=== PATIENT | female | born 1960 | race Two or more races ===

== ENCOUNTER 2020-05-29 19:14 | Inpatient (IN) | payer OTHER ==
[~2020-05-29] VITALS: Ht 167.6 cm; Wt 156.0 kg
[2020-05-29 19:20] VITALS: BP 164/78
--- NOTE | 2020-05-29 19:20 | NUR ---
ED Nurse Note: Pt VIRGEN from nursing facility, pt c/o 101/10 abdominal pain for 6 weeks, now with diarrhea and nausea. Pt is A&Ox4, VSS on room air. Pt's abdomen is distended, obese and redened. Pt can ambulate with assistance, pt is continent although wearing diapers due to diarrhea. Pt placed on telemetry monitor
[2020-05-29] MEDS ORDERED: Piperacillin/Tazobactam 3.375 GM in NS 110 ML IVPB ONE (19:45)
[2020-05-29 20:06] LABS: CALCIUM 7.5 MG/DL (8.5-10.1); CREATININE 3.6 MG/DL (0.55-1.30); POTASSIUM 5.4 MMOL/L (3.5-5.1)
[2020-05-29 20:11] LABS: ALBUMIN 2.4 G/DL (3.4-5.0); ALBUMIN/GLOBULIN RATIO 0.7 (1.0-2.7); BASOPHILS % (AUTO) 0.9 % (0.0-2.0); BILIRUBIN,TOTAL 0.3 MG/DL (0.2-1.0); EOSINOPHILS % (AUTO) 2.2 % (0.0-3.0); HEMATOCRIT 31.6 % (37.0-47.0); HEMOGLOBIN 9.4 G/DL (12.0-16.0); LYMPHOCYTES % (AUTO) 11.4 % (20.0-45.0); MEAN CORPUSCULAR VOLUME 87 FL (80-99); MONOCYTES % (AUTO) 6.5 % (1.0-10.0); NEUTROPHILS % (AUTO) 79.1 % (45.0-75.0); PLATELET COUNT 262 K/UL (150-450); RED BLOOD COUNT 3.62 M/UL (4.20-5.40); RED CELL DISTRIBUTION WIDTH 17.9 % (11.6-14.8); WHITE BLOOD COUNT 9.4 K/UL (4.8-10.8)
[2020-05-29 20:28] LABS: APPEARANCE,URINE CLEAR; BILIRUBIN, URINE NEGATIVE (NEGATIVE); COLOR,URINE PALE YELLOW; GLUCOSE, URINE (UA) 1+ (NEGATIVE); KETONES,URINE NEGATIVE (NEGATIVE); LEUKOCYTE ESTERASE ,URINE NEGATIVE (NEGATIVE); NITRITE,URINE NEGATIVE (NEGATIVE); PH,URINE 6.5 (4.5-8.0); PROTEIN,URINE 4+ (NEGATIVE); UROBILINOGEN,URINE NORMAL MG/DL (0.0-1.0)
--- NOTE | 2020-05-29 20:35 | NUR ---
ED Nurse Note: Pt to CT
--- NOTE | 2020-05-29 20:56 | NUR ---
ED Nurse Note: Pt back from CT
[2020-05-29] MEDS ORDERED: Morphine Sulfate 4mg/ml Inj (IV USE ONLY) IVP ONE ×2 (21:00→22:15)
--- NOTE | 2020-05-29 21:16 | NUR ---
ED Nurse Note: Pt Spo2 88% currently on room air, explained to Pt the importance of o2 therapy, pt refused at this time, states she "creates mucus and the o2 will freeze it" she reports she will call if she feels the need. ERMD aware
[2020-05-29 21:30] VITALS: BP 154/70
--- NOTE | 2020-05-29 21:30 | Diagnostic Imaging Report ---
EXAM: CT Abdomen and Pelvis Without Intravenous Contrast CLINICAL HISTORY: PAIN TECHNIQUE: Axial computed tomography images of the abdomen and pelvis without intravenous contrast. CTDI is 27.4 mGy and DLP is 1559.2 mGy-cm. One or more of the following dose reduction techniques were used: automated exposure control, adjustment of the mA and/or kV according to patient size, use of iterative reconstruction technique. COMPARISON: None. FINDINGS: Limitations: Exam is limited due to decreased resolution related to beam hardening artifact from large body habitus. Lung bases: Fullness of the central markings which may indicate vascular congestion. Bilateral lower lobe atelectasis. Right lower lobe nodules largest measuring 8.7 mm. Pleural space: Mild to moderate right-sided pleural effusion. Minimal left-sided effusion. Heart: Mild cardiomegaly. ABDOMEN: Liver: Unremarkable. Gallbladder and bile ducts: Unremarkable. No calcified stones. No ductal dilation. Pancreas: Unremarkable. No ductal dilation. Spleen: Unremarkable. No splenomegaly. Adrenals: Unremarkable. No mass. Kidneys and ureters: Mild nonspecific perinephric stranding. No obstructing stones. Stomach and bowel: Diverticulosis of the colon with no signs of diverticulitis. No obstruction. PELVIS: Appendix: No findings to suggest acute appendicitis. Bladder: Unremarkable. No stones. Reproductive: Unremarkable as visualized. ABDOMEN and PELVIS: Intraperitoneal space: Mild ascites predominantly seen along the anterior liver margin. No free air. Bones/joints: Advanced multilevel disc degenerative disease. No acute fracture. No dislocation. Soft tissues: Stranding/fluid infiltration of the subcutaneous fat suggestive of anasarca. Vasculature: Unremarkable. No abdominal aortic aneurysm. Lymph nodes: Unremarkable. No enlarged lymph nodes. IMPRESSION: 1. Right sided lung nodules, differential diagnosis including metastatic disease/neoplasm versus inflammatory process. Follow-up recommended with CT chest for further characterization. 2. Bilateral pleural effusions, more significant on the right. 3. Diffuse anasarca. Mild ascites. 4. Diverticulosis with no signs of diverticulitis. No bowel obstruction.
[2020-05-29] MEDS ORDERED: METOPROLOL TART25 MG ORAL (23:19)
[2020-05-29] MEDS ORDERED: CATAPRES0.1 MG ORAL (23:19)
[2020-05-29] MEDS ORDERED: FAMOTIDINE20 MG ORAL (23:19)
[2020-05-29] MEDS ORDERED: HYDRALAZINE HCL25 M1 ORAL (23:19)
[2020-05-29] MEDS ORDERED: FERROUS SULFAT325 M2 ORAL (23:19)
[2020-05-29] MEDS ORDERED: HYDROCHLOROTHIA50 MG ORAL (23:19)
[2020-05-29] MEDS ORDERED: SIMETHICONE80 MG ORAL (23:19)
[2020-05-29] MEDS ORDERED: ZOFRAN4 M3 ORAL (23:19)
[2020-05-29] MEDS ORDERED: LEXAPRO10 MG ORAL (23:19)
[2020-05-29] MEDS ORDERED: DOCUSATE SODIU100 MG ORAL (23:19)
[2020-05-29] MEDS ORDERED: IBUPROFEN600 M1 ORAL (23:19)
--- NOTE | 2020-05-29 23:45 | NUR ---
TRANSFER TO FLOOR: Patient transferred to as ordered, per DR Braga. Report given to RN. Belongings and medications given to . Family and or S/O informed of transfer.
--- NOTE | 2020-05-29 23:50 | NUR ---
CHARGE NURSE NOTE: Pt admitted from ER in stable condition. No acute distress noted. Vitals stable, Room air, Pt is awake, and alert. Pt admitted for abdominal pain. Pt has lower extremity weakness.Fall precaution initiated. Report received from ER Nurse GORDON Huynh. Report give to Primary nurse ALL Varma to continue care of the patient.
[2020-05-30] VITALS (7 sets, daily range): BP systolic 112–159; BP diastolic 46–85
[2020-05-30] MEDS ORDERED: ACETAMINOPHEN325 M1 ORAL (01:30)
[2020-05-30] MEDS ORDERED: INSU (01:30)
[2020-05-30] MEDS ORDERED: INSULIN LI100 UNIT/2 SQ (02:07)
[2020-05-30] MEDS ORDERED: METOPROLOL TART25 MG ORAL (02:20)
[2020-05-30] MEDS ORDERED: ZOFRAN4 M3 ORAL (02:27)
[2020-05-30] MEDS ORDERED: Simethicone 80mg tab ORAL PRN (04:00)
[2020-05-30] MEDS ORDERED: Morphine Sulfate 2mg/ml Inj(IV/IM USE ONLY) IVP PRN (04:15)
[2020-05-30] MEDS ORDERED: D5 1/2NS 1,000 ML IV SCH (04:15)
--- NOTE | 2020-05-30 05:44 | NUR ---
NURSE NOTES: ADMITTED 59 YEAR OLD FEMALE TO ROOM 407 BED 2 VIA GURNEY FROM EMERGENCY DEPARTMENT WITH DIAGNOSIS ABDOMINAL PAIN, UNDER THE CARE OF DR. Melvin BAER. PATIENT ALERT/ORIENTED X4, VERBALLY RESPONSIVE, IV INTACT TO LEFT AC/GAUGE 20, NO REDNESS/SWELLING NOTED TO SITE. NO SIGNS AND SYMPTOMS OF ACUTE CARDIO RESPIRATORY DISTRESS/SHORTNESS OF BREATH, DENIES CHEST PAIN, TRACE EDEMA NOTED TO BILATERAL LOWER EXTREMITIES/NON PITTED, ENCOURAGED ELEVATION, PATIENT STATED "I'M NOT ABLE TO ELEVATE MY LEGS BECAUSE OF MY STOMACH". ABDOMEN OBESE/FIRM, NOTED WITH HYPOACTIVE BOWEL SOUNDS, DENIES ABDOMINAL PAIN. ORIENTATED PATIENT TO ROOM/ENVIRONMENT. SIDE RAILS UP X3/BED IN LOWEST POSITIONED FOR SAFETY, ENCOURAGED PATIENT TO UTILIZE CALL LIGHT FOR ASSISTANCE, VERBALIZED UNDERSTANDING, NAD.
[2020-05-30] MEDS: NovoLOG Insulin Flexpen SUBQ SCH ×4 (06:06→21:00)
--- NOTE | 2020-05-30 07:30 | NUR ---
nurse notes Received patient resting comfortably in bed, patient awake, alert, oriented x4, no sign of distress, Denies chest pain bur complaining of abdominal pain, IVF on going left AC,patent and infusing well,NPO status, purewick on, voiding well, on fall precaution observed and maintained, kept clean dry and comfortable in bed , needs met and anticipated, will continue to monitor patient condition desire garcia
--- NOTE | 2020-05-30 07:30 | NUR ---
NURSE HAND-OFF: Important Events on Shift:[ADMISSION-LEFT MESSAGE FOR DR. BAER, NEED ORDER TO CHANGE ADMITTING DIAGNOSIS FROM CP/ACS TO ABDOMINAL PAIN, PLEASE FOLLOW UP] Patient Status: [STABLE] Diet: [NPO EXCEPT ICE CHIPS/MEDS] Pending Orders: [N/A] Pending Results/Labs:[] Pending MD notification:[] Latest Vital Signs: Temperature 98.7 , Pulse 62 , B/P 159 /61 , Respiratory Rate 20 , O2 SAT 93 , Room Air, O2 Flow Rate . Vital Sign Comment: [STABLE, AFEBRILE] Latest Bhagat Fall Score: 45 Fall Risk: High Risk Safety Measures: Call light Within Reach, Bed Alarm Zone 1, Side Rails Side Rails x3, Bed position . Fall Precautions: Yellow Socks Door Sign Patient Fall Education Report given to [TEORN].
--- NOTE | 2020-05-30 07:46 | NUR ---
NURSE NOTES: MRSA NARES/VRE RECTUM SCREENS SENT TO LAB-
--- NOTE | 2020-05-30 07:47 | NUR ---
NURSE HAND-OFF: Important Events on Shift:[ADMISSION, ALERT/ORIENTED X3] Patient Status: [STABLE] Diet: [NPO EXCEPT ICE CHIPS/MEDS] Pending Orders: AM LABS Pending Results/Labs:[] Pending MD notification:[] Latest Vital Signs: Temperature 98.7 , Pulse 62 , B/P 159 /61 , Respiratory Rate 20 , O2 SAT 93 , Room Air, O2 Flow Rate . Vital Sign Comment: [] Latest Bhagat Fall Score: 45 Fall Risk: High Risk Safety Measures: Call light Within Reach, Bed Alarm Zone 1, Side Rails Side Rails x3, Bed position . Fall Precautions: Yellow Socks Door Sign Patient Fall Education Report given to [].
[2020-05-30 08:14] LABS: BASOPHILS % (AUTO) 1.4 % (0.0-2.0); EOSINOPHILS % (AUTO) 1.2 % (0.0-3.0); HEMATOCRIT 32.5 % (37.0-47.0); HEMOGLOBIN 9.3 G/DL (12.0-16.0); LYMPHOCYTES % (AUTO) 11.8 % (20.0-45.0); MEAN CORPUSCULAR VOLUME 93 FL (80-99); MONOCYTES % (AUTO) 7.1 % (1.0-10.0); NEUTROPHILS % (AUTO) 78.5 % (45.0-75.0); PLATELET COUNT 253 K/UL (150-450); RED BLOOD COUNT 3.49 M/UL (4.20-5.40); RED CELL DISTRIBUTION WIDTH 17.2 % (11.6-14.8); WHITE BLOOD COUNT 6.8 K/UL (4.8-10.8)
[2020-05-30 08:30] LABS: CALCIUM 7.5 MG/DL (8.5-10.1); CREATININE 3.7 MG/DL (0.55-1.30); POTASSIUM 5.6 MMOL/L (3.5-5.1)
--- NOTE | 2020-05-30 08:48 | Consultation ---
History of Present Illness General Date patient seen: May 30, 2020 Chief Complaint: Abdominal Pain Present Illness Allergies: Coded Allergies: ACETAMINOPHEN (Verified Allergy, Unknown, 05/29/20) HYDROCODONE (Verified Allergy, Unknown, 05/29/20) Medication History Scheduled Clonidine Hcl* (Catapres*), 0.1 MG ORAL EVERY 6 HOURS, (Reported) Docusate Sodium* (Docusate Sodium*), 100 MG ORAL THREE TIMES A DAY, (Reported) Escitalopram Oxalate* (Lexapro*), 10 MG ORAL DAILY, (Reported) Famotidine* (Pepcid 20mg tablet*), 40 MG ORAL DAILY, (Reported) Hydralazine Hcl* (Hydralazine Hcl*), 25 MG ORAL TID, (Reported) Hydrochlorothiazide* (Hydrochlorothiazide*), 50 MG ORAL BID, (Reported) Insulin Lispro (Insulin Lispro Kwikpen U-100), 100 UNIT SQ BEFORE MEALS AND HS, (Reported) Ondansetron* (Zofran*), 4 MG ORAL Q4HR, (Reported) Scheduled PRN Acetaminophen* (Acetaminophen 325MG Tablet*), 325 MG ORAL Q6H PRN for Temp >100.5, (Reported) Ferrous Sulfate (Ferrous Sulfate), 325 MG ORAL BEFORE BREAKFAST PRN for , (Reported) Ibuprofen* (Motrin*), 600 MG ORAL Q8H PRN for FOR PAIN, (Reported) Metoprolol Tartrate* (Metoprolol Tartrate*), 25 MG ORAL BID PRN for , (Reported) Ondansetron* (Zofran*), 4 MG ORAL Q4H PRN for Nausea & Vomiting, (Reported) Simethicone* (Simethicone*), 80 MG ORAL Q8H PRN for GAS PAIN, (Reported) Miscellaneous Medications [Insu], (Reported) Patient History Healthcare decision maker Resuscitation status Advanced Directive on File Physical Exam Last 24 Hour Vital Signs Date Time Temp Pulse Resp B/P (MAP) Pulse Ox O2 Delivery O2 Flow Rate FiO2 05/30/20 04:00 98.7 62 20 159/61 (93) 93 05/30/20 00:30 98.1 63 20 154/63 (93) 93 05/30/20 00:15 Room Air 05/29/20 23:45 98.0 70 18 148/68 90 Room Air 05/29/20 21:32 98.8 05/29/20 21:30 98.0 72 18 154/70 88 Room Air 05/29/20 19:20 98.8 75 20 164/78 85 Room Air 05/29/20 19:20 62 20 Room Air 05/29/20 19:17 98.8 62 20 164/78 (106) 85 Room Air Intake and Output 05/29/20 05/30/20 19:00 07:00 Intake Total 120 ml Balance 120 ml Intake IV Total 120 ml # Voids 2 Laboratory Tests Test 05/29/20 19:35 05/29/20 20:00 05/30/20 05:30 05/30/20 07:50 White Blood Count 9.4 K/UL (4.8-10.8) 6.8 K/UL (4.8-10.8) Red Blood Count 3.62 M/UL (4.20-5.40) L 3.49 M/UL (4.20-5.40) L Hemoglobin 9.4 G/DL (12.0-16.0) L 9.3 G/DL (12.0-16.0) L Hematocrit 31.6 % (37.0-47.0) L 32.5 % (37.0-47.0) L Mean Corpuscular Volume 87 FL (80-99) 93 FL (80-99) Mean Corpuscular Hemoglobin 26.0 PG (27.0-31.0) L 26.6 PG (27.0-31.0) L Mean Corpuscular Hemoglobin Concent 29.8 G/DL (32.0-36.0) L 28.6 G/DL (32.0-36.0) L Red Cell Distribution Width 17.9 % (11.6-14.8) H 17.2 % (11.6-14.8) H Platelet Count 262 K/UL (150-450) 253 K/UL (150-450) Mean Platelet Volume 6.9 FL (6.5-10.1) 6.7 FL (6.5-10.1) Neutrophils (%) (Auto) 79.1 % (45.0-75.0) H 78.5 % (45.0-75.0) H Lymphocytes (%) (Auto) 11.4 % (20.0-45.0) L 11.8 % (20.0-45.0) L Monocytes (%) (Auto) 6.5 % (1.0-10.0) 7.1 % (1.0-10.0) Eosinophils (%) (Auto) 2.2 % (0.0-3.0) 1.2 % (0.0-3.0) Basophils (%) (Auto) 0.9 % (0.0-2.0) 1.4 % (0.0-2.0) Prothrombin Time 10.6 SEC (9.30-11.50) Prothromb Time International Ratio 1.0 (0.9-1.1) Activated Partial Thromboplast Time 24 SEC (23-33) Sodium Level 140 MMOL/L (136-145) 143 MMOL/L (136-145) Potassium Level 5.4 MMOL/L (3.5-5.1) H 5.6 MMOL/L (3.5-5.1) H Chloride Level 110 MMOL/L (98-107) H 113 MMOL/L (98-107) H Carbon Dioxide Level 23 MMOL/L (21-32) 24 MMOL/L (21-32) Anion Gap 7 mmol/L (5-15) 6 mmol/L (5-15) Blood Urea Nitrogen 41 mg/dL (7-18) H 42 mg/dL (7-18) H Creatinine 3.6 MG/DL (0.55-1.30) H 3.7 MG/DL (0.55-1.30) H Estimat Glomerular Filtration Rate 13.0 mL/min (>60) 12.6 mL/min (>60) Glucose Level 121 MG/DL (74-106) H 88 MG/DL (74-106) Calcium Level 7.5 MG/DL (8.5-10.1) L 7.5 MG/DL (8.5-10.1) L Total Bilirubin 0.3 MG/DL (0.2-1.0) Aspartate Amino Transf (AST/SGOT) 15 U/L (15-37) Alanine Aminotransferase (ALT/SGPT) 16 U/L (12-78) Alkaline Phosphatase 91 U/L (46-116) Total Protein 6.0 G/DL (6.4-8.2) L Albumin 2.4 G/DL (3.4-5.0) L Globulin 3.6 g/dL Albumin/Globulin Ratio 0.7 (1.0-2.7) L Lipase 107 U/L (73-393) Urine Color Pale yellow Urine Appearance Clear Urine pH 6.5 (4.5-8.0) Urine Specific [place] 1.010 (1.005-1.035) Urine Protein 4+ (NEGATIVE) H Urine Glucose (UA) 1+ (NEGATIVE) H Urine Ketones Negative (NEGATIVE) Urine Blood Negative (NEGATIVE) Urine Nitrite Negative (NEGATIVE) Urine Bilirubin Negative (NEGATIVE) Urine Urobilinogen Normal MG/DL (0.0-1.0) Urine Leukocyte Esterase Negative (NEGATIVE) Urine RBC 0-2 /HPF (0 - 2) Urine WBC 0-2 /HPF (0 - 2) Urine Squamous Epithelial Cells Few /LPF (NONE/OCC) Urine Bacteria Few /HPF (NONE) POC Whole Blood Glucose Pending Hemoglobin A1c Pending HIV (1&2) Antibody Rapid Pending Microbiology Date/Time Source Procedure Growth Status 05/30/20 07:00 Rectum Received Height (Feet): 5 Height (Inches): 6.00 Weight (Pounds): 338 Medications Current Medications Medications (Trade) Dose Ordered Sig/Alissa Route PRN Reason Start Time Stop Time Status Last Admin Dose Admin Clonidine HCl (Catapres Tab) 0.1 mg Q6H PRN ORAL For High Blood Pressure 05/30/20 04:30 08/28/20 04:29 Dextrose (Dextrose 50%) 25 ml Q30M PRN IV Hypoglycemia 05/30/20 04:30 08/28/20 04:29 Dextrose (Dextrose 50%) 50 ml Q30M PRN IV Hypoglycemia 05/30/20 04:30 08/28/20 04:29 Dextrose/Sodium Chloride 1,000 ml @ 60 mls/hr [id number] IV 05/30/20 04:15 06/29/20 04:14 05/30/20 05:00 Docusate Sodium (Colace) 100 mg THREE TIMES A DAY ORAL 05/30/20 09:00 06/29/20 08:59 Escitalopram Oxalate (Lexapro) 10 mg DAILY ORAL 05/30/20 09:00 06/29/20 08:59 Famotidine (Pepcid) 40 mg DAILY ORAL 05/30/20 09:00 08/28/20 08:59 Ferrous Sulfate (Feosol) 325 mg ACBREAKFAST ORAL 05/30/20 06:30 08/28/20 06:29 Heparin Sodium (Porcine) (Heparin 5000 units/ml) 5,000 units EVERY 12 HOURS SUBQ 05/30/20 09:00 07/14/20 08:59 Hydralazine HCl (Apresoline) 25 mg TID ORAL 05/30/20 09:00 08/28/20 08:59 Hydrochlorothiazide (Hydrodiuril) 50 mg BID ORAL 05/30/20 09:00 06/29/20 08:59 Ibuprofen (Motrin) 600 mg Q8H PRN ORAL FOR PAIN 05/30/20 04:00 06/29/20 03:59 Insulin Aspart (NovoLOG) BEFORE MEALS AND HS SUBQ 05/30/20 06:30 08/28/20 06:29 Metoprolol Tartrate (Lopressor) 25 mg BID ORAL 05/30/20 09:00 08/28/20 08:59 Morphine Sulfate (Morphine Sulfate) 2 mg Q4H PRN IVP Moderate Pain (Pain Scale 4-6) 05/30/20 04:15 06/06/20 04:14 Ondansetron HCl (Zofran) 4 mg Q6H PRN IVP Nausea & Vomiting 05/30/20 04:15 06/29/20 04:14 Simethicone (Mylicon) 80 mg Q8H PRN ORAL GAS PAIN 05/30/20 04:00 08/28/20 03:59 Assessment/Plan Assessment/Plan: (1) Abdominal pain (2) Morbid obesity (3) Multiple joint pain and OA seen dictated Elio Colon May 30, 2020 08:47
[2020-05-30] MEDS ORDERED: Morphine Sulfate 4mg/ml Inj (IV USE ONLY) IVP PRN (09:00)
[2020-05-30] MEDS ORDERED: hydroCHLOROthiazide 25mg cap ORAL SCH (09:00)
[2020-05-30] MEDS ORDERED: Naloxone 0.4mg/ml Inj IVP PRN (09:00)
[2020-05-30] MEDS: HydrALAZINE 25mg tab ORAL SCH ×3 (09:09→18:30)
[2020-05-30] MEDS: Docusate 100mg cap ORAL SCH ×3 (09:09→18:28)
[2020-05-30] MEDS: Heparin 5000 units/ml inj SUBQ SCH ×2 (09:22→21:00)
--- NOTE | 2020-05-30 10:00 | History and Physical Report ---
DATE OF ADMISSION: 05/29/2020 DATE AND TIME SEEN: 05/30/2020, approximate time is 8 a.m. CONSULTANTS: 1. Paul Díaz MD. 2. Juanito Kovacs MD. 3. Mohit Agudelo MD. CHIEF COMPLAINT: Abdominal pain, abdominal cellulitis, shortness of breath, edema. BRIEF HISTORY: This is a 59-year-old female from [place] [facility], presented with above-mentioned diagnoses. Currently slightly agitated, complained of general pain. No complaint otherwise. REVIEW OF SYSTEMS: No chest pain. Slight short of breath. No nausea, vomiting, or diarrhea. PAST MEDICAL HISTORY: Includes hypertension, edema, obesity. PAST SURGICAL HISTORY: Left ankle. ALLERGIES: Tylenol, hydrocodone. MEDICATIONS: Include metoprolol, heparin, hydrochlorothiazide, hydralazine, famotidine, insulin, clonidine, Zofran, morphine. SOCIAL HISTORY: No smoking. No alcohol. No intravenous drug abuse. FAMILY HISTORY: Noncontributory. OBJECTIVE: GENERAL: Agitated in bed, oriented x2, in slight distress and general pain. VITAL SIGNS: Temperature is 98 degrees, pulse 62, respirations 20, blood pressure 159/61. CARDIOVASCULAR: No murmur. LUNGS: Poor air exchange. ABDOMEN: Bowel sounds distant. EXTREMITIES: No cyanosis or clubbing. 2+ edema throughout. NEUROLOGIC: The patient moves all extremities, slightly weak. LABORATORY AND DIAGNOSTIC DATA: Laboratory at this time shows H and H of 9.3/32, otherwise CBC is normal. BMP show potassium 5.6, chloride 113, BUN and creatinine is 42/3.7. INR is 1.0. Urinalysis show 1+ glucose, 4+ protein. ASSESSMENT: 1. Abdominal pain. 2. Abdominal wall cellulitis. 3. Shortness of breath. 4. Edema. 5. Anemia. 6. Hypertension. 7. Obesity. 8. Renal failure. PLAN: 1. Pain control. 2. Blood pressure control. 3. Resume home medications. 4. We will add Pulmonary, Nephrology, and Cardiology evaluation. 5. We will continue to follow this patient. 6. PT and dietary evaluation. 7. CBC and BMP in the morning. Hernan Braga D.O. DR: ANURADHA JOB#: [id number] CC:
[2020-05-30 10:18] LABS: CHOLESTEROL 143 MG/DL (< 200); CREATINE KINASE 145 U/L (26-308); FERRITIN 91 NG/ML (8-388); GAMMA GLUTAMYL TRANSPEPTIDASE 11 U/L (5-85); HDL CHOLESTEROL 33 MG/DL (40-60); TRIGLYCERIDES 89 MG/DL (30-150)
--- NOTE | 2020-05-30 10:32 | Diagnostic Imaging Report ---
EXAM: US Retroperitoneal Limited, Renal CLINICAL HISTORY: RENAL-A TECHNIQUE: Real-time limited ultrasound of the retroperitoneum with image documentation. COMPARISON: No relevant prior studies available. FINDINGS: Inferior vena cava: Nonvisualized inferior vena cava. Right kidney: The right kidney measures 12.8 cm. No stones. No hydronephrosis. Left kidney: The left kidney measures 11.4 cm. No stones. No hydronephrosis. Bladder: The prevoid bladder volume is 101 mL. Postvoid residual was not assessed. IMPRESSION: No hydronephrosis or nephrolithiasis.
[2020-05-30 10:37] LABS: % IRON SATURATION 11 % (15-50); IRON 27 ug/dL (50-175); TOTAL IRON BINDING CAPACITY 244 ug/dL (250-450)
--- NOTE | 2020-05-30 10:50 | NUR ---
nurse notes seen by Dr Colon with order transfer to tele for further observatio desire garcia
--- NOTE | 2020-05-30 11:00 | NUR ---
PT EVALUATION NOTE Patient seen for initial evaluation and treatment initiated. Patient presents with generalized weakness and abdominal pain which impairs patient's ability to perform mobility skills safely. Patient requires min/mod assist for bed mobility. Patient declined transfers due to c/o dizziness. Patient states that she has been non-ambulatory x 6 weeks and transfers to wheelchair with assistance. Patient will benefit from skilled inpatient PT intervention to increase strength and postural stability for improved level of functional mobility. Recommend discharge to SNF. Addendum: 05/30/20 at 1212 by LINDSEY HENRY PT Amended: Links added.
--- NOTE | 2020-05-30 12:00 | NUR ---
nurse notes Transferred to telemetry via bed, with all belongings accounted for endorsed to Shaunna becker RN accordingly, desire garcia
--- NOTE | 2020-05-30 12:36 | Consultation ---
History of Present Illness General Date patient seen: May 30, 2020 Time patient seen: 12:28 Chief Complaint: Abdominal Pain Referring physician: Dr. Braga Reason for Consultation: R/o infection Present Illness HPI 59yo F w/ morbid obesity who presents from [facility] with abd pain and N/V, as well as cough for >1 mo. Pt denies any fevers/chills, but reports ongoing cough, SOB, abd pain, and intermittent N/V. Also with more swelling in abdomen and BLE, with leg pain. Reports overall feeling of heaviness. No CP. Pt born in [facility], lived in [facility] >[facility]years Resides at [facility], says 2-3 persons were taken away from the [facility] a few days ago for COVID No allergies to abx Allergies: Coded Allergies: ACETAMINOPHEN (Verified Allergy, Unknown, 05/29/20) HYDROCODONE (Verified Allergy, Unknown, 05/29/20) Medication History Scheduled Clonidine Hcl* (Catapres*), 0.1 MG ORAL EVERY 6 HOURS, (Reported) Docusate Sodium* (Docusate Sodium*), 100 MG ORAL THREE TIMES A DAY, (Reported) Escitalopram Oxalate* (Lexapro*), 10 MG ORAL DAILY, (Reported) Famotidine* (Pepcid 20mg tablet*), 40 MG ORAL DAILY, (Reported) Hydralazine Hcl* (Hydralazine Hcl*), 25 MG ORAL TID, (Reported) Hydrochlorothiazide* (Hydrochlorothiazide*), 50 MG ORAL BID, (Reported) Insulin Lispro (Insulin Lispro Kwikpen U-100), 100 UNIT SQ BEFORE MEALS AND HS, (Reported) Ondansetron* (Zofran*), 4 MG ORAL Q4HR, (Reported) Scheduled PRN Acetaminophen* (Acetaminophen 325MG Tablet*), 325 MG ORAL Q6H PRN for Temp >100.5, (Reported) Ferrous Sulfate (Ferrous Sulfate), 325 MG ORAL BEFORE BREAKFAST PRN for , (Reported) Ibuprofen* (Motrin*), 600 MG ORAL Q8H PRN for FOR PAIN, (Reported) Metoprolol Tartrate* (Metoprolol Tartrate*), 25 MG ORAL BID PRN for , (Reported) Ondansetron* (Zofran*), 4 MG ORAL Q4H PRN for Nausea & Vomiting, (Reported) Simethicone* (Simethicone*), 80 MG ORAL Q8H PRN for GAS PAIN, (Reported) Miscellaneous Medications [Insu], (Reported) Patient History Healthcare decision maker Resuscitation status Advanced Directive on File Review of Systems ROS Narrative 10-point ROS neg except as noted in HPI Physical Exam Physical Exam Narrative Gen: NAD in bed HEENT: NCAT, EOMI CV: RRR Pulm: CTAB Abd: Morbidly obese, NTND Ext: 2+ pitting edema, TTP Neuro: Easily falls asleep, otherwise interactive, moving all extremities Last 24 Hour Vital Signs Date Time Temp Pulse Resp B/P (MAP) Pulse Ox O2 Delivery O2 Flow Rate FiO2 05/30/20 12:17 97.5 55 16 132/55 (80) 93 05/30/20 09:25 Room Air 05/30/20 09:09 57 115/52 05/30/20 09:09 115/52 05/30/20 08:00 97.4 57 16 115/52 (73) 93 05/30/20 04:00 98.7 62 20 159/61 (93) 93 05/30/20 00:30 98.1 63 20 154/63 (93) 93 05/30/20 00:15 Room Air 05/29/20 23:45 98.0 70 18 148/68 90 Room Air 05/29/20 21:32 98.8 05/29/20 21:30 98.0 72 18 154/70 88 Room Air 05/29/20 19:20 98.8 75 20 164/78 85 Room Air 05/29/20 19:20 62 20 Room Air 05/29/20 19:17 98.8 62 20 164/78 (106) 85 Room Air Intake and Output 05/29/20 05/30/20 19:00 07:00 Intake Total 120 ml Balance 120 ml Intake IV Total 120 ml # Voids 2 Laboratory Tests Test 05/29/20 19:35 05/29/20 20:00 05/30/20 05:30 05/30/20 07:50 White Blood Count 9.4 K/UL (4.8-10.8) 6.8 K/UL (4.8-10.8) Red Blood Count 3.62 M/UL (4.20-5.40) L 3.49 M/UL (4.20-5.40) L Hemoglobin 9.4 G/DL (12.0-16.0) L 9.3 G/DL (12.0-16.0) L Hematocrit 31.6 % (37.0-47.0) L 32.5 % (37.0-47.0) L Mean Corpuscular Volume 87 FL (80-99) 93 FL (80-99) Mean Corpuscular Hemoglobin 26.0 PG (27.0-31.0) L 26.6 PG (27.0-31.0) L Mean Corpuscular Hemoglobin Concent 29.8 G/DL (32.0-36.0) L 28.6 G/DL (32.0-36.0) L Red Cell Distribution Width 17.9 % (11.6-14.8) H 17.2 % (11.6-14.8) H Platelet Count 262 K/UL (150-450) 253 K/UL (150-450) Mean Platelet Volume 6.9 FL (6.5-10.1) 6.7 FL (6.5-10.1) Neutrophils (%) (Auto) 79.1 % (45.0-75.0) H 78.5 % (45.0-75.0) H Lymphocytes (%) (Auto) 11.4 % (20.0-45.0) L 11.8 % (20.0-45.0) L Monocytes (%) (Auto) 6.5 % (1.0-10.0) 7.1 % (1.0-10.0) Eosinophils (%) (Auto) 2.2 % (0.0-3.0) 1.2 % (0.0-3.0) Basophils (%) (Auto) 0.9 % (0.0-2.0) 1.4 % (0.0-2.0) Prothrombin Time 10.6 SEC (9.30-11.50) Prothromb Time International Ratio 1.0 (0.9-1.1) Activated Partial Thromboplast Time 24 SEC (23-33) Sodium Level 140 MMOL/L (136-145) 143 MMOL/L (136-145) Potassium Level 5.4 MMOL/L (3.5-5.1) H 5.6 MMOL/L (3.5-5.1) H Chloride Level 110 MMOL/L (98-107) H 113 MMOL/L (98-107) H Carbon Dioxide Level 23 MMOL/L (21-32) 24 MMOL/L (21-32) Anion Gap 7 mmol/L (5-15) 6 mmol/L (5-15) Blood Urea Nitrogen 41 mg/dL (7-18) H 42 mg/dL (7-18) H Creatinine 3.6 MG/DL (0.55-1.30) H 3.7 MG/DL (0.55-1.30) H Estimat Glomerular Filtration Rate 13.0 mL/min (>60) 12.6 mL/min (>60) Glucose Level 121 MG/DL (74-106) H 88 MG/DL (74-106) Calcium Level 7.5 MG/DL (8.5-10.1) L 7.5 MG/DL (8.5-10.1) L Total Bilirubin 0.3 MG/DL (0.2-1.0) Aspartate Amino Transf (AST/SGOT) 15 U/L (15-37) Alanine Aminotransferase (ALT/SGPT) 16 U/L (12-78) Alkaline Phosphatase 91 U/L (46-116) Total Protein 6.0 G/DL (6.4-8.2) L Albumin 2.4 G/DL (3.4-5.0) L Globulin 3.6 g/dL Albumin/Globulin Ratio 0.7 (1.0-2.7) L Lipase 107 U/L (73-393) 118 U/L (73-393) Urine Color Pale yellow Urine Appearance Clear Urine pH 6.5 (4.5-8.0) Urine Specific [place] 1.010 (1.005-1.035) Urine Protein 4+ (NEGATIVE) H Urine Glucose (UA) 1+ (NEGATIVE) H Urine Ketones Negative (NEGATIVE) Urine Blood Negative (NEGATIVE) Urine Nitrite Negative (NEGATIVE) Urine Bilirubin Negative (NEGATIVE) Urine Urobilinogen Normal MG/DL (0.0-1.0) Urine Leukocyte Esterase Negative (NEGATIVE) Urine RBC 0-2 /HPF (0 - 2) Urine WBC 0-2 /HPF (0 - 2) Urine Squamous Epithelial Cells Few /LPF (NONE/OCC) Urine Bacteria Few /HPF (NONE) POC Whole Blood Glucose Pending Hemoglobin A1c 5.9 % (4.3-6.0) Uric Acid 8.2 MG/DL (2.6-7.2) H Phosphorus Level 6.0 MG/DL (2.5-4.9) H Magnesium Level 2.7 MG/DL (1.8-2.4) H Iron Level 27 ug/dL (50-175) L Total Iron Binding Capacity 244 ug/dL (250-450) L Percent Iron Saturation 11 % (15-50) L Unsaturated Iron Binding 217 ug/dL (112-346) Ferritin 91 NG/ML (8-388) Gamma Glutamyl Transpeptidase 11 U/L (5-85) Total Creatine Kinase 145 U/L (26-308) Troponin I 0.012 ng/mL (0.000-0.056) C-Reactive Protein, Quantitative 0.6 mg/dL (0.00-0.90) Triglycerides Level 89 MG/DL (30-150) Cholesterol Level 143 MG/DL (< 200) LDL Cholesterol 96 mg/dL (<100) HDL Cholesterol 33 MG/DL (40-60) L Cholesterol/HDL Ratio 4.3 (3.3-4.4) Vitamin B12 Level 302 PG/ML (193-986) Folate 16.3 NG/ML (8.6-58.9) Thyroid Stimulating Hormone (TSH) 2.579 uiU/mL (0.358-3.740) HIV (1&2) Antibody Rapid Negative (NEGATIVE) Test 05/30/20 10:15 05/30/20 12:10 Coccidioides Antibody (Comp Fix) Pending Histoplasma Mycelial Antibody Pending Histoplasma Antibody w Mycelial Ag Pending Histoplasma Antibody with Yeast Ag Pending TB Test (T-Spot) Pending TB Test Nil Control (T-Spot) Pending TB Test Panel A (T-Spot) Pending TB Test Panel B (T-Spot) Pending TB Test Positive Control (T-Spot) Pending Beta-(1,3)-D-Glucan Pending POC Whole Blood Glucose 92 MG/DL (74-106) Microbiology Date/Time Source Procedure Growth Status 05/30/20 07:00 Rectum Received Height (Feet): 5 Height (Inches): 6.00 Weight (Pounds): 338 Medications Current Medications Medications (Trade) Dose Ordered Sig/Alissa Route PRN Reason Start Time Stop Time Status Last Admin Dose Admin Clonidine HCl (Catapres Tab) 0.1 mg Q6H PRN ORAL For High Blood Pressure 05/30/20 04:30 08/28/20 04:29 Dextrose (Dextrose 50%) 25 ml Q30M PRN IV Hypoglycemia 05/30/20 04:30 08/28/20 04:29 Dextrose (Dextrose 50%) 50 ml Q30M PRN IV Hypoglycemia 05/30/20 04:30 08/28/20 04:29 Dextrose/Sodium Chloride 1,000 ml @ 60 mls/hr [id number] IV 05/30/20 04:15 06/29/20 04:14 05/30/20 05:00 Docusate Sodium (Colace) 100 mg THREE TIMES A DAY ORAL 05/30/20 09:00 06/29/20 08:59 05/30/20 09:09 Escitalopram Oxalate (Lexapro) 10 mg DAILY ORAL 05/30/20 09:00 06/29/20 08:59 05/30/20 09:08 Famotidine (Pepcid) 40 mg DAILY ORAL 05/30/20 09:00 08/28/20 08:59 05/30/20 09:09 Heparin Sodium (Porcine) (Heparin 5000 units/ml) 5,000 units EVERY 12 HOURS SUBQ 05/30/20 09:00 07/14/20 08:59 05/30/20 09:22 Hydralazine HCl (Apresoline) 25 mg TID ORAL 05/30/20 09:00 08/28/20 08:59 05/30/20 09:09 Hydrochlorothiazide (Hydrodiuril) 50 mg BID ORAL 05/30/20 09:00 06/29/20 08:59 05/30/20 09:07 Insulin Aspart (NovoLOG) BEFORE MEALS AND HS SUBQ 05/30/20 06:30 08/28/20 06:29 Metoprolol Tartrate (Lopressor) 25 mg BID ORAL 05/30/20 09:00 08/28/20 08:59 05/30/20 09:09 Morphine Sulfate (Morphine Sulfate) 2 mg Q4H PRN IVP Moderate Pain (Pain Scale 4-6) 05/30/20 04:15 06/06/20 04:14 05/30/20 09:07 Morphine Sulfate (Morphine Sulfate) 4 mg Q6H PRN IVP Severe Pain (Pain Scale 7-10) 05/30/20 09:00 06/06/20 08:59 Naloxone HCl (Narcan) 0.2 mg Q2M PRN IVP RR<8 05/30/20 09:00 08/28/20 08:59 Ondansetron HCl (Zofran) 4 mg Q6H PRN IVP Nausea & Vomiting 05/30/20 04:15 06/29/20 04:14 Simethicone (Mylicon) 80 mg Q8H PRN ORAL GAS PAIN 05/30/20 04:00 08/28/20 03:59 Assessment/Plan Assessment/Plan: 59yo F with: Afebrile Normal WBC Pulmonary nodules BL pleural effusions, R>L Cough, SOB Likely CHF, volume OL 05/29 CT A/P: 1. Right sided lung nodules, differential diagnosis including metastatic disease/neoplasm versus inflammatory process. Follow-up recommended with CT chest for further characterization. 2. Bilateral pleural effusions, more significant on the right. 3. Diffuse anasarca. Mild ascites. 4. Diverticulosis with no signs of diverticulitis. No bowel obstruction. Morbid obesity Plan: Cont to monitor off abx, no clear infectious process ID w/u for pulm nodules with: CT chest Resp cx Cocci Histo Ab Ab and Ag Crypto Ag Fungitell QuantGold HIV 05/29 SP Zosyn x1 in ED Monitor CBC/CMP Monitor resp status Monitor temp curve and hemodynamics D/w RN Thank you for this consult. [facility] will continue to follow. Leola Boyer M.D. May 30, 2020 12:36
--- NOTE | 2020-05-30 13:46 | Consultation ---
Consult Note Consult Note I am asked to evaluate the patient at the request of Dr. Braga for renal failure Data reviewed Labs ordered Patient is a 59-year-old female brought in by basic ambulance from facility for increased abdominal pain. Patient had gradually progressive pain over a long period time. She had been noted to have increased swelling and discomfort to the anterior abdomen. Had been increased swelling to her legs as well. 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 White count is 6.8, hemoglobin 9.3, hematocrit 32.5, platelet count 253,000. Her INR is 1. . . Assessment/Plan Renal failure most likely acute on chronic Presents with hyperkalemia Anemia Hypertension Pleural effusion Ejection fraction 55% No hydronephrosis and kidney ultrasound 4+ proteinuria, likely due to diabetic nephropathy Morbid obesity DC IV fluid and diuretics Keep the blood pressure in check Monitor renal parameters Monitor electrolytes Avoid nephrotoxic's 1 dose of Kayexalate Intravenous Venofer for low iron Per orders Darrian Stewart MD May 30, 2020 13:46
--- NOTE | 2020-05-30 13:46 | General Progress Note ---
Subjective ROS Limited/Unobtainable: No Allergies: Coded Allergies: ACETAMINOPHEN (Verified Allergy, Unknown, 05/29/20) HYDROCODONE (Verified Allergy, Unknown, 05/29/20) Objective Last 24 Hour Vital Signs Date Time Temp Pulse Resp B/P (MAP) Pulse Ox O2 Delivery O2 Flow Rate FiO2 05/30/20 13:40 157/85 05/30/20 13:00 97.7 53 16 157/85 (109) 93 05/30/20 12:17 97.5 55 16 132/55 (80) 05/30/20 09:25 Room Air 05/30/20 09:09 57 115/52 05/30/20 09:09 115/52 05/30/20 08:00 97.4 57 16 115/52 (73) 05/30/20 04:00 98.7 62 20 159/61 (93) 05/30/20 00:30 98.1 63 20 154/63 (93) 93 05/30/20 00:15 Room Air 05/29/20 23:45 98.0 70 18 148/68 90 Room Air 05/29/20 21:32 98.8 05/29/20 21:30 98.0 72 18 154/70 88 Room Air 05/29/20 19:20 98.8 75 20 164/78 85 Room Air 05/29/20 19:20 62 20 Room Air 05/29/20 19:17 98.8 62 20 164/78 (106) 85 Room Air Intake and Output 05/29/20 05/30/20 19:00 07:00 Intake Total 120 ml Balance 120 ml Intake IV Total 120 ml # Voids 2 Laboratory Tests 05/29/20 19:35: White Blood Count 9.4, Red Blood Count 3.62L, Hemoglobin 9.4L, Hematocrit 31.6L, Mean Corpuscular Volume 87, Mean Corpuscular Hemoglobin 26.0L, Mean Corpuscular Hemoglobin Concent 29.8L, Red Cell Distribution Width 17.9H, Platelet Count 262, Mean Platelet Volume 6.9, Neutrophils (%) (Auto) 79.1H, Lymphocytes (%) (Auto) 11.4L, Monocytes (%) (Auto) 6.5, Eosinophils (%) (Auto) 2.2, Basophils (%) (Auto) 0.9, Prothrombin Time 10.6, Prothromb Time International Ratio 1.0, Activated Partial Thromboplast Time 24, Sodium Level 140, Potassium Level 5.4H, Chloride Level 110H, Carbon Dioxide Level 23, Anion Gap 7, Blood Urea Nitrogen 41H, Creatinine 3.6H, Estimat Glomerular Filtration Rate 13.0, Glucose Level 121H, Calcium Level 7.5L, Total Bilirubin 0.3, Aspartate Amino Transf (AST/SGOT) 15, Alanine Aminotransferase (ALT/SGPT) 16, Alkaline Phosphatase 91, Total Protein 6.0L, Albumin 2.4L, Globulin 3.6, Albumin/Globulin Ratio 0.7L, Lipase 107 05/29/20 20:00: Urine Color Pale yellow, Urine Appearance Clear, Urine pH 6.5, Urine Specific [place] 1.010, Urine Protein 4+H, Urine Glucose (UA) 1+H, Urine Ketones Negative, Urine Blood Negative, Urine Nitrite Negative, Urine Bilirubin Negative, Urine Urobilinogen Normal, Urine Leukocyte Esterase Negative, Urine RBC 0-2, Urine WBC 0-2, Urine Squamous Epithelial Cells Few, Urine Bacteria Few 05/30/20 05:30: POC Whole Blood Glucose [Pending] 05/30/20 07:50: White Blood Count 6.8, Red Blood Count 3.49L, Hemoglobin 9.3L, Hematocrit 32.5L, Mean Corpuscular Volume 93, Mean Corpuscular Hemoglobin 26.6L, Mean Corpuscular Hemoglobin Concent 28.6L, Red Cell Distribution Width 17.2H, Platelet Count 253, Mean Platelet Volume 6.7, Neutrophils (%) (Auto) 78.5H, Lymphocytes (%) (Auto) 11.8L, Monocytes (%) (Auto) 7.1, Eosinophils (%) (Auto) 1.2, Basophils (%) (Auto) 1.4, Sodium Level 143, Potassium Level 5.6H, Chloride Level 113H, Carbon Dioxide Level 24, Anion Gap 6, Blood Urea Nitrogen 42H, Creatinine 3.7H, Estimat Glomerular Filtration Rate 12.6, Glucose Level 88, Calcium Level 7.5L, Lipase 118, Hemoglobin A1c 5.9, Uric Acid 8.2H, Phosphorus Level 6.0H, Magnesium Level 2.7H, Iron Level 27L, Total Iron Binding Capacity 244L, Percent Iron Saturation 11L, Unsaturated Iron Binding 217, Ferritin 91, Gamma Glutamyl Transpeptidase 11, Total Creatine Kinase 145, Troponin I 0.012, C-Reactive Protein, Quantitative 0.6, Triglycerides Level 89, Cholesterol Level 143, LDL Cholesterol 96, HDL Cholesterol 33L, Cholesterol/HDL Ratio 4.3, Vitamin B12 Level 302, Folate 16.3, Thyroid Stimulating Hormone (TSH) 2.579, HIV (1&2) Antibody Rapid Negative 05/30/20 10:15: Coccidioides Antibody (Comp Fix) [Pending], Histoplasma Mycelial Antibody [Pending], Histoplasma Antibody w Mycelial Ag [Pending], Histoplasma Antibody with Yeast Ag [Pending], TB Test (T-Spot) [Pending], TB Test Nil Control (T- Spot) [Pending], TB Test Panel A (T-Spot) [Pending], TB Test Panel B (T-Spot) [Pending], TB Test Positive Control (T-Spot) [Pending], Beta-(1,3)-D-Glucan [Pending] 05/30/20 12:10: POC Whole Blood Glucose 92 Height (Feet): 5 Height (Inches): 6.00 Weight (Pounds): 338 General Appearance: no apparent distress EENT: normal ENT inspection Neck: supple Cardiovascular: normal rate Respiratory/Chest: decreased breath sounds Abdomen: normal bowel sounds, non tender, soft Extremities: non-tender Assessment/Plan Assessment/Plan: iron def anemia abd pain RI morbid obesity anasarca/ascites diverticulosis CT reviewed IV iron stool ob repeat labs start clears and advance as tolerated abd us to eval for cirrhosis Paul Díaz MD May 30, 2020 13:46
--- NOTE | 2020-05-30 13:57 | Emergency Room Report ---
History of Present Illness General Chief Complaint: Abdominal Pain Source: Patient, Medical Record Present Illness HPI Patient is a 59-year-old female brought in by basic ambulance from facility for increased abdominal pain. Patient had gradually progressive pain over a long period time. She had been noted to have increased swelling and discomfort to the anterior abdomen. Had been increased swelling to her legs as well. Allergies: Coded Allergies: ACETAMINOPHEN (Verified Allergy, Unknown, 05/29/20) HYDROCODONE (Verified Allergy, Unknown, 05/29/20) COVID-19 Screening Contact w/high risk pt: No Experienced COVID-19 symptoms?: No COVID-19 Testing performed RECOVERY AUDITOR: No COVID-19 Screening: Negative COVID-19 Patient History Past Medical History: see triage record Now: No Reviewed Nursing Documentation: PMH: Agreed; PSxH: Agreed Nursing Documentation-PMH Past Medical History: No History, Except For Hx Cardiac Problems: Yes Hx Hypertension: Yes Hx Diabetes: Yes - TYPE 2 DIABETES MELLITUS Hx Gastrointestinal Problems: Yes Hx Neurological Problems: No Review of Systems All Other Systems: negative except mentioned in HPI Physical Exam Vital Signs Date Time Temp Pulse Resp B/P (MAP) Pulse Ox O2 Delivery O2 Flow Rate FiO2 05/29/20 19:17 98.8 62 20 164/78 (106) 85 Room Air General Appearance: GCS 15, obese, Chronically Ill Head: normocephalic ENT: normal ENT inspection Neck: full range of motion Respiratory: lungs clear Cardiovascular #1: edema - 4+ edema Gastrointestinal: other - Diffuse abdominal tenderness without guarding, overweight Musculoskeletal: back normal, swelling Neurologic: alert, oriented x3 Psychiatric: normal inspection Skin: other - Diffuse erythema to the pannus of the abdominal wall no discrete lesions Medical Decision Making Diagnostic Impression: Primary Impression: Abdominal wall cellulitis Additional Impression: Pleural effusion ER Course Patient presented for abdominal pain. Differential diagnosis include was not limited to cellulitis, allergic reaction, fecal impaction, appendicitis among others. Because of complexity of patient's case laboratory tests and imaging studies were ordered. Patient noted to have marked abdominal and lower extremity edema. Abdominal wall appears to be somewhat infected and patient was given IV antibiotics and pain medications. Patient's laboratory testing showed No leukocytosis with elevated BUN/creatinine consistent with renal disease. Dr. Hernan Braga was contacted for inpatient management. Last Vital Signs Date Time Temp Pulse Resp B/P (MAP) Pulse Ox O2 Delivery O2 Flow Rate FiO2 05/30/20 13:40 157/85 05/30/20 13:00 97.7 53 16 93 05/30/20 09:25 Room Air Status: unchanged Disposition: ADMITTED INPATIENT Condition: Stable Referrals: NOT CHOSEN IPA/,REFERRING (PCP) Prabhakar Arreola MD May 30, 2020 13:57
--- NOTE | 2020-05-30 14:36 | Consultation ---
History of Present Illness General Chief Complaint: Abdominal Pain Referring physician: Dr. Braga Reason for Consultation: R/o infection Present Illness Allergies: Coded Allergies: ACETAMINOPHEN (Verified Allergy, Unknown, 05/29/20) HYDROCODONE (Verified Allergy, Unknown, 05/29/20) Medication History Scheduled Clonidine Hcl* (Catapres*), 0.1 MG ORAL EVERY 6 HOURS, (Reported) Docusate Sodium* (Docusate Sodium*), 100 MG ORAL THREE TIMES A DAY, (Reported) Escitalopram Oxalate* (Lexapro*), 10 MG ORAL DAILY, (Reported) Famotidine* (Pepcid 20mg tablet*), 40 MG ORAL DAILY, (Reported) Hydralazine Hcl* (Hydralazine Hcl*), 25 MG ORAL TID, (Reported) Hydrochlorothiazide* (Hydrochlorothiazide*), 50 MG ORAL BID, (Reported) Insulin Lispro (Insulin Lispro Kwikpen U-100), 100 UNIT SQ BEFORE MEALS AND HS, (Reported) Ondansetron* (Zofran*), 4 MG ORAL Q4HR, (Reported) Scheduled PRN Acetaminophen* (Acetaminophen 325MG Tablet*), 325 MG ORAL Q6H PRN for Temp >100.5, (Reported) Ferrous Sulfate (Ferrous Sulfate), 325 MG ORAL BEFORE BREAKFAST PRN for , (Reported) Ibuprofen* (Motrin*), 600 MG ORAL Q8H PRN for FOR PAIN, (Reported) Metoprolol Tartrate* (Metoprolol Tartrate*), 25 MG ORAL BID PRN for , (Reported) Ondansetron* (Zofran*), 4 MG ORAL Q4H PRN for Nausea & Vomiting, (Reported) Simethicone* (Simethicone*), 80 MG ORAL Q8H PRN for GAS PAIN, (Reported) Miscellaneous Medications [Insu], (Reported) Patient History Healthcare decision maker Resuscitation status Advanced Directive on File Physical Exam Last 24 Hour Vital Signs Date Time Temp Pulse Resp B/P (MAP) Pulse Ox O2 Delivery O2 Flow Rate FiO2 05/30/20 13:40 157/85 05/30/20 13:00 97.7 53 16 157/85 (109) 93 05/30/20 12:17 97.5 55 16 132/55 (80) 93 11/20/20 09:25 Room Air 05/30/20 09:09 57 115/52 05/30/20 09:09 115/52 05/30/20 08:00 97.4 57 16 115/52 (73) 93 05/30/20 04:00 98.7 62 20 159/61 (93) 93 05/30/20 00:30 98.1 63 20 154/63 (93) 93 05/30/20 00:15 Room Air 05/29/20 23:45 98.0 70 18 148/68 90 Room Air 05/29/20 21:32 98.8 05/29/20 21:30 98.0 72 18 154/70 88 Room Air 05/29/20 19:20 98.8 75 20 164/78 85 Room Air 05/29/20 19:20 62 20 Room Air 05/29/20 19:17 98.8 62 20 164/78 (106) 85 Room Air Intake and Output 05/29/20 05/30/20 19:00 07:00 Intake Total 120 ml Balance 120 ml Intake IV Total 120 ml # Voids 2 Laboratory Tests Test 05/29/20 19:35 05/29/20 20:00 05/30/20 05:30 05/30/20 07:50 White Blood Count 9.4 K/UL (4.8-10.8) 6.8 K/UL (4.8-10.8) Red Blood Count 3.62 M/UL (4.20-5.40) L 3.49 M/UL (4.20-5.40) L Hemoglobin 9.4 G/DL (12.0-16.0) L 9.3 G/DL (12.0-16.0) L Hematocrit 31.6 % (37.0-47.0) L 32.5 % (37.0-47.0) L Mean Corpuscular Volume 87 FL (80-99) 93 FL (80-99) Mean Corpuscular Hemoglobin 26.0 PG (27.0-31.0) L 26.6 PG (27.0-31.0) L Mean Corpuscular Hemoglobin Concent 29.8 G/DL (32.0-36.0) L 28.6 G/DL (32.0-36.0) L Red Cell Distribution Width 17.9 % (11.6-14.8) H 17.2 % (11.6-14.8) H Platelet Count 262 K/UL (150-450) 253 K/UL (150-450) Mean Platelet Volume 6.9 FL (6.5-10.1) 6.7 FL (6.5-10.1) Neutrophils (%) (Auto) 79.1 % (45.0-75.0) H 78.5 % (45.0-75.0) H Lymphocytes (%) (Auto) 11.4 % (20.0-45.0) L 11.8 % (20.0-45.0) L Monocytes (%) (Auto) 6.5 % (1.0-10.0) 7.1 % (1.0-10.0) Eosinophils (%) (Auto) 2.2 % (0.0-3.0) 1.2 % (0.0-3.0) Basophils (%) (Auto) 0.9 % (0.0-2.0) 1.4 % (0.0-2.0) Prothrombin Time 10.6 SEC (9.30-11.50) Prothromb Time International Ratio 1.0 (0.9-1.1) Activated Partial Thromboplast Time 24 SEC (23-33) Sodium Level 140 MMOL/L (136-145) 143 MMOL/L (136-145) Potassium Level 5.4 MMOL/L (3.5-5.1) H 5.6 MMOL/L (3.5-5.1) H Chloride Level 110 MMOL/L (98-107) H 113 MMOL/L (98-107) H Carbon Dioxide Level 23 MMOL/L (21-32) 24 MMOL/L (21-32) Anion Gap 7 mmol/L (5-15) 6 mmol/L (5-15) Blood Urea Nitrogen 41 mg/dL (7-18) H 42 mg/dL (7-18) H Creatinine 3.6 MG/DL (0.55-1.30) H 3.7 MG/DL (0.55-1.30) H Estimat Glomerular Filtration Rate 13.0 mL/min (>60) 12.6 mL/min (>60) Glucose Level 121 MG/DL (74-106) H 88 MG/DL (74-106) Calcium Level 7.5 MG/DL (8.5-10.1) L 7.5 MG/DL (8.5-10.1) L Total Bilirubin 0.3 MG/DL (0.2-1.0) Aspartate Amino Transf (AST/SGOT) 15 U/L (15-37) Alanine Aminotransferase (ALT/SGPT) 16 U/L (12-78) Alkaline Phosphatase 91 U/L (46-116) Total Protein 6.0 G/DL (6.4-8.2) L Albumin 2.4 G/DL (3.4-5.0) L Globulin 3.6 g/dL Albumin/Globulin Ratio 0.7 (1.0-2.7) L Lipase 107 U/L (73-393) 118 U/L (73-393) Urine Color Pale yellow Urine Appearance Clear Urine pH 6.5 (4.5-8.0) Urine Specific [place] 1.010 (1.005-1.035) Urine Protein 4+ (NEGATIVE) H Urine Glucose (UA) 1+ (NEGATIVE) H Urine Ketones Negative (NEGATIVE) Urine Blood Negative (NEGATIVE) Urine Nitrite Negative (NEGATIVE) Urine Bilirubin Negative (NEGATIVE) Urine Urobilinogen Normal MG/DL (0.0-1.0) Urine Leukocyte Esterase Negative (NEGATIVE) Urine RBC 0-2 /HPF (0 - 2) Urine WBC 0-2 /HPF (0 - 2) Urine Squamous Epithelial Cells Few /LPF (NONE/OCC) Urine Bacteria Few /HPF (NONE) POC Whole Blood Glucose Pending Hemoglobin A1c 5.9 % (4.3-6.0) Uric Acid 8.2 MG/DL (2.6-7.2) H Phosphorus Level 6.0 MG/DL (2.5-4.9) H Magnesium Level 2.7 MG/DL (1.8-2.4) H Iron Level 27 ug/dL (50-175) L Total Iron Binding Capacity 244 ug/dL (250-450) L Percent Iron Saturation 11 % (15-50) L Unsaturated Iron Binding 217 ug/dL (112-346) Ferritin 91 NG/ML (8-388) Gamma Glutamyl Transpeptidase 11 U/L (5-85) Total Creatine Kinase 145 U/L (26-308) Troponin I 0.012 ng/mL (0.000-0.056) C-Reactive Protein, Quantitative 0.6 mg/dL (0.00-0.90) Triglycerides Level 89 MG/DL (30-150) Cholesterol Level 143 MG/DL (< 200) LDL Cholesterol 96 mg/dL (<100) HDL Cholesterol 33 MG/DL (40-60) L Cholesterol/HDL Ratio 4.3 (3.3-4.4) Vitamin B12 Level 302 PG/ML (193-986) Folate 16.3 NG/ML (8.6-58.9) Thyroid Stimulating Hormone (TSH) 2.579 uiU/mL (0.358-3.740) HIV (1&2) Antibody Rapid Negative (NEGATIVE) Test 05/30/20 10:15 05/30/20 12:10 Coccidioides Antibody (Comp Fix) Pending Histoplasma Mycelial Antibody Pending Histoplasma Antibody w Mycelial Ag Pending Histoplasma Antibody with Yeast Ag Pending TB Test (T-Spot) Pending TB Test Nil Control (T-Spot) Pending TB Test Panel A (T-Spot) Pending TB Test Panel B (T-Spot) Pending TB Test Positive Control (T-Spot) Pending Beta-(1,3)-D-Glucan Pending POC Whole Blood Glucose 92 MG/DL (74-106) Microbiology Date/Time Source Procedure Growth Status 05/30/20 12:15 Nasopharynx SARS-CoV-2 RdRp Gene Assay - Final Complete 05/30/20 07:00 Rectum Received Height (Feet): 5 Height (Inches): 6.00 Weight (Pounds): 338 Medications Current Medications Medications (Trade) Dose Ordered Sig/Alissa Route PRN Reason Start Time Stop Time Status Last Admin Dose Admin Clonidine HCl (Catapres Tab) 0.1 mg Q6H PRN ORAL For High Blood Pressure 05/30/20 04:30 08/28/20 04:29 Dextrose (Dextrose 50%) 25 ml Q30M PRN IV Hypoglycemia 05/30/20 04:30 08/28/20 04:29 Dextrose (Dextrose 50%) 50 ml Q30M PRN IV Hypoglycemia 05/30/20 04:30 08/28/20 04:29 Dextrose/Sodium Chloride 1,000 ml @ 60 mls/hr [id number] IV 05/30/20 04:15 06/29/20 04:14 05/30/20 05:00 Docusate Sodium (Colace) 100 mg THREE TIMES A DAY ORAL 05/30/20 09:00 06/29/20 08:59 05/30/20 13:40 Escitalopram Oxalate (Lexapro) 10 mg DAILY ORAL 05/30/20 09:00 06/29/20 08:59 05/30/20 09:08 Famotidine (Pepcid) 40 mg DAILY ORAL 05/30/20 09:00 08/28/20 08:59 05/30/20 09:09 Heparin Sodium (Porcine) (Heparin 5000 units/ml) 5,000 units EVERY 12 HOURS SUBQ 05/30/20 09:00 07/14/20 08:59 05/30/20 09:22 Hydralazine HCl (Apresoline) 25 mg TID ORAL 05/30/20 09:00 08/28/20 08:59 05/30/20 13:40 Hydrochlorothiazide (Hydrodiuril) 50 mg BID ORAL 05/30/20 09:00 06/29/20 08:59 05/30/20 09:07 Insulin Aspart (NovoLOG) BEFORE MEALS AND HS SUBQ 05/30/20 06:30 08/28/20 06:29 Iron Sucrose 100 mg/Sodium Chloride 60 ml @ 240 mls/hr BEDTIME IVPB 05/30/20 21:00 06/03/20 21:14 Metoprolol Tartrate (Lopressor) 25 mg BID ORAL 05/30/20 09:00 08/28/20 08:59 05/30/20 09:09 Morphine Sulfate (Morphine Sulfate) 2 mg Q4H PRN IVP Moderate Pain (Pain Scale 4-6) 05/30/20 04:15 06/06/20 04:14 05/30/20 09:07 Morphine Sulfate (Morphine Sulfate) 4 mg Q6H PRN IVP Severe Pain (Pain Scale 7-10) 05/30/20 09:00 06/06/20 08:59 05/30/20 13:41 Naloxone HCl (Narcan) 0.2 mg Q2M PRN IVP RR<8 05/30/20 09:00 08/28/20 08:59 Ondansetron HCl (Zofran) 4 mg Q6H PRN IVP Nausea & Vomiting 05/30/20 04:15 06/29/20 04:14 Simethicone (Mylicon) 80 mg Q8H PRN ORAL GAS PAIN 05/30/20 04:00 08/28/20 03:59 Eder Corral MD May 30, 2020 14:36
--- NOTE | 2020-05-30 14:58 | NUR ---
CASE MANAGEMENT:REVIEW 59 YR OLD FEMALE BIBA FROM [facility] CC: ABDOMINAL/CHEST PAIN SI: ABDOMINAL WALL CELLULITIS. PLEURAL EFFUSION 98.7 62 20 164/78 85% ON RA K+5.4 BUN+41 CR+3.6 IS: IV LASIX IV ZOSYN IV MORPHINE IV ZOFRAN CT ABD/PELVIS : TO MED/SURG 4EAST
--- NOTE | 2020-05-30 15:36 | NUR ---
[employer] MACHINE NOTE SW met w/ pt to discuss manager social responsibility concern/needs/screen suicide/abuse. PT presents as A &O4x and week. PT reports having hx of mental illness and that she takes medication. Pt declined to discuss further. Pt reports hx of suicidal thought. Pt denies having current SI at this time. SW encouraged pt to verbalize her needs/concerns and express her feelings as needed. Pt denies having any manager social responsibility concern/needs at this time. SW provided brief support. SW to F/U as needed. Addendum: 06/06/20 at 1219 by MELITA BRANCH Weak*
--- NOTE | 2020-05-30 16:23 | Cardiology Report ---
APPROVED REPORT EKG Measurement Heart [id number] <Conclusion> Normal sinus rhythm Low voltage QRS Borderline ECG
--- NOTE | 2020-05-30 16:30 | Consultation ---
DATE OF CONSULTATION: 05/30/2020 PAIN MANAGEMENT CONSULTATION CONSULTING PHYSICIAN: Mohit Agudelo MD. REFERRING PHYSICIAN: Hernan Braga DO. PHYSICIAN LEAVE COORDINATOR: WILIAM Villatoro. CHIEF COMPLAINT: Abdominal pain. HISTORY OF PRESENT ILLNESS: The patient is a 59-year-old female, who is being seen on the Med/Surg floor of [facility] for initial pain management consultation. The patient was admitted under the care of Dr. Braga due to abdominal pain waiting to be seen by skein straightener, which she reports has been for the past six weeks. It is a constant acute pain, rating at 10/10, describes the pain as stabbing pain, increasing with position and movement and is reduced with medication. She was given morphine 4 mg IV, two doses which had relieved her pain. She has a history of COVID-19 positive. Abdomen and pelvis CT was performed showing right-sided lung nodules, which is definitive diagnosis of metastatic disease versus neoplasm versus inflammatory process, bilateral pleural effusions ascites, diverticulosis. PAST MEDICAL HISTORY: Hypertension, asthma, GERD, morbid obesity, diabetes, depression, and anemia. PAST SURGICAL HISTORY: Left ankle surgery. SOCIAL HISTORY: She has a history of smoking tobacco. Denies alcohol and IV drug abuse. ALLERGIES: The patient claims [employer]. MEDICATIONS: Catapres, docusate, Lexapro, Pepcid, hydralazine, hydrochlorothiazide, insulin, Tylenol, ferrous sulfate, Motrin, metoprolol, Zofran, and simethicone. REVIEW OF SYSTEMS: Denies rash, fever, chills, sweating, dizziness, drowsiness, blurred vision, sore throat, or change in weight. No shortness of breath, chest pain, palpitations, or cough. No nausea, vomiting, diarrhea, or blood in stool or urine. No dysuria. PHYSICAL EXAMINATION: GENERAL: Alert, awake, and oriented. VITAL SIGNS: Blood pressure 159/61, heart rate 89, oxygen saturation is 98%, respiratory rate 20, temperature 98.2 degrees Fahrenheit. HEENT: PERRLA. NECK: Range of motion is decreased due to the patient's condition. LUNGS: Decreased breath sounds bilaterally. HEART: Regular. ABDOMEN: Obese. BACK: Range of motion is decreased in flexion and extension. EXTREMITIES: Upper and lower extremity range of motion is decreased due to the patient's condition No clubbing. Sensory is intact. Reflexes are not obtainable. No adenopathy. ASSESSMENT AND PLAN: This is a 59-year-old female with morbid obesity, abdominal pain, multiple joint osteoarthritis, and multiple joint pain. The patient will be continued on morphine 2 mg IV every four hours as needed for moderate pain and will be started on morphine 4 mg IV every six hours as needed for severe pain. We will add parameters to hold opioid for oversedation or lethargy or systolic blood pressure below 90 or diastolic blood pressure below 60, respiratory rate below 12, oxygen saturation below 92%, or heart rate below 69. The patient was discussed with Dr. Agudelo and he concurred. We will follow the patient. Thank you very much for the courtesy of this consultation. Mohit Agudelo M.D. WILIAM Villatoro DR: DRAKE JOB#: [id number] CC: BASHIR
--- NOTE | 2020-05-30 17:00 | NUR ---
NURSE NOTES: Called Dr. Bean regarding potassium 5.6.
--- NOTE | 2020-05-30 17:00 | Consultation ---
DATE OF CONSULTATION: 05/30/2020 CARDIOLOGY CONSULTATION CONSULTING PHYSICIAN: Shad Colon MD. REFERRING PHYSICIAN: Hernan Braga DO. REASON FOR CONSULTATION: Chest pain. HISTORY OF PRESENT ILLNESS: The patient is a 59-year-old lady with history of morbid obesity and abdominal cellulitis, [facility] in [facility] for generalized pain, especially chest pain and abdominal pain. The patient also has history of hypertension, edema, and history of surgery on the left ankle. The patient was admitted and Cardiology consultation was obtained for further evaluation. REVIEW OF SYSTEMS: Negative other than what was mentioned in history of present illness. PAST MEDICAL HISTORY: As mentioned above. FAMILY HISTORY: Noncontributory. SOCIAL HISTORY: She is a prison resident. Does not smoke or drink alcohol. PHYSICAL EXAMINATION: VITAL SIGNS: Blood pressure is 132/55, pulse 55, respirations 18, temperature 97.5. NECK: Shows no JVD. LUNGS: Clear. CARDIOVASCULAR: Shows regular S1 and S2 with no gallop. ABDOMEN: Morbidly obese. EXTREMITIES: 1+ pitting edema. LABORATORY DATA: Her labs show sodium 142, potassium 5.6, BUN of 42, creatinine 3.7, and glucose of 88. White count is 6.8, hemoglobin 9.3, hematocrit 32.5, platelet count 253,000. Her INR is 1. ASSESSMENT AND PLAN: 1. Bradycardia with heart rate in the 50s. Transfer the patient on telemetry. Maybe secondary to metoprolol that she is taking 25 mg twice a day. We will watch the patient closely. 2. Hypertension, on metoprolol 25 mg twice a day and hydralazine 25 mg three times a day as well as hydrochlorothiazide 50 mg twice a day. The patient is also on p.r.n. clonidine. 3. Chest pain. The pain is atypical. We will completely rule out ID protocol. We will get an echocardiogram for further evaluation. 4. Renal failure with creatinine of 3.7. Further evaluation by Nephrology. 5. Generalized pain. Follow up pain management. It is of note the patient's echocardiogram showed ejection fraction of 55%. Again, the patient will be transferred to telemetry for close monitoring. 6. Morbid obesity. Thank you very much for allowing me to participate in the care of this patient. Please do not hesitate to contact me for any questions regarding my evaluation. Shad Colon M.D. DR: PETE JOB#: [id number] CC:
--- NOTE | 2020-05-30 18:01 | Diagnostic Imaging Report ---
EXAM: US Abdomen Complete CLINICAL HISTORY: ABD PAIN TECHNIQUE: Real-time ultrasound of the abdomen with image documentation. COMPARISON: No relevant prior studies available. FINDINGS: Liver: Unremarkable. Gallbladder: Cholelithiasis. No evidence of acute cholecystitis. Common bile duct: CBD 3 mm. Pancreas: Pancreas obscured. Kidneys: Normal right kidney. Left kidney not imaged. Spleen: Spleen not imaged. Aorta: Unremarkable as visualized. Inferior vena cava: Unremarkable as visualized. Pleural space: Small right pleural effusion. IMPRESSION: Cholelithiasis. No evidence of acute cholecystitis.
--- NOTE | 2020-05-30 18:19 | Diagnostic Imaging Report ---
EXAM: CT Chest Without Intravenous Contrast CLINICAL HISTORY: COUGH TECHNIQUE: Axial computed tomography images of the chest without intravenous contrast. CTDI is 42.70 mGy and DLP is 1652.90 mGy-cm. One or more of the following dose reduction techniques were used: automated exposure control, adjustment of the mA and/or kV according to patient size, use of iterative reconstruction technique. COMPARISON: No relevant prior studies available. FINDINGS: Limitations: Limited due to motion. Lungs: Bilateral mild pulmonary edema/infiltrates. Bilateral scattered small nodular lung densities which may be neoplasm/metastasis, chronic, infection/inflammation, or other etiology. Followup as clinically indicated. Pleural space: Moderate right and small left pleural effusions. No pneumothorax. Heart: Cardiomegaly. Small pericardial effusion. Bones/joints: Unremarkable. No acute fracture. Soft tissues: Anasarca. Vasculature: Unremarkable. Lymph nodes: Unremarkable. Gallbladder and bile ducts: Cholelithiasis. IMPRESSION: 1. Moderate right and small left pleural effusions. 2. Bilateral mild pulmonary edema/infiltrates. 3. Bilateral scattered small nodular lung densities which may be neoplasm/metastasis, chronic, infection/inflammation, or other etiology. Followup as clinically indicated.
[2020-05-30] MEDS ORDERED: Metoclopramide 10mg/2ml Inj IVP PRN (18:30)
[2020-05-30] MEDS ORDERED: Sodium Polystyrene Sulfonate 15gm Powder ORAL SCH (18:30)
--- NOTE | 2020-05-30 18:40 | NUR ---
NURSE NOTES: Left a message for Dr. Colon regarding ventricular fibrillation. Awaiting response.
--- NOTE | 2020-05-30 19:05 | NUR ---
NURSE HAND-OFF REPORT: Important Events on Shift: NPO except meds Patient Status: stable condition, alert and oriented x3, responsive to verbal and tactile stimuli Diet: clear liquid diet Pending Orders: [] Pending Results/Labs:[] Pending MD notification:[] Latest Vital Signs: Temperature 98.1 , Pulse 58 , B/P 126 /62 , Respiratory Rate 18 , O2 SAT 95 , Room Air, O2 Flow Rate . Vital Sign Comment: [] EKG Rhythm: Sinus Bradycardia Rhythm change?: N MD Notified?: - MD Response: Latest Bhagat Fall Score: 45 Fall Risk: High Risk Safety Measures: Call light Within Reach, Bed Alarm Zone 2, Side Rails Side Rails x2, Bed position Low and Locked. Fall Precautions: Patient Fall Education Report given to Belen Simmons RN.
--- NOTE | 2020-05-30 19:30 | NUR ---
NURSE NOTES: Report received from Carlo LYEVA. Patient awake alert and oriented x3. No SOB. Patient appears drowsy and sleepy. Call light and bedside table within reach. Bed at lowest position locked with side rails up. school lunch monitor intact. Will continue with plan of care.
[2020-05-30] MEDS ORDERED: Iron Sucrose 200 MG in NS 110 ML IVPB SCH (21:00)
[2020-05-30] MEDS ORDERED: Iron Sucrose 100 MG in NS 55 ML IVPB SCH (21:00)
[2020-05-31] VITALS (11 sets, daily range): BP systolic 93–141; BP diastolic 30–66
[2020-05-31] MEDS: HydrALAZINE 25mg tab ORAL SCH ×2 (06:26)
[2020-05-31] MEDS: NovoLOG Insulin Flexpen SUBQ SCH ×4 (06:28→20:15)
--- NOTE | 2020-05-31 07:15 | NUR ---
NURSE NOTES: Received report from GORDON Glover. Patient in bed, asleep. Pt is alert and oriented x3. Breathing is even and unlabored with no signs of respiratory distress. Pt with L AC 20G patent and intact with no signs of infection or infiltration. Bed in lowest position, locked with side rails x2 up. Call light within reach.
[2020-05-31 08:01] LABS: HEMATOCRIT 37.1 % (37.0-47.0); HEMOGLOBIN 10.1 G/DL (12.0-16.0); MEAN CORPUSCULAR VOLUME 96 FL (80-99); PLATELET COUNT 293 K/UL (150-450); RED BLOOD COUNT 3.88 M/UL (4.20-5.40); RED CELL DISTRIBUTION WIDTH 17.8 % (11.6-14.8); WHITE BLOOD COUNT 8.2 K/UL (4.8-10.8)
--- NOTE | 2020-05-31 08:02 | NUR ---
HAND-OFF: Report given to Gloria, Endorsed plan of care. .
--- NOTE | 2020-05-31 08:04 | Infectious Diseases Prog Note ---
Assessment/Plan 59yo F with: Afebrile Normal WBC Pulmonary nodules BL pleural effusions, R>L Cough, SOB Likely CHF, volume OL 05/29 CT A/P: 1. Right sided lung nodules, differential diagnosis including metastatic disease/neoplasm versus inflammatory process. Follow-up recommended with CT chest for further characterization. 2. Bilateral pleural effusions, more significant on the right. 3. Diffuse anasarca. Mild ascites. 4. Diverticulosis with no signs of diverticulitis. No bowel obstruction. 05/30 CT chest: 1. Moderate right and small left pleural effusions. 2. Bilateral mild pulmonary edema/infiltrates. 3. Bilateral scattered small nodular lung densities which may be neoplasm/metastasis, chronic, infection/inflammation, or other etiology. Followup as clinically indicated. 05/30 COVID rapid neg Morbid obesity Plan: Cont to monitor off abx, no clear infectious process F/u ID w/u for pulm nodules with: Resp cx Cocci Histo Ab Ab and Ag Crypto Ag Fungitell QuantGold HIV 05/29 SP Zosyn x1 in ED Monitor CBC/CMP Monitor resp status Monitor temp curve and hemodynamics D/w RN Thank you for this consult. [facility] will continue to follow. Subjective Allergies: Coded Allergies: ACETAMINOPHEN (Verified Allergy, Unknown, 05/29/20) HYDROCODONE (Verified Allergy, Unknown, 05/29/20) AF Obtunded, snoring on NC ABG w/ severe hypercapnia WBC wnl at 8.2 Going to ICU Objective Last 24 Hour Vital Signs Date Time Temp Pulse Resp B/P (MAP) Pulse Ox O2 Delivery O2 Flow Rate FiO2 05/31/20 06:26 116/47 05/31/20 04:00 50 05/31/20 04:00 97.8 50 20 116/47 (70) 93 05/31/20 00:00 97.6 90 23 111/49 (69) 92 05/31/20 00:00 112/60 05/31/20 00:00 50 05/30/20 21:00 Room Air 05/30/20 20:00 61 05/30/20 20:00 97.6 61 22 112/55 (74) 91 05/30/20 18:30 126/62 05/30/20 18:00 58 118/46 05/30/20 16:00 58 05/30/20 16:00 98.1 62 18 118/46 (70) 95 05/30/20 14:11 97.7 05/30/20 13:40 157/85 05/30/20 13:00 97.7 53 16 157/85 (109) 93 05/30/20 13:00 54 05/30/20 12:17 97.5 55 16 132/55 (80) 93 05/30/20 09:25 Room Air 05/30/20 09:09 57 115/52 05/30/20 09:09 115/52 Height (Feet): 5 Height (Inches): 6.00 Weight (Pounds): 338 Gen: NAD in bed HEENT: NCAT, EOMI, PERRL CV: RRR Pulm: CTAB Abd: Soft, NTND, obese Ext: 2+ pitting edema of BLE Neuro: Obtunded Microbiology Date/Time Source Procedure Growth Status 05/30/20 12:15 Nasopharynx SARS-CoV-2 RdRp Gene Assay - Final Complete 05/30/20 07:00 Rectum Received Laboratory Tests Test 05/30/20 10:15 05/30/20 12:10 05/30/20 17:57 05/30/20 22:51 Coccidioides Antibody (Comp Fix) Pending Histoplasma Mycelial Antibody Pending Histoplasma Antibody w Mycelial Ag Pending Histoplasma Antibody with Yeast Ag Pending TB Test (T-Spot) Pending TB Test Nil Control (T-Spot) Pending TB Test Panel A (T-Spot) Pending TB Test Panel B (T-Spot) Pending TB Test Positive Control (T-Spot) Pending Beta-(1,3)-D-Glucan Pending POC Whole Blood Glucose 92 MG/DL (74-106) 123 MG/DL (74-106) H 147 MG/DL (74-106) H Test 05/31/20 06:28 05/31/20 07:45 POC Whole Blood Glucose 134 MG/DL (74-106) H White Blood Count Pending Red Blood Count Pending Hemoglobin Pending Hematocrit Pending Mean Corpuscular Volume Pending Mean Corpuscular Hemoglobin Pending Mean Corpuscular Hemoglobin Concent Pending Red Cell Distribution Width Pending Platelet Count Pending Mean Platelet Volume Pending Neutrophils (%) (Auto) Pending Lymphocytes (%) (Auto) Pending Monocytes (%) (Auto) Pending Eosinophils (%) (Auto) Pending Basophils (%) (Auto) Pending Sodium Level Pending Potassium Level Pending Chloride Level Pending Carbon Dioxide Level Pending Blood Urea Nitrogen Pending Creatinine Pending Estimat Glomerular Filtration Rate Pending Glucose Level Pending Uric Acid Pending Calcium Level Pending Phosphorus Level Pending Total Bilirubin Pending Gamma Glutamyl Transpeptidase Pending Aspartate Amino Transf (AST/SGOT) Pending Alanine Aminotransferase (ALT/SGPT) Pending Alkaline Phosphatase Pending Troponin I Pending Pro-B-Type Natriuretic Peptide Pending Total Protein Pending Albumin Pending Globulin Pending Amylase Level Pending Carcinoembryonic Antigen Pending Thyroid Stimulating Hormone (TSH) Pending Free Thyroxine Pending Current Medications Medications (Trade) Dose Ordered Sig/Alissa Route PRN Reason Start Time Stop Time Status Last Admin Dose Admin Clonidine HCl (Catapres Tab) 0.1 mg Q6H PRN ORAL For High Blood Pressure 05/30/20 04:30 08/28/20 04:29 Dextrose (Dextrose 50%) 25 ml Q30M PRN IV Hypoglycemia 05/30/20 04:30 08/28/20 04:29 Dextrose (Dextrose 50%) 50 ml Q30M PRN IV Hypoglycemia 05/30/20 04:30 08/28/20 04:29 Docusate Sodium (Colace) 100 mg THREE TIMES A DAY ORAL 05/30/20 09:00 06/29/20 08:59 05/30/20 18:28 Escitalopram Oxalate (Lexapro) 10 mg DAILY ORAL 05/30/20 09:00 06/29/20 08:59 05/30/20 09:08 Heparin Sodium (Porcine) (Heparin 5000 units/ml) 5,000 units EVERY 12 HOURS SUBQ 05/30/20 09:00 07/14/20 08:59 05/30/20 21:00 Hydralazine HCl (Apresoline) 25 mg Q6HR ORAL 05/30/20 18:30 08/28/20 18:29 05/31/20 06:26 Insulin Aspart (NovoLOG) BEFORE MEALS AND HS SUBQ 05/30/20 06:30 08/28/20 06:29 05/30/20 21:00 Iron Sucrose 100 mg/Sodium Chloride 60 ml @ 240 mls/hr BEDTIME IVPB 05/31/20 21:00 06/03/20 21:14 Metoclopramide HCl (Reglan) 5 mg Q6H PRN IVP Nausea & Vomiting 05/30/20 18:30 06/29/20 18:29 Metoprolol Tartrate (Lopressor) 25 mg BID ORAL 05/30/20 09:00 08/28/20 08:59 05/30/20 09:09 Morphine Sulfate (Morphine Sulfate) 2 mg Q4H PRN IVP Moderate Pain (Pain Scale 4-6) 05/30/20 04:15 06/06/20 04:14 05/30/20 09:07 Morphine Sulfate (Morphine Sulfate) 4 mg Q6H PRN IVP Severe Pain (Pain Scale 7-10) 05/30/20 09:00 06/06/20 08:59 05/30/20 13:41 Pantoprazole (Protonix) 40 mg BIAC ORAL 05/30/20 18:30 06/29/20 18:29 05/31/20 06:26 Simethicone (Mylicon) 80 mg Q8H PRN ORAL GAS PAIN 05/30/20 04:00 08/28/20 03:59 Leola Boyer M.D. May 31, 2020 08:04
[2020-05-31 08:19] LABS: PHOSPHORUS 8.5 MG/DL (2.5-4.9)
--- NOTE | 2020-05-31 08:19 | Diagnostic Imaging Report ---
EXAM: XR Chest, 1 View CLINICAL HISTORY: DYSPNEA TECHNIQUE: Frontal view of the chest. COMPARISON: Chest CT May 30, 2020 FINDINGS/IMPRESSION: Small bilateral pleural effusions with vascular congestion. Findings are consistent with fluid overload. See chest CT from yesterday. No pneumothorax. Cardiomegaly. Calcified aorta. Degenerative changes of the spine.
--- NOTE | 2020-05-31 08:28 | NUR ---
CASE MANAGEMENT:REVIEW 05/31/20 SI: BILATERAL PLEURAL EFFUSIONS PULMONARY NODULES. ASCITES 97.8 50 20 116/47 93% ON RA LABS CURRENTLY PENDING IS: IV VENOFER QHS PROTONIX PO BID LOPRESSOR PO BID HEPARIN SQ Q12 LEXAPRO PO QD : TELEMETRY STATUS DCP: FROM MARYNick MCKOY
[2020-05-31 08:42] LABS: ALBUMIN 2.6 G/DL (3.4-5.0); ALBUMIN/GLOBULIN RATIO 0.7 (1.0-2.7); BILIRUBIN,TOTAL 0.3 MG/DL (0.2-1.0); CALCIUM 7.6 MG/DL (8.5-10.1); CREATININE 4.2 MG/DL (0.55-1.30)
[2020-05-31 08:44] LABS: POTASSIUM 6.5 MMOL/L (3.5-5.1)
[2020-05-31] MEDS ORDERED: Sodium Polystyrene Sulfonate 15gm Powder ORAL SCH (09:00)
[2020-05-31] MEDS: Docusate 100mg cap ORAL SCH (09:13)
[2020-05-31] MEDS: Heparin 5000 units/ml inj SUBQ SCH ×2 (09:17→20:19)
--- NOTE | 2020-05-31 09:26 | NUR ---
NURSE NOTES: Dior inserted per Dr. Stewart order. Patient tolerated well.
--- NOTE | 2020-05-31 09:28 | Nephrology Progress Note ---
Assessment/Plan Problem List: (1) INGRIS (acute kidney injury) (2) Hyperkalemia (3) Morbid obesity with BMI of 50.0-59.9, adult (4) Anemia Assessment Renal failure most likely acute on chronic Presents with hyperkalemia Anemia Hypertension Pleural effusion Ejection fraction 55% No hydronephrosis and kidney ultrasound 4+ proteinuria, likely due to diabetic nephropathy Morbid obesity Plan May 31: Patient morbidly obese. Labs reviewed. Worsening renal parameters and hyperkalemia. Dior ordered. Kayexalate ordered. Stat ABG ordered. Patient n.p.o. Insertion of dialysis catheter and consent ordered. Patient may need to be transferred to ICU. Discussed with RN and nurse in charge of the floor. May 30: DC IV fluid and diuretics Keep the blood pressure in check Monitor renal parameters Monitor electrolytes Avoid nephrotoxic's 1 dose of Kayexalate Intravenous Venofer for low iron Per orders Subjective ROS Limited/Unobtainable: Yes Objective Objective Last 24 Hour Vital Signs Date Time Temp Pulse Resp B/P (MAP) Pulse Ox O2 Delivery O2 Flow Rate FiO2 05/31/20 08:00 96.3 56 18 139/66 (90) 97 05/31/20 06:26 116/47 05/31/20 04:00 50 05/31/20 04:00 97.8 50 20 116/47 (70) 93 05/31/20 00:00 97.6 90 23 111/49 (69) 92 05/31/20 00:00 112/60 05/31/20 00:00 50 05/30/20 21:00 Room Air 05/30/20 20:00 61 05/30/20 20:00 97.6 61 22 112/55 (74) 91 05/30/20 18:30 126/62 05/30/20 18:00 58 118/46 05/30/20 16:00 58 05/30/20 16:00 98.1 62 18 118/46 (70) 95 05/30/20 14:11 97.7 05/30/20 13:40 157/85 05/30/20 13:00 97.7 53 16 157/85 (109) 93 05/30/20 13:00 54 05/30/20 12:17 97.5 55 16 132/55 (80) 93 05/30/20 09:25 Room Air Intake and Output 05/30/20 05/31/20 19:00 07:00 Intake Total 360 ml Balance 360 ml Intake IV Total 360 ml # Voids 2 Current Medications Medications (Trade) Dose Ordered Sig/Alissa Route PRN Reason Start Time Stop Time Status Last Admin Dose Admin Albumin Human 100 ml @ 100 mls/hr ONCE ONCE IV 05/31/20 09:30 05/31/20 10:29 Clonidine HCl (Catapres Tab) 0.1 mg Q6H PRN ORAL For High Blood Pressure 05/30/20 04:30 08/28/20 04:29 Dextrose (Dextrose 50%) 25 ml Q30M PRN IV Hypoglycemia 05/30/20 04:30 08/28/20 04:29 Dextrose (Dextrose 50%) 50 ml Q30M PRN IV Hypoglycemia 05/30/20 04:30 08/28/20 04:29 Dextrose/Sodium Chloride 1,000 ml @ 50 mls/hr Q20H IV 05/31/20 09:30 06/30/20 09:29 Docusate Sodium (Colace) 100 mg THREE TIMES A DAY ORAL 05/30/20 09:00 06/29/20 08:59 05/30/20 18:28 Escitalopram Oxalate (Lexapro) 10 mg DAILY ORAL 05/30/20 09:00 06/29/20 08:59 05/30/20 09:08 Heparin Sodium (Porcine) (Heparin 5000 units/ml) 5,000 units EVERY 12 HOURS SUBQ 05/30/20 09:00 07/14/20 08:59 05/30/20 21:00 Hydralazine HCl (Apresoline) 10 mg Q6HR ORAL 05/31/20 12:00 08/28/20 18:29 UNV Insulin Aspart (NovoLOG) BEFORE MEALS AND HS SUBQ 05/30/20 06:30 08/28/20 06:29 05/30/20 21:00 Iron Sucrose 100 mg/Sodium Chloride 60 ml @ 240 mls/hr BEDTIME IVPB 05/31/20 21:00 06/03/20 21:14 Metoclopramide HCl (Reglan) 5 mg Q6H PRN IVP Nausea & Vomiting 05/30/20 18:30 06/29/20 18:29 Metoprolol Tartrate (Lopressor) 12.5 mg BID ORAL 06/01/20 09:00 08/28/20 08:59 UNV Morphine Sulfate (Morphine Sulfate) 2 mg Q4H PRN IVP Moderate Pain (Pain Scale 4-6) 05/30/20 04:15 06/06/20 04:14 05/30/20 09:07 Morphine Sulfate (Morphine Sulfate) 4 mg Q6H PRN IVP Severe Pain (Pain Scale 7-10) 05/30/20 09:00 06/06/20 08:59 05/30/20 13:41 Pantoprazole (Protonix) 40 mg BIAC ORAL 05/30/20 18:30 06/29/20 18:29 05/31/20 06:26 Sodium Polystyrene Sulfonate (Kayexalate) 45 gm ONCE ORAL 05/31/20 09:00 05/31/20 11:00 Laboratory Tests 05/30/20 10:15: Coccidioides Antibody (Comp Fix) [Pending], Histoplasma Mycelial Antibody [Pending], Histoplasma Antibody w Mycelial Ag [Pending], Histoplasma Antibody with Yeast Ag [Pending], TB Test (T-Spot) [Pending], TB Test Nil Control (T- Spot) [Pending], TB Test Panel A (T-Spot) [Pending], TB Test Panel B (T-Spot) [Pending], TB Test Positive Control (T-Spot) [Pending], Beta-(1,3)-D-Glucan [Pending] 05/30/20 12:10: POC Whole Blood Glucose 92 05/30/20 17:57: POC Whole Blood Glucose 123H 05/30/20 22:51: POC Whole Blood Glucose 147H 05/31/20 06:28: POC Whole Blood Glucose 134H 05/31/20 07:45: White Blood Count 8.2, Red Blood Count 3.88L, Hemoglobin 10.1L, Hematocrit 37.1, Mean Corpuscular Volume 96, Mean Corpuscular Hemoglobin 26.0L, Mean Corpuscular Hemoglobin Concent 27.2L, Red Cell Distribution Width 17.8H, Platelet Count 293, Mean Platelet Volume 6.9, Neutrophils (%) (Auto) , Lymphocytes (%) (Auto) , Monocytes (%) (Auto) , Eosinophils (%) (Auto) , Basophils (%) (Auto) , Neutrop hils % (Manual) [Pending], Lymphocytes % (Manual) [Pending], Platelet Estimate [Pending], Platelet Morphology [Pending], Sodium Level 140, Potassium Level 6.5*H, Chloride Level 109H, Carbon Dioxide Level 24, Anion Gap 7, Blood Urea Nitrogen 46H, Creatinine 4.2H, Estimat Glomerular Filtration Rate 10.8, Glucose Level 128H, Uric Acid 9.1H, Calcium Level 7.6L, Phosphorus Level 8.5H, Total Bilirubin 0.3, Gamma Glutamyl Transpeptidase 18, Aspartate Amino Transf (AST/SGOT) 14L, Alanine Aminotransferase (ALT/SGPT) 16, Alkaline Phosphatase 90, Troponin I 0.011, Pro-B-Type Natriuretic Peptide 51278Y, Total Protein 6.5, Albumin 2.6L, Globulin 3.9, Albumin/Globulin Ratio 0.7L, Amylase Level 62, Carcinoembryonic Antigen [Pending], Thyroid Stimulating Hormone (TSH) 1.108, Fr ee Thyroxine 0.95 Height (Feet): 5 Height (Inches): 6.00 Weight (Pounds): 338 General Appearance: lethargic, confused Cardiovascular: bradycardia Respiratory/Chest: decreased breath sounds Abdomen: distended Darrian Stewart MD May 31, 2020 09:28
[2020-05-31] MEDS: D5 1/2NS 1,000 ML IV SCH (09:36)
--- NOTE | 2020-05-31 10:01 | General Progress Note ---
Subjective Constitutional: Reports: weakness Respiratory: Reports: shortness of breath Allergies: Coded Allergies: ACETAMINOPHEN (Verified Allergy, Unknown, 05/29/20) HYDROCODONE (Verified Allergy, Unknown, 05/29/20) All Systems: reviewed and negative except above Subjective o2nc sleepy Objective Last 24 Hour Vital Signs Date Time Temp Pulse Resp B/P (MAP) Pulse Ox O2 Delivery O2 Flow Rate FiO2 05/31/20 08:00 96.3 56 18 139/66 (90) 97 05/31/20 06:26 116/47 05/31/20 04:00 50 05/31/20 04:00 97.8 50 20 116/47 (70) 93 05/31/20 00:00 97.6 90 23 111/49 (69) 92 05/31/20 00:00 112/60 05/31/20 00:00 50 05/30/20 21:00 Room Air 05/30/20 20:00 61 05/30/20 20:00 97.6 61 22 112/55 (74) 91 05/30/20 18:30 126/62 05/30/20 18:00 58 118/46 05/30/20 16:00 58 05/30/20 16:00 98.1 62 18 118/46 (70) 95 05/30/20 14:11 97.7 05/30/20 13:40 157/85 05/30/20 13:00 97.7 53 16 157/85 (109) 93 05/30/20 13:00 54 05/30/20 12:17 97.5 55 16 132/55 (80) 93 Intake and Output 05/30/20 05/31/20 19:00 07:00 Intake Total 360 ml Balance 360 ml Intake IV Total 360 ml # Voids 2 Laboratory Tests 05/30/20 10:15: Coccidioides Antibody (Comp Fix) [Pending], Histoplasma Mycelial Antibody [Pending], Histoplasma Antibody w Mycelial Ag [Pending], Histoplasma Antibody with Yeast Ag [Pending], TB Test (T-Spot) [Pending], TB Test Nil Control (T- Spot) [Pending], TB Test Panel A (T-Spot) [Pending], TB Test Panel B (T-Spot) [Pending], TB Test Positive Control (T-Spot) [Pending], Beta-(1,3)-D-Glucan [Pending] 05/30/20 12:10: POC Whole Blood Glucose 92 05/30/20 17:57: POC Whole Blood Glucose 123H 05/30/20 22:51: POC Whole Blood Glucose 147H 05/31/20 06:28: POC Whole Blood Glucose 134H 05/31/20 07:45: White Blood Count 8.2, Red Blood Count 3.88L, Hemoglobin 10.1L, Hematocrit 37.1, Mean Corpuscular Volume 96, Mean Corpuscular Hemoglobin 26.0L, Mean Corpuscular Hemoglobin Concent 27.2L, Red Cell Distribution Width 17.8H, Platelet Count 293, Mean Platelet Volume 6.9, Neutrophils (%) (Auto) , Lymphocytes (%) (Auto) , Monocytes (%) (Auto) , Eosinophils (%) (Auto) , Basophils (%) (Auto) , Neutrophils % (Manual) [Pending], Lymphocytes % (Manual) [Pending], Platelet Estimate [Pending], Platelet Morphology [Pending], Sodium Level 140, Potassium Level 6.5*H, Chloride Level 109H, Carbon Dioxide Level 24, Anion Gap 7, Blood Urea Nitrogen 46H, Creatinine 4.2H, Estimat Glomerular Filtration Rate 10.8, Glucose Level 128H, Uric Acid 9.1H, Calcium Level 7.6L, Phosphorus Level 8.5H, Total Bilirubin 0.3, Gamma Glutamyl Transpeptidase 18, Aspartate Amino Transf (AST/SGOT) 14L, Alanine Aminotransferase (ALT/SGPT) 16, Alkaline Phosphatase 90, Troponin I 0.011, Pro-B-Type Natriuretic Peptide 62683M, Total Protein 6.5, Albumin 2.6L, Globulin 3.9, Albumin/Globulin Ratio 0.7L, Amylase Level 62, Carcinoembryonic Antigen [Pending], Thyroid Stimulating Hormone (TSH) 1.108, Free Thyroxine 0.95 05/31/20 09:30: Histoplasma Antigen [Pending] Height (Feet): 5 Height (Inches): 6.00 Weight (Pounds): 338 General Appearance: lethargic EENT: normal ENT inspection Neck: normal alignment Cardiovascular: normal peripheral pulses, normal rate, regular rhythm Respiratory/Chest: chest wall non-tender, lungs clear, normal breath sounds Abdomen: normal bowel sounds Extremities: normal inspection Edema: 2+ Arm (L), 2+ Arm (R), 2+ Leg (L), 2+ Leg (R), 2+ Pedal (L), 2+ Pedal (R), 2+ Generalized Edema: mild edema Neurologic: motor weakness Skin: normal pigmentation, warm/dry Assessment/Plan Problem List: (1) SOB (shortness of breath) ICD Codes: R06.02 - Shortness of breath SNOMED: 276487133 (2) Abdominal pain ICD Codes: R10.9 - Unspecified abdominal pain SNOMED: 70968492 (3) Pleural effusion ICD Codes: J90 - Pleural effusion, not elsewhere classified SNOMED: 58615078 (4) Morbid obesity with BMI of 50.0-59.9, adult ICD Codes: E66.01 - Morbid (severe) obesity due to excess calories; Z68.43 - Body mass index [BMI] 50.0-59.9, adult SNOMED: 015719692, 396707749, [id number] (5) INGRIS (acute kidney injury) ICD Codes: N17.9 - Acute kidney failure, unspecified SNOMED: 5811072, 80132108 (6) Anemia ICD Codes: D64.9 - Anemia, unspecified SNOMED: 050215251 Status: unchanged Assessment/Plan: o2 pulm tx pain control gi f/u cbc bmp Hernan Cheng DO May 31, 2020 10:01
--- NOTE | 2020-05-31 11:15 | NUR ---
NURSE NOTES: Called Dr. Stewart to confirm if patient needed HD/cath to get orders for cath for Dr. Anderson to place. LM
--- NOTE | 2020-05-31 11:20 | NUR ---
NURSE NOTES: Spoke with sister of patient. Patient is confirmed to be a DNR/DNI with comfort measures only. Patient signed order herself. Per sister will honor DNI/DNR.
--- NOTE | 2020-05-31 11:30 | NUR ---
NURSE NOTES: Patient arrived in the unit via hospital bed. Report received from GORDON Castro. Belonging list checked. Patient is awake, alert, oriented x2-3. SB-SR on front desk monitor. Patient is on N/C 3L. O2 sat 97-98% Kept NPO as ordered. Abdomen large, distended. Dior in place draining to gravity. IV to left FA G20 patent and asymptomatic. D51/2NS is running at 50cc/hr. Bed in lowest position. Side rails up x3. Call light within reach. Will resume plan of care.
--- NOTE | 2020-05-31 11:30 | NUR ---
NURSE NOTES: Spoke to Dr. Barkley who arrived to intubate patient. Per DNR/DNI, will not proceed with intubation. Confirmed with family members will follow up
--- NOTE | 2020-05-31 11:30 | NUR ---
TRANSFER TO FLOOR: Patient transferred to ICU, per Dr. Stewart's order. Report given to Delphine Sanders/GORDON. Belongings and medications given to Receiving nurse. Family informed of transfer.
[2020-05-31] MEDS ORDERED: HydrALAZINE 10mg Tab ORAL SCH (12:00)
--- NOTE | 2020-05-31 12:18 | Consultation ---
History of Present Illness General Date patient seen: May 31, 2020 Reason for Hospitalization: Abdominal Pain Present Illness HPI 59 year old female with multiple medical comorbidities who is a care facility patient morbidly obese presented to [facility] with abd pain, abd pannus cellulitis, recently declining respiratory, acidosis, worsening renal function. surgery called to evaluate and assist with care. discussed care with nephrology who would require HD cath given her condition and worsening renal function. patient seen in ICU, chart reviewed, patient examined. she is awake and responsive but aaox1 Allergies: Coded Allergies: ACETAMINOPHEN (Verified Allergy, Unknown, 05/29/20) HYDROCODONE (Verified Allergy, Unknown, 05/29/20) COVID-19 Screening Contact w/high risk pt: No Experienced COVID-19 symptoms?: No Medication History Scheduled Clonidine Hcl* (Catapres*), 0.1 MG ORAL EVERY 6 HOURS, (Reported) Docusate Sodium* (Docusate Sodium*), 100 MG ORAL THREE TIMES A DAY, (Reported) Escitalopram Oxalate* (Lexapro*), 10 MG ORAL DAILY, (Reported) Famotidine* (Pepcid 20mg tablet*), 40 MG ORAL DAILY, (Reported) Hydralazine Hcl* (Hydralazine Hcl*), 25 MG ORAL TID, (Reported) Hydrochlorothiazide* (Hydrochlorothiazide*), 50 MG ORAL BID, (Reported) Insulin Lispro (Insulin Lispro Kwikpen U-100), 100 UNIT SQ BEFORE MEALS AND HS, (Reported) Ondansetron* (Zofran*), 4 MG ORAL Q4HR, (Reported) Scheduled PRN Acetaminophen* (Acetaminophen 325MG Tablet*), 325 MG ORAL Q6H PRN for Temp >100.5, (Reported) Ferrous Sulfate (Ferrous Sulfate), 325 MG ORAL BEFORE BREAKFAST PRN for , (Reported) Ibuprofen* (Motrin*), 600 MG ORAL Q8H PRN for FOR PAIN, (Reported) Metoprolol Tartrate* (Metoprolol Tartrate*), 25 MG ORAL BID PRN for , (Reported) Ondansetron* (Zofran*), 4 MG ORAL Q4H PRN for Nausea & Vomiting, (Reported) Simethicone* (Simethicone*), 80 MG ORAL Q8H PRN for GAS PAIN, (Reported) Miscellaneous Medications [Insu], (Reported) Patient History Limited by: medical condition History Provided By: Medical Record, PMD Healthcare decision maker Resuscitation status Advanced Directive on File Past Medical/Surgical History Past Medical/Surgical History: (1) Pleural effusion (2) Abdominal wall cellulitis (3) Hyperkalemia (4) INGRIS (acute kidney injury) (5) Morbid obesity with BMI of 50.0-59.9, adult (6) Anemia (7) SOB (shortness of breath) (8) Abdominal pain Review of Systems Review of Symptoms General ROS: no weight loss or fever Psychological ROS: no depression or mood changes, no memory loss Ophthalmic ROS: no visual changes or eye irritation ENT ROS: no nasal congestion, hearing loss, dizziness Allergy and Immunology ROS: no allergic symptoms or urticaria Hematological and Lymphatic ROS: no swollen glands, unusual bleeding or bruising Endocrine ROS: no polyuria, polydipsia, weight changes, temperature intolerance Respiratory ROS: no cough, shortness of breath, or wheezing Cardiovascular ROS: no chest pain or dyspnea on exertion Gastrointestinal ROS: denies abdominal pain, bright red blood in stool. Musculoskeletal ROS: no myalgias or arthralgias Neurological ROS: no TIA or stroke symptoms Dermatological ROS: no new or changing skin lesions, rashes or pruritis limited given medical condition mental status Physical Exam Physical Exam General appearance: alert, aaox1 no distress, appears stated age Head: Normocephalic, without obvious abnormality, atraumatic Eyes: conjunctivae/corneas clear. PERRL, EOM's intact. Fundi benign Throat: Lips, mucosa, and tongue normal. Teeth and gums normal Neck: supple, symmetrical, trachea midline, no adenopathy, thyroid: not enlarged, symmetric, no tenderness/mass/nodules, no carotid bruit and no JVD Lungs: dec to auscultation bilaterally Heart: regular rate and rhythm, S1, S2 normal, no murmur, click, rub or gallop Abdomen: soft, non-tender. edema anasarca, panniculitis Bowel sounds dec No masses, no organomegaly Extremities: extremities normal, atraumatic, no cyanosis or edema Pulses: 2+ and symmetric Skin: Skin color, texture, turgor normal. No rashes or lesions Neurologic: Grossly normal Last 24 Hour Vital Signs Date Time Temp Pulse Resp B/P (MAP) Pulse Ox O2 Delivery O2 Flow Rate FiO2 11/21/20 09:00 Room Air 05/31/20 08:00 96.3 56 18 139/66 (90) 97 05/31/20 08:00 58 05/31/20 06:26 116/47 05/31/20 04:00 50 05/31/20 04:00 97.8 50 20 116/47 (70) 93 05/31/20 00:00 97.6 90 23 111/49 (69) 92 05/31/20 00:00 112/60 05/31/20 00:00 50 05/30/20 21:00 Room Air 05/30/20 20:00 61 05/30/20 20:00 97.6 61 22 112/55 (74) 91 05/30/20 18:30 126/62 05/30/20 18:00 58 118/46 05/30/20 16:00 58 05/30/20 16:00 98.1 62 18 118/46 (70) 95 05/30/20 14:11 97.7 05/30/20 13:40 157/85 05/30/20 13:00 97.7 53 16 157/85 (109) 93 05/30/20 13:00 54 05/30/20 12:17 97.5 55 16 132/55 (80) 93 Intake and Output 05/30/20 05/31/20 19:00 07:00 Intake Total 360 ml Balance 360 ml Intake IV Total 360 ml # Voids 2 Laboratory Tests Test 05/30/20 12:10 05/30/20 17:57 05/30/20 22:51 05/31/20 06:28 POC Whole Blood Glucose 92 MG/DL (74-106) 123 MG/DL (74-106) H 147 MG/DL (74-106) H 134 MG/DL (74-106) H Test 05/31/20 07:45 05/31/20 09:30 05/31/20 10:42 White Blood Count 8.2 K/UL (4.8-10.8) Red Blood Count 3.88 M/UL (4.20-5.40) L Hemoglobin 10.1 G/DL (12.0-16.0) L Hematocrit 37.1 % (37.0-47.0) Mean Corpuscular Volume 96 FL (80-99) Mean Corpuscular Hemoglobin 26.0 PG (27.0-31.0) L Mean Corpuscular Hemoglobin Concent 27.2 G/DL (32.0-36.0) L Red Cell Distribution Width 17.8 % (11.6-14.8) H Platelet Count 293 K/UL (150-450) Mean Platelet Volume 6.9 FL (6.5-10.1) Neutrophils (%) (Auto) % (45.0-75.0) Lymphocytes (%) (Auto) % (20.0-45.0) Monocytes (%) (Auto) % (1.0-10.0) Eosinophils (%) (Auto) % (0.0-3.0) Basophils (%) (Auto) % (0.0-2.0) Differential Total Cells Counted 100 Neutrophils % (Manual) 85 % (45-75) H Lymphocytes % (Manual) 10 % (20-45) L Monocytes % (Manual) 5 % (1-10) Eosinophils % (Manual) 0 % (0-3) Basophils % (Manual) 0 % (0-2) Band Neutrophils 0 % (0-8) Platelet Estimate Adequate Platelet Morphology Normal Hypochromasia 1+ Anisocytosis 1+ Sodium Level 140 MMOL/L (136-145) Potassium Level 6.5 MMOL/L (3.5-5.1) *H Chloride Level 109 MMOL/L (98-107) H Carbon Dioxide Level 24 MMOL/L (21-32) Anion Gap 7 mmol/L (5-15) Blood Urea Nitrogen 46 mg/dL (7-18) H Creatinine 4.2 MG/DL (0.55-1.30) H Estimat Glomerular Filtration Rate 10.8 mL/min (>60) Glucose Level 128 MG/DL (74-106) H Uric Acid 9.1 MG/DL (2.6-7.2) H Calcium Level 7.6 MG/DL (8.5-10.1) L Phosphorus Level 8.5 MG/DL (2.5-4.9) H Total Bilirubin 0.3 MG/DL (0.2-1.0) Gamma Glutamyl Transpeptidase 18 U/L (5-85) Aspartate Amino Transf (AST/SGOT) 14 U/L (15-37) L Alanine Aminotransferase (ALT/SGPT) 16 U/L (12-78) Alkaline Phosphatase 90 U/L (46-116) Troponin I 0.011 ng/mL (0.000-0.056) Pro-B-Type Natriuretic Peptide 62772 pg/mL (0-125) H Total Protein 6.5 G/DL (6.4-8.2) Albumin 2.6 G/DL (3.4-5.0) L Globulin 3.9 g/dL Albumin/Globulin Ratio 0.7 (1.0-2.7) L Amylase Level 62 U/L (25-115) Carcinoembryonic Antigen Pending Thyroid Stimulating Hormone (TSH) 1.108 uiU/mL (0.358-3.740) Free Thyroxine 0.95 NG/DL (0.76-1.46) Histoplasma Antigen Pending Arterial Blood pH 7.080 (7.350-7.450) Arterial Blood Partial Pressure CO2 75.7 mmHg (35.0-45.0) *H Arterial Blood Partial Pressure O2 111.2 mmHg (75.0-100.0) H Arterial Blood HCO3 21.9 mmol/L (22.0-26.0) L Arterial Blood Oxygen Saturation 97.6 % (95-100) Arterial Blood Base Excess -8.5 (-2-2) L Doug Test Positive Microbiology Date/Time Source Procedure Growth Status 05/30/20 12:15 Nasopharynx SARS-CoV-2 RdRp Gene Assay - Final Complete Height (Feet): 5 Height (Inches): 6.00 Weight (Pounds): 338 Medications Current Medications Medications (Trade) Dose Ordered Sig/Alissa Route PRN Reason Start Time Stop Time Status Last Admin Dose Admin Clonidine HCl (Catapres Tab) 0.1 mg Q6H PRN ORAL For High Blood Pressure 05/30/20 04:30 08/28/20 04:29 Dextrose (Dextrose 50%) 25 ml Q30M PRN IV Hypoglycemia 05/30/20 04:30 08/28/20 04:29 Dextrose (Dextrose 50%) 50 ml Q30M PRN IV Hypoglycemia 05/30/20 04:30 08/28/20 04:29 Dextrose/Sodium Chloride 1,000 ml @ 50 mls/hr Q20H IV 05/31/20 09:30 06/30/20 09:29 05/31/20 09:36 Docusate Sodium (Colace) 100 mg THREE TIMES A DAY ORAL 05/30/20 09:00 06/29/20 08:59 05/31/20 09:13 Escitalopram Oxalate (Lexapro) 10 mg DAILY ORAL 05/30/20 09:00 06/29/20 08:59 05/31/20 09:13 Heparin Sodium (Porcine) (Heparin 5000 units/ml) 5,000 units EVERY 12 HOURS SUBQ 05/30/20 09:00 07/14/20 08:59 05/31/20 09:17 Hydralazine HCl (Apresoline) 10 mg Q6HR ORAL 05/31/20 12:00 08/28/20 18:29 Insulin Aspart (NovoLOG) BEFORE MEALS AND HS SUBQ 05/30/20 06:30 08/28/20 06:29 05/30/20 21:00 Iron Sucrose 100 mg/Sodium Chloride 60 ml @ 240 mls/hr BEDTIME IVPB 05/31/20 21:00 06/03/20 21:14 Metoclopramide HCl (Reglan) 5 mg Q6H PRN IVP Nausea & Vomiting 05/30/20 18:30 06/29/20 18:29 Metoprolol Tartrate (Lopressor) 12.5 mg Q12HR ORAL 06/01/20 09:00 08/30/20 08:59 Morphine Sulfate (Morphine Sulfate) 2 mg Q4H PRN IVP Moderate Pain (Pain Scale 4-6) 05/30/20 04:15 06/06/20 04:14 05/30/20 09:07 Morphine Sulfate (Morphine Sulfate) 4 mg Q6H PRN IVP Severe Pain (Pain Scale 7-10) 05/30/20 09:00 06/06/20 08:59 05/30/20 13:41 Pantoprazole (Protonix) 40 mg BIAC ORAL 05/30/20 18:30 06/29/20 18:29 05/31/20 06:26 Assessment/Plan Problem List: (1) Pleural effusion ICD Codes: J90 - Pleural effusion, not elsewhere classified SNOMED: 96495542 (2) Hyperkalemia ICD Codes: E87.5 - Hyperkalemia SNOMED: 02383570 (3) INGRIS (acute kidney injury) ICD Codes: N17.9 - Acute kidney failure, unspecified SNOMED: 2819808, 57740528 (4) Morbid obesity with BMI of 50.0-59.9, adult ICD Codes: E66.01 - Morbid (severe) obesity due to excess calories; Z68.43 - Body mass index [BMI] 50.0-59.9, adult SNOMED: 860424503, 930664906, 23948487026834 (5) Anemia ICD Codes: D64.9 - Anemia, unspecified SNOMED: 536305276 (6) SOB (shortness of breath) ICD Codes: R06.02 - Shortness of breath SNOMED: 383696684 (7) Abdominal pain ICD Codes: R10.9 - Unspecified abdominal pain SNOMED: 19043498 (8) Abdominal wall cellulitis Assessment & Plan: panniculitis anasarca cont abx dnr/dni comfort care confirmed care plan with patients daughter polst noted no acute surgical intervention acute renal insufficiency no HD, no cath insertion given patients and family wishes respiratory insufficiency acidosis no intubation given care plan thank you ABDOMEN: Liver: Unremarkable. Gallbladder and bile ducts: Unremarkable. No calcified stones. No ductal dilation. Pancreas: Unremarkable. No ductal dilation. Spleen: Unremarkable. No splenomegaly. Adrenals: Unremarkable. No mass. Kidneys and ureters: Mild nonspecific perinephric stranding. No obstructing stones. Stomach and bowel: Diverticulosis of the colon with no signs of diverticulitis. No obstruction. PELVIS: Appendix: No findings to suggest acute appendicitis. Bladder: Unremarkable. No stones. Reproductive: Unremarkable as visualized. ABDOMEN and PELVIS: Intraperitoneal space: Mild ascites predominantly seen along the anterior liver margin. No free air. Bones/joints: Advanced multilevel disc degenerative disease. No acute fracture. No dislocation. Soft tissues: Stranding/fluid infiltration of the subcutaneous fat suggestive of anasarca. Vasculature: Unremarkable. No abdominal aortic aneurysm. Lymph nodes: Unremarkable. No enlarged lymph nodes. IMPRESSION: 1. Right sided lung nodules, differential diagnosis including metastatic disease/neoplasm versus inflammatory process. Follow-up recommended with CT chest for further characterization. 2. Bilateral pleural effusions, more significant on the right. 3. Diffuse anasarca. Mild ascites. 4. Diverticulosis with no signs of diverticulitis. No bowel obstruction. ICD Codes: L03.311 - Cellulitis of abdominal wall SNOMED: 91588129 Sean Anderson May 31, 2020 12:18
--- NOTE | 2020-05-31 12:27 | General Progress Note ---
Progress Note Progress Note Pt was transferred to ICU b/o ALOC and poor ABG with respiratory acidosis. Pt has a POLST signed by herself requesting DNR and comfort care. Pt will be transferred out of ICU since there is an urgent need for ICU bed. I start her on BIPAP for now, and stop po meds or switch them to IV form. Eder Corral MD May 31, 2020 12:27
--- NOTE | 2020-05-31 12:30 | NUR ---
NURSE NOTES: Patient arrived in the unit via hospital bed. Report received from GORDON Castro. Belonging list checked. Patient is awake, alert, oriented x2-3. SB-SR on panel monitor. Patient is on N/C 3L. O2 sat 97-98% Kept NPO as ordered. Abdomen large, distended. Dior in place draining to gravity. IV to left FA G20 patent and asymptomatic. D51/2NS is running at 50cc/hr. Bed in lowest position. Side rails up x3. Call light within reach. Will resume plan of care. Addendum: 05/31/20 at 1348 by NATALIA OSBORN RN RN Wrong time
--- NOTE | 2020-05-31 12:45 | NUR ---
NURSE NOTES: Called Dr. Corral for MD orders for patient. BIPAP orders were given as well as pain meds for comfort care. Patient will be transferring to SDU per MD order. Will continue to monitor and carry out MD orders.
--- NOTE | 2020-05-31 13:10 | NUR ---
NURSE NOTES: RT applied Bi-pap 20, 30% on the patient. Patient removed B-pap and strongly refused Bi-pap. Risks explained to the patient. Patient stated that "I cannot breathe like this. I am so sorry". Placed N/C 3L back to patient. Notified RT.
--- NOTE | 2020-05-31 13:33 | NUR ---
INSURANCE CLINICALS/REVIEW FAXED TO [facility] Tele [phone] MANDI Ballard
--- NOTE | 2020-05-31 13:48 | NUR ---
NURSE NOTES: Patient is on N/C 3L. O2 sat 95-100%. Patient is sleeping, snoring in bed. SB 55-59 on playground monitor. Will continue to monitor.
--- NOTE | 2020-05-31 16:15 | NUR ---
TRANSFER TO FLOOR: Patient transferred to [facility]. Report given to GORDON Lee. Belongings and medications given to GORDON Lee. Informed family of transfer.
--- NOTE | 2020-05-31 16:26 | NUR ---
NURSE NOTES: Patient transferred from ICU 246-G; I received report from Delphine Sanders RN; Patient alert x3; on Nasal Cannula 3 liter; IV LAC D51/2NS 50cc running; patient refused BIPAP at ICU and canaled by MD Corral now; Dior in place; side rails up x2, breaks engaged, bed at lowest position, bed alarm on; call light within reach; patient is DNI, DNR; will keep monitoring.
--- NOTE | 2020-05-31 16:28 | General Progress Note ---
Subjective Allergies: Coded Allergies: ACETAMINOPHEN (Verified Allergy, Unknown, 05/29/20) HYDROCODONE (Verified Allergy, Unknown, 05/29/20) Subjective above noted patient just transferred to ICU d/w RN and surgery Objective Last 24 Hour Vital Signs Date Time Temp Pulse Resp B/P (MAP) Pulse Ox O2 Delivery O2 Flow Rate FiO2 05/31/20 15:00 62 15 93/30 (51) 97 05/31/20 14:00 66 15 93/30 (51) 95 05/31/20 13:00 58 14 113/46 (68) 99 05/31/20 12:21 59 05/31/20 12:00 56 16 141/64 (89) 99 05/31/20 12:00 Nasal Cannula 3.0 05/31/20 11:40 55 12 128/50 (76) 100 05/31/20 11:33 54 05/31/20 09:00 Room Air 05/31/20 08:00 96.3 56 18 139/66 (90) 97 05/31/20 08:00 58 05/31/20 06:26 116/47 05/31/20 04:00 50 05/31/20 04:00 97.8 50 20 116/47 (70) 93 05/31/20 00:00 97.6 90 23 111/49 (69) 92 05/31/20 00:00 112/60 05/31/20 00:00 50 05/30/20 21:00 Room Air 05/30/20 20:00 61 05/30/20 20:00 97.6 61 22 112/55 (74) 91 05/30/20 18:30 126/62 05/30/20 18:00 58 118/46 Intake and Output 05/30/20 05/31/20 19:00 07:00 Intake Total 360 ml Balance 360 ml Intake IV Total 360 ml # Voids 2 Laboratory Tests 05/30/20 17:57: POC Whole Blood Glucose 123H 05/30/20 22:51: POC Whole Blood Glucose 147H 05/31/20 06:28: POC Whole Blood Glucose 134H 05/31/20 07:45: White Blood Count 8.2, Red Blood Count 3.88L, Hemoglobin 10.1L, Hematocrit 37.1, Mean Corpuscular Volume 96, Mean Corpuscular Hemoglobin 26.0L, Mean Corpuscular Hemoglobin Concent 27.2L, Red Cell Distribution Width 17.8H, Platelet Count 293, Mean Platelet Volume 6.9, Neutrophils (%) (Auto) , Lymphocytes (%) (Auto) , Monocytes (%) (Auto) , Eosinophils (%) (Auto) , Basophils (%) (Auto) , Differential Total Cells Counted 100, Neutrophils % (Manual) 85H, Lymphocytes % (Manual) 10L, Monocytes % (Manual) 5, Eosinophils % (Manual) 0, Basophils % (Manual) 0, Band Neutrophils 0, Platelet Estimate Adequate, Platelet Morphology Normal, Hypochromasia 1+, Anisocytosis 1+, Sodium Level 140, Potassium Level 6.5*H, Chloride Level 109H, Carbon Dioxide Level 24, Anion Gap 7, Blood Urea Nitrogen 46H, Creatinine 4.2H, Estimat Glomerular Filtration Rate 10.8, Glucose Level 128H, Uric Acid 9.1H, Calcium Level 7.6L, Phosphorus Level 8.5H, Total Bilirubin 0.3, Gamma Glutamyl Transpeptidase 18, Aspartate Amino Transf (AST/SGOT) 14L, Alanine Aminotransferase (ALT/SGPT) 16, Alkaline Phosphatase 90, Troponin I 0.011, Pro-B-Type Natriuretic Peptide 67021E, Total Protein 6.5, Albumin 2.6L, Globulin 3.9, Albumin/Globulin Ratio 0.7L, Amylase Level 62, Carcinoembryonic Antigen [Pending], Thyroid Stimulating Hormone (TSH) 1.108, Free Thyroxine 0.95 05/31/20 09:30: Histoplasma Antigen [Pending] 05/31/20 10:42: Arterial Blood pH 7.080*L, Arterial Blood Partial Pressure CO2 75.7*H, Arterial Blood Partial Pressure O2 111.2H, Arterial Blood HCO3 21.9L, Arterial Blood Oxygen Saturation 97.6, Arterial Blood Base Excess -8.5L, Doug Test Positive Height (Feet): 5 Height (Inches): 6.00 Weight (Pounds): 338 Objective Obese woman in ICU NCAT supple coarse BS RR abd obese, TTP, erythematous with a large TTP indurated pannus (+) trace edema neuro nonfocal Assessment/Plan Status: unchanged Assessment/Plan: Assessment - Abdominal panniculitis - respiratory failure - Renal failure - central obesity - Diverticulosis - poor prognosis Recommendations - supportive care - abx per ID - follow abd exam - cautious po diet - renal f/u Shaheed Germain MD May 31, 2020 16:28
[2020-05-31] MEDS: ceFAZolin sod 1 GM in D5W 55 ML IVPB SCH (17:35)
--- NOTE | 2020-05-31 19:25 | NUR ---
NURSE NOTES: patient in bed, awake, alert x4 . No complaint of pain or discomfort noted. skin is warm and dry to touch. On nasal cannula 3 L, respiration is even. Iv site noted, iv fluid is infusing as ordered. Dior catheter noted, draining. bed in low and locked position. Provided safe environment. call light is at bedside. abdomen is soft and round. Will continue plan of care.
--- NOTE | 2020-05-31 19:26 | NUR ---
HAND-OFF: Report given to GORDON Arzola.
[2020-05-31] MEDS: Morphine Sulfate 4mg/ml Inj (IV USE ONLY) IVP PRN (20:17)
[2020-05-31] MEDS: Iron Sucrose 100 MG in NS 55 ML IVPB SCH (20:17)
--- NOTE | 2020-05-31 20:24 | NUR ---
NURSE NOTES: Given PRn pain medication for abdominal pain, will reassess. Call light is at bedside.
--- NOTE | 2020-05-31 21:38 | Cardiac Electrophysiology PN ---
Assessment/Plan Assessment/Plan 1. Bradycardia with heart rate in the 50s. Better with decreasing metoprolol to 12.5 bid 2. Hypertension, on metoprolol 12.5 mg twice a day and hydralazine 25 mg three times a day as well as hydrochlorothiazide 50 mg twice a day. The patient is also on p.r.n. clonidine. 3. Chest pain. The pain is atypical. Ruled out OH EF 55% on echocardiogram 4. Renal failure with creatinine of 4.2. Further evaluation by Nephrology. 5. Generalized pain. Follow up pain management. 6. Morbid obesity. Subjective Subjective complains of pain everywhere. Objective Last 24 Hour Vital Signs Date Time Temp Pulse Resp B/P (MAP) Pulse Ox O2 Delivery O2 Flow Rate FiO2 05/31/20 20:41 Room Air 05/31/20 20:00 97.1 61 20 115/55 (75) 92 05/31/20 16:34 97.2 60 18 140/51 (80) 99 05/31/20 16:00 64 15 93/30 (51) 98 05/31/20 16:00 Nasal Cannula 3.0 05/31/20 15:00 62 15 93/30 (51) 97 05/31/20 14:00 66 15 93/30 (51) 95 05/31/20 13:06 56 26 98 30 05/31/20 13:00 58 14 113/46 (68) 99 05/31/20 12:50 56 26 98 Bi-Pap 30 05/31/20 12:21 59 05/31/20 12:00 97.0 56 16 141/64 (89) 99 05/31/20 12:00 Nasal Cannula 3.0 05/31/20 11:40 55 12 128/50 (76) 100 05/31/20 11:33 54 05/31/20 09:00 Room Air 05/31/20 08:00 96.3 56 18 139/66 (90) 97 05/31/20 08:00 58 05/31/20 06:26 116/47 05/31/20 04:00 50 05/31/20 04:00 97.8 50 20 116/47 (70) 93 05/31/20 00:00 97.6 90 23 111/49 (69) 92 05/31/20 00:00 112/60 05/31/20 00:00 50 Intake and Output 05/30/20 05/31/20 19:00 07:00 Intake Total 360 ml Balance 360 ml Intake IV Total 360 ml # Voids 2 Laboratory Tests Test 05/30/20 22:51 05/31/20 06:28 05/31/20 07:45 05/31/20 09:30 POC Whole Blood Glucose 147 MG/DL (74-106) H 134 MG/DL (74-106) H White Blood Count 8.2 K/UL (4.8-10.8) Red Blood Count 3.88 M/UL (4.20-5.40) L Hemoglobin 10.1 G/DL (12.0-16.0) L Hematocrit 37.1 % (37.0-47.0) Mean Corpuscular Volume 96 FL (80-99) Mean Corpuscular Hemoglobin 26.0 PG (27.0-31.0) L Mean Corpuscular Hemoglobin Concent 27.2 G/DL (32.0-36.0) L Red Cell Distribution Width 17.8 % (11.6-14.8) H Platelet Count 293 K/UL (150-450) Mean Platelet Volume 6.9 FL (6.5-10.1) Neutrophils (%) (Auto) % (45.0-75.0) Lymphocytes (%) (Auto) % (20.0-45.0) Monocytes (%) (Auto) % (1.0-10.0) Eosinophils (%) (Auto) % (0.0-3.0) Basophils (%) (Auto) % (0.0-2.0) Differential Total Cells Counted 100 Neutrophils % (Manual) 85 % (45-75) H Lymphocytes % (Manual) 10 % (20-45) L Monocytes % (Manual) 5 % (1-10) Eosinophils % (Manual) 0 % (0-3) Basophils % (Manual) 0 % (0-2) Band Neutrophils 0 % (0-8) Platelet Estimate Adequate Platelet Morphology Normal Hypochromasia 1+ Anisocytosis 1+ Sodium Level 140 MMOL/L (136-145) Potassium Level 6.5 MMOL/L (3.5-5.1) *H Chloride Level 109 MMOL/L (98-107) H Carbon Dioxide Level 24 MMOL/L (21-32) Anion Gap 7 mmol/L (5-15) Blood Urea Nitrogen 46 mg/dL (7-18) H Creatinine 4.2 MG/DL (0.55-1.30) H Estimat Glomerular Filtration Rate 10.8 mL/min (>60) Glucose Level 128 MG/DL (74-106) H Uric Acid 9.1 MG/DL (2.6-7.2) H Calcium Level 7.6 MG/DL (8.5-10.1) L Phosphorus Level 8.5 MG/DL (2.5-4.9) H Total Bilirubin 0.3 MG/DL (0.2-1.0) Gamma Glutamyl Transpeptidase 18 U/L (5-85) Aspartate Amino Transf (AST/SGOT) 14 U/L (15-37) L Alanine Aminotransferase (ALT/SGPT) 16 U/L (12-78) Alkaline Phosphatase 90 U/L (46-116) Troponin I 0.011 ng/mL (0.000-0.056) Pro-B-Type Natriuretic Peptide 48210 pg/mL (0-125) H Total Protein 6.5 G/DL (6.4-8.2) Albumin 2.6 G/DL (3.4-5.0) L Globulin 3.9 g/dL Albumin/Globulin Ratio 0.7 (1.0-2.7) L Amylase Level 62 U/L (25-115) Carcinoembryonic Antigen Pending Thyroid Stimulating Hormone (TSH) 1.108 uiU/mL (0.358-3.740) Free Thyroxine 0.95 NG/DL (0.76-1.46) Histoplasma Antigen Pending Test 05/31/20 10:42 05/31/20 20:15 Arterial Blood pH 7.080 (7.350-7.450) Arterial Blood Partial Pressure CO2 75.7 mmHg (35.0-45.0) *H Arterial Blood Partial Pressure O2 111.2 mmHg (75.0-100.0) H Arterial Blood HCO3 21.9 mmol/L (22.0-26.0) L Arterial Blood Oxygen Saturation 97.6 % (95-100) Arterial Blood Base Excess -8.5 (-2-2) L Doug Test Positive POC Whole Blood Glucose Pending Microbiology Date/Time Source Procedure Growth Status 05/30/20 12:15 Nasopharynx SARS-CoV-2 RdRp Gene Assay - Final Complete 05/30/20 07:00 Rectum Received Objective NECK: Shows no JVD. LUNGS: Clear. CARDIOVASCULAR: Shows regular S1 and S2 with no gallop. ABDOMEN: Morbidly obese. EXTREMITIES: 1+ pitting edema. Shad Colon MD May 31, 2020 21:38
[2020-06-01] VITALS: BP 123/56
[2020-06-01 04:00] VITALS: BP 120/59
[2020-06-01] MEDS: NovoLOG Insulin Flexpen SUBQ SCH ×4 (05:57→20:32)
[2020-06-01] MEDS: D5 1/2NS 1,000 ML IV SCH (05:57)
[2020-06-01 06:57] LABS: HEMATOCRIT 34.7 % (37.0-47.0); HEMOGLOBIN 9.7 G/DL (12.0-16.0); MEAN CORPUSCULAR VOLUME 93 FL (80-99); PLATELET COUNT 224 K/UL (150-450); RED BLOOD COUNT 3.73 M/UL (4.20-5.40); RED CELL DISTRIBUTION WIDTH 17.6 % (11.6-14.8); WHITE BLOOD COUNT 12.5 K/UL (4.8-10.8)
[2020-06-01 07:00] LABS: CALCIUM 7.7 MG/DL (8.5-10.1); CREATININE 4.6 MG/DL (0.55-1.30); POTASSIUM 5.5 MMOL/L (3.5-5.1)
--- NOTE | 2020-06-01 07:00 | NUR ---
NURSE HAND-OFF: Important Events on Shift:WNL Patient Status: Diet: Pending Orders: Pending Results/Labs: Pending MD notification: Latest Vital Signs: Temperature 97.4 , Pulse 65 , B/P 120 /59 , Respiratory Rate 20 , O2 SAT 93 , Room Air, O2 Flow Rate 3.0 . Vital Sign Comment: Latest Bhagat Fall Score: 45 Fall Risk: High Risk Safety Measures: Call light Within Reach, Bed Alarm Zone 2, Side Rails Side Rails x2, Bed position Low and Locked. Fall Precautions: Patient Fall Education Report given to .
--- NOTE | 2020-06-01 07:05 | NUR ---
NURSE NOTES: Patient awake, alert x3; on Nasal Cannula 3 Liters; patient keeps taking the nasal cannula out, instructed not to take it out and patient teaching provided; no sing of chest pain; IV LFA fluid running; side rails up x2, breaks engaged, bed at lowest position; call light within reach; will keep monitoring.
[2020-06-01 08:00] VITALS: BP 165/85
[2020-06-01] MEDS: Metoprolol Tartrate 12.5mg TAB ORAL SCH ×2 (08:40→20:30)
[2020-06-01] MEDS: ceFAZolin sod 1 GM in D5W 55 ML IVPB SCH (08:40)
[2020-06-01] MEDS: Heparin 5000 units/ml inj SUBQ SCH ×2 (08:41→20:31)
--- NOTE | 2020-06-01 09:10 | NUR ---
NURSE NOTES: Oral suction provided, patient tolerated well;
--- NOTE | 2020-06-01 09:23 | NUR ---
CASE MANAGEMENT:REVIEW 06/01/20 SI: BILATERAL PLEURAL EFFUSIONS PULMONARY NODULES. ASCITES. INGRIS 97.5 73 19 165/85 97% ON RA WBC+12.5 K+5.5 BUN+50 CR+4.6 IS: IV ANCEF QD IV VENOFER QHS IVF@50/HR PROTONIX PO BID LOPRESSOR PO BID HEPARIN SQ Q12 : TELEMETRY STATUS DCP: FROM [facility]ARY [facility]CKOY PLAN: INSERTION OF DIALYSIS CATHETER ORDERED YET ~ NEED TO OBTAIN CONSENT Addendum: 06/01/20 at 0932 by PRANAV PAREKH LVN LVN 8CORRECTION PATIENT IS CURRENTLY ON 3L/NC
--- NOTE | 2020-06-01 10:36 | General Progress Note ---
Subjective Date patient seen: Jun 01, 2020 Time patient seen: 09:30 - am Allergies: Coded Allergies: ACETAMINOPHEN (Verified Allergy, Unknown, 05/29/20) HYDROCODONE (Verified Allergy, Unknown, 05/29/20) Subjective HISTORY OF PRESENT ILLNESS: The patient is a 59-year-old female, who is being seen on the Med/Surg floor of [facility]. Patient is in bed and showing no signs of pain or distress. Pain has been tolerated on the Morphine. No new complaints at this time. REVIEW OF SYSTEMS: Denies rash, fever, chills, sweating, dizziness, drowsiness, blurred vision, sore throat, or change in weight. No shortness of breath, chest pain, palpitations, or cough. No nausea, vomiting, diarrhea, or blood in stool or urine. No dysuria. Objective Last 24 Hour Vital Signs Date Time Temp Pulse Resp B/P (MAP) Pulse Ox O2 Delivery O2 Flow Rate FiO2 06/01/20 09:00 Room Air 06/01/20 08:40 73 165/85 06/01/20 08:00 97.5 73 19 165/85 (111) 97 06/01/20 04:00 97.4 65 20 120/59 (79) 93 06/01/20 00:00 97.4 68 22 123/56 (78) 91 05/31/20 20:41 Room Air 05/31/20 20:00 97.1 61 20 115/55 (75) 92 05/31/20 16:34 97.2 60 18 140/51 (80) 99 05/31/20 16:00 64 15 93/30 (51) 98 05/31/20 16:00 Nasal Cannula 3.0 05/31/20 15:00 62 15 93/30 (51) 97 05/31/20 14:00 66 15 93/30 (51) 95 05/31/20 13:06 56 26 98 30 05/31/20 13:00 58 14 113/46 (68) 99 05/31/20 12:50 56 26 98 Bi-Pap 30 05/31/20 12:21 59 05/31/20 12:00 97.0 56 16 141/64 (89) 99 05/31/20 12:00 Nasal Cannula 3.0 05/31/20 11:40 55 12 128/50 (76) 100 05/31/20 11:33 54 Intake and Output 05/31/20 06/01/20 19:00 07:00 Intake Total 435 ml 660 ml Output Total 20 ml Balance 415 ml 660 ml Intake IV Total 435 ml 660 ml Output Urine Total 20 ml Laboratory Tests 05/31/20 10:42: Arterial Blood pH 7.080*L, Arterial Blood Partial Pressure CO2 75.7*H, Arterial Blood Partial Pressure O2 111.2H, Arterial Blood HCO3 21.9L, Arterial Blood Oxygen Saturation 97.6, Arterial Blood Base Excess -8.5L, Doug Test Positive 05/31/20 13:38: POC Whole Blood Glucose 100 05/31/20 20:15: POC Whole Blood Glucose [Pending] 06/01/20 05:17: POC Whole Blood Glucose 106 06/01/20 05:45: White Blood Count 12.5#H, Red Blood Count 3.73L, Hemoglobin 9.7L, Hematocrit 34.7L, Mean Corpuscular Volume 93, Mean Corpuscular Hemoglobin 26.0L, Mean Corpuscular Hemoglobin Concent 28.0L, Red Cell Distribution Width 17.6H, Platelet Count 224, Mean Platelet Volume 7.0, Neutrophils (%) (Auto) , Lymphocytes (%) (Auto) , Monocytes (%) (Auto) , Eosinophils (%) (Auto) , Basophils (%) (Auto) , Differential Total Cells Counted 100, Neutrophils % (Manual) 90H, Lymphocytes % (Manual) 2L, Monocytes % (Manual) 8, Eosinophils % (Manual) 0, Basophils % (Manual) 0, Band Neutrophils 0, Platelet Estimate Adequate, Platelet Morphology Normal, Hypochromasia 1+, Anisocytosis 2+, Sodium Level 142, Potassium Level 5.5H, Chloride Level 110H, Carbon Dioxide Level 23, Anion Gap 9, Blood Urea Nitrogen 50H, Creatinine 4.6H, Estimat Glomerular Filtration Rate 9.8, Glucose Level 110H, Calcium Level 7.7L Height (Feet): 5 Height (Inches): 6.00 Weight (Pounds): 338 Objective PHYSICAL EXAMINATION: NECK: Range of motion is decreased due to the patient's condition. LUNGS: Decreased breath sounds bilaterally. HEART: Regular. ABDOMEN: Obese. EXTREMITIES: No clubbing. NEURO: No changes. Assessment/Plan Assessment/Plan: (1) Abdominal pain (2) Morbid obesity (3) Multiple joint pain and OA Patient to be continued on Morphine as needed. D/w Dr. Agudelo and he concurred. Elio Colon Jun 01, 2020 10:36
--- NOTE | 2020-06-01 11:22 | NUR ---
NURSE NOTES: Oral suction provided; patient tolerated well;
--- NOTE | 2020-06-01 11:40 | General Progress Note ---
Subjective ROS Limited/Unobtainable: Yes Allergies: Coded Allergies: ACETAMINOPHEN (Verified Allergy, Unknown, 05/29/20) HYDROCODONE (Verified Allergy, Unknown, 05/29/20) Objective Last 24 Hour Vital Signs Date Time Temp Pulse Resp B/P (MAP) Pulse Ox O2 Delivery O2 Flow Rate FiO2 06/01/20 09:00 Room Air 06/01/20 08:40 73 165/85 06/01/20 08:00 97.5 73 19 165/85 (111) 97 06/01/20 04:00 97.4 65 20 120/59 (79) 93 06/01/20 00:00 97.4 68 22 123/56 (78) 91 05/31/20 20:41 Room Air 05/31/20 20:00 97.1 61 20 115/55 (75) 92 05/31/20 16:34 97.2 60 18 140/51 (80) 99 05/31/20 16:00 64 15 93/30 (51) 98 05/31/20 16:00 Nasal Cannula 3.0 05/31/20 15:00 62 15 93/30 (51) 97 05/31/20 14:00 66 15 93/30 (51) 95 05/31/20 13:06 56 26 98 30 05/31/20 13:00 58 14 113/46 (68) 99 05/31/20 12:50 56 26 98 Bi-Pap 30 05/31/20 12:21 59 05/31/20 12:00 97.0 56 16 141/64 (89) 99 05/31/20 12:00 Nasal Cannula 3.0 05/31/20 11:40 55 12 128/50 (76) 100 Intake and Output 05/31/20 06/01/20 19:00 07:00 Intake Total 435 ml 660 ml Output Total 20 ml Balance 415 ml 660 ml Intake IV Total 435 ml 660 ml Output Urine Total 20 ml Laboratory Tests 05/31/20 13:38: POC Whole Blood Glucose 100 05/31/20 20:15: POC Whole Blood Glucose [Pending] 06/01/20 05:17: POC Whole Blood Glucose 106 06/01/20 05:45: White Blood Count 12.5#H, Red Blood Count 3.73L, Hemoglobin 9.7L, Hematocrit 34.7L, Mean Corpuscular Volume 93, Mean Corpuscular Hemoglobin 26.0L, Mean Corpuscular Hemoglobin Concent 28.0L, Red Cell Distribution Width 17.6H, Platelet Count 224, Mean Platelet Volume 7.0, Neutrophils (%) (Auto) , Lymphocytes (%) (Auto) , Monocytes (%) (Auto) , Eosinophils (%) (Auto) , Basophils (%) (Auto) , Differential Total Cells Counted 100, Neutrophils % (Manual) 90H, Lymphocytes % (Manual) 2L, Monocytes % (Manual) 8, Eosinophils % (Manual) 0, Basophils % (Manual) 0, Band Neutrophils 0, Platelet Estimate Adequ ate, Platelet Morphology Normal, Hypochromasia 1+, Anisocytosis 2+, Sodium Level 142, Potassium Level 5.5H, Chloride Level 110H, Carbon Dioxide Level 23, Anion Gap 9, Blood Urea Nitrogen 50H, Creatinine 4.6H, Estimat Glomerular Filtration Rate 9.8, Glucose Level 110H, Calcium Level 7.7L 06/01/20 11:34: POC Whole Blood Glucose 126H Height (Feet): 5 Height (Inches): 6.00 Weight (Pounds): 338 Assessment/Plan Problem List: (1) Pleural effusion ICD Codes: J90 - Pleural effusion, not elsewhere classified SNOMED: 74027489 (2) Hyperkalemia ICD Codes: E87.5 - Hyperkalemia SNOMED: 33628115 (3) INGRIS (acute kidney injury) ICD Codes: N17.9 - Acute kidney failure, unspecified SNOMED: 6785598, 29334249 (4) Morbid obesity with BMI of 50.0-59.9, adult ICD Codes: E66.01 - Morbid (severe) obesity due to excess calories; Z68.43 - Body mass index [BMI] 50.0-59.9, adult SNOMED: 720110423, 191402932, 83912266929204 (5) Anemia ICD Codes: D64.9 - Anemia, unspecified SNOMED: 970395668 (6) SOB (shortness of breath) ICD Codes: R06.02 - Shortness of breath SNOMED: 759991643 (7) Abdominal pain ICD Codes: R10.9 - Unspecified abdominal pain SNOMED: 41911546 (8) Abdominal wall cellulitis ICD Codes: L03.311 - Cellulitis of abdominal wall SNOMED: 07711367 Status: progressing Assessment/Plan: afebrile resp insuff sob pelural effusion check and reviewed labs pron oxygen support Darlene Hu MD Jun 01, 2020 11:40
[2020-06-01 12:00] VITALS: BP 179/84
--- NOTE | 2020-06-01 12:32 | Nephrology Progress Note ---
Assessment/Plan Problem List: (1) INGRIS (acute kidney injury) (2) Hyperkalemia (3) Morbid obesity with BMI of 50.0-59.9, adult (4) Anemia Assessment Renal failure most likely acute on chronic Presents with hyperkalemia Anemia Hypertension Pleural effusion Ejection fraction 55% No hydronephrosis and kidney ultrasound 4+ proteinuria, likely due to diabetic nephropathy Morbid obesity Plan June 01: Events of last 24 hours noted and is as follow: Patient found to be acidotic with acute renal failure. Was transferred to ICU. Planned to dialyze and protect the airways. Apparently family changed the status to DNR/DNI. Patient was then transferred to medical floor. Currently status unchanged. Not much more to be added from renal standpoint of view. Suggest comfort care. Since we are not going to do any dialysis treatment, monitoring blood chemistries and renal parameters are not needed. May 31: Patient morbidly obese. Labs reviewed. Worsening renal parameters and hyperkalemia. Dior ordered. Kayexalate ordered. Stat ABG ordered. Patient n.p.o. Insertion of dialysis catheter and consent ordered. Patient may need to be transferred to ICU. Discussed with RN and nurse in charge of the floor. May 30: DC IV fluid and diuretics Keep the blood pressure in check Monitor renal parameters Monitor electrolytes Avoid nephrotoxic's 1 dose of Kayexalate Intravenous Venofer for low iron Per orders Subjective ROS Limited/Unobtainable: Yes Objective Objective Last 24 Hour Vital Signs Date Time Temp Pulse Resp B/P (MAP) Pulse Ox O2 Delivery O2 Flow Rate FiO2 06/01/20 12:00 97.5 69 20 179/84 (115) 96 06/01/20 09:00 Room Air 06/01/20 08:40 73 165/85 06/01/20 08:00 97.5 73 19 165/85 (111) 97 06/01/20 04:00 97.4 65 20 120/59 (79) 93 06/01/20 00:00 97.4 68 22 123/56 (78) 91 05/31/20 20:41 Room Air 05/31/20 20:00 97.1 61 20 115/55 (75) 92 05/31/20 16:34 97.2 60 18 140/51 (80) 99 05/31/20 16:00 64 15 93/30 (51) 98 05/31/20 16:00 Nasal Cannula 3.0 05/31/20 15:00 62 15 93/30 (51) 97 05/31/20 14:00 66 15 93/30 (51) 95 05/31/20 13:06 56 26 98 30 05/31/20 13:00 58 14 113/46 (68) 99 05/31/20 12:50 56 26 98 Bi-Pap 30 Intake and Output 05/31/20 06/01/20 19:00 07:00 Intake Total 435 ml 660 ml Output Total 20 ml Balance 415 ml 660 ml Intake IV Total 435 ml 660 ml Output Urine Total 20 ml Current Medications Medications (Trade) Dose Ordered Sig/Alissa Route PRN Reason Start Time Stop Time Status Last Admin Dose Admin Cefazolin Sodium 1 gm/Dextrose 55 ml @ 110 mls/hr DAILY IVPB 05/31/20 18:00 06/07/20 17:59 06/01/20 08:40 Clonidine HCl (Catapres Tab) 0.1 mg Q6H PRN ORAL For High Blood Pressure 05/30/20 04:30 08/28/20 04:29 Dextrose (Dextrose 50%) 25 ml Q30M PRN IV Hypoglycemia 05/30/20 04:30 08/28/20 04:29 Dextrose (Dextrose 50%) 50 ml Q30M PRN IV Hypoglycemia 05/30/20 04:30 08/28/20 04:29 Dextrose/Sodium Chloride 1,000 ml @ 50 mls/hr Q20H IV 05/31/20 09:30 06/30/20 09:29 06/01/20 05:57 Heparin Sodium (Porcine) (Heparin 5000 units/ml) 5,000 units EVERY 12 HOURS SUBQ 05/30/20 09:00 07/14/20 08:59 06/01/20 08:41 Insulin Aspart (NovoLOG) BEFORE MEALS AND HS SUBQ 05/30/20 06:30 08/28/20 06:29 05/30/20 21:00 Iron Sucrose 100 mg/Sodium Chloride 60 ml @ 240 mls/hr BEDTIME IVPB 05/31/20 21:00 06/03/20 21:14 05/31/20 20:17 Metoclopramide HCl (Reglan) 5 mg Q6H PRN IVP Nausea & Vomiting 05/30/20 18:30 06/29/20 18:29 06/01/20 01:09 Metoprolol Tartrate (Lopressor) 12.5 mg Q12HR ORAL 06/01/20 09:00 08/30/20 08:59 06/01/20 08:40 Morphine Sulfate (Morphine Sulfate) 4 mg Q4H PRN IVP Moderate Pain (Pain Scale 4-6) 05/31/20 13:00 06/06/20 04:14 05/31/20 20:17 Laboratory Tests 05/31/20 13:38: POC Whole Blood Glucose 100 05/31/20 20:15: POC Whole Blood Glucose [Pending] 06/01/20 05:17: POC Whole Blood Glucose 106 06/01/20 05:45: White Blood Count 12.5#H, Red Blood Count 3.73L, Hemoglobin 9.7L, Hematocrit 34.7L, Mean Corpuscular Volume 93, Mean Corpuscular Hemoglobin 26.0L, Mean Corpuscular Hemoglobin Concent 28.0L, Red Cell Distribution Width 17.6H, Platelet Count 224, Mean Platelet Volume 7.0, Neutrophils (%) (Auto) , Lymphocytes (%) (Auto) , Monocytes (%) (Auto) , Eosinophils (%) (Auto) , Basophils (%) (Auto) , Differential Total Cells Counted 100, Neutrophils % (Manual) 90H, Lymphocytes % (Manual) 2L, Monocytes % (Manual) 8, Eosinophils % (Manual) 0, Basophils % (Manual) 0, Band Neutrophils 0, Platelet Estimate Adequate, Platelet Morphology Normal, Hypochromasia 1+, Anisocytosis 2+, Sodium Level 142, Potassium Level 5.5H, Chloride Level 110H, Carbon Dioxide Level 23, Anion Gap 9, Blood Urea Nitrogen 50H, Creatinine 4.6H, Estimat Glomerular Filtration Rate 9.8, Glucose Level 110H, Calcium Level 7.7L 06/01/20 11:34: POC Whole Blood Glucose 126H Height (Feet): 5 Height (Inches): 6.00 Weight (Pounds): 338 General Appearance: lethargic Cardiovascular: normal rate Respiratory/Chest: decreased breath sounds Abdomen: distended, other - Obese Darrian Stewart MD Jun 01, 2020 12:32
--- NOTE | 2020-06-01 14:15 | NUR ---
INSURANCE CLINICALS/REVIEW FAXED TO [facility] Tele [phone] MANDI Ballard
[2020-06-01 16:00] VITALS: BP 155/76
--- NOTE | 2020-06-01 16:54 | General Progress Note ---
Subjective Allergies: Coded Allergies: ACETAMINOPHEN (Verified Allergy, Unknown, 05/29/20) HYDROCODONE (Verified Allergy, Unknown, 05/29/20) Subjective above noted out of ICU Objective Last 24 Hour Vital Signs Date Time Temp Pulse Resp B/P (MAP) Pulse Ox O2 Delivery O2 Flow Rate FiO2 06/01/20 16:00 97.7 75 19 155/76 (102) 96 06/01/20 13:11 179/84 06/01/20 12:00 97.5 69 20 179/84 (115) 96 06/01/20 09:00 Room Air 06/01/20 08:40 73 165/85 06/01/20 08:00 97.5 73 19 165/85 (111) 97 06/01/20 04:00 97.4 65 20 120/59 (79) 93 06/01/20 00:00 97.4 68 22 123/56 (78) 91 05/31/20 20:41 Room Air 05/31/20 20:00 97.1 61 20 115/55 (75) 92 Intake and Output 05/31/20 06/01/20 19:00 07:00 Intake Total 435 ml 660 ml Output Total 20 ml Balance 415 ml 660 ml Intake IV Total 435 ml 660 ml Output Urine Total 20 ml Laboratory Tests 05/31/20 20:15: POC Whole Blood Glucose [Pending] 06/01/20 05:17: POC Whole Blood Glucose 106 06/01/20 05:45: White Blood Count 12.5#H, Red Blood Count 3.73L, Hemoglobin 9.7L, Hematocrit 34.7L, Mean Corpuscular Volume 93, Mean Corpuscular Hemoglobin 26.0L, Mean Corpuscular Hemoglobin Concent 28.0L, Red Cell Distribution Width 17.6H, Platelet Count 224, Mean Platelet Volume 7.0, Neutrophils (%) (Auto) , Lymphocytes (%) (Auto) , Monocytes (%) (Auto) , Eosinophils (%) (Auto) , Basophils (%) (Auto) , Differential Total Cells Counted 100, Neutrophils % (Manual) 90H, Lymphocytes % (Manual) 2L, Monocytes % (Manual) 8, Eosinophils % (Manual) 0, Basophils % (Manual) 0, Band Neutrophils 0, Platelet Estimate Adequate, Platelet Morphology Normal, Hypochromasia 1+, Anisocytosis 2+, Sodium Level 142, Potassium Level 5.5H, Chloride Level 110H, Carbon Dioxide Level 23, Anion Gap 9, Blood Urea Nitrogen 50H, Creatinine 4.6H, Estimat Glomerular Filtration Rate 9.8, Glucose Level 110H, Calcium Level 7.7L 06/01/20 11:34: POC Whole Blood Glucose 126H Height (Feet): 5 Height (Inches): 6.00 Weight (Pounds): 338 Objective Obese woman NCAT supple coarse BS RR abd obese, TTP, erythematous with a large TTP indurated pannus (+) trace edema neuro nonfocal Assessment/Plan Status: progressing Assessment/Plan: Assessment - Abdominal panniculitis - respiratory failure - Renal failure - central obesity - Diverticulosis - poor prognosis Recommendations - supportive care - abx per ID - follow abd exam - cautious po diet - renal f/u Shaheed Stuart MD Jun 01, 2020 16:54
[2020-06-01] MEDS: Morphine Sulfate 4mg/ml Inj (IV USE ONLY) IVP PRN (16:59)
[2020-06-01] MEDS: ceFAZolin 500mg in D5W 55ml IV SCH (17:00)
--- NOTE | 2020-06-01 17:43 | Surgery Progress Note ---
Surgery Progress Note Subjective Additional Comments out of icu comfort care no n/v Objective Last 24 Hour Vital Signs Date Time Temp Pulse Resp B/P (MAP) Pulse Ox O2 Delivery O2 Flow Rate FiO2 06/01/20 16:00 97.7 75 19 155/76 (102) 96 06/01/20 13:11 179/84 06/01/20 12:00 97.5 69 20 179/84 (115) 96 06/01/20 09:00 Room Air 06/01/20 08:40 73 165/85 06/01/20 08:00 97.5 73 19 165/85 (111) 97 06/01/20 04:00 97.4 65 20 120/59 (79) 93 06/01/20 00:00 97.4 68 22 123/56 (78) 91 05/31/20 20:41 Room Air 05/31/20 20:00 97.1 61 20 115/55 (75) 92 I&O Intake and Output 05/31/20 06/01/20 19:00 07:00 Intake Total 435 ml 660 ml Output Total 20 ml Balance 415 ml 660 ml Intake IV Total 435 ml 660 ml Output Urine Total 20 ml Cardiovascular: RSR Respiratory: decreased breath sounds Abdomen: non-tender, present bowel sounds Extremities: no edema, no tenderness, no cyanosis Laboratory Tests Test 05/31/20 20:15 06/01/20 05:17 06/01/20 05:45 06/01/20 11:34 POC Whole Blood Glucose Pending 106 MG/DL (74-106) 126 MG/DL (74-106) H White Blood Count 12.5 K/UL (4.8-10.8) #H Red Blood Count 3.73 M/UL (4.20-5.40) L Hemoglobin 9.7 G/DL (12.0-16.0) L Hematocrit 34.7 % (37.0-47.0) L Mean Corpuscular Volume 93 FL (80-99) Mean Corpuscular Hemoglobin 26.0 PG (27.0-31.0) L Mean Corpuscular Hemoglobin Concent 28.0 G/DL (32.0-36.0) L Red Cell Distribution Width 17.6 % (11.6-14.8) H Platelet Count 224 K/UL (150-450) Mean Platelet Volume 7.0 FL (6.5-10.1) Neutrophils (%) (Auto) % (45.0-75.0) Lymphocytes (%) (Auto) % (20.0-45.0) Monocytes (%) (Auto) % (1.0-10.0) Eosinophils (%) (Auto) % (0.0-3.0) Basophils (%) (Auto) % (0.0-2.0) Differential Total Cells Counted 100 Neutrophils % (Manual) 90 % (45-75) H Lymphocytes % (Manual) 2 % (20-45) L Monocytes % (Manual) 8 % (1-10) Eosinophils % (Manual) 0 % (0-3) Basophils % (Manual) 0 % (0-2) Band Neutrophils 0 % (0-8) Platelet Estimate Adequate Platelet Morphology Normal Hypochromasia 1+ Anisocytosis 2+ Sodium Level 142 MMOL/L (136-145) Potassium Level 5.5 MMOL/L (3.5-5.1) H Chloride Level 110 MMOL/L (98-107) H Carbon Dioxide Level 23 MMOL/L (21-32) Anion Gap 9 mmol/L (5-15) Blood Urea Nitrogen 50 mg/dL (7-18) H Creatinine 4.6 MG/DL (0.55-1.30) H Estimat Glomerular Filtration Rate 9.8 mL/min (>60) Glucose Level 110 MG/DL (74-106) H Calcium Level 7.7 MG/DL (8.5-10.1) L Plan Problems: (1) Pleural effusion (2) Hyperkalemia (3) INGRIS (acute kidney injury) (4) Morbid obesity with BMI of 50.0-59.9, adult (5) Anemia (6) SOB (shortness of breath) (7) Abdominal pain (8) Abdominal wall cellulitis Assessment & Plan: panniculitis anasarca cont abx dnr/dni comfort care confirmed care plan with patients daughter polst noted no acute surgical intervention acute renal insufficiency no HD, no cath insertion given patients and family wishes respiratory insufficiency acidosis no intubation given care plan thank you ABDOMEN: Liver: Unremarkable. Gallbladder and bile ducts: Unremarkable. No calcified stones. No ductal dilation. Pancreas: Unremarkable. No ductal dilation. Spleen: Unremarkable. No splenomegaly. Adrenals: Unremarkable. No mass. Kidneys and ureters: Mild nonspecific perinephric stranding. No obstructing stones. Stomach and bowel: Diverticulosis of the colon with no signs of diverticulitis. No obstruction. PELVIS: Appendix: No findings to suggest acute appendicitis. Bladder: Unremarkable. No stones. Reproductive: Unremarkable as visualized. ABDOMEN and PELVIS: Intraperitoneal space: Mild ascites predominantly seen along the anterior liver margin. No free air. Bones/joints: Advanced multilevel disc degenerative disease. No acute fracture. No dislocation. Soft tissues: Stranding/fluid infiltration of the subcutaneous fat suggestive of anasarca. Vasculature: Unremarkable. No abdominal aortic aneurysm. Lymph nodes: Unremarkable. No enlarged lymph nodes. IMPRESSION: 1. Right sided lung nodules, differential diagnosis including metastatic disease/neoplasm versus inflammatory process. Follow-up recommended with CT chest for further characterization. 2. Bilateral pleural effusions, more significant on the right. 3. Diffuse anasarca. Mild ascites. 4. Diverticulosis with no signs of diverticulitis. No bowel obstruction. Sean Anderson Jun 01, 2020 17:43
--- NOTE | 2020-06-01 19:30 | NUR ---
NURSE NOTES: received report from desire wei. patient on bed asleep. on room air. no moaning or facial grimacing noted. with iv line access on the left forearm running d5 1/2 @ 50 ml/hr. per eriberto" k level of 5.5 kayexalate was given". DNR/DNI.noted with bedolla catheter 16F, draining well. bed locked and in lowest position. call light and light button within easy reach. bed alarm on. will continue plan of care
--- NOTE | 2020-06-01 19:31 | NUR ---
HAND-OFF: Report given to GORDON Richardson. Pateint resting; Dior in place; endorsed plan of care;
[2020-06-01 20:00] VITALS: BP 176/76
[2020-06-01] MEDS: Iron Sucrose 100 MG in NS 55 ML IVPB SCH (20:31)
--- NOTE | 2020-06-01 21:00 | NUR ---
NURSE NOTES: patient states " i can't breathe". o2 of 87% on room air. connected to nasal cannula at 2lpm. noted with congestions on the nose. patient able to blow to clear her nose. kept head of bed elevated. re-checked of 99%. patient fall asleep. Addendum: 06/02/20 at 0323 by Aleida Richardson RN NURSE NOTES: patient states " i can't breathe". o2 of 87% on room air. connected to nasal cannula at 2lpm. noted with congestions on the nose. patient able to clear her nose. kept head of bed elevated. re-checked of 99%. patient fall asleep.
--- NOTE | 2020-06-01 21:04 | NUR ---
NURSE NOTES: PAGED Fredy BAER FOR POTASSIUM OF 5.5.CHARGE NURSE MADE AWARE. AWTING FOR CALL BACK
[2020-06-02] VITALS (8 sets, daily range): BP systolic 127–198; BP diastolic 69–99
[2020-06-02] MEDS: D5 1/2NS 1,000 ML IV SCH ×2 (00:36→22:51)
--- NOTE | 2020-06-02 05:00 | NUR ---
NURSE NOTES: PAGED DR. BAER AGAIN, FOR POTASSIUM LEVEL. ENDORSED TO JEMMA
[2020-06-02] MEDS: ceFAZolin 500mg in D5W 55ml IV SCH ×2 (05:30→18:15)
[2020-06-02] MEDS: NovoLOG Insulin Flexpen SUBQ SCH ×5 (05:30→20:49)
--- NOTE | 2020-06-02 07:46 | General Progress Note ---
Subjective ROS Limited/Unobtainable: No Allergies: Coded Allergies: ACETAMINOPHEN (Verified Allergy, Unknown, 05/29/20) HYDROCODONE (Verified Allergy, Unknown, 05/29/20) Objective Last 24 Hour Vital Signs Date Time Temp Pulse Resp B/P (MAP) Pulse Ox O2 Delivery O2 Flow Rate FiO2 06/02/20 04:00 98.1 63 20 127/69 (88) 98 06/02/20 00:00 97.9 70 19 147/99 (115) 98 06/01/20 21:00 Nasal Cannula 2.0 06/01/20 20:30 75 208/90 06/01/20 20:00 97.1 75 19 176/76 (109) 95 06/01/20 17:29 97.7 06/01/20 16:00 97.7 75 19 155/76 (102) 96 06/01/20 13:11 179/84 06/01/20 12:00 97.5 69 20 179/84 (115) 96 06/01/20 09:00 Room Air 06/01/20 08:40 73 165/85 06/01/20 08:00 97.5 73 19 165/85 (111) 97 Intake and Output 06/01/20 06/02/20 19:00 07:00 Intake Total 670 ml 50 ml Balance 670 ml 50 ml Intake IV Total 670 ml 50 ml Laboratory Tests 06/01/20 11:34: POC Whole Blood Glucose 126H 06/02/20 05:09: POC Whole Blood Glucose 134H Height (Feet): 5 Height (Inches): 6.00 Weight (Pounds): 338 General Appearance: alert EENT: normal ENT inspection Neck: supple Cardiovascular: normal rate Respiratory/Chest: decreased breath sounds Abdomen: normal bowel sounds, non tender, soft Extremities: non-tender Assessment/Plan Status: progressing Assessment/Plan: iron def anemia abd pain RI morbid obesity anasarca/ascites diverticulosis cholelithiasis DNR CT and US reviewed IV iron stool ob repeat labs respiratory care poor prognosis Paul Díaz MD Jun 02, 2020 07:46
--- NOTE | 2020-06-02 07:57 | Infectious Diseases Prog Note ---
Assessment/Plan 59yo F with: Afebrile Normal WBC Pulmonary nodules BL pleural effusions, R>L Cough, SOB Likely CHF, volume OL 05/29 CT A/P: 1. Right sided lung nodules, differential diagnosis including metastatic disease/neoplasm versus inflammatory process. Follow-up recommended with CT chest for further characterization. 2. Bilateral pleural effusions, more significant on the right. 3. Diffuse anasarca. Mild ascites. 4. Diverticulosis with no signs of diverticulitis. No bowel obstruction. 05/30 CT chest: 1. Moderate right and small left pleural effusions. 2. Bilateral mild pulmonary edema/infiltrates. 3. Bilateral scattered small nodular lung densities which may be neoplasm/metastasis, chronic, infection/inflammation, or other etiology. Followup as clinically indicated. 05/30 COVID rapid neg Possible paniculitis Morbid obesity Plan: Cont cefazolin #3/5-7 for possible paniculitis, trend exam F/u ID w/u for pulm nodules with: Cocci Histo Ab Ab and Ag Crypto Ag - still needs collected Fungitell QuantGold HIV = neg 05/29 SP Zosyn x1 in ED Monitor CBC/CMP Monitor resp status Monitor temp curve and hemodynamics D/w RN Thank you for this consult. [facility] will continue to follow. Subjective Allergies: Coded Allergies: ACETAMINOPHEN (Verified Allergy, Unknown, 05/29/20) HYDROCODONE (Verified Allergy, Unknown, 05/29/20) AF WBC up to 12 yesterday, today's labs p NAD On venti mask Minimally interactive, barely awakes on exam Objective Last 24 Hour Vital Signs Date Time Temp Pulse Resp B/P (MAP) Pulse Ox O2 Delivery O2 Flow Rate FiO2 06/02/20 04:00 98.1 63 20 127/69 (88) 98 06/02/20 00:00 97.9 70 19 147/99 (115) 98 06/01/20 21:00 Nasal Cannula 2.0 06/01/20 20:30 75 208/90 06/01/20 20:00 97.1 75 19 176/76 (109) 95 06/01/20 17:29 97.7 06/01/20 16:00 97.7 75 19 155/76 (102) 96 06/01/20 13:11 179/84 06/01/20 12:00 97.5 69 20 179/84 (115) 96 06/01/20 09:00 Room Air 06/01/20 08:40 73 165/85 06/01/20 08:00 97.5 73 19 165/85 (111) 97 Height (Feet): 5 Height (Inches): 6.00 Weight (Pounds): 338 Gen: NAD in bed HEENT: NCAT CV: RRR Pulm: CTAB Abd: Soft, NTND, obese, no significant noted erythema of the pannus, very edematous Ext: 2+ pitting edema of BLE Neuro: Minimally interactive Microbiology Date/Time Source Procedure Growth Status 05/30/20 12:15 Nasopharynx SARS-CoV-2 RdRp Gene Assay - Final Complete Laboratory Tests Test 06/01/20 11:34 06/02/20 05:09 POC Whole Blood Glucose 126 MG/DL (74-106) H 134 MG/DL (74-106) H Current Medications Medications (Trade) Dose Ordered Sig/Alissa Route PRN Reason Start Time Stop Time Status Last Admin Dose Admin Cefazolin Sodium 500 mg/Dextrose 55 ml @ 110 mls/hr Q12H IV 06/01/20 18:00 06/08/20 17:59 06/02/20 05:30 Clonidine HCl (Catapres Tab) 0.1 mg Q4H PRN ORAL For High Blood Pressure 06/01/20 12:45 08/28/20 04:29 06/01/20 13:11 Dextrose (Dextrose 50%) 25 ml Q30M PRN IV Hypoglycemia 05/30/20 04:30 08/28/20 04:29 Dextrose (Dextrose 50%) 50 ml Q30M PRN IV Hypoglycemia 05/30/20 04:30 08/28/20 04:29 Dextrose/Sodium Chloride 1,000 ml @ 50 mls/hr Q20H IV 05/31/20 09:30 06/30/20 09:29 06/02/20 00:36 Heparin Sodium (Porcine) (Heparin 5000 units/ml) 5,000 units EVERY 12 HOURS SUBQ 05/30/20 09:00 07/14/20 08:59 06/01/20 20:31 Insulin Aspart (NovoLOG) BEFORE MEALS AND HS SUBQ 05/30/20 06:30 08/28/20 06:29 05/30/20 21:00 Iron Sucrose 100 mg/Sodium Chloride 60 ml @ 240 mls/hr BEDTIME IVPB 05/31/20 21:00 06/03/20 21:14 06/01/20 20:31 Metoclopramide HCl (Reglan) 5 mg Q6H PRN IVP Nausea & Vomiting 05/30/20 18:30 06/29/20 18:29 06/01/20 01:09 Metoprolol Tartrate (Lopressor) 12.5 mg Q12HR ORAL 06/01/20 09:00 08/30/20 08:59 06/01/20 20:30 Morphine Sulfate (Morphine Sulfate) 4 mg Q4H PRN IVP Moderate Pain (Pain Scale 4-6) 05/31/20 13:00 06/06/20 04:14 06/01/20 16:59 Leola Boyer M.D. Jun 02, 2020 07:57
--- NOTE | 2020-06-02 07:57 | NUR ---
NURSE HAND-OFF: Important Events on Shift: SOB; ON NASAL CANNULA Patient Status: STABLE Diet: NPO Pending Orders: Pending Results/Labs: Pending MD notification: Latest Vital Signs: Temperature 98.1 , Pulse 63 , B/P 127 /69 , Respiratory Rate 20 , O2 SAT 98 , Nasal Cannula, O2 Flow Rate 2.0 . Vital Sign Comment: Latest Bhagat Fall Score: 45 Fall Risk: High Risk Safety Measures: Call light Within Reach, Bed Alarm Zone 2, Side Rails Side Rails x2, Bed position Low and Locked. Fall Precautions: Patient Fall Education Addendum: 06/02/20 at 0802 by Aleida Richardson RN REPORT GIVEN TO JEMMA
--- NOTE | 2020-06-02 08:37 | General Progress Note ---
Subjective Date patient seen: Jun 02, 2020 Time patient seen: 07:45 - am Allergies: Coded Allergies: ACETAMINOPHEN (Verified Allergy, Unknown, 05/29/20) HYDROCODONE (Verified Allergy, Unknown, 05/29/20) Subjective HISTORY OF PRESENT ILLNESS: The patient is a 59-year-old female, who is being seen on the Med/Surg floor of [facility]. Patient resting in bed no signs of pain or distress. No new complaints at this time. Using the Morphine as needed. REVIEW OF SYSTEMS: Denies rash, fever, chills, sweating, dizziness, drowsiness, blurred vision, sore throat, or change in weight. No shortness of breath, chest pain, palpitations, or cough. No nausea, vomiting, diarrhea, or blood in stool or urine. No dysuria. Objective Last 24 Hour Vital Signs Date Time Temp Pulse Resp B/P (MAP) Pulse Ox O2 Delivery O2 Flow Rate FiO2 06/02/20 04:00 98.1 63 20 127/69 (88) 98 06/02/20 00:00 97.9 70 19 147/99 (115) 98 06/01/20 21:00 Nasal Cannula 2.0 06/01/20 20:30 75 208/90 06/01/20 20:00 97.1 75 19 176/76 (109) 95 06/01/20 17:29 97.7 06/01/20 16:00 97.7 75 19 155/76 (102) 96 06/01/20 13:11 179/84 06/01/20 12:00 97.5 69 20 179/84 (115) 96 06/01/20 09:00 Room Air 06/01/20 08:40 73 165/85 Intake and Output 06/01/20 06/02/20 18:59 06:59 Intake Total 720 ml 50 ml Balance 720 ml 50 ml Intake IV Total 720 ml 50 ml Laboratory Tests 06/01/20 11:34: POC Whole Blood Glucose 126H 06/02/20 05:09: POC Whole Blood Glucose 134H Height (Feet): 5 Height (Inches): 6.00 Weight (Pounds): 338 Objective PHYSICAL EXAMINATION: NECK: Range of motion is decreased due to the patient's condition. LUNGS: Decreased breath sounds bilaterally. HEART: Regular. ABDOMEN: Obese. EXTREMITIES: No clubbing. NEURO: No changes. Assessment/Plan Assessment/Plan: (1) Abdominal pain (2) Morbid obesity (3) Multiple joint pain and OA Patient to be continued on Morphine as needed. D/w Dr. Agudelo and he concurred. Elio Colon Jun 02, 2020 08:37
--- NOTE | 2020-06-02 09:19 | NUR ---
PT NOTE Attempted to see patient for PT treatment. Patient c/o not feeling well, BP 191/79. PT treatment deferred at this time due to elevated BP, will re-attempt later as schedule permits. Amparo LEYVA is aware.
[2020-06-02] MEDS: Metoprolol Tartrate 12.5mg TAB ORAL SCH (09:40)
[2020-06-02] MEDS: Heparin 5000 units/ml inj SUBQ SCH ×2 (09:40→20:50)
[2020-06-02 09:54] LABS: CREATININE 4.5 MG/DL (0.55-1.30); POTASSIUM 4.7 MMOL/L (3.5-5.1)
[2020-06-02 09:58] LABS: ALBUMIN 2.8 G/DL (3.4-5.0); ALBUMIN/GLOBULIN RATIO 0.9 (1.0-2.7); BILIRUBIN,TOTAL 0.3 MG/DL (0.2-1.0)
--- NOTE | 2020-06-02 10:31 | Cardiology Report ---
APPROVED REPORT EXAM: Two-dimensional and M-mode echocardiogram with Doppler and color Doppler. INDICATION Congestive Heart Failure M-Mode DIMENSIONS IVSd1.3 (0.7-1.1cm)Left Atrium (MM)4.7 (1.6-4.0cm) LVDd5.1 (3.5-5.6cm)Aortic Root2.6 (2.0-3.7cm) PWd1.1 (0.7-1.1cm)Aortic Cusp Exc.1.6 (1.5-2.0cm) IVSs1.6 cm LVDs3.3 (2.5-4.0cm) PWs1.5 cm Other Information Quality : PoorLimited Technically limited study due to body habitus. <Conclusion> Normal left ventricular chamber size, systolic function and wall motion to extent visualized. Left ventricular ejection fraction estimated to be grossly 55 %. Study quality precludes accurate assessment of regional wall motion. No evidence of left ventricular hypertrophy . Small posteriro pericardial effusion. Mitral valve leaflets calcification with normal excursion. Mitral annulus and aortic root calcification. Pulmonic valve not well visualized. Normal tricuspid valve structure. Trace mitral regurgitation. Trace tricuspid regurgitation. Tricuspid systolic velocities suggests peak right ventricular systolic pressure of 14mmHg.
--- NOTE | 2020-06-02 10:31 | Cardiac Electrophysiology PN ---
Assessment/Plan Assessment/Plan 1. Bradycardia with heart rate in the 50s. Stable on metoprolol 12.5 bid 2. Hypertension, on metoprolol 12.5 mg twice a day 3. Chest pain. The pain is atypical. Ruled out NC EF 55% on echocardiogram 4. Renal failure with creatinine of 4.2. Further evaluation by Nephrology. Refusing HD( Family refused even placing Vladislav) 5. Generalized pain. Follow up pain management. 6. Morbid obesity. 7. Hyperkalemia. K normal today after Kayexalate DW Dr. Stewart Subjective Subjective No CP or SOB. Got Kayexalate for hyperkalemia yesterday Objective Last 24 Hour Vital Signs Date Time Temp Pulse Resp B/P (MAP) Pulse Ox O2 Delivery O2 Flow Rate FiO2 06/02/20 10:13 97.8 72 18 194/88 (123) 96 06/02/20 10:07 191/79 06/02/20 09:40 63 191/79 06/02/20 08:00 98.4 63 18 191/79 (116) 93 06/02/20 04:00 98.1 63 20 127/69 (88) 98 06/02/20 00:00 97.9 70 19 147/99 (115) 98 06/01/20 21:00 Nasal Cannula 2.0 06/01/20 20:30 75 208/90 06/01/20 20:00 97.1 75 19 176/76 (109) 95 06/01/20 17:29 97.7 06/01/20 16:00 97.7 75 19 155/76 (102) 96 06/01/20 13:11 179/84 06/01/20 12:00 97.5 69 20 179/84 (115) 96 Intake and Output 06/01/20 06/02/20 19:00 07:00 Intake Total 670 ml 50 ml Balance 670 ml 50 ml Intake IV Total 670 ml 50 ml Laboratory Tests Test 06/01/20 11:34 06/02/20 05:09 06/02/20 09:00 POC Whole Blood Glucose 126 MG/DL (74-106) H 134 MG/DL (74-106) H Sodium Level 143 MMOL/L (136-145) Potassium Level 4.7 MMOL/L (3.5-5.1) Chloride Level 111 MMOL/L (98-107) H Carbon Dioxide Level 24 MMOL/L (21-32) Anion Gap 8 mmol/L (5-15) Blood Urea Nitrogen 53 mg/dL (7-18) H Creatinine 4.5 MG/DL (0.55-1.30) H Estimat Glomerular Filtration Rate 10.0 mL/min (>60) Glucose Level 134 MG/DL (74-106) H Calcium Level 7.0 MG/DL (8.5-10.1) L Total Bilirubin 0.3 MG/DL (0.2-1.0) Aspartate Amino Transf (AST/SGOT) 18 U/L (15-37) Alanine Aminotransferase (ALT/SGPT) 12 U/L (12-78) Alkaline Phosphatase 78 U/L (46-116) Total Protein 5.9 G/DL (6.4-8.2) L Albumin 2.8 G/DL (3.4-5.0) L Globulin 3.1 g/dL Albumin/Globulin Ratio 0.9 (1.0-2.7) L Microbiology Date/Time Source Procedure Growth Status 05/30/20 12:15 Nasopharynx SARS-CoV-2 RdRp Gene Assay - Final Complete Objective NECK: no JVD. LUNGS: Clear. CARDIOVASCULAR: Shows regular S1 and S2 with no gallop. ABDOMEN: Morbidly obese. EXTREMITIES: 1+ pitting edema. Shad Colon MD Jun 02, 2020 10:31
--- NOTE | 2020-06-02 10:50 | NUR ---
RN rechecked vitals. HTN of 194/88 with O2 of 88%. Preceptor and MD notified. RT placed Ventri mask 8L, 45 %. O2 is elevated to 96%. After Metoprolol and Clonidine given, BP came slightly down to 177/79. Will continue to monitor.
--- NOTE | 2020-06-02 11:16 | Pulmonology Progress Note ---
Subjective ROS Limited/Unobtainable: No Constitutional: Reports: no symptoms HEENT: Repors: no symptoms Respiratory: Reports: no symptoms Allergies: Coded Allergies: ACETAMINOPHEN (Verified Allergy, Unknown, 05/29/20) HYDROCODONE (Verified Allergy, Unknown, 05/29/20) All Systems: reviewed and negative except above Objective Last 24 Hour Vital Signs Date Time Temp Pulse Resp B/P (MAP) Pulse Ox O2 Delivery O2 Flow Rate FiO2 06/02/20 10:13 97.8 72 18 194/88 (123) 96 06/02/20 10:07 191/79 06/02/20 09:40 63 191/79 06/02/20 08:00 98.4 63 18 191/79 (116) 93 06/02/20 04:00 98.1 63 20 127/69 (88) 98 06/02/20 00:00 97.9 70 19 147/99 (115) 98 06/01/20 21:00 Nasal Cannula 2.0 06/01/20 20:30 75 208/90 06/01/20 20:00 97.1 75 19 176/76 (109) 95 06/01/20 17:29 97.7 06/01/20 16:00 97.7 75 19 155/76 (102) 96 06/01/20 13:11 179/84 06/01/20 12:00 97.5 69 20 179/84 (115) 96 Intake and Output 06/01/20 06/02/20 19:00 07:00 Intake Total 670 ml 50 ml Balance 670 ml 50 ml Intake IV Total 670 ml 50 ml General Appearance: WD/WN HEENT: normocephalic, atraumatic Respiratory: chest wall non-tender, rhonchi - left, rhonchi - right Breasts: no masses Cardiovascular: normal peripheral pulses, normal rate Abdomen: normal bowel sounds, soft, non tender Genitourinary: normal external genitalia Extremities: no cyanosis Skin: no rash Microbiology Date/Time Source Procedure Growth Status 05/30/20 12:15 Nasopharynx SARS-CoV-2 RdRp Gene Assay - Final Complete Laboratory Tests 06/01/20 11:34: POC Whole Blood Glucose 126H 06/02/20 05:09: POC Whole Blood Glucose 134H 06/02/20 09:00: Sodium Level 143, Potassium Level 4.7, Chloride Level 111H, Carbon Dioxide Level 24, Anion Gap 8, Blood Urea Nitrogen 53H, Creatinine 4.5H, Estimat Glomerular Filtration Rate 10.0, Glucose Level 134H, Calcium Level 7.0L, Total Bilirubin 0.3, Aspartate Amino Transf (AST/SGOT) 18, Alanine Aminotransferase (ALT/SGPT) 12, Alkaline Phosphatase 78, Total Protein 5.9L, Albumin 2.8L, Globulin 3.1, Albumin/Globulin Ratio 0.9L Current Medications Medications (Trade) Dose Ordered Sig/Alissa Route PRN Reason Start Time Stop Time Status Last Admin Dose Admin Cefazolin Sodium 500 mg/Dextrose 55 ml @ 110 mls/hr Q12H IV 06/01/20 18:00 06/08/20 17:59 06/02/20 05:30 Clonidine HCl (Catapres Tab) 0.1 mg Q4H PRN ORAL For High Blood Pressure 06/01/20 12:45 08/28/20 04:29 06/02/20 10:07 Dextrose (Dextrose 50%) 25 ml Q30M PRN IV Hypoglycemia 05/30/20 04:30 08/28/20 04:29 Dextrose (Dextrose 50%) 50 ml Q30M PRN IV Hypoglycemia 05/30/20 04:30 08/28/20 04:29 Dextrose/Sodium Chloride 1,000 ml @ 50 mls/hr Q20H IV 05/31/20 09:30 06/30/20 09:29 06/02/20 00:36 Heparin Sodium (Porcine) (Heparin 5000 units/ml) 5,000 units EVERY 12 HOURS SUBQ 05/30/20 09:00 07/14/20 08:59 06/02/20 09:40 Insulin Aspart (NovoLOG) BEFORE MEALS AND HS SUBQ 05/30/20 06:30 08/28/20 06:29 05/30/20 21:00 Iron Sucrose 100 mg/Sodium Chloride 60 ml @ 240 mls/hr BEDTIME IVPB 05/31/20 21:00 06/03/20 21:14 06/01/20 20:31 Metoclopramide HCl (Reglan) 5 mg Q6H PRN IVP Nausea & Vomiting 05/30/20 18:30 06/29/20 18:29 06/01/20 01:09 Metoprolol Tartrate (Lopressor) 12.5 mg Q12HR ORAL 06/01/20 09:00 08/30/20 08:59 06/02/20 09:40 Morphine Sulfate (Morphine Sulfate) 4 mg Q4H PRN IVP Moderate Pain (Pain Scale 4-6) 05/31/20 13:00 06/06/20 04:14 06/01/20 16:59 Assessment/Plan Problems: (1) Acute respiratory failure (2) Pleural effusion (3) INGRIS (acute kidney injury) (4) Morbid obesity with BMI of 50.0-59.9, adult (5) Abdominal wall cellulitis Assessment/Plan pt doesn't want any BIPAP or intubation or HD comfort measures titrate fio2 to sat of 92% abx for abdominal wall cellulitis symptomatic treatment Eder Corral MD Jun 02, 2020 11:16
--- NOTE | 2020-06-02 12:17 | Nephrology Progress Note ---
Assessment/Plan Problem List: (1) INGRIS (acute kidney injury) (2) Hyperkalemia (3) Morbid obesity with BMI of 50.0-59.9, adult (4) Anemia Assessment Renal failure most likely acute on chronic Presents with hyperkalemia Anemia Hypertension Pleural effusion Ejection fraction 55% No hydronephrosis and kidney ultrasound 4+ proteinuria, likely due to diabetic nephropathy Morbid obesity Plan June 02: Labs reviewed. Status quo. Patient DNR/DNI and do not dialysis per family request. Not much to add from renal standpoint of view. Suggest no lab draw since not much can be done about it from renal standpoint of view. June 01: Events of last 24 hours noted and is as follow: Patient found to be acidotic with acute renal failure. Was transferred to ICU. Planned to dialyze and protect the airways. Apparently family changed the status to DNR/DNI. Patient was then transferred to medical floor. Currently status unchanged. Not much more to be added from renal standpoint of view. Suggest comfort care. Since we are not going to do any dialysis treatment, monitoring blood chemistries and renal parameters are not needed. May 31: Patient morbidly obese. Labs reviewed. Worsening renal parameters and hyperkalemia. Dior ordered. Kayexalate ordered. Stat ABG ordered. Patient n.p.o. Insertion of dialysis catheter and consent ordered. Patient may need to be transferred to ICU. Discussed with RN and nurse in charge of the floor. May 30: DC IV fluid and diuretics Keep the blood pressure in check Monitor renal parameters Monitor electrolytes Avoid nephrotoxic's 1 dose of Kayexalate Intravenous Venofer for low iron Per orders Subjective ROS Limited/Unobtainable: Yes Objective Objective Last 24 Hour Vital Signs Date Time Temp Pulse Resp B/P (MAP) Pulse Ox O2 Delivery O2 Flow Rate FiO2 06/02/20 10:13 97.8 72 18 194/88 (123) 96 06/02/20 10:07 06/02/20 09:40 63 06/02/20 08:00 98.4 63 18 191/ (116) 93 06/02/20 04:00 98.1 63 20 127/69 (88) 98 06/02/20 00:00 97.9 70 19 147/99 (115) 98 06/01/20 21:00 Nasal Cannula 2.0 06/01/20 20:30 75 208/90 06/01/20 20:00 97.1 75 19 176/76 (109) 95 06/01/20 17:29 97.7 06/01/20 16:00 97.7 75 19 155/76 (102) 96 06/01/20 13:11 179/84 Intake and Output 06/01/20 06/02/20 19:00 07:00 Intake Total 670 ml 50 ml Balance 670 ml 50 ml Intake IV Total 670 ml 50 ml Current Medications Medications (Trade) Dose Ordered Sig/Alissa Route PRN Reason Start Time Stop Time Status Last Admin Dose Admin Cefazolin Sodium 500 mg/Dextrose 55 ml @ 110 mls/hr Q12H IV 06/01/20 18:00 06/08/20 17:59 06/02/20 05:30 Clonidine HCl (Catapres Tab) 0.1 mg Q4H PRN ORAL For High Blood Pressure 06/01/20 12:45 08/28/20 04:29 06/02/20 10:07 Dextrose (Dextrose 50%) 25 ml Q30M PRN IV Hypoglycemia 05/30/20 04:30 08/28/20 04:29 Dextrose (Dextrose 50%) 50 ml Q30M PRN IV Hypoglycemia 05/30/20 04:30 08/28/20 04:29 Dextrose/Sodium Chloride 1,000 ml @ 50 mls/hr Q20H IV 05/31/20 09:30 06/30/20 09:29 06/02/20 00:36 Heparin Sodium (Porcine) (Heparin 5000 units/ml) 5,000 units EVERY 12 HOURS SUBQ 05/30/20 09:00 07/14/20 08:59 06/02/20 09:40 Insulin Aspart (NovoLOG) BEFORE MEALS AND HS SUBQ 05/30/20 06:30 08/28/20 06:29 05/30/20 21:00 Iron Sucrose 100 mg/Sodium Chloride 60 ml @ 240 mls/hr BEDTIME IVPB 05/31/20 21:00 06/03/20 21:14 06/01/20 20:31 Metoclopramide HCl (Reglan) 5 mg Q6H PRN IVP Nausea & Vomiting 05/30/20 18:30 06/29/20 18:29 06/01/20 01:09 Metoprolol Tartrate (Lopressor) 12.5 mg Q12HR ORAL 06/01/20 09:00 08/30/20 08:59 06/02/20 09:40 Morphine Sulfate (Morphine Sulfate) 4 mg Q4H PRN IVP Moderate Pain (Pain Scale 4-6) 05/31/20 13:00 06/06/20 04:14 06/01/20 16:59 Laboratory Tests 06/02/20 05:09: POC Whole Blood Glucose 134H 06/02/20 09:00: Sodium Level 143, Potassium Level 4.7, Chloride Level 111H, Carbon Dioxide Level 24, Anion Gap 8, Blood Urea Nitrogen 53H, Creatinine 4.5H, Estimat Glomerular Filtration Rate 10.0, Glucose Level 134H, Calcium Level 7.0L, Total Bilirubin 0.3, Aspartate Amino Transf (AST/SGOT) 18, Alanine Aminotransferase (ALT/SGPT) 12, Alkaline Phosphatase 78, Total Protein 5.9L, Albumin 2.8L, Globulin 3.1, Albumin/Globulin Ratio 0.9L, Cryptococcus Antigen [Pending] Height (Feet): 5 Height (Inches): 6.00 Weight (Pounds): 338 General Appearance: no apparent distress, alert EENT: other - On nasal cannula Cardiovascular: normal rate Respiratory/Chest: decreased breath sounds Abdomen: distended Darrian Stewart MD Jun 02, 2020 12:17
[2020-06-02] MEDS: HydrALAZINE 25mg tab ORAL SCH ×2 (13:35→18:14)
--- NOTE | 2020-06-02 14:01 | Surgery Progress Note ---
Surgery Progress Note Subjective Symptoms: other Objective Last 24 Hour Vital Signs Date Time Temp Pulse Resp B/P (MAP) Pulse Ox O2 Delivery O2 Flow Rate FiO2 06/02/20 13:53 97 Venturi Mask 10.0 45 06/02/20 13:35 198/91 06/02/20 12:57 97.8 69 18 198/91 (126) 96 06/02/20 10:13 97.8 72 18 194/88 (123) 96 06/02/20 10:07 191/79 06/02/20 09:40 63 191/79 06/02/20 08:00 98.4 63 18 191/79 (116) 93 06/02/20 04:00 98.1 63 20 127/69 (88) 98 06/02/20 00:00 97.9 70 19 147/99 (115) 98 06/01/20 21:00 Nasal Cannula 2.0 06/01/20 20:30 75 208/90 06/01/20 20:00 97.1 75 19 176/76 (109) 95 06/01/20 17:29 97.7 06/01/20 16:00 97.7 75 19 155/76 (102) 96 I&O Intake and Output 06/01/20 06/02/20 19:00 07:00 Intake Total 670 ml 50 ml Balance 670 ml 50 ml Intake IV Total 670 ml 50 ml Dressing: saturated Cardiovascular: RSR Respiratory: decreased breath sounds Abdomen: non-tender, other, decreased bowel sounds Extremities: edema, no cyanosis, other Laboratory Tests Test 06/02/20 05:09 06/02/20 09:00 06/02/20 12:16 POC Whole Blood Glucose 134 MG/DL (74-106) H 134 MG/DL (74-106) H Sodium Level 143 MMOL/L (136-145) Potassium Level 4.7 MMOL/L (3.5-5.1) Chloride Level 111 MMOL/L (98-107) H Carbon Dioxide Level 24 MMOL/L (21-32) Anion Gap 8 mmol/L (5-15) Blood Urea Nitrogen 53 mg/dL (7-18) H Creatinine 4.5 MG/DL (0.55-1.30) H Estimat Glomerular Filtration Rate 10.0 mL/min (>60) Glucose Level 134 MG/DL (74-106) H Calcium Level 7.0 MG/DL (8.5-10.1) L Total Bilirubin 0.3 MG/DL (0.2-1.0) Aspartate Amino Transf (AST/SGOT) 18 U/L (15-37) Alanine Aminotransferase (ALT/SGPT) 12 U/L (12-78) Alkaline Phosphatase 78 U/L (46-116) Total Protein 5.9 G/DL (6.4-8.2) L Albumin 2.8 G/DL (3.4-5.0) L Globulin 3.1 g/dL Albumin/Globulin Ratio 0.9 (1.0-2.7) L Cryptococcus Antigen Pending Plan Problems: (1) Pleural effusion (2) Hyperkalemia (3) INGRIS (acute kidney injury) (4) Morbid obesity with BMI of 50.0-59.9, adult (5) Anemia (6) SOB (shortness of breath) (7) Abdominal pain (8) Abdominal wall cellulitis Assessment & Plan: panniculitis anasarca cont abx dnr/dni comfort care confirmed care plan with patients daughter polst noted no acute surgical intervention acute renal insufficiency no HD, no cath insertion given patients and family wishes respiratory insufficiency acidosis no intubation given care plan thank you ABDOMEN: Liver: Unremarkable. Gallbladder and bile ducts: Unremarkable. No calcified stones. No ductal dilation. Pancreas: Unremarkable. No ductal dilation. Spleen: Unremarkable. No splenomegaly. Adrenals: Unremarkable. No mass. Kidneys and ureters: Mild nonspecific perinephric stranding. No obstructing stones. Stomach and bowel: Diverticulosis of the colon with no signs of diverticulitis. No obstruction. PELVIS: Appendix: No findings to suggest acute appendicitis. Bladder: Unremarkable. No stones. Reproductive: Unremarkable as visualized. ABDOMEN and PELVIS: Intraperitoneal space: Mild ascites predominantly seen along the anterior liver margin. No free air. Bones/joints: Advanced multilevel disc degenerative disease. No acute fracture. No dislocation. Soft tissues: Stranding/fluid infiltration of the subcutaneous fat suggestive of anasarca. Vasculature: Unremarkable. No abdominal aortic aneurysm. Lymph nodes: Unremarkable. No enlarged lymph nodes. IMPRESSION: 1. Right sided lung nodules, differential diagnosis including metastatic disease/neoplasm versus inflammatory process. Follow-up recommended with CT chest for further characterization. 2. Bilateral pleural effusions, more significant on the right. 3. Diffuse anasarca. Mild ascites. 4. Diverticulosis with no signs of diverticulitis. No bowel obstruction. Sean Anderson Jun 02, 2020 14:01
--- NOTE | 2020-06-02 15:32 | NUR ---
CASE MANAGEMENT:REVIEW SI;BILATERAL PLEURAL EFFUSIONS. INGRIS. ABD WALL CELLULITIS. ASCITES. PULMONARY NODULES. 98.4 72 19 194/88 93% 2L NC CL 111 BUN 53 CR 4.5 BG 134 CA 7.0 ALB 2.8 IS;CLONIDINE PATCH QWEEK HYDRALAZINE PO TID CEFAZOLIN IV Q12 LOPRESSOR PO Q12 IVF D5/NS @ 50 ML/HR HEPARIN SQ Q12 MED SURG STATUS DCP;FROM [facility] PLAN; COMFORT MEASURES ABX FOR CELLULITIS
--- NOTE | 2020-06-02 16:41 | NUR ---
BP for pt has been running high despite BP meds Clonidine tabs, Clonidine patch, Metoprolol, and Hydralazine as ordered. BP at 4 pm is 187/90. Dr. Colon gave the order to transfer to telemetry. Order reviewed and carried out.
--- NOTE | 2020-06-02 16:46 | General Progress Note ---
Subjective ROS Limited/Unobtainable: Yes Allergies: Coded Allergies: ACETAMINOPHEN (Verified Allergy, Unknown, 05/29/20) HYDROCODONE (Verified Allergy, Unknown, 05/29/20) Objective Last 24 Hour Vital Signs Date Time Temp Pulse Resp B/P (MAP) Pulse Ox O2 Delivery O2 Flow Rate FiO2 06/02/20 16:00 98.0 71 20 187/90 (122) 96 06/02/20 14:59 190/86 06/02/20 14:54 97.8 71 20 190/86 (120) 96 06/02/20 14:00 190/86 06/02/20 13:53 97 Venturi Mask 10.0 45 06/02/20 13:35 198/91 06/02/20 12:57 97.8 69 18 198/91 (126) 96 06/02/20 10:13 97.8 72 18 194/88 (123) 96 06/02/20 10:07 191/79 06/02/20 09:40 63 191/79 06/02/20 08:00 98.4 63 18 191/79 (116) 93 06/02/20 04:00 98.1 63 20 127/69 (88) 98 06/02/20 00:00 97.9 70 19 147/99 (115) 98 06/01/20 21:00 Nasal Cannula 2.0 06/01/20 20:30 75 208/90 06/01/20 20:00 97.1 75 19 176/76 (109) 95 06/01/20 17:29 97.7 Intake and Output 06/01/20 06/02/20 19:00 07:00 Intake Total 670 ml 50 ml Balance 670 ml 50 ml Intake IV Total 670 ml 50 ml Laboratory Tests 06/02/20 05:09: POC Whole Blood Glucose 134H 06/02/20 09:00: Sodium Level 143, Potassium Level 4.7, Chloride Level 111H, Carbon Dioxide Level 24, Anion Gap 8, Blood Urea Nitrogen 53H, Creatinine 4.5H, Estimat Glomerular Filtration Rate 10.0, Glucose Level 134H, Calcium Level 7.0L, Total Bilirubin 0.3, Aspartate Amino Transf (AST/SGOT) 18, Alanine Aminotransferase (ALT/SGPT) 12, Alkaline Phosphatase 78, Total Protein 5.9L, Albumin 2.8L, Globulin 3.1, Albumin/Globulin Ratio 0.9L, Cryptococcus Antigen [Pending] 06/02/20 12:16: POC Whole Blood Glucose 134H Height (Feet): 5 Height (Inches): 6.00 Weight (Pounds): 338 Assessment/Plan Problem List: (1) Pleural effusion ICD Codes: J90 - Pleural effusion, not elsewhere classified SNOMED: 86367179 (2) Hyperkalemia ICD Codes: E87.5 - Hyperkalemia SNOMED: 26204687 (3) INGRIS (acute kidney injury) ICD Codes: N17.9 - Acute kidney failure, unspecified SNOMED: 6324197, 43737338 (4) Morbid obesity with BMI of 50.0-59.9, adult ICD Codes: E66.01 - Morbid (severe) obesity due to excess calories; Z68.43 - Body mass index [BMI] 50.0-59.9, adult SNOMED: 459814186, 517753049, 71225813929917 (5) Anemia ICD Codes: D64.9 - Anemia, unspecified SNOMED: 908518720 (6) SOB (shortness of breath) ICD Codes: R06.02 - Shortness of breath SNOMED: 194078427 (7) Abdominal pain ICD Codes: R10.9 - Unspecified abdominal pain SNOMED: 08511053 (8) Abdominal wall cellulitis ICD Codes: L03.311 - Cellulitis of abdominal wall SNOMED: 87521091 Status: progressing Assessment/Plan: pleural effusion no sob prn oxygen afebrile reviewed chart and labs Darlene Hu MD Jun 02, 2020 16:46
--- NOTE | 2020-06-02 18:04 | NUR ---
NURSE NOTES: Given report to Carley LEYVA, pt in stable condition. per /Steve transferred to Tele for elevated BP.
--- NOTE | 2020-06-02 18:05 | NUR ---
NURSE NOTES: Pt received from Amparo DO, Pt in bed stable askin Addendum: 06/02/20 at 1806 by Wen Gaviria RN NURSE NOTES: Pt received from Amparo DO, Pt in bed stable asking for water however pt is NPO besides ice chips and meds. vitals as follws 180/81, 65 HR, 20resp, 96 on 10 liters simple mast 45 % Fio2, temp 98.1. Tele box placed.
--- NOTE | 2020-06-02 18:24 | NUR ---
NURSE HAND-OFF REPORT: Important Events on Shift:[Pt arrived from for uncontrolled BP. pt bp in 180's, hydralazine given. Pt only complains of thirst however she is NPO.] Patient Status: [In bed resting stable] Diet: [NPO] Pending Orders: [] Pending Results/Labs:[] Pending MD notification:[] Latest Vital Signs: Temperature 98.0 , Pulse 71 , B/P 180 /81 , Respiratory Rate 20 , O2 SAT 96 , Nasal Cannula, O2 Flow Rate 10.0 . Vital Sign Comment: [] EKG Rhythm: Sinus Bradycardia Rhythm change?: N MD Notified?: - MD Response: Latest Bhagat Fall Score: 45 Fall Risk: High Risk Safety Measures: Call light Within Reach, Bed Alarm Zone 2, Side Rails Side Rails x2, Bed position Low and Locked. Fall Precautions: Patient Fall Education Report given to [Pending Rn assignment ]. Addendum: 06/02/20 at 1926 by Wen Gaviria RN Report given to Jeremy Tena rn
--- NOTE | 2020-06-02 19:10 | NUR ---
NURSE NOTES: Pt received from GORDON Carver. Pt is sleeping comfortably in bed and denies any pain. Pt is A/Ox2 and bedbound; pt does not try to get up. Pt is on cardiac monitoring SR and asymptomatic. Pt is breathing unlabored on 10LPM Simple Face Mask 45% FiO2 and asymptomatic. Pt has FC 16fr for retention patent and draining well to gravity. Pt has LAC 20G running D51/2NS 50ml/hr patent with skin dry and intact. Bed is locked in lowest position with call light within reach. Will continue to monitor.
[2020-06-02] MEDS: Iron Sucrose 100 MG in NS 55 ML IVPB SCH (20:45)
[2020-06-03] VITALS: BP 163/66
[2020-06-03 04:00] VITALS: BP 171/76
[2020-06-03] MEDS: ceFAZolin 500mg in D5W 55ml IV SCH ×2 (05:31→16:47)
--- NOTE | 2020-06-03 06:05 | General Progress Note ---
Subjective ROS Limited/Unobtainable: No Allergies: Coded Allergies: ACETAMINOPHEN (Verified Allergy, Unknown, 05/29/20) HYDROCODONE (Verified Allergy, Unknown, 05/29/20) Objective Last 24 Hour Vital Signs Date Time Temp Pulse Resp B/P (MAP) Pulse Ox O2 Delivery O2 Flow Rate FiO2 06/03/20 04:00 98.7 68 18 171/76 (107) 96 06/03/20 04:00 63 06/03/20 00:00 98.4 66 18 163/66 (98) 96 06/03/20 00:00 63 06/02/20 21:00 Nasal Cannula 2.0 06/02/20 20:16 97 Nasal Cannula 2.0 28 06/02/20 20:00 68 06/02/20 20:00 99.0 66 20 174/72 (106) 97 06/02/20 18:14 180/81 06/02/20 16:00 98.0 71 20 187/90 (122) 96 06/02/20 14:59 190/86 06/02/20 14:54 97.8 71 20 190/86 (120) 96 06/02/20 14:00 190/86 06/02/20 13:53 97 Venturi Mask 10.0 45 06/02/20 13:35 198/91 06/02/20 12:57 97.8 69 18 198/91 (126) 96 06/02/20 10:13 97.8 72 18 194/88 (123) 96 06/02/20 10:07 191/79 06/02/20 09:40 63 191/79 06/02/20 09:00 Nasal Cannula 2.0 06/02/20 08:00 98.4 63 18 191/79 (116) 93 Laboratory Tests 06/02/20 09:00: Sodium Level 143, Potassium Level 4.7, Chloride Level 111H, Carbon Dioxide Level 24, Anion Gap 8, Blood Urea Nitrogen 53H, Creatinine 4.5H, Estimat Glomerular Filtration Rate 10.0, Glucose Level 134H, Calcium Level 7.0L, Total Bilirubin 0.3, Aspartate Amino Transf (AST/SGOT) 18, Alanine Aminotransferase (ALT/SGPT) 12, Alkaline Phosphatase 78, Total Protein 5.9L, Albumin 2.8L, Globulin 3.1, Albumin/Globulin Ratio 0.9L, Cryptococcus Antigen [Pending] 06/02/20 12:16: POC Whole Blood Glucose 134H 06/02/20 20:48: POC Whole Blood Glucose [Pending] Height (Feet): 5 Height (Inches): 6.00 Weight (Pounds): 338 General Appearance: alert EENT: normal ENT inspection Neck: supple Cardiovascular: normal rate Respiratory/Chest: decreased breath sounds Abdomen: normal bowel sounds, non tender, soft Extremities: non-tender Assessment/Plan Status: progressing Assessment/Plan: iron def anemia abd pain RI morbid obesity anasarca/ascites diverticulosis cholelithiasis DNR CT and US reviewed IV iron stool ob repeat labs respiratory care poor prognosis comfort care Paul Díaz MD Jun 03, 2020 06:05
[2020-06-03] MEDS: Morphine Sulfate 4mg/ml Inj (IV USE ONLY) IVP PRN ×2 (06:38→11:56)
--- NOTE | 2020-06-03 07:05 | NUR ---
NURSE HAND-OFF REPORT: Important Events on Shift:Pt received prn morphine. Patient Status: Stable Diet: Regular No caffeine and chocolate Pending Orders: Pending Results/Labs: Pending MD notification: Latest Vital Signs: Temperature 98.7 , Pulse 68 , B/P 171 /76 , Respiratory Rate 18 , O2 SAT 96 , Nasal Cannula, O2 Flow Rate 2.0 . Vital Sign Comment: VSS EKG Rhythm: Sinus Rhythm Rhythm change?: N MD Notified?: - MD Response: Latest Bhagat Fall Score: 45 Fall Risk: High Risk Safety Measures: Call light Within Reach, Bed Alarm Zone 2, Side Rails Side Rails x2, Bed position Low and Locked. Fall Precautions: Patient Fall Education Report given to GORDON Felipe.
--- NOTE | 2020-06-03 07:12 | NUR ---
NURSE NOTES: received report from GORDON aguilar. Pt is resting in bed, stable on 10 LPM 40 FiO2 facemask. no s/s or complaints of distress at this time. Pt is complaining of headache 04/19, morphine just given by Abdulaziz LEYVA. pt IV on LAC 20g running fluids at 50cc, asymptomatic and intact. Pt bed low and locked, call light in reach and bed alarm on. Pt verbalized understanding to call for help.
--- NOTE | 2020-06-03 07:19 | Infectious Diseases Prog Note ---
Assessment/Plan 59yo F with: Afebrile Normal WBC Pulmonary nodules BL pleural effusions, R>L Cough, SOB Likely CHF, volume OL 05/29 CT A/P: 1. Right sided lung nodules, differential diagnosis including metastatic disease/neoplasm versus inflammatory process. Follow-up recommended with CT chest for further characterization. 2. Bilateral pleural effusions, more significant on the right. 3. Diffuse anasarca. Mild ascites. 4. Diverticulosis with no signs of diverticulitis. No bowel obstruction. 05/30 CT chest: 1. Moderate right and small left pleural effusions. 2. Bilateral mild pulmonary edema/infiltrates. 3. Bilateral scattered small nodular lung densities which may be neoplasm/metastasis, chronic, infection/inflammation, or other etiology. Followup as clinically indicated. 05/30 COVID rapid neg Possible panniculitis Morbid obesity Plan: Cont cefazolin #4/5 for possible panniculitis, trend exam F/u ID w/u for pulm nodules with: Cocci Histo Ab Ab and Ag Crypto Ag Fungitell QuantGold HIV = neg 05/29 SP Zosyn x1 in ED Monitor CBC/CMP Monitor resp status Monitor temp curve and hemodynamics D/w RN Thank you for this consult. [facility] will continue to follow. Subjective Allergies: Coded Allergies: ACETAMINOPHEN (Verified Allergy, Unknown, 05/29/20) HYDROCODONE (Verified Allergy, Unknown, 05/29/20) AF NAD on 2L NC No new labs today More interactive today, reports ongoing BOONE despite pain meds and nausea Objective Last 24 Hour Vital Signs Date Time Temp Pulse Resp B/P (MAP) Pulse Ox O2 Delivery O2 Flow Rate FiO2 06/03/20 04:00 98.7 68 18 171/76 (107) 96 06/03/20 04:00 63 06/03/20 00:00 98.4 66 18 163/66 (98) 96 06/03/20 00:00 63 06/02/20 21:00 Nasal Cannula 2.0 06/02/20 20:16 97 Nasal Cannula 2.0 28 06/02/20 20:00 68 06/02/20 20:00 99.0 66 20 174/72 (106) 97 06/02/20 18:14 180/81 06/02/20 16:00 98.0 71 20 187/90 (122) 96 06/02/20 14:59 190/86 11/23/20 14:54 97.8 71 20 190 (120) 96 06/02/20 14:00 19006/02/20 13:53 97 Venturi Mask 10.0 45 06/02/20 13:35 198/91 06/02/20 12:57 97.8 69 18 (126) 96 06/02/20 10:13 97.8 72 18 194/ (123) 96 06/02/20 10:07 06/02/20 09:40 63 06/02/20 09:00 Nasal Cannula 2.0 06/02/20 08:00 98.4 63 18 (116) 93 Height (Feet): 5 Height (Inches): 6.00 Weight (Pounds): 338 Gen: NAD in bed HEENT: NCAT CV: RRR Pulm: CTAB Abd: Soft, NTND, obese, no significant noted erythema of the pannus, very edematous Ext: 2+ pitting edema of BLE Neuro: Minimally interactive Laboratory Tests Test 06/02/20 09:00 06/02/20 12:16 06/02/20 20:48 Sodium Level 143 MMOL/L (136-145) Potassium Level 4.7 MMOL/L (3.5-5.1) Chloride Level 111 MMOL/L (98-107) H Carbon Dioxide Level 24 MMOL/L (21-32) Anion Gap 8 mmol/L (5-15) Blood Urea Nitrogen 53 mg/dL (7-18) H Creatinine 4.5 MG/DL (0.55-1.30) H Estimat Glomerular Filtration Rate 10.0 mL/min (>60) Glucose Level 134 MG/DL (74-106) H Calcium Level 7.0 MG/DL (8.5-10.1) L Total Bilirubin 0.3 MG/DL (0.2-1.0) Aspartate Amino Transf (AST/SGOT) 18 U/L (15-37) Alanine Aminotransferase (ALT/SGPT) 12 U/L (12-78) Alkaline Phosphatase 78 U/L (46-116) Total Protein 5.9 G/DL (6.4-8.2) L Albumin 2.8 G/DL (3.4-5.0) L Globulin 3.1 g/dL Albumin/Globulin Ratio 0.9 (1.0-2.7) L Cryptococcus Antigen Pending POC Whole Blood Glucose 134 MG/DL (74-106) H Pending Current Medications Medications (Trade) Dose Ordered Sig/Alissa Route PRN Reason Start Time Stop Time Status Last Admin Dose Admin Cefazolin Sodium 500 mg/Dextrose 55 ml @ 110 mls/hr Q12H IV 06/01/20 18:00 06/08/20 17:59 06/03/20 05:31 Clonidine HCl (Catapres TTS-3) 1 patch QWEEK TDERMAL 06/02/20 14:00 08/31/20 13:59 06/02/20 14:00 Clonidine HCl (Catapres Tab) 0.1 mg Q4H PRN ORAL For High Blood Pressure 06/01/20 12:45 08/28/20 04:29 06/02/20 14:59 Dextrose (Dextrose 50%) 25 ml Q30M PRN IV Hypoglycemia 05/30/20 04:30 08/28/20 04:29 Dextrose (Dextrose 50%) 50 ml Q30M PRN IV Hypoglycemia 05/30/20 04:30 08/28/20 04:29 Dextrose/Sodium Chloride 1,000 ml @ 50 mls/hr Q20H IV 05/31/20 09:30 06/30/20 09:29 06/02/20 22:51 Heparin Sodium (Porcine) (Heparin 5000 units/ml) 5,000 units EVERY 12 HOURS SUBQ 05/30/20 09:00 07/14/20 08:59 06/02/20 20:50 Hydralazine HCl (Apresoline) 25 mg TID ORAL 06/02/20 13:15 08/31/20 13:14 06/02/20 18:14 Insulin Aspart (NovoLOG) BEFORE MEALS AND HS SUBQ 05/30/20 06:30 08/28/20 06:29 06/02/20 20:49 Iron Sucrose 100 mg/Sodium Chloride 60 ml @ 240 mls/hr BEDTIME IVPB 05/31/20 21:00 06/03/20 21:14 06/02/20 20:45 Morphine Sulfate (Morphine Sulfate) 4 mg Q4H PRN IVP Moderate Pain (Pain Scale 4-6) 05/31/20 13:00 06/06/20 04:14 06/03/20 06:38 Leola Boyer M.D. Jun 03, 2020 07:19
--- NOTE | 2020-06-03 07:56 | NUR ---
NURSE NOTES: Pt had no BM sinc 05/29. contacted MD for PRN stool softener. order acknowledged and carried out.
[2020-06-03 08:00] VITALS: BP 134/56
[2020-06-03] MEDS: Heparin 5000 units/ml inj SUBQ SCH ×2 (08:04→20:38)
[2020-06-03] MEDS: HydrALAZINE 25mg tab ORAL SCH ×3 (08:04→17:25)
[2020-06-03] MEDS: Docusate 100mg cap ORAL SCH ×2 (08:37→16:47)
--- NOTE | 2020-06-03 08:47 | General Progress Note ---
Subjective Date patient seen: Jun 03, 2020 Time patient seen: 07:30 - am Allergies: Coded Allergies: ACETAMINOPHEN (Verified Allergy, Unknown, 05/29/20) HYDROCODONE (Verified Allergy, Unknown, 05/29/20) Subjective HISTORY OF PRESENT ILLNESS: The patient is a 59-year-old female, who is being seen on the Tele floor of [facility]. Patient was transferred due to uncontrolled hypertension. Continues to c/o pain, not getting out of bed was advised to get out of bed and ambulate. D/w nurse. REVIEW OF SYSTEMS: Denies rash, fever, chills, sweating, dizziness, drowsiness, blurred vision, sore throat, or change in weight. No shortness of breath, chest pain, palpitations, or cough. No nausea, vomiting, diarrhea, or blood in stool or urine. No dysuria. Objective Last 24 Hour Vital Signs Date Time Temp Pulse Resp B/P (MAP) Pulse Ox O2 Delivery O2 Flow Rate FiO2 06/03/20 08:04 144/66 06/03/20 04:00 98.7 68 18 171/76 (107) 96 06/03/20 04:00 63 06/03/20 00:00 98.4 66 18 163/66 (98) 96 06/03/20 00:00 63 06/02/20 21:00 Nasal Cannula 2.0 06/02/20 20:16 97 Nasal Cannula 2.0 28 06/02/20 20:00 68 06/02/20 20:00 99.0 66 20 174/72 (106) 97 06/02/20 18:14 180/81 06/02/20 16:00 98.0 71 20 187/90 (122) 96 06/02/20 14:59 190/86 06/02/20 14:54 97.8 71 20 190/86 (120) 96 06/02/20 14:00 190/86 06/02/20 13:53 97 Venturi Mask 10.0 45 06/02/20 13:35 198/91 06/02/20 12:57 97.8 69 18 198/91 (126) 96 06/02/20 10:13 97.8 72 18 194/88 (123) 96 06/02/20 10:07 191/79 06/02/20 09:40 63 191/06/02/20 09:00 Nasal Cannula 2.0 Laboratory Tests 06/02/20 09:00: Sodium Level 143, Potassium Level 4.7, Chloride Level 111H, Carbon Dioxide Level 24, Anion Gap 8, Blood Urea Nitrogen 53H, Creatinine 4.5H, Estimat Glomerular Filtration Rate 10.0, Glucose Level 134H, Calcium Level 7.0L, Total Bilirubin 0.3, Aspartate Amino Transf (AST/SGOT) 18, Alanine Aminotransferase (ALT/SGPT) 12, Alkaline Phosphatase 78, Total Protein 5.9L, Albumin 2.8L, Globulin 3.1, Albumin/Globulin Ratio 0.9L, Cryptococcus Antigen [Pending] 06/02/20 12:16: POC Whole Blood Glucose 134H 06/02/20 20:48: POC Whole Blood Glucose [Pending] Height (Feet): 5 Height (Inches): 6.00 Weight (Pounds): 338 Objective PHYSICAL EXAMINATION: NECK: Range of motion is decreased due to the patient's condition. LUNGS: Decreased breath sounds bilaterally. HEART: Regular. ABDOMEN: Obese. EXTREMITIES: No clubbing. NEURO: No changes. Assessment/Plan Assessment/Plan: (1) Abdominal pain (2) Morbid obesity (3) Multiple joint pain and OA Patient to be continued on Morphine as needed. D/w Dr. Agudelo and he concurred. Elio Colon Jun 03, 2020 08:47
--- NOTE | 2020-06-03 09:00 | NUR ---
PT NOTE Patient transferred to tele due to uncontrolled BP. Physical therapy placed on hold, will need MD order to resume PT. Destinee LEYVA notified, will follow.
--- NOTE | 2020-06-03 09:43 | NUR ---
PT NOTE Per Destinee LEYVA, patient cleared for PT per Dr. Hu. Attempted to see patient for PT treatment however patient declining to participate due to not feeling well. Destinee LEYVA notified, will follow.
--- NOTE | 2020-06-03 10:49 | Surgery Progress Note ---
Surgery Progress Note Subjective Additional Comments worse in tele prognosis guarded alert but not responsive on face mask Objective Last 24 Hour Vital Signs Date Time Temp Pulse Resp B/P (MAP) Pulse Ox O2 Delivery O2 Flow Rate FiO2 06/03/20 09:00 Nasal Cannula 2.0 06/03/20 08:04 144/66 06/03/20 08:00 97.7 68 17 134/56 (82) 94 06/03/20 08:00 63 06/03/20 04:00 98.7 68 18 171/76 (107) 96 06/03/20 04:00 63 06/03/20 00:00 98.4 66 18 163/66 (98) 96 06/03/20 00:00 63 06/02/20 21:00 Nasal Cannula 2.0 06/02/20 20:16 97 Nasal Cannula 2.0 28 06/02/20 20:00 68 06/02/20 20:00 99.0 66 20 174/72 (106) 97 06/02/20 18:14 180/81 06/02/20 16:00 98.0 71 20 187/90 (122) 96 06/02/20 14:59 190/86 06/02/20 14:54 97.8 71 20 190/86 (120) 96 06/02/20 14:00 190/86 06/02/20 13:53 97 Venturi Mask 10.0 45 06/02/20 13:35 198/91 06/02/20 12:57 97.8 69 18 198/91 (126) 96 Cardiovascular: RSR Respiratory: decreased breath sounds Abdomen: soft, non-tender, present bowel sounds, other Extremities: edema, no tenderness, no cyanosis Laboratory Tests Test 06/02/20 12:16 06/02/20 20:48 06/03/20 08:33 POC Whole Blood Glucose 134 MG/DL (74-106) H Pending TB Test (T-Spot) Pending TB Test Nil Control (T-Spot) Pending TB Test Panel A (T-Spot) Pending TB Test Panel B (T-Spot) Pending TB Test Positive Control (T-Spot) Pending Plan Problems: (1) Pleural effusion (2) Hyperkalemia (3) INGRIS (acute kidney injury) (4) Morbid obesity with BMI of 50.0-59.9, adult (5) Anemia (6) SOB (shortness of breath) (7) Abdominal pain (8) Abdominal wall cellulitis Assessment & Plan: panniculitis anasarca cont abx dnr/dni comfort care confirmed care plan with patients daughter yvan noted no acute surgical intervention acute renal insufficiency no HD, no cath insertion given patients and family wishes respiratory insufficiency acidosis no intubation given care plan thank you ABDOMEN: Liver: Unremarkable. Gallbladder and bile ducts: Unremarkable. No calcified stones. No ductal dilation. Pancreas: Unremarkable. No ductal dilation. Spleen: Unremarkable. No splenomegaly. Adrenals: Unremarkable. No mass. Kidneys and ureters: Mild nonspecific perinephric stranding. No obstructing stones. Stomach and bowel: Diverticulosis of the colon with no signs of diverticulitis. No obstruction. PELVIS: Appendix: No findings to suggest acute appendicitis. Bladder: Unremarkable. No stones. Reproductive: Unremarkable as visualized. ABDOMEN and PELVIS: Intraperitoneal space: Mild ascites predominantly seen along the anterior liver margin. No free air. Bones/joints: Advanced multilevel disc degenerative disease. No acute fracture. No dislocation. Soft tissues: Stranding/fluid infiltration of the subcutaneous fat suggestive of anasarca. Vasculature: Unremarkable. No abdominal aortic aneurysm. Lymph nodes: Unremarkable. No enlarged lymph nodes. IMPRESSION: 1. Right sided lung nodules, differential diagnosis including metastatic disease/neoplasm versus inflammatory process. Follow-up recommended with CT chest for further characterization. 2. Bilateral pleural effusions, more significant on the right. 3. Diffuse anasarca. Mild ascites. 4. Diverticulosis with no signs of diverticulitis. No bowel obstruction. Sean Anderson Jun 03, 2020 10:49
--- NOTE | 2020-06-03 11:12 | Nephrology Progress Note ---
Assessment/Plan Problem List: (1) INGRIS (acute kidney injury) (2) Hyperkalemia (3) Morbid obesity with BMI of 50.0-59.9, adult (4) Anemia Assessment Renal failure most likely acute on chronic Presents with hyperkalemia Anemia Hypertension Pleural effusion Ejection fraction 55% No hydronephrosis and kidney ultrasound 4+ proteinuria, likely due to diabetic nephropathy Morbid obesity Plan June 03: Patient was transferred to telemetry for high blood pressure. Remains DNR/DNI. Blood pressure now within normal limit. Patient clonidine patch. Since appearing clinically more responsive will check labs tomorrow. June 02: Labs reviewed. Status quo. Patient DNR/DNI and do not dialysis per family request. Not much to add from renal standpoint of view. Suggest no lab draw since not much can be done about it from renal standpoint of view. June 01: Events of last 24 hours noted and is as follow: Patient found to be acidotic with acute renal failure. Was transferred to ICU. Planned to dialyze and protect the airways. Apparently family changed the status to DNR/DNI. Patient was then transferred to medical floor. Currently status unchanged. Not much more to be added from renal standpoint of view. Suggest comfort care. Since we are not going to do any dialysis treatment, monitoring blood chemistries and renal parameters are not needed. May 31: Patient morbidly obese. Labs reviewed. Worsening renal parameters and hyperkalemia. Dior ordered. Kayexalate ordered. Stat ABG ordered. Patient n.p.o. Insertion of dialysis catheter and consent ordered. Patient may need to be transferred to ICU. Discussed with RN and nurse in charge of the floor. May 30: DC IV fluid and diuretics Keep the blood pressure in check Monitor renal parameters Monitor electrolytes Avoid nephrotoxic's 1 dose of Kayexalate Intravenous Venofer for low iron Per orders Subjective ROS Limited/Unobtainable: No Constitutional: Reports: malaise, weakness Objective Objective Last 24 Hour Vital Signs Date Time Temp Pulse Resp B/P (MAP) Pulse Ox O2 Delivery O2 Flow Rate FiO2 06/03/20 09:00 Nasal Cannula 2.0 06/03/20 08:04 144/66 06/03/20 08:00 97.7 68 17 134/56 (82) 94 06/03/20 08:00 63 06/03/20 07:28 94 Nasal Cannula 2.0 28 06/03/20 04:00 98.7 68 18 171/76 (107) 96 06/03/20 04:00 63 06/03/20 00:00 98.4 66 18 163/66 (98) 96 06/03/20 00:00 63 06/02/20 21:00 Nasal Cannula 2.0 06/02/20 20:16 97 Nasal Cannula 2.0 28 06/02/20 20:00 68 06/02/20 20:00 99.0 66 20 174/72 (106) 97 06/02/20 18:14 180/81 06/02/20 16:00 98.0 71 20 187/90 (122) 96 06/02/20 14:59 190/86 06/02/20 14:54 97.8 71 20 190/86 (120) 96 06/02/20 14:00 190/86 06/02/20 13:53 97 Venturi Mask 10.0 45 06/02/20 13:35 198/91 06/02/20 12:57 97.8 69 18 198/91 (126) 96 Current Medications Medications (Trade) Dose Ordered Sig/Alissa Route PRN Reason Start Time Stop Time Status Last Admin Dose Admin Cefazolin Sodium 500 mg/Dextrose 55 ml @ 110 mls/hr Q12H IV 06/01/20 18:00 06/08/20 17:59 06/03/20 05:31 Clonidine HCl (Catapres TTS-3) 1 patch QWEEK TDERMAL 06/02/20 14:00 08/31/20 13:59 06/02/20 14:00 Clonidine HCl (Catapres Tab) 0.1 mg Q4H PRN ORAL For High Blood Pressure 06/01/20 12:45 08/28/20 04:29 06/02/20 14:59 Dextrose (Dextrose 50%) 25 ml Q30M PRN IV Hypoglycemia 05/30/20 04:30 08/28/20 04:29 Dextrose (Dextrose 50%) 50 ml Q30M PRN IV Hypoglycemia 05/30/20 04:30 08/28/20 04:29 Dextrose/Sodium Chloride 1,000 ml @ 50 mls/hr Q20H IV 05/31/20 09:30 06/30/20 09:29 06/02/20 22:51 Docusate Sodium (Colace) 100 mg TWICE A DAY ORAL 06/03/20 09:00 07/03/20 08:59 06/03/20 08:37 Heparin Sodium (Porcine) (Heparin 5000 units/ml) 5,000 units EVERY 12 HOURS SUBQ 05/30/20 09:00 07/14/20 08:59 06/03/20 08:04 Hydralazine HCl (Apresoline) 25 mg TID ORAL 06/02/20 13:15 08/31/20 13:14 06/03/20 08:04 Insulin Aspart (NovoLOG) BEFORE MEALS AND HS SUBQ 05/30/20 06:30 08/28/20 06:29 06/02/20 20:49 Iron Sucrose 100 mg/Sodium Chloride 60 ml @ 240 mls/hr BEDTIME IVPB 05/31/20 21:00 06/03/20 21:14 06/02/20 20:45 Morphine Sulfate (Morphine Sulfate) 4 mg Q4H PRN IVP Moderate Pain (Pain Scale 4-6) 05/31/20 13:00 06/06/20 04:14 06/03/20 06:38 Laboratory Tests 06/02/20 12:16: POC Whole Blood Glucose 134H 06/02/20 20:48: POC Whole Blood Glucose [Pending] 06/03/20 08:33: TB Test (T-Spot) [Pending], TB Test Nil Control (T-Spot) [Pending], TB Test Panel A (T-Spot) [Pending], TB Test Panel B (T-Spot) [Pending], TB Test Positive Control (T-Spot) [Pending] Height (Feet): 5 Height (Inches): 6.00 Weight (Pounds): 338 General Appearance: no apparent distress, lethargic Cardiovascular: normal rate Respiratory/Chest: decreased breath sounds Abdomen: distended, other - Obese Darrian Stewart MD Jun 03, 2020 11:12
[2020-06-03] MEDS: NovoLOG Insulin Flexpen SUBQ SCH ×3 (11:30→20:38)
[2020-06-03] MEDS ORDERED: ASCORBIC ACID500 MG ORAL (11:38)
[2020-06-03] MEDS ORDERED: ACETAMINOPHEN325 M1 ORAL (11:38)
[2020-06-03] MEDS ORDERED: LEXAPRO10 MG ORAL (11:38)
[2020-06-03] MEDS ORDERED: LANTUS SOL100 UNIT/1 SUBQ (11:38)
[2020-06-03] MEDS ORDERED: MULTIVITAMINS1 EAC2 ORAL (11:38)
[2020-06-03 11:55] VITALS: BP 145/63
--- NOTE | 2020-06-03 12:09 | Pulmonology Progress Note ---
Subjective ROS Limited/Unobtainable: No Constitutional: Reports: no symptoms HEENT: Repors: no symptoms Respiratory: Reports: no symptoms Allergies: Coded Allergies: ACETAMINOPHEN (Verified Allergy, Unknown, 05/29/20) HYDROCODONE (Verified Allergy, Unknown, 05/29/20) All Systems: reviewed and negative except above Objective Last 24 Hour Vital Signs Date Time Temp Pulse Resp B/P (MAP) Pulse Ox O2 Delivery O2 Flow Rate FiO2 06/03/20 11:56 145/63 06/03/20 11:55 97.1 61 18 145/63 (90) 94 06/03/20 11:31 98 Venturi Mask 10.0 45 06/03/20 09:00 Nasal Cannula 2.0 06/03/20 08:04 144/66 06/03/20 08:00 97.7 68 17 134/56 (82) 94 06/03/20 08:00 63 06/03/20 04:00 98.7 68 18 171/76 (107) 96 06/03/20 04:00 63 06/03/20 00:00 98.4 66 18 163/66 (98) 96 06/03/20 00:00 63 06/02/20 21:00 Nasal Cannula 2.0 06/02/20 20:16 97 Nasal Cannula 2.0 28 06/02/20 20:00 68 06/02/20 20:00 99.0 66 20 174/72 (106) 97 06/02/20 18:14 180/81 06/02/20 16:00 98.0 71 20 187/90 (122) 96 06/02/20 14:59 190/86 06/02/20 14:54 97.8 71 20 190/86 (120) 96 06/02/20 14:00 190/86 06/02/20 13:53 97 Venturi Mask 10.0 45 06/02/20 13:35 198/91 06/02/20 12:57 97.8 69 18 198/91 (126) 96 General Appearance: WD/WN HEENT: normocephalic, atraumatic Respiratory: chest wall non-tender, rhonchi - left, rhonchi - right Breasts: no masses Cardiovascular: normal peripheral pulses, normal rate Abdomen: normal bowel sounds, soft, non tender Genitourinary: normal external genitalia Extremities: no cyanosis Skin: no rash Laboratory Tests 06/02/20 12:16: POC Whole Blood Glucose 134H 06/02/20 20:48: POC Whole Blood Glucose [Pending] 06/03/20 08:33: TB Test (T-Spot) [Pending], TB Test Nil Control (T-Spot) [Pending], TB Test Panel A (T-Spot) [Pending], TB Test Panel B (T-Spot) [Pending], TB Test Positive Control (T-Spot) [Pending] 06/03/20 11:48: POC Whole Blood Glucose [Pending] Current Medications Medications (Trade) Dose Ordered Sig/Alissa Route PRN Reason Start Time Stop Time Status Last Admin Dose Admin Cefazolin Sodium 500 mg/Dextrose 55 ml @ 110 mls/hr Q12H IV 06/01/20 18:00 06/08/20 17:59 06/03/20 05:31 Clonidine HCl (Catapres TTS-3) 1 patch QWEEK TDERMAL 06/02/20 14:00 08/31/20 13:59 06/02/20 14:00 Clonidine HCl (Catapres Tab) 0.1 mg Q4H PRN ORAL For High Blood Pressure 06/01/20 12:45 08/28/20 04:29 06/02/20 14:59 Dextrose (Dextrose 50%) 25 ml Q30M PRN IV Hypoglycemia 05/30/20 04:30 08/28/20 04:29 Dextrose (Dextrose 50%) 50 ml Q30M PRN IV Hypoglycemia 05/30/20 04:30 08/28/20 04:29 Dextrose/Sodium Chloride 1,000 ml @ 50 mls/hr Q20H IV 05/31/20 09:30 06/30/20 09:29 06/02/20 22:51 Docusate Sodium (Colace) 100 mg TWICE A DAY ORAL 06/03/20 09:00 07/03/20 08:59 06/03/20 08:37 Heparin Sodium (Porcine) (Heparin 5000 units/ml) 5,000 units EVERY 12 HOURS SUBQ 05/30/20 09:00 07/14/20 08:59 06/03/20 08:04 Hydralazine HCl (Apresoline) 25 mg TID ORAL 06/02/20 13:15 08/31/20 13:14 06/03/20 11:56 Insulin Aspart (NovoLOG) BEFORE MEALS AND HS SUBQ 05/30/20 06:30 08/28/20 06:29 06/02/20 20:49 Iron Sucrose 100 mg/Sodium Chloride 60 ml @ 240 mls/hr BEDTIME IVPB 05/31/20 21:00 06/03/20 21:14 06/02/20 20:45 Morphine Sulfate (Morphine Sulfate) 4 mg Q4H PRN IVP Moderate Pain (Pain Scale 4-6) 05/31/20 13:00 06/06/20 04:14 06/03/20 11:56 Assessment/Plan Problems: (1) Acute respiratory failure (2) Pleural effusion (3) INGRIS (acute kidney injury) (4) Morbid obesity with BMI of 50.0-59.9, adult (5) Abdominal wall cellulitis Assessment/Plan pt transferred to [facility] because of high blood pressure, pt doesn't want any BIPAP or intubation or HD comfort measures titrate fio2 to sat of 92% abx for abdominal wall cellulitis symptomatic treatment pt doesn't want any aggressive treatment. She agreed with Hospice. Case management informed. Eder Corral MD Jun 03, 2020 12:09
--- NOTE | 2020-06-03 12:10 | Cardiac Electrophysiology PN ---
Assessment/Plan Assessment/Plan 1. Bradycardia with heart rate in the 50s. Stable on metoprolol 12.5 bid 2. Hypertension, on metoprolol 12.5 mg twice a day 3. Chest pain. The pain is atypical. Ruled out UT EF 55% on echocardiogram 4. Renal failure with creatinine of 4.2. Refusing HD( Family refused even placing Vladislav) 5. Generalized pain. Follow up pain management. 6. Morbid obesity. 7. Hyperkalemia. K normal after Kayexalate DW Dr. Stewart Subjective Subjective No CP or SOB.Has headache. Got Kayexalate for hyperkalemia Objective Last 24 Hour Vital Signs Date Time Temp Pulse Resp B/P (MAP) Pulse Ox O2 Delivery O2 Flow Rate FiO2 06/03/20 11:56 145/63 06/03/20 11:55 97.1 61 18 145/63 (90) 94 06/03/20 11:31 98 Venturi Mask 10.0 45 06/03/20 09:00 Nasal Cannula 2.0 06/03/20 08:04 144/66 06/03/20 08:00 97.7 68 17 134/56 (82) 94 06/03/20 08:00 63 06/03/20 04:00 98.7 68 18 171/76 (107) 96 06/03/20 04:00 63 06/03/20 00:00 98.4 66 18 163/66 (98) 96 06/03/20 00:00 63 06/02/20 21:00 Nasal Cannula 2.0 06/02/20 20:16 97 Nasal Cannula 2.0 28 06/02/20 20:00 68 06/02/20 20:00 99.0 66 20 174/72 (106) 97 06/02/20 18:14 180/81 06/02/20 16:00 98.0 71 20 187/90 (122) 96 06/02/20 14:59 190/86 06/02/20 14:54 97.8 71 20 190/86 (120) 96 06/02/20 14:00 190/86 06/02/20 13:53 97 Venturi Mask 10.0 45 06/02/20 13:35 198/91 06/02/20 12:57 97.8 69 18 198/91 (126) 96 Laboratory Tests Test 06/02/20 12:16 06/02/20 20:48 06/03/20 08:33 06/03/20 11:48 POC Whole Blood Glucose 134 MG/DL (74-106) H Pending Pending TB Test (T-Spot) Pending TB Test Nil Control (T-Spot) Pending TB Test Panel A (T-Spot) Pending TB Test Panel B (T-Spot) Pending TB Test Positive Control (T-Spot) Pending Objective NECK: no JVD. LUNGS: Clear. CARDIOVASCULAR: Shows regular S1 and S2 with no gallop. ABDOMEN: Morbidly obese. EXTREMITIES: 1+ pitting edema. Shad Colon MD Jun 03, 2020 12:09
[2020-06-03 16:00] VITALS: BP 113/63
[2020-06-03] MEDS: D5 1/2NS 1,000 ML IV SCH (16:55)
--- NOTE | 2020-06-03 17:25 | NUR ---
NURSE NOTES: Pt BP 119/65, holding hydralazine.
--- NOTE | 2020-06-03 19:30 | NUR ---
NURSE NOTES: Pt received from Destinee LEYVA. Pt is sleeping in bed Semi-fowlers. Patient is omn 10L Venturi mask at 45 fio2. No acute distress noted. No pain reported noted at this time. Pt is A/Ox3. Pt has left AC 20G patent flushed patent and locked. No bleeding or erythema noted. Bed is locked in lowest position. Bed alarm on and call light is within reach. Will continue to monitor.
--- NOTE | 2020-06-03 19:54 | General Progress Note ---
Subjective ROS Limited/Unobtainable: Yes Allergies: Coded Allergies: ACETAMINOPHEN (Verified Allergy, Unknown, 05/29/20) HYDROCODONE (Verified Allergy, Unknown, 05/29/20) Objective Last 24 Hour Vital Signs Date Time Temp Pulse Resp B/P (MAP) Pulse Ox O2 Delivery O2 Flow Rate FiO2 06/03/20 18:57 97 Venturi Mask 10.0 45 06/03/20 17:25 119/65 06/03/20 16:00 63 06/03/20 16:00 97.1 61 20 113/63 (80) 94 06/03/20 12:25 97.1 06/03/20 12:00 61 06/03/20 11:56 145/63 06/03/20 11:55 97.1 61 18 145/63 (90) 94 06/03/20 11:31 98 Venturi Mask 10.0 45 06/03/20 09:00 Nasal Cannula 2.0 06/03/20 08:04 144/66 06/03/20 08:00 97.7 68 17 134/56 (82) 94 06/03/20 08:00 63 06/03/20 04:00 98.7 68 18 171/76 (107) 96 06/03/20 04:00 63 06/03/20 00:00 98.4 66 18 163/66 (98) 96 06/03/20 00:00 63 06/02/20 21:00 Nasal Cannula 2.0 06/02/20 20:16 97 Nasal Cannula 2.0 28 06/02/20 20:00 68 06/02/20 20:00 99.0 66 20 174/72 (106) 97 Laboratory Tests 06/02/20 20:48: POC Whole Blood Glucose [Pending] 06/03/20 08:33: TB Test (T-Spot) [Pending], TB Test Nil Control (T-Spot) [Pending], TB Test Panel A (T-Spot) [Pending], TB Test Panel B (T-Spot) [Pending], TB Test Positive Control (T-Spot) [Pending] 06/03/20 11:48: POC Whole Blood Glucose [Pending] 06/03/20 15:56: POC Whole Blood Glucose 122H Height (Feet): 5 Height (Inches): 6.00 Weight (Pounds): 338 Assessment/Plan Problem List: (1) Pleural effusion ICD Codes: J90 - Pleural effusion, not elsewhere classified SNOMED: 94736042 (2) Hyperkalemia ICD Codes: E87.5 - Hyperkalemia SNOMED: 88204091 (3) INGRIS (acute kidney injury) ICD Codes: N17.9 - Acute kidney failure, unspecified SNOMED: 7747879, 54128332 (4) Morbid obesity with BMI of 50.0-59.9, adult ICD Codes: E66.01 - Morbid (severe) obesity due to excess calories; Z68.43 - Body mass index [BMI] 50.0-59.9, adult SNOMED: 184238766, 153004519, 33271949134518 (5) Anemia ICD Codes: D64.9 - Anemia, unspecified SNOMED: 487460206 (6) SOB (shortness of breath) ICD Codes: R06.02 - Shortness of breath SNOMED: 778906251 (7) Abdominal pain ICD Codes: R10.9 - Unspecified abdominal pain SNOMED: 72769307 (8) Abdominal wall cellulitis ICD Codes: L03.311 - Cellulitis of abdominal wall SNOMED: 94405852 Status: progressing Assessment/Plan: pleural effusion anemia no sob lyte abnormality ingris continue support w oxygen Darlene Hu MD Jun 03, 2020 19:54
--- NOTE | 2020-06-03 19:54 | NUR ---
NURSE HAND-OFF REPORT: Important Events on Shift: fluids d/c, DID NOT EAT Patient Status: DNR DNI Diet: NO CAFFEINE/NO CHOCOLATE Pending Orders: Pending Results/Labs: Pending MD notification: Latest Vital Signs: Temperature 97.1 , Pulse 63 , B/P 119 /65 , Respiratory Rate 20 , O2 SAT 97 , Nasal Cannula, O2 Flow Rate 10.0 . Vital Sign Comment: EKG Rhythm: Sinus Rhythm Rhythm change?: N MD Notified?: - MD Response: Latest Bhagat Fall Score: 45 Fall Risk: High Risk Safety Measures: Call light Within Reach, Bed Alarm Zone 2, Side Rails Side Rails x2, Bed position Low and Locked. Fall Precautions: Patient Fall Education Report given to GORDON CHOWDARY.
[2020-06-03 20:00] VITALS: BP 133/52
[2020-06-03] MEDS: Iron Sucrose 100 MG in NS 55 ML IVPB SCH (20:38)
[2020-06-04] VITALS: BP 129/59
[2020-06-04 04:00] VITALS: BP 146/63
[2020-06-04] MEDS: NovoLOG Insulin Flexpen SUBQ SCH ×4 (06:30→21:00)
[2020-06-04] MEDS: ceFAZolin 500mg in D5W 55ml IV SCH ×2 (06:54→17:13)
--- NOTE | 2020-06-04 07:24 | Infectious Diseases Prog Note ---
Assessment/Plan 59yo F with: Afebrile Normal WBC Pulmonary nodules BL pleural effusions, R>L Cough, SOB Likely CHF, volume OL 05/29 CT A/P: 1. Right sided lung nodules, differential diagnosis including metastatic disease/neoplasm versus inflammatory process. Follow-up recommended with CT chest for further characterization. 2. Bilateral pleural effusions, more significant on the right. 3. Diffuse anasarca. Mild ascites. 4. Diverticulosis with no signs of diverticulitis. No bowel obstruction. 05/30 CT chest: 1. Moderate right and small left pleural effusions. 2. Bilateral mild pulmonary edema/infiltrates. 3. Bilateral scattered small nodular lung densities which may be neoplasm/metastasis, chronic, infection/inflammation, or other etiology. Followup as clinically indicated. 05/30 COVID rapid neg Possible panniculitis Morbid obesity Plan: Cont cefazolin #5/5 for possible panniculitis - stop after dose today F/u ID w/u for pulm nodules with: Cocci Histo Ab Ab and Ag Crypto Ag Fungitell Tspot HIV = neg 05/29 SP Zosyn x1 in ED Monitor CBC/CMP Monitor resp status Monitor temp curve and hemodynamics D/w RN Thank you for this consult. [facility] will continue to follow. Subjective Allergies: Coded Allergies: ACETAMINOPHEN (Verified Allergy, Unknown, 05/29/20) HYDROCODONE (Verified Allergy, Unknown, 05/29/20) AF NAD on 10L Venturi mask but obtunded Per notes pt agrees w/ Hospice, is under eval for this per RN WBC 11 from 12 Objective Last 24 Hour Vital Signs Date Time Temp Pulse Resp B/P (MAP) Pulse Ox O2 Delivery O2 Flow Rate FiO2 06/04/20 04:00 60 06/04/20 00:00 97.4 60 21 129/59 (82) 97 06/04/20 00:00 60 06/03/20 21:00 Venturi Mask 10.0 06/03/20 20:00 97.5 60 20 133/52 (79) 98 06/03/20 20:00 63 06/03/20 18:57 97 Venturi Mask 10.0 45 06/03/20 17:25 119/65 06/03/20 16:00 63 06/03/20 16:00 97.1 61 20 113/63 (80) 94 06/03/20 12:25 97.1 06/03/20 12:00 61 06/03/20 11:56 145/63 06/03/20 11:55 97.1 61 18 145/63 (90) 94 06/03/20 11:31 98 Venturi Mask 10.0 45 06/03/20 09:00 Nasal Cannula 2.0 06/03/20 08:04 144/66 06/03/20 08:00 97.7 68 17 134/56 (82) 94 06/03/20 08:00 63 Height (Feet): 5 Height (Inches): 6.00 Weight (Pounds): 338 Gen: NAD in bed HEENT: NCAT CV: RRR Pulm: CTAB Abd: Soft, NTND, obese, no significant noted erythema of the pannus, very edematous Ext: 2+ pitting edema of BLE Neuro: Minimally interactive, obtunded Laboratory Tests Test 06/03/20 08:33 06/03/20 11:48 06/03/20 15:56 06/03/20 20:34 TB Test (T-Spot) Pending TB Test Nil Control (T-Spot) Pending TB Test Panel A (T-Spot) Pending TB Test Panel B (T-Spot) Pending TB Test Positive Control (T-Spot) Pending POC Whole Blood Glucose Pending 122 MG/DL (74-106) H 123 MG/DL (74-106) H Test 06/04/20 05:43 06/04/20 06:35 White Blood Count Pending Red Blood Count Pending Hemoglobin Pending Hematocrit Pending Mean Corpuscular Volume Pending Mean Corpuscular Hemoglobin Pending Mean Corpuscular Hemoglobin Concent Pending Red Cell Distribution Width Pending Platelet Count Pending Mean Platelet Volume Pending Neutrophils (%) (Auto) Pending Lymphocytes (%) (Auto) Pending Monocytes (%) (Auto) Pending Eosinophils (%) (Auto) Pending Basophils (%) (Auto) Pending Sodium Level Pending Potassium Level Pending Chloride Level Pending Carbon Dioxide Level Pending Blood Urea Nitrogen Pending Creatinine Pending Estimat Glomerular Filtration Rate Pending Glucose Level Pending Uric Acid Pending Calcium Level Pending Phosphorus Level Pending Magnesium Level Pending Total Bilirubin Pending Aspartate Amino Transf (AST/SGOT) Pending Alanine Aminotransferase (ALT/SGPT) Pending Alkaline Phosphatase Pending C-Reactive Protein, Quantitative Pending Pro-B-Type Natriuretic Peptide Pending Total Protein Pending Albumin Pending Globulin Pending POC Whole Blood Glucose 98 MG/DL (74-106) Current Medications Medications (Trade) Dose Ordered Sig/Alissa Route PRN Reason Start Time Stop Time Status Last Admin Dose Admin Cefazolin Sodium 500 mg/Dextrose 55 ml @ 110 mls/hr Q12H IV 06/01/20 18:00 06/08/20 17:59 06/04/20 06:54 Clonidine HCl (Catapres TTS-3) 1 patch QWEEK TDERMAL 06/02/20 14:00 08/31/20 13:59 06/02/20 14:00 Clonidine HCl (Catapres Tab) 0.1 mg Q4H PRN ORAL For High Blood Pressure 06/01/20 12:45 08/28/20 04:29 06/02/20 14:59 Dextrose (Dextrose 50%) 25 ml Q30M PRN IV Hypoglycemia 05/30/20 04:30 08/28/20 04:29 Dextrose (Dextrose 50%) 50 ml Q30M PRN IV Hypoglycemia 05/30/20 04:30 08/28/20 04:29 Docusate Sodium (Colace) 100 mg TWICE A DAY ORAL 06/03/20 09:00 07/03/20 08:59 06/03/20 16:47 Furosemide (Lasix) 40 mg EVERY 12 HOURS IV 06/03/20 21:00 07/03/20 20:59 06/03/20 21:42 Heparin Sodium (Porcine) (Heparin 5000 units/ml) 5,000 units EVERY 12 HOURS SUBQ 05/30/20 09:00 07/14/20 08:59 06/03/20 20:38 Hydralazine HCl (Apresoline) 25 mg TID ORAL 06/02/20 13:15 08/31/20 13:14 06/03/20 11:56 Insulin Aspart (NovoLOG) BEFORE MEALS AND HS SUBQ 05/30/20 06:30 08/28/20 06:29 06/02/20 20:49 Metolazone (Zaroxolyn) 5 mg DAILY ORAL 06/03/20 19:00 07/03/20 18:59 06/03/20 20:37 Morphine Sulfate (Morphine Sulfate) 4 mg Q4H PRN IVP Moderate Pain (Pain Scale 4-6) 05/31/20 13:00 06/06/20 04:14 06/03/20 11:56 Leola Boyer M.D. Jun 04, 2020 07:24
[2020-06-04 07:28] LABS: BASOPHILS % (AUTO) 1.4 % (0.0-2.0); EOSINOPHILS % (AUTO) 1.3 % (0.0-3.0); HEMATOCRIT 29.5 % (37.0-47.0); HEMOGLOBIN 8.9 G/DL (12.0-16.0); LYMPHOCYTES % (AUTO) 6.5 % (20.0-45.0); MEAN CORPUSCULAR VOLUME 88 FL (80-99); MONOCYTES % (AUTO) 6.5 % (1.0-10.0); NEUTROPHILS % (AUTO) 84.3 % (45.0-75.0); PLATELET COUNT 193 K/UL (150-450); RED BLOOD COUNT 3.37 M/UL (4.20-5.40); RED CELL DISTRIBUTION WIDTH 18.8 % (11.6-14.8); WHITE BLOOD COUNT 11.8 K/UL (4.8-10.8)
--- NOTE | 2020-06-04 07:30 | NUR ---
NURSE HAND-OFF REPORT: Important Events on Shift: Patient still has not had BM. Dior is drainging well to gravity. Patient Status: No acute distress Diet: Regular No caffeine no Chocolate Pending Orders: Pending Results/Labs: Pending MD notification: Latest Vital Signs: Temperature 97.2 , Pulse 62 , B/P 146 /63 , Respiratory Rate 21 , O2 SAT 93 , Venturi Mask, O2 Flow Rate 10.0 . Vital Sign Comment: EKG Rhythm: Sinus Rhythm Rhythm change?: N MD Notified?: - MD Response: Latest Bhagat Fall Score: 45 Fall Risk: High Risk Safety Measures: Call light Within Reach, Bed Alarm Zone 2, Side Rails Side Rails x2, Bed position Low and Locked. Fall Precautions: Patient Fall Education Report given to Gloria LEYVA.
--- NOTE | 2020-06-04 07:45 | NUR ---
NURSE NOTES: Received patient report from GORDON Love. Pt. is in bed, asleep. Pt on Venturi mask @ 10L with FiO2 45%. No pain or discomfort noted at this time. Pt. has L 20G AC patent and intact, with no signs of infection or infiltration. Bed is in lowest position, locked with side rails x2 up. Call light within reach.
[2020-06-04 07:46] LABS: ALANINE AMINOTRANSFERASE 9 U/L (12-78); ALBUMIN 2.7 G/DL (3.4-5.0); ALBUMIN/GLOBULIN RATIO 0.8 (1.0-2.7); ALKALINE PHOSPHATASE 70 U/L (46-116); ANION GAP 6 mmol/L (5-15); ASPARTATE AMINO TRANSFERASE 14 U/L (15-37); BILIRUBIN,TOTAL 0.2 MG/DL (0.2-1.0); BLOOD UREA NITROGEN 62 mg/dL (7-18); CALCIUM 6.8 MG/DL (8.5-10.1); CARBON DIOXIDE 26 MMOL/L (21-32); CHLORIDE 108 MMOL/L (98-107); CREATININE 5.1 MG/DL (0.55-1.30); POTASSIUM 4.3 MMOL/L (3.5-5.1); SODIUM 140 MMOL/L (136-145)
[2020-06-04 08:00] VITALS: BP 131/62
--- NOTE | 2020-06-04 08:30 | General Progress Note ---
Subjective ROS Limited/Unobtainable: No Allergies: Coded Allergies: ACETAMINOPHEN (Verified Allergy, Unknown, 05/29/20) HYDROCODONE (Verified Allergy, Unknown, 05/29/20) Objective Last 24 Hour Vital Signs Date Time Temp Pulse Resp B/P (MAP) Pulse Ox O2 Delivery O2 Flow Rate FiO2 06/04/20 08:00 98.1 62 19 131/62 (85) 96 06/04/20 04:00 97.2 62 21 146/63 (90) 93 06/04/20 04:00 60 06/04/20 00:00 97.4 60 21 129/59 (82) 97 06/04/20 00:00 60 06/03/20 21:00 Venturi Mask 10.0 06/03/20 20:00 97.5 60 20 133/52 (79) 98 06/03/20 20:00 63 06/03/20 18:57 97 Venturi Mask 10.0 45 06/03/20 17:25 119/65 06/03/20 16:00 63 06/03/20 16:00 97.1 61 20 113/63 (80) 94 06/03/20 12:25 97.1 06/03/20 12:00 61 06/03/20 11:56 145/63 06/03/20 11:55 97.1 61 18 145/63 (90) 94 06/03/20 11:31 98 Venturi Mask 10.0 45 06/03/20 09:00 Nasal Cannula 2.0 Laboratory Tests 06/03/20 08:33: TB Test (T-Spot) [Pending], TB Test Nil Control (T-Spot) [Pending], TB Test Panel A (T-Spot) [Pending], TB Test Panel B (T-Spot) [Pending], TB Test Positive Control (T-Spot) [Pending] 06/03/20 11:48: POC Whole Blood Glucose [Pending] 06/03/20 15:56: POC Whole Blood Glucose 122H 06/03/20 20:34: POC Whole Blood Glucose 123H 06/04/20 05:43: White Blood Count 11.8H, Red Blood Count 3.37L, Hemoglobin 8.9L, Hematocrit 29.5L, Mean Corpuscular Volume 88, Mean Corpuscular Hemoglobin 26.4L, Mean Corpuscular Hemoglobin Concent 30.1L, Red Cell Distribution Width 18.8H, Platelet Count 193, Mean Platelet Volume 7.4, Neutrophils (%) (Auto) 84.3H, Lymphocytes (%) (Auto) 6.5L, Monocytes (%) (Auto) 6.5, Eosinophils (%) (Auto) 1.3, Basophils (%) (Auto) 1.4, Sodium Level 140, Potassium Level 4.3, Chloride Level 108H, Carbon Dioxide Level 26, Anion Gap 6, Blood Urea Nitrogen 62H, Creatinine 5.1H, Estimat Glomerular Filtration Rate 8.7, Glucose Level 94, Uric Acid 10.8H, Calcium Level 6.8L, Phosphorus Level 8.0H, Magnesium Level 3.0H, Total Bilirubin 0.2, Aspartate Amino Transf (AST/SGOT) 14L, Alanine Aminotransferase (ALT/SGPT) 9L, Alkaline Phosphatase 70, C-Reactive Protein, Quantitative 0.7, Pro-B-Type Natriuretic Peptide > 07160Q, Total Protein 6.0L, Albumin 2.7L, Globulin 3.3, Albumin/Globulin Ratio 0.8L 06/04/20 06:35: POC Whole Blood Glucose 98 Height (Feet): 5 Height (Inches): 6.00 Weight (Pounds): 338 General Appearance: no apparent distress EENT: normal ENT inspection Neck: supple Cardiovascular: normal rate Respiratory/Chest: decreased breath sounds Abdomen: normal bowel sounds, non tender, soft Extremities: non-tender Assessment/Plan Status: progressing Assessment/Plan: iron def anemia abd pain RI morbid obesity anasarca/ascites diverticulosis cholelithiasis DNR CT and US reviewed IV iron stool ob repeat labs respiratory care poor prognosis comfort care Paul Díaz MD Jun 04, 2020 08:30
--- NOTE | 2020-06-04 08:39 | General Progress Note ---
Subjective Date patient seen: Jun 04, 2020 Time patient seen: 07:45 - am Allergies: Coded Allergies: ACETAMINOPHEN (Verified Allergy, Unknown, 05/29/20) HYDROCODONE (Verified Allergy, Unknown, 05/29/20) Subjective HISTORY OF PRESENT ILLNESS: The patient is a 59-year-old female, who is being seen on the Tele floor of [facility]. Patient in bed continues to c/o pain which has been severe however tolerated on the Morphine as needed to a moderate level. No new complaints at this time. REVIEW OF SYSTEMS: Denies rash, fever, chills, sweating, dizziness, drowsiness, blurred vision, sore throat, or change in weight. No shortness of breath, chest pain, palpitations, or cough. No nausea, vomiting, diarrhea, or blood in stool or urine. No dysuria. Objective Last 24 Hour Vital Signs Date Time Temp Pulse Resp B/P (MAP) Pulse Ox O2 Delivery O2 Flow Rate FiO2 06/04/20 08:00 98.1 62 19 131/62 (85) 96 06/04/20 04:00 97.2 62 21 146/63 (90) 93 06/04/20 04:00 60 06/04/20 00:00 97.4 60 21 129/59 (82) 97 06/04/20 00:00 60 06/03/20 21:00 Venturi Mask 10.0 06/03/20 20:00 97.5 60 20 133/52 (79) 98 06/03/20 20:00 63 06/03/20 18:57 97 Venturi Mask 10.0 45 06/03/20 17:25 119/65 06/03/20 16:00 63 06/03/20 16:00 97.1 61 20 113/63 (80) 94 06/03/20 12:25 97.1 06/03/20 12:00 61 06/03/20 11:56 145/63 06/03/20 11:55 97.1 61 18 145/63 (90) 94 06/03/20 11:31 98 Venturi Mask 10.0 45 06/03/20 09:00 Nasal Cannula 2.0 Laboratory Tests 06/03/20 11:48: POC Whole Blood Glucose [Pending] 06/03/20 15:56: POC Whole Blood Glucose 122H 06/03/20 20:34: POC Whole Blood Glucose 123H 06/04/20 05:43: White Blood Count 11.8H, Red Blood Count 3.37L, Hemoglobin 8.9L, Hematocrit 29.5L, Mean Corpuscular Volume 88, Mean Corpuscular Hemoglobin 26.4L, Mean Corpuscular Hemoglobin Concent 30.1L, Red Cell Distribution Width 18.8H, Platelet Count 193, Mean Platelet Volume 7.4, Neutrophils (%) (Auto) 84.3H, Lymphocytes (%) (Auto) 6.5L, Monocytes (%) (Auto) 6.5, Eosinophils (%) (Auto) 1.3, Basophils (%) (Auto) 1.4, Sodium Level 140, Potassium Level 4.3, Chloride Level 108H, Carbon Dioxide Level 26, Anion Gap 6, Blood Urea Nitrogen 62H, Creatinine 5.1H, Estimat Glomerular Filtration Rate 8.7, Glucose Level 94, Uric Acid 10.8H, Calcium Level 6.8L, Phosphorus Level 8.0H, Magnesium Level 3.0H, Total Bilirubin 0.2, Aspartate Amino Transf (AST/SGOT) 14L, Alanine Aminotransferase (ALT/SGPT) 9L, Alkaline Phosphatase 70, C-Reactive Protein, Quantitative 0.7, Pro-B-Type Natriuretic Peptide > 22601X, Total Protein 6.0L, Albumin 2.7L, Globulin 3.3, Albumin/Globulin Ratio 0.8L 06/04/20 06:35: POC Whole Blood Glucose 98 Height (Feet): 5 Height (Inches): 6.00 Weight (Pounds): 338 Objective PHYSICAL EXAMINATION: NECK: Range of motion is decreased due to the patient's condition. LUNGS: Decreased breath sounds bilaterally. HEART: Regular. ABDOMEN: Obese. EXTREMITIES: No clubbing. NEURO: No changes. Assessment/Plan Status: progressing Assessment/Plan: (1) Abdominal pain (2) Morbid obesity (3) Multiple joint pain and OA Patient to be continued on Morphine as needed. D/w Dr. Agudelo and he concurred. Elio Colon Jun 04, 2020 08:39
[2020-06-04] MEDS: HydrALAZINE 25mg tab ORAL SCH (10:13)
[2020-06-04] MEDS: Heparin 5000 units/ml inj SUBQ SCH ×2 (10:15→21:57)
[2020-06-04] MEDS: Docusate 100mg cap ORAL SCH ×2 (10:16→17:13)
--- NOTE | 2020-06-04 10:38 | NUR ---
CASE MANAGEMENT:REVIEW 06/04/20 SI: BILATERAL PLEURAL EFFUSIONS INGRIS. ASCITES. ABDOMINAL WALL CELLULITIS 98.1 62 19 131/62 96% ON VENTURI MASK 10L/45% FIO2 WBC=11.8 H/H-8.9/29.5 BUN+62 CR+5.1 IS: IV ANCEF Q12 IV LASIX Q12 ZAROXOLYN PO QD CLONIDINE PATCH QWEEK HYDRALAZINE PO TID HEPARIN SQ Q12HRS : TELEMETRY STATUS DCP: MARY MCKOY
--- NOTE | 2020-06-04 11:31 | Pulmonology Progress Note ---
Subjective ROS Limited/Unobtainable: No Constitutional: Reports: no symptoms HEENT: Repors: no symptoms Respiratory: Reports: no symptoms Allergies: Coded Allergies: ACETAMINOPHEN (Verified Allergy, Unknown, 05/29/20) HYDROCODONE (Verified Allergy, Unknown, 05/29/20) All Systems: reviewed and negative except above Objective Last 24 Hour Vital Signs Date Time Temp Pulse Resp B/P (MAP) Pulse Ox O2 Delivery O2 Flow Rate FiO2 06/04/20 10:13 131/62 06/04/20 08:00 98.1 62 19 131/62 (85) 96 06/04/20 04:00 97.2 62 21 146/63 (90) 93 06/04/20 04:00 60 06/04/20 00:00 97.4 60 21 129/59 (82) 97 06/04/20 00:00 60 06/03/20 21:00 Venturi Mask 10.0 06/03/20 20:00 97.5 60 20 133/52 (79) 98 06/03/20 20:00 63 06/03/20 18:57 97 Venturi Mask 10.0 45 06/03/20 17:25 119/65 06/03/20 16:00 63 06/03/20 16:00 97.1 61 20 113/63 (80) 94 06/03/20 12:25 97.1 06/03/20 12:00 61 06/03/20 11:56 145/63 06/03/20 11:55 97.1 61 18 145/63 (90) 94 06/03/20 11:31 98 Venturi Mask 10.0 45 General Appearance: WD/WN HEENT: normocephalic, atraumatic Respiratory: chest wall non-tender, rhonchi - left, rhonchi - right Breasts: no masses Cardiovascular: normal peripheral pulses, normal rate Abdomen: normal bowel sounds, soft, non tender Genitourinary: normal external genitalia Extremities: no cyanosis Skin: no rash Laboratory Tests 06/03/20 11:48: POC Whole Blood Glucose [Pending] 06/03/20 15:56: POC Whole Blood Glucose 122H 06/03/20 20:34: POC Whole Blood Glucose 123H 06/04/20 05:43: White Blood Count 11.8H, Red Blood Count 3.37L, Hemoglobin 8.9L, Hematocrit 29.5L, Mean Corpuscular Volume 88, Mean Corpuscular Hemoglobin 26.4L, Mean Corpuscular Hemoglobin Concent 30.1L, Red Cell Distribution Width 18.8H, Platelet Count 193, Mean Platelet Volume 7.4, Neutrophils (%) (Auto) 84.3H, Lymphocytes (%) (Auto) 6.5L, Monocytes (%) (Auto) 6.5, Eosinophils (%) (Auto) 1.3, Basophils (%) (Auto) 1.4, Sodium Level 140, Potassium Level 4.3, Chloride Level 108H, Carbon Dioxide Level 26, Anion Gap 6, Blood Urea Nitrogen 62H, Creatinine 5.1H, Estimat Glomerular Filtration Rate 8.7, Glucose Level 94, Uric Acid 10.8H, Calcium Level 6.8L, Phosphorus Level 8.0H, Magnesium Level 3.0H, Total Bilirubin 0.2, Aspartate Amino Transf (AST/SGOT) 14L, Alanine Aminotransferase (ALT/SGPT) 9L, Alkaline Phosphatase 70, C-Reactive Protein, Quantitative 0.7, Pro-B-Type Natriuretic Peptide > 47712U, Total Protein 6.0L, Albumin 2.7L, Globulin 3.3, Albumin/Globulin Ratio 0.8L 06/04/20 06:35: POC Whole Blood Glucose 98 06/04/20 11:18: POC Whole Blood Glucose 113H Current Medications Medications (Trade) Dose Ordered Sig/Alissa Route PRN Reason Start Time Stop Time Status Last Admin Dose Admin Cefazolin Sodium 500 mg/Dextrose 55 ml @ 110 mls/hr Q12H IV 06/01/20 18:00 06/08/20 17:59 06/04/20 06:54 Clonidine HCl (Catapres TTS-3) 1 patch QWEEK TDERMAL 06/02/20 14:00 08/31/20 13:59 06/02/20 14:00 Clonidine HCl (Catapres Tab) 0.1 mg Q4H PRN ORAL For High Blood Pressure 06/01/20 12:45 08/28/20 04:29 06/02/20 14:59 Dextrose (Dextrose 50%) 25 ml Q30M PRN IV Hypoglycemia 05/30/20 04:30 08/28/20 04:29 Dextrose (Dextrose 50%) 50 ml Q30M PRN IV Hypoglycemia 05/30/20 04:30 08/28/20 04:29 Docusate Sodium (Colace) 100 mg TWICE A DAY ORAL 06/03/20 09:00 07/03/20 08:59 06/04/20 10:16 Furosemide (Lasix) 40 mg EVERY 12 HOURS IV 06/03/20 21:00 07/03/20 20:59 06/04/20 10:13 Heparin Sodium (Porcine) (Heparin 5000 units/ml) 5,000 units EVERY 12 HOURS SUBQ 05/30/20 09:00 07/14/20 08:59 06/04/20 10:15 Hydralazine HCl (Apresoline) 25 mg TID ORAL 06/02/20 13:15 08/31/20 13:14 06/04/20 10:13 Insulin Aspart (NovoLOG) BEFORE MEALS AND HS SUBQ 05/30/20 06:30 08/28/20 06:29 06/02/20 20:49 Metolazone (Zaroxolyn) 5 mg DAILY ORAL 06/03/20 19:00 07/03/20 18:59 06/04/20 10:13 Morphine Sulfate (Morphine Sulfate) 4 mg Q4H PRN IVP Moderate Pain (Pain Scale 4-6) 05/31/20 13:00 06/06/20 04:14 06/03/20 11:56 Assessment/Plan Problems: (1) Acute respiratory failure (2) Pleural effusion (3) INGRIS (acute kidney injury) (4) Morbid obesity with BMI of 50.0-59.9, adult (5) Abdominal wall cellulitis Assessment/Plan on face mask looks comfortable pt doesn't want any BIPAP or intubation or HD comfort measures titrate fio2 to sat of 92% abx for abdominal wall cellulitis symptomatic treatment pt doesn't want any aggressive treatment. She agreed with Hospice. Case management informed. Eder Corral MD Jun 04, 2020 11:31
--- NOTE | 2020-06-04 11:51 | Cardiac Electrophysiology PN ---
Assessment/Plan Assessment/Plan 1. Bradycardia with heart rate in the 40s-50s. DC metoprolol and Clonidine patch 2. Hypertension, DC metoprolol and Clonidine On Lasix 40 iv bid,Metolazone and increase Hydralazine to 50 tid 3. Chest pain. The pain is atypical. Ruled out OK EF 55% on echocardiogram 4. Volume overload. Renal failure with creatinine of 5.2. Refusing HD (Family refused even placing Vladislav) 5. Generalized pain. Follow up pain management. 6. Morbid obesity. 7. Hyperkalemia. K normal after Kayexalate DW Dr. Stewart Subjective Subjective No CP or SOB. Confused with Face Mask on Objective Last 24 Hour Vital Signs Date Time Temp Pulse Resp B/P (MAP) Pulse Ox O2 Delivery O2 Flow Rate FiO2 06/04/20 10:13 131/62 06/04/20 08:00 98.1 62 19 131/62 (85) 96 06/04/20 04:00 97.2 62 21 146/63 (90) 93 06/04/20 04:00 60 06/04/20 00:00 97.4 60 21 129/59 (82) 97 06/04/20 00:00 60 06/03/20 21:00 Venturi Mask 10.0 06/03/20 20:00 97.5 60 20 133/52 (79) 98 06/03/20 20:00 63 06/03/20 18:57 97 Venturi Mask 10.0 45 06/03/20 17:25 119/65 06/03/20 16:00 63 06/03/20 16:00 97.1 61 20 113/63 (80) 94 06/03/20 12:25 97.1 06/03/20 12:00 61 06/03/20 11:56 145/63 06/03/20 11:55 97.1 61 18 145/63 (90) 94 Laboratory Tests Test 06/03/20 11:48 06/03/20 15:56 06/03/20 20:34 06/04/20 05:43 POC Whole Blood Glucose Pending 122 MG/DL (74-106) H 123 MG/DL (74-106) H White Blood Count 11.8 K/UL (4.8-10.8) H Red Blood Count 3.37 M/UL (4.20-5.40) L Hemoglobin 8.9 G/DL (12.0-16.0) L Hematocrit 29.5 % (37.0-47.0) L Mean Corpuscular Volume 88 FL (80-99) Mean Corpuscular Hemoglobin 26.4 PG (27.0-31.0) L Mean Corpuscular Hemoglobin Concent 30.1 G/DL (32.0-36.0) L Red Cell Distribution Width 18.8 % (11.6-14.8) H Platelet Count 193 K/UL (150-450) Mean Platelet Volume 7.4 FL (6.5-10.1) Neutrophils (%) (Auto) 84.3 % (45.0-75.0) H Lymphocytes (%) (Auto) 6.5 % (20.0-45.0) L Monocytes (%) (Auto) 6.5 % (1.0-10.0) Eosinophils (%) (Auto) 1.3 % (0.0-3.0) Basophils (%) (Auto) 1.4 % (0.0-2.0) Sodium Level 140 MMOL/L (136-145) Potassium Level 4.3 MMOL/L (3.5-5.1) Chloride Level 108 MMOL/L (98-107) H Carbon Dioxide Level 26 MMOL/L (21-32) Anion Gap 6 mmol/L (5-15) Blood Urea Nitrogen 62 mg/dL (7-18) H Creatinine 5.1 MG/DL (0.55-1.30) H Estimat Glomerular Filtration Rate 8.7 mL/min (>60) Glucose Level 94 MG/DL (74-106) Uric Acid 10.8 MG/DL (2.6-7.2) H Calcium Level 6.8 MG/DL (8.5-10.1) L Phosphorus Level 8.0 MG/DL (2.5-4.9) H Magnesium Level 3.0 MG/DL (1.8-2.4) H Total Bilirubin 0.2 MG/DL (0.2-1.0) Aspartate Amino Transf (AST/SGOT) 14 U/L (15-37) L Alanine Aminotransferase (ALT/SGPT) 9 U/L (12-78) L Alkaline Phosphatase 70 U/L (46-116) C-Reactive Protein, Quantitative 0.7 mg/dL (0.00-0.90) Pro-B-Type Natriuretic Peptide > 54078 pg/mL (0-125) H Total Protein 6.0 G/DL (6.4-8.2) L Albumin 2.7 G/DL (3.4-5.0) L Globulin 3.3 g/dL Albumin/Globulin Ratio 0.8 (1.0-2.7) L Test 06/04/20 06:35 06/04/20 11:18 POC Whole Blood Glucose 98 MG/DL (74-106) 113 MG/DL (74-106) H Objective NECK: No JVD. LUNGS: Clear. CARDIOVASCULAR: Shows regular S1 and S2 with no gallop. ABDOMEN: Morbidly obese. EXTREMITIES: 1+ pitting edema. Shad Colon MD Jun 04, 2020 11:51
--- NOTE | 2020-06-04 11:54 | Nephrology Progress Note ---
Assessment/Plan Problem List: (1) INGRIS (acute kidney injury) (2) Hyperkalemia (3) Morbid obesity with BMI of 50.0-59.9, adult (4) Anemia Assessment Renal failure most likely acute on chronic Presents with hyperkalemia Anemia Hypertension Pleural effusion Ejection fraction 55% No hydronephrosis and kidney ultrasound 4+ proteinuria, likely due to diabetic nephropathy Morbid obesity Plan June 04: Labs reviewed. Serum creatinine paul. Patient not to be dialyzed per family request. Blood pressure controlled. Bradycardic. Medication adjusted. Poor prognosis. Patient remains DNR/DNI. June 03: Patient was transferred to telemetry for high blood pressure. Remains DNR/DNI. Blood pressure now within normal limit. Patient clonidine patch. Since appearing clinically more responsive will check labs tomorrow. June 02: Labs reviewed. Status quo. Patient DNR/DNI and do not dialysis per family request. Not much to add from renal standpoint of view. Suggest no lab draw since not much can be done about it from renal standpoint of view. June 01: Events of last 24 hours noted and is as follow: Patient found to be acidotic with acute renal failure. Was transferred to ICU. Planned to dialyze and protect the airways. Apparently family changed the status to DNR/DNI. Patient was then transferred to medical floor. Currently status unchanged. Not much more to be added from renal standpoint of view. Suggest comfort care. Sin ce we are not going to do any dialysis treatment, monitoring blood chemistries and renal parameters are not needed. May 31: Patient morbidly obese. Labs reviewed. Worsening renal parameters and hyperkalemia. Dior ordered. Kayexalate ordered. Stat ABG ordered. Patient n.p.o. Insertion of dialysis catheter and consent ordered. Patient may need to be transferred to ICU. Discussed with RN and nurse in charge of the floor. May 30: DC IV fluid and diuretics Keep the blood pressure in check Monitor renal parameters Monitor electrolytes Avoid nephrotoxic's 1 dose of Kayexalate Intravenous Venofer for low iron Per orders Subjective ROS Limited/Unobtainable: Yes Objective Objective Last 24 Hour Vital Signs Date Time Temp Pulse Resp B/P (MAP) Pulse Ox O2 Delivery O2 Flow Rate FiO2 06/04/20 10:13 131/62 06/04/20 08:00 54 06/04/20 08:00 98.1 62 19 131/62 (85) 96 06/04/20 04:00 97.2 62 21 146/63 (90) 93 06/04/20 04:00 60 06/04/20 00:00 97.4 60 21 129/59 (82) 97 06/04/20 00:00 60 06/03/20 21:00 Venturi Mask 10.0 06/03/20 20:00 97.5 60 20 133/52 (79) 98 06/03/20 20:00 63 06/03/20 18:57 97 Venturi Mask 10.0 45 06/03/20 17:25 119/65 06/03/20 16:00 63 06/03/20 16:00 97.1 61 20 113/63 (80) 94 06/03/20 12:25 97.1 06/03/20 12:00 61 06/03/20 11:56 145/63 06/03/20 11:55 97.1 61 18 145/63 (90) 94 Current Medications Medications (Trade) Dose Ordered Sig/Alissa Route PRN Reason Start Time Stop Time Status Last Admin Dose Admin Cefazolin Sodium 500 mg/Dextrose 55 ml @ 110 mls/hr Q12H IV 06/01/20 18:00 06/08/20 17:59 06/04/20 06:54 Clonidine HCl (Catapres TTS-3) 1 patch QWEEK TDERMAL 06/02/20 14:00 08/31/20 13:59 06/02/20 14:00 Clonidine HCl (Catapres Tab) 0.1 mg Q4H PRN ORAL For High Blood Pressure 06/01/20 12:45 08/28/20 04:29 06/02/20 14:59 Dextrose (Dextrose 50%) 25 ml Q30M PRN IV Hypoglycemia 05/30/20 04:30 08/28/20 04:29 Dextrose (Dextrose 50%) 50 ml Q30M PRN IV Hypoglycemia 05/30/20 04:30 08/28/20 04:29 Docusate Sodium (Colace) 100 mg TWICE A DAY ORAL 06/03/20 09:00 07/03/20 08:59 06/04/20 10:16 Furosemide (Lasix) 40 mg EVERY 12 HOURS IV 06/03/20 21:00 07/03/20 20:59 06/04/20 10:13 Heparin Sodium (Porcine) (Heparin 5000 units/ml) 5,000 units EVERY 12 HOURS SUBQ 05/30/20 09:00 07/14/20 08:59 06/04/20 10:15 Hydralazine HCl (Apresoline) 25 mg TID ORAL 06/02/20 13:15 08/31/20 13:14 06/04/20 10:13 Insulin Aspart (NovoLOG) BEFORE MEALS AND HS SUBQ 05/30/20 06:30 08/28/20 06:29 06/02/20 20:49 Metolazone (Zaroxolyn) 5 mg DAILY ORAL 06/03/20 19:00 07/03/20 18:59 06/04/20 10:13 Morphine Sulfate (Morphine Sulfate) 4 mg Q4H PRN IVP Moderate Pain (Pain Scale 4-6) 05/31/20 13:00 06/06/20 04:14 06/03/20 11:56 Laboratory Tests 06/03/20 15:56: POC Whole Blood Glucose 122H 06/03/20 20:34: POC Whole Blood Glucose 123H 06/04/20 05:43: White Blood Count 11.8H, Red Blood Count 3.37L, Hemoglobin 8.9L, Hematocrit 29.5L, Mean Corpuscular Volume 88, Mean Corpuscular Hemoglobin 26.4L, Mean Corpuscular Hemoglobin Concent 30.1L, Red Cell Distribution Width 18.8H, Platelet Count 193, Mean Platelet Volume 7.4, Neutrophils (%) (Auto) 84.3H, Lymphocytes (%) (Auto) 6.5L, Monocytes (%) (Auto) 6.5, Eosinophils (%) (Auto) 1.3, Basophils (%) (Auto) 1.4, Sodium Level 140, Potassium Level 4.3, Chloride Level 108H, Carbon Dioxide Level 26, Anion Gap 6, Blood Urea Nitrogen 62H, Creatinine 5.1H, Estimat Glomerular Filtration Rate 8.7, Glucose Level 94, Uric Acid 10.8H, Calcium Level 6.8L, Phosphorus Level 8.0H, Magnesium Level 3.0H, Total Bilirubin 0.2, Aspartate Amino Transf (AST/SGOT) 14L, Alanine Aminotransferase (ALT/SGPT) 9L, Alkaline Phosphatase 70, C-Reactive Protein, Quantitative 0.7, Pro-B-Type Natriuretic Peptide > 20594U, Total Protein 6.0L, Albumin 2.7L, Globulin 3.3, Albumin/Globulin Ratio 0.8L 06/04/20 06:35: POC Whole Blood Glucose 98 06/04/20 11:18: POC Whole Blood Glucose 113H Height (Feet): 5 Height (Inches): 6.00 Weight (Pounds): 338 General Appearance: no apparent distress, lethargic EENT: other - On Venturi mask Cardiovascular: tachycardia Respiratory/Chest: decreased breath sounds Abdomen: distended Darrian Stewart MD Jun 04, 2020 11:54
--- NOTE | 2020-06-04 11:54 | NUR ---
PT NOTE Attempted multiple times to see patient for PT treatment, patient somnolent, unable to participate with PT at this time. Gloria RN notified, will follow.
[2020-06-04 11:55] VITALS: BP 133/69
[2020-06-04] MEDS: HydrALAZINE 50mg tab ORAL SCH ×2 (12:09→17:13)
--- NOTE | 2020-06-04 14:25 | NUR ---
INSURANCE CLINICALS AND REVIEW FAXED TO [facility] FAX [phone] TELE [phone] DENIZ Ballard
[2020-06-04 16:00] VITALS: BP 133/57
--- NOTE | 2020-06-04 17:41 | Surgery Progress Note ---
Surgery Progress Note Subjective Additional Comments labs noted exam unchanged dnr/dni plan hospice Objective Last 24 Hour Vital Signs Date Time Temp Pulse Resp B/P (MAP) Pulse Ox O2 Delivery O2 Flow Rate FiO2 06/04/20 17:13 133/57 06/04/20 16:00 98.1 63 20 133/57 (82) 98 06/04/20 12:09 133/69 06/04/20 12:00 100 06/04/20 11:55 96.7 62 18 133/69 (90) 99 06/04/20 10:13 131/62 06/04/20 09:00 Venturi Mask 10.0 06/04/20 08:00 54 06/04/20 08:00 98.1 62 19 131/62 (85) 96 06/04/20 04:00 97.2 62 21 146/63 (90) 93 06/04/20 04:00 60 06/04/20 00:00 97.4 60 21 129/59 (82) 97 06/04/20 00:00 60 06/03/20 21:00 Venturi Mask 10.0 06/03/20 20:00 97.5 60 20 133/52 (79) 98 06/03/20 20:00 63 06/03/20 18:57 97 Venturi Mask 10.0 45 Cardiovascular: RSR Respiratory: decreased breath sounds Abdomen: non-tender, present bowel sounds, other Extremities: no tenderness, no cyanosis Laboratory Tests Test 06/03/20 20:34 06/04/20 05:43 06/04/20 06:35 06/04/20 11:18 POC Whole Blood Glucose 123 MG/DL (74-106) H 98 MG/DL (74-106) 113 MG/DL (74-106) H White Blood Count 11.8 K/UL (4.8-10.8) H Red Blood Count 3.37 M/UL (4.20-5.40) L Hemoglobin 8.9 G/DL (12.0-16.0) L Hematocrit 29.5 % (37.0-47.0) L Mean Corpuscular Volume 88 FL (80-99) Mean Corpuscular Hemoglobin 26.4 PG (27.0-31.0) L Mean Corpuscular Hemoglobin Concent 30.1 G/DL (32.0-36.0) L Red Cell Distribution Width 18.8 % (11.6-14.8) H Platelet Count 193 K/UL (150-450) Mean Platelet Volume 7.4 FL (6.5-10.1) Neutrophils (%) (Auto) 84.3 % (45.0-75.0) H Lymphocytes (%) (Auto) 6.5 % (20.0-45.0) L Monocytes (%) (Auto) 6.5 % (1.0-10.0) Eosinophils (%) (Auto) 1.3 % (0.0-3.0) Basophils (%) (Auto) 1.4 % (0.0-2.0) Sodium Level 140 MMOL/L (136-145) Potassium Level 4.3 MMOL/L (3.5-5.1) Chloride Level 108 MMOL/L (98-107) H Carbon Dioxide Level 26 MMOL/L (21-32) Anion Gap 6 mmol/L (5-15) Blood Urea Nitrogen 62 mg/dL (7-18) H Creatinine 5.1 MG/DL (0.55-1.30) H Estimat Glomerular Filtration Rate 8.7 mL/min (>60) Glucose Level 94 MG/DL (74-106) Uric Acid 10.8 MG/DL (2.6-7.2) H Calcium Level 6.8 MG/DL (8.5-10.1) L Phosphorus Level 8.0 MG/DL (2.5-4.9) H Magnesium Level 3.0 MG/DL (1.8-2.4) H Total Bilirubin 0.2 MG/DL (0.2-1.0) Aspartate Amino Transf (AST/SGOT) 14 U/L (15-37) L Alanine Aminotransferase (ALT/SGPT) 9 U/L (12-78) L Alkaline Phosphatase 70 U/L (46-116) C-Reactive Protein, Quantitative 0.7 mg/dL (0.00-0.90) Pro-B-Type Natriuretic Peptide > 56605 pg/mL (0-125) H Total Protein 6.0 G/DL (6.4-8.2) L Albumin 2.7 G/DL (3.4-5.0) L Globulin 3.3 g/dL Albumin/Globulin Ratio 0.8 (1.0-2.7) L Plan Problems: (1) Pleural effusion (2) Hyperkalemia (3) INGRIS (acute kidney injury) (4) Morbid obesity with BMI of 50.0-59.9, adult (5) Anemia (6) SOB (shortness of breath) (7) Abdominal pain (8) Abdominal wall cellulitis Assessment & Plan: panniculitis anasarca cont abx dnr/dni comfort care confirmed care plan with patients daughter yvan noted no acute surgical intervention acute renal insufficiency no HD, no cath insertion given patients and family wishes respiratory insufficiency acidosis no intubation given care plan thank you ABDOMEN: Liver: Unremarkable. Gallbladder and bile ducts: Unremarkable. No calcified stones. No ductal dilation. Pancreas: Unremarkable. No ductal dilation. Spleen: Unremarkable. No splenomegaly. Adrenals: Unremarkable. No mass. Kidneys and ureters: Mild nonspecific perinephric stranding. No obstructing stones. Stomach and bowel: Diverticulosis of the colon with no signs of diverticulitis. No obstruction. PELVIS: Appendix: No findings to suggest acute appendicitis. Bladder: Unremarkable. No stones. Reproductive: Unremarkable as visualized. ABDOMEN and PELVIS: Intraperitoneal space: Mild ascites predominantly seen along the anterior liver margin. No free air. Bones/joints: Advanced multilevel disc degenerative disease. No acute fracture. No dislocation. Soft tissues: Stranding/fluid infiltration of the subcutaneous fat suggestive of anasarca. Vasculature: Unremarkable. No abdominal aortic aneurysm. Lymph nodes: Unremarkable. No enlarged lymph nodes. IMPRESSION: 1. Right sided lung nodules, differential diagnosis including metastatic disease/neoplasm versus inflammatory process. Follow-up recommended with CT chest for further characterization. 2. Bilateral pleural effusions, more significant on the right. 3. Diffuse anasarca. Mild ascites. 4. Diverticulosis with no signs of diverticulitis. No bowel obstruction. Sean Anderson Jun 04, 2020 17:41
--- NOTE | 2020-06-04 19:15 | NUR ---
NURSE NOTES: Report received from Gerardo LEYVA. Patient is awake alert and and oriented x2 to 3. No SOB or acute distress. Patient on Venturi mask 10 LPM. Call light in reach. Bed at lowest position locked and within reach. WIll continue with plan of care.
--- NOTE | 2020-06-04 19:41 | NUR ---
NURSE HAND-OFF REPORT: Important Events on Shift: N/A Patient Status: Lethargic Diet: No caffein, no chocolate Pending Orders: N/A Pending Results/Labs:N/A Pending MD notification:N/A Latest Vital Signs: Temperature 98.1 , Pulse 62 , B/P 133 /57 , Respiratory Rate 20 , O2 SAT 98 , Venturi Mask, O2 Flow Rate 10.0 . Vital Sign Comment: Stable EKG Rhythm: Sinus Rhythm Rhythm change?: N MD Notified?: - MD Response: Latest Bhagat Fall Score: 45 Fall Risk: High Risk Safety Measures: Call light Within Reach, Bed Alarm Zone 2, Side Rails Side Rails x2, Bed position Low and Locked. Fall Precautions: Patient Fall Education Report given to Belen/GORDON.
[2020-06-04 20:00] VITALS: BP 127/52
--- NOTE | 2020-06-04 21:07 | General Progress Note ---
Subjective ROS Limited/Unobtainable: Yes Allergies: Coded Allergies: ACETAMINOPHEN (Verified Allergy, Unknown, 05/29/20) HYDROCODONE (Verified Allergy, Unknown, 05/29/20) Objective Last 24 Hour Vital Signs Date Time Temp Pulse Resp B/P (MAP) Pulse Ox O2 Delivery O2 Flow Rate FiO2 06/04/20 17:13 133/57 06/04/20 16:00 62 06/04/20 16:00 98.1 63 20 133/57 (82) 98 06/04/20 12:09 133/69 06/04/20 12:00 100 06/04/20 11:55 96.7 62 18 133/69 (90) 99 06/04/20 10:13 131/62 06/04/20 09:00 Venturi Mask 10.0 06/04/20 08:00 54 06/04/20 08:00 98.1 62 19 131/62 (85) 96 06/04/20 04:00 97.2 62 21 146/63 (90) 93 06/04/20 04:00 60 06/04/20 00:00 97.4 60 21 129/59 (82) 97 06/04/20 00:00 60 Laboratory Tests 06/04/20 05:43: White Blood Count 11.8H, Red Blood Count 3.37L, Hemoglobin 8.9L, Hematocrit 29.5L, Mean Corpuscular Volume 88, Mean Corpuscular Hemoglobin 26.4L, Mean Corpuscular Hemoglobin Concent 30.1L, Red Cell Distribution Width 18.8H, Platelet Count 193, Mean Platelet Volume 7.4, Neutrophils (%) (Auto) 84.3H, Lymphocytes (%) (Auto) 6.5L, Monocytes (%) (Auto) 6.5, Eosinophils (%) (Auto) 1.3, Basophils (%) (Auto) 1.4, Sodium Level 140, Potassium Level 4.3, Chloride Level 108H, Carbon Dioxide Level 26, Anion Gap 6, Blood Urea Nitrogen 62H, Creatinine 5.1H, Estimat Glomerular Filtration Rate 8.7, Glucose Level 94, Uric Acid 10.8H, Calcium Level 6.8L, Phosphorus Level 8.0H, Magnesium Level 3.0H, Total Bilirubin 0.2, Aspartate Amino Transf (AST/SGOT) 14L, Alanine Aminotransferase (ALT/SGPT) 9L, Alkaline Phosphatase 70, C-Reactive Protein, Quantitative 0.7, Pro-B-Type Natriuretic Peptide > 93493Y, Total Protein 6.0L, Albumin 2.7L, Globulin 3.3, Albumin/Globulin Ratio 0.8L 06/04/20 06:35: POC Whole Blood Glucose 98 06/04/20 11:18: POC Whole Blood Glucose 113H 06/04/20 20:07: POC Whole Blood Glucose 103 Height (Feet): 5 Height (Inches): 6.00 Weight (Pounds): 338 Assessment/Plan Problem List: (1) Pleural effusion ICD Codes: J90 - Pleural effusion, not elsewhere classified SNOMED: 65704311 (2) Hyperkalemia ICD Codes: E87.5 - Hyperkalemia SNOMED: 89771378 (3) INGRIS (acute kidney injury) ICD Codes: N17.9 - Acute kidney failure, unspecified SNOMED: 0334340, 35289971 (4) Morbid obesity with BMI of 50.0-59.9, adult ICD Codes: E66.01 - Morbid (severe) obesity due to excess calories; Z68.43 - Body mass index [BMI] 50.0-59.9, adult SNOMED: 105349659, 710043877, 35841972775240 (5) Anemia ICD Codes: D64.9 - Anemia, unspecified SNOMED: 194347105 (6) SOB (shortness of breath) ICD Codes: R06.02 - Shortness of breath SNOMED: 639947208 (7) Abdominal pain ICD Codes: R10.9 - Unspecified abdominal pain SNOMED: 25000981 (8) Abdominal wall cellulitis ICD Codes: L03.311 - Cellulitis of abdominal wall SNOMED: 46182561 Status: progressing Assessment/Plan: pleural effusion leukocytosis anemia is stable cri check lytes lyte abnormality ingris continue support w oxygen Darlene Hu MD Jun 04, 2020 21:07
[2020-06-05] VITALS: BP 124/60
[2020-06-05 04:00] VITALS: BP 111/54
[2020-06-05] MEDS: ceFAZolin 500mg in D5W 55ml IV SCH ×2 (06:00→17:08)
[2020-06-05] MEDS: NovoLOG Insulin Flexpen SUBQ SCH ×4 (06:30→20:46)
--- NOTE | 2020-06-05 06:38 | General Progress Note ---
Subjective ROS Limited/Unobtainable: No Allergies: Coded Allergies: ACETAMINOPHEN (Verified Allergy, Unknown, 05/29/20) HYDROCODONE (Verified Allergy, Unknown, 05/29/20) Objective Last 24 Hour Vital Signs Date Time Temp Pulse Resp B/P (MAP) Pulse Ox O2 Delivery O2 Flow Rate FiO2 06/05/20 04:00 98.0 65 28 111/54 (73) 100 06/05/20 04:00 65 06/05/20 00:00 97.5 70 21 124/60 (81) 98 06/05/20 00:00 63 06/04/20 21:00 Venturi Mask 10.0 06/04/20 20:02 98 Venturi Mask 10.0 45 06/04/20 20:00 97.7 66 28 127/52 (77) 99 06/04/20 20:00 60 06/04/20 17:13 133/57 06/04/20 16:00 62 06/04/20 16:00 98.1 63 20 133/57 (82) 98 06/04/20 12:09 133/69 06/04/20 12:00 100 06/04/20 11:55 96.7 62 18 133/69 (90) 99 06/04/20 10:13 131/62 06/04/20 09:00 Venturi Mask 10.0 06/04/20 08:00 54 06/04/20 08:00 98.1 62 19 131/62 (85) 96 Laboratory Tests 06/04/20 11:18: POC Whole Blood Glucose 113H 06/04/20 20:07: POC Whole Blood Glucose 103 06/05/20 05:33: POC Whole Blood Glucose 91 Height (Feet): 5 Height (Inches): 6.00 Weight (Pounds): 338 General Appearance: no apparent distress EENT: normal ENT inspection Neck: supple Cardiovascular: normal rate Respiratory/Chest: decreased breath sounds Abdomen: hypoactive bowel sounds Extremities: non-tender Assessment/Plan Status: progressing Assessment/Plan: iron def anemia abd pain RI morbid obesity anasarca/ascites diverticulosis cholelithiasis DNR CT and US reviewed stool ob respiratory care poor prognosis comfort care Paul Díaz MD Jun 05, 2020 06:38
--- NOTE | 2020-06-05 07:52 | NUR ---
NURSE NOTES: Received report from Belen/GORDON. Pt in bed sleeping in semi-fowlers position, sleeping. On venturi mask 10L, 45% Fio2, no distress or SOB noted. IV on left AC 20G, patent and clean. Bed in the lowest position and locked, call light within reach. Side rails up X3. Will continue plan of care.
--- NOTE | 2020-06-05 07:57 | NUR ---
HAND-OFF: Report given to GORDON Sam. Endorsed plan of care.
[2020-06-05 08:00] VITALS: BP 130/58
[2020-06-05] MEDS: HydrALAZINE 50mg tab ORAL SCH ×3 (08:33→17:09)
[2020-06-05] MEDS: Docusate 100mg cap ORAL SCH ×2 (08:33→17:09)
[2020-06-05] MEDS: Heparin 5000 units/ml inj SUBQ SCH ×2 (08:34→20:45)
--- NOTE | 2020-06-05 10:03 | Cardiac Electrophysiology PN ---
Assessment/Plan Assessment/Plan 1. Bradycardia with heart rate in the 40s-50s. Now off metoprolol and Clonidine patch 2. Hypertension, On Lasix 40 iv bid, Metolazone and Hydralazine 50 tid 3. Chest pain. The pain is atypical. Ruled out RI EF 55% on echocardiogram 4. Volume overload. Renal failure with creatinine of 5.2. Refusing HD (Family refused even placing Vladislav) 5. Generalized pain. Follow up pain management. 6. Morbid obesity. 7. Hyperkalemia. Got Kayexalate 8. Hospice care DW Dr. Stewart Subjective Subjective No CP or SOB. Confused with 10 liter Venturi Face Mask on. NPO with iv fluid. Objective Last 24 Hour Vital Signs Date Time Temp Pulse Resp B/P (MAP) Pulse Ox O2 Delivery O2 Flow Rate FiO2 06/05/20 08:33 130/58 06/05/20 08:00 98.1 64 20 130/58 (82) 96 06/05/20 04:00 98.0 65 28 111/54 (73) 100 06/05/20 04:00 65 06/05/20 00:00 97.5 70 21 124/60 (81) 98 06/05/20 00:00 63 06/04/20 21:00 Venturi Mask 10.0 06/04/20 20:02 98 Venturi Mask 10.0 45 06/04/20 20:00 97.7 66 28 127/52 (77) 99 06/04/20 20:00 60 06/04/20 17:13 133/57 06/04/20 16:00 62 06/04/20 16:00 98.1 63 20 133/57 (82) 98 06/04/20 12:09 133/69 06/04/20 12:00 100 06/04/20 11:55 96.7 62 18 133/69 (90) 99 06/04/20 10:13 131/62 Laboratory Tests Test 06/04/20 11:18 06/04/20 20:07 06/05/20 05:33 POC Whole Blood Glucose 113 MG/DL (74-106) H 103 MG/DL (74-106) 91 MG/DL (74-106) Objective NECK: No JVD. LUNGS: Clear. CARDIOVASCULAR: Shows regular S1 and S2 with no gallop. ABDOMEN: Morbidly obese. EXTREMITIES: 1+ pitting edema. Shad Colon MD Jun 05, 2020 10:03
--- NOTE | 2020-06-05 10:57 | Nephrology Progress Note ---
Assessment/Plan Problem List: (1) INGRIS (acute kidney injury) (2) Hyperkalemia (3) Morbid obesity with BMI of 50.0-59.9, adult (4) Anemia Assessment Renal failure most likely acute on chronic Presents with hyperkalemia Anemia Hypertension Pleural effusion Ejection fraction 55% No hydronephrosis and kidney ultrasound 4+ proteinuria, likely due to diabetic nephropathy Morbid obesity Plan June 05: No labs drawn. Gradually deteriorating. Not much to add from renal standpoint of view. June 04: Labs reviewed. Serum creatinine paul. Patient not to be dialyzed per family request. Blood pressure controlled. Bradycardic. Medication adjusted. Poor prognosis. Patient remains DNR/DNI. June 03: Patient was transferred to telemetry for high blood pressure. Remains DNR/DNI. Blood pressure now within normal limit. Patient clonidine patch. Since appearing clinically more responsive will check labs tomorrow. June 02: Labs reviewed. Status quo. Patient DNR/DNI and do not dialysis per family request. Not much to add from renal standpoint of view. Suggest no lab draw since not much can be done about it from renal standpoint of view. June 01: Events of last 24 hours noted and is as follow: Patient found to be acidotic with acute renal failure. Was transferred to ICU. Planned to dialyze and protect the airways. Apparently family changed the status to DNR/DNI. Patient was then transferred to medical floor. Currently status unchanged. Not much more to be added from renal standpoint of view. Suggest comfort care. Since we are not going to do any dialysis treatment, monitoring blood chemistries and renal parameters are not needed. May 31: Patient morbidly obese. Labs reviewed. Worsening renal parameters and hyperkalemia. Dior ordered. Kayexalate ordered. Stat ABG ordered. Patient n.p.o. Insertion of dialysis catheter and consent ordered. Patient may need to be transferred to ICU. Discussed with RN and nurse in charge of the floor. May 30: DC IV fluid and diuretics Keep the blood pressure in check Monitor renal parameters Monitor electrolytes Avoid nephrotoxic's 1 dose of Kayexalate Intravenous Venofer for low iron Per orders Subjective ROS Limited/Unobtainable: Yes Objective Objective Last 24 Hour Vital Signs Date Time Temp Pulse Resp B/P (MAP) Pulse Ox O2 Delivery O2 Flow Rate FiO2 06/05/20 09:00 Venturi Mask 10.0 06/05/20 08:33 130/58 06/05/20 08:00 42 06/05/20 08:00 98.1 64 20 130/58 (82) 96 06/05/20 04:00 98.0 65 28 111/54 (73) 100 06/05/20 04:00 65 06/05/20 00:00 97.5 70 21 124/60 (81) 98 06/05/20 00:00 63 06/04/20 21:00 Venturi Mask 10.0 06/04/20 20:02 98 Venturi Mask 10.0 45 06/04/20 20:00 97.7 66 28 127/52 (77) 99 06/04/20 20:00 60 06/04/20 17:13 133/57 06/04/20 16:00 62 06/04/20 16:00 98.1 63 20 133/57 (82) 98 06/04/20 12:09 133/69 06/04/20 12:00 100 06/04/20 11:55 96.7 62 18 133/69 (90) 99 Laboratory Tests 06/04/20 11:18: POC Whole Blood Glucose 113H 06/04/20 20:07: POC Whole Blood Glucose 103 06/05/20 05:33: POC Whole Blood Glucose 91 Height (Feet): 5 Height (Inches): 6.00 Weight (Pounds): 338 General Appearance: no apparent distress, lethargic EENT: other - On Venturi mask Cardiovascular: normal rate Respiratory/Chest: decreased breath sounds Darrian Stewart MD Jun 05, 2020 10:57
--- NOTE | 2020-06-05 11:23 | Surgery Progress Note ---
Surgery Progress Note Subjective Additional Comments no acute events labs noted wbc ill appearing but comfortable Objective Last 24 Hour Vital Signs Date Time Temp Pulse Resp B/P (MAP) Pulse Ox O2 Delivery O2 Flow Rate FiO2 06/05/20 09:00 Venturi Mask 10.0 06/05/20 08:33 130/58 06/05/20 08:00 42 06/05/20 08:00 98.1 64 20 130/58 (82) 96 06/05/20 04:00 98.0 65 28 111/54 (73) 100 06/05/20 04:00 65 06/05/20 00:00 97.5 70 21 124/60 (81) 98 06/05/20 00:00 63 06/04/20 21:00 Venturi Mask 10.0 06/04/20 20:02 98 Venturi Mask 10.0 45 06/04/20 20:00 97.7 66 28 127/52 (77) 99 06/04/20 20:00 60 06/04/20 17:13 133/57 06/04/20 16:00 62 06/04/20 16:00 98.1 63 20 133/57 (82) 98 06/04/20 12:09 133/69 06/04/20 12:00 100 06/04/20 11:55 96.7 62 18 133/69 (90) 99 Cardiovascular: RSR Respiratory: decreased breath sounds Abdomen: distended, non-tender, present bowel sounds Extremities: edema, no cyanosis Laboratory Tests Test 06/04/20 20:07 06/05/20 05:33 POC Whole Blood Glucose 103 MG/DL (74-106) 91 MG/DL (74-106) Plan Problems: (1) Pleural effusion (2) Hyperkalemia (3) INGRIS (acute kidney injury) (4) Morbid obesity with BMI of 50.0-59.9, adult (5) Anemia (6) SOB (shortness of breath) (7) Abdominal pain (8) Abdominal wall cellulitis Assessment & Plan: panniculitis anasarca cont abx dnr/dni comfort care confirmed care plan with patients daughter polst noted no acute surgical intervention acute renal insufficiency no HD, no cath insertion given patients and family wishes respiratory insufficiency acidosis no intubation given care plan thank you ABDOMEN: Liver: Unremarkable. Gallbladder and bile ducts: Unremarkable. No calcified stones. No ductal dilation. Pancreas: Unremarkable. No ductal dilation. Spleen: Unremarkable. No splenomegaly. Adrenals: Unremarkable. No mass. Kidneys and ureters: Mild nonspecific perinephric stranding. No obstructing stones. Stomach and bowel: Diverticulosis of the colon with no signs of diverticulitis. No obstruction. PELVIS: Appendix: No findings to suggest acute appendicitis. Bladder: Unremarkable. No stones. Reproductive: Unremarkable as visualized. ABDOMEN and PELVIS: Intraperitoneal space: Mild ascites predominantly seen along the anterior liver margin. No free air. Bones/joints: Advanced multilevel disc degenerative disease. No acute fracture. No dislocation. Soft tissues: Stranding/fluid infiltration of the subcutaneous fat suggestive of anasarca. Vasculature: Unremarkable. No abdominal aortic aneurysm. Lymph nodes: Unremarkable. No enlarged lymph nodes. IMPRESSION: 1. Right sided lung nodules, differential diagnosis including metastatic disease/neoplasm versus inflammatory process. Follow-up recommended with CT chest for further characterization. 2. Bilateral pleural effusions, more significant on the right. 3. Diffuse anasarca. Mild ascites. 4. Diverticulosis with no signs of diverticulitis. No bowel obstruction. Sean Anderson Jun 05, 2020 11:23
--- NOTE | 2020-06-05 11:41 | Pulmonology Progress Note ---
Subjective ROS Limited/Unobtainable: No Constitutional: Reports: no symptoms HEENT: Repors: no symptoms Respiratory: Reports: no symptoms Allergies: Coded Allergies: ACETAMINOPHEN (Verified Allergy, Unknown, 05/29/20) HYDROCODONE (Verified Allergy, Unknown, 05/29/20) All Systems: reviewed and negative except above Objective Last 24 Hour Vital Signs Date Time Temp Pulse Resp B/P (MAP) Pulse Ox O2 Delivery O2 Flow Rate FiO2 06/05/20 09:00 Venturi Mask 10.0 06/05/20 08:33 130/58 06/05/20 08:00 42 06/05/20 08:00 98.1 64 20 130/58 (82) 96 06/05/20 04:00 98.0 65 28 111/54 (73) 100 06/05/20 04:00 65 06/05/20 00:00 97.5 70 21 124/60 (81) 98 06/05/20 00:00 63 06/04/20 21:00 Venturi Mask 10.0 06/04/20 20:02 98 Venturi Mask 10.0 45 06/04/20 20:00 97.7 66 28 127/52 (77) 99 06/04/20 20:00 60 06/04/20 17:13 133/57 06/04/20 16:00 62 06/04/20 16:00 98.1 63 20 133/57 (82) 98 06/04/20 12:09 133/69 06/04/20 12:00 100 06/04/20 11:55 96.7 62 18 133/69 (90) 99 General Appearance: WD/WN HEENT: normocephalic, atraumatic Respiratory: chest wall non-tender, rhonchi - left, rhonchi - right Breasts: no masses Cardiovascular: normal peripheral pulses, normal rate Abdomen: normal bowel sounds, soft, non tender Genitourinary: normal external genitalia Extremities: no cyanosis Skin: no rash Laboratory Tests 06/04/20 20:07: POC Whole Blood Glucose 103 06/05/20 05:33: POC Whole Blood Glucose 91 Current Medications Medications (Trade) Dose Ordered Sig/Alissa Route PRN Reason Start Time Stop Time Status Last Admin Dose Admin Cefazolin Sodium 500 mg/Dextrose 55 ml @ 110 mls/hr Q12H IV 06/01/20 18:00 06/08/20 17:59 06/05/20 06:00 Dextrose (Dextrose 50%) 25 ml Q30M PRN IV Hypoglycemia 05/30/20 04:30 08/28/20 04:29 Dextrose (Dextrose 50%) 50 ml Q30M PRN IV Hypoglycemia 05/30/20 04:30 08/28/20 04:29 Docusate Sodium (Colace) 100 mg TWICE A DAY ORAL 06/03/20 09:00 07/03/20 08:59 06/05/20 08:33 Furosemide (Lasix) 40 mg EVERY 12 HOURS IV 06/03/20 21:00 07/03/20 20:59 06/05/20 08:33 Heparin Sodium (Porcine) (Heparin 5000 units/ml) 5,000 units EVERY 12 HOURS SUBQ 05/30/20 09:00 07/14/20 08:59 06/05/20 08:34 Hydralazine HCl (Apresoline) 50 mg TID ORAL 06/04/20 11:53 09/02/20 11:52 06/05/20 08:33 Insulin Aspart (NovoLOG) BEFORE MEALS AND HS SUBQ 05/30/20 06:30 08/28/20 06:29 06/02/20 20:49 Metolazone (Zaroxolyn) 5 mg DAILY ORAL 06/03/20 19:00 07/03/20 18:59 06/05/20 08:33 Morphine Sulfate (Morphine Sulfate) 4 mg Q4H PRN IVP Moderate Pain (Pain Scale 4-6) 05/31/20 13:00 06/06/20 04:14 06/03/20 11:56 Assessment/Plan Problems: (1) Acute respiratory failure (2) Pleural effusion (3) INGRIS (acute kidney injury) (4) Morbid obesity with BMI of 50.0-59.9, adult (5) Abdominal wall cellulitis Assessment/Plan all reviewed on face mask looks comfortable pt doesn't want any BIPAP or intubation or HD comfort measures titrate fio2 to sat of 92% abx for abdominal wall cellulitis symptomatic treatment Eder Corral MD Jun 05, 2020 11:41
[2020-06-05 12:00] VITALS: BP 129/81
[2020-06-05] MEDS: Morphine Sulfate 4mg/ml Inj (IV USE ONLY) IVP PRN (12:45)
--- NOTE | 2020-06-05 14:50 | General Progress Note ---
Subjective Date patient seen: Jun 05, 2020 Time patient seen: 01:45 - pm Allergies: Coded Allergies: ACETAMINOPHEN (Verified Allergy, Unknown, 05/29/20) HYDROCODONE (Verified Allergy, Unknown, 05/29/20) Subjective HISTORY OF PRESENT ILLNESS: The patient is a 59-year-old female, who is being seen on the Tele floor of [facility] [place]. Patient showing no signs of pain or distress. Using the Morphine as needed. No new complaints at this time REVIEW OF SYSTEMS: Denies rash, fever, chills, sweating, dizziness, drowsiness, blurred vision, sore throat, or change in weight. No shortness of breath, chest pain, palpitations, or cough. No nausea, vomiting, diarrhea, or blood in stool or urine. No dysuria. Objective Last 24 Hour Vital Signs Date Time Temp Pulse Resp B/P (MAP) Pulse Ox O2 Delivery O2 Flow Rate FiO2 06/05/20 12:45 129/81 06/05/20 12:00 65 06/05/20 12:00 96.8 68 19 129/81 (97) 98 06/05/20 09:00 Venturi Mask 10.0 06/05/20 08:33 130/58 06/05/20 08:00 42 06/05/20 08:00 98.1 64 20 130/58 (82) 96 06/05/20 04:00 98.0 65 28 111/54 (73) 100 06/05/20 04:00 65 06/05/20 00:00 97.5 70 21 124/60 (81) 98 06/05/20 00:00 63 06/04/20 21:00 Venturi Mask 10.0 06/04/20 20:02 98 Venturi Mask 10.0 45 06/04/20 20:00 97.7 66 28 127/52 (77) 99 06/04/20 20:00 60 06/04/20 17:13 133/57 06/04/20 16:00 62 06/04/20 16:00 98.1 63 20 133/57 (82) 98 Laboratory Tests 06/04/20 20:07: POC Whole Blood Glucose 103 06/05/20 05:33: POC Whole Blood Glucose 91 06/05/20 11:55: POC Whole Blood Glucose 92 Height (Feet): 5 Height (Inches): 6.00 Weight (Pounds): 338 Objective PHYSICAL EXAMINATION: NECK: Range of motion is decreased due to the patient's condition. LUNGS: Decreased breath sounds bilaterally. HEART: Regular. ABDOMEN: Obese. EXTREMITIES: No clubbing. NEURO: No changes. Assessment/Plan Status: progressing Assessment/Plan: (1) Abdominal pain (2) Morbid obesity (3) Multiple joint pain and OA Patient to be continued on Morphine as needed. D/w Dr. Agudelo and he concurred. Elio Colon Jun 05, 2020 14:50
[2020-06-05 16:00] VITALS: BP 135/62
--- NOTE | 2020-06-05 19:15 | NUR ---
NURSE NOTES: RECEIVED REPORT FROM GORDON TRINH. PATIENT ASLEEP, AROUSABLE TO VOICE AND TACTILE STIMULI ONLY. NO S/SX OF PAIN OR DISCOMFORT NOTED AT THIS TIME. BREATHING EVEN AND UNLABORED ON 10LPM/FIO2 45% ON VENTURI MASK, NO S/SX OF DISTRESS. IV SITE LAC PATENT, INTACT, ASYMPTOMATIC, AND SALINE-LOCKED. FALL AND ASPIRATION PRECAUTIONS IN PLACE. BED LOCKED AND IN LOWEST POSITION, SIDERAILS UP X 3. CALL LIGHT WITHIN REACH, WILL CONTINUE TO MONITOR PER POC.
--- NOTE | 2020-06-05 19:22 | NUR ---
NURSE HAND-OFF REPORT: Important Events on Shift: Patient Status: Stable Diet: NPO Pending Orders: Pending Results/Labs: Pending MD notification: Latest Vital Signs: Temperature 98.1 , Pulse 66 , B/P 135 /62 , Respiratory Rate 19 , O2 SAT 100 , Venturi Mask, O2 Flow Rate 10.0 . Vital Sign Comment: Stable EKG Rhythm: Sinus Rhythm Rhythm change?: N MD Notified?: - MD Response: Latest Bhagat Fall Score: 45 Fall Risk: High Risk Safety Measures: Call light Within Reach, Bed Alarm Zone 2, Side Rails Side Rails x2, Bed position Low and Locked. Fall Precautions: Patient Fall Education Report given to Juanita/RN.
[2020-06-05 20:00] VITALS: BP 139/57
--- NOTE | 2020-06-05 21:38 | General Progress Note ---
Subjective ROS Limited/Unobtainable: Yes Allergies: Coded Allergies: ACETAMINOPHEN (Verified Allergy, Unknown, 05/29/20) HYDROCODONE (Verified Allergy, Unknown, 05/29/20) Objective Last 24 Hour Vital Signs Date Time Temp Pulse Resp B/P (MAP) Pulse Ox O2 Delivery O2 Flow Rate FiO2 06/05/20 17:09 135/62 06/05/20 16:00 98.1 65 19 135/62 (86) 100 06/05/20 16:00 66 06/05/20 12:45 129/81 06/05/20 12:00 65 06/05/20 12:00 96.8 68 19 129/81 (97) 98 06/05/20 09:00 Venturi Mask 10.0 06/05/20 08:33 130/58 06/05/20 08:00 42 06/05/20 08:00 98.1 64 20 130/58 (82) 96 06/05/20 04:00 98.0 65 28 111/54 (73) 100 06/05/20 04:00 65 06/05/20 00:00 97.5 70 21 124/60 (81) 98 06/05/20 00:00 63 Laboratory Tests 06/05/20 05:33: POC Whole Blood Glucose 91 06/05/20 11:55: POC Whole Blood Glucose 92 06/05/20 15:57: POC Whole Blood Glucose 98 06/05/20 20:20: POC Whole Blood Glucose 93 Height (Feet): 5 Height (Inches): 6.00 Weight (Pounds): 338 Assessment/Plan Problem List: (1) Pleural effusion ICD Codes: J90 - Pleural effusion, not elsewhere classified SNOMED: 18936961 (2) Hyperkalemia ICD Codes: E87.5 - Hyperkalemia SNOMED: 03439627 (3) INGRIS (acute kidney injury) ICD Codes: N17.9 - Acute kidney failure, unspecified SNOMED: 7624298, 17033649 (4) Morbid obesity with BMI of 50.0-59.9, adult ICD Codes: E66.01 - Morbid (severe) obesity due to excess calories; Z68.43 - Body mass index [BMI] 50.0-59.9, adult SNOMED: 890017066, 465752027, 93715560831894 (5) Anemia ICD Codes: D64.9 - Anemia, unspecified SNOMED: 094957352 (6) SOB (shortness of breath) ICD Codes: R06.02 - Shortness of breath SNOMED: 302074411 (7) Abdominal pain ICD Codes: R10.9 - Unspecified abdominal pain SNOMED: 50185193 (8) Abdominal wall cellulitis ICD Codes: L03.311 - Cellulitis of abdominal wall SNOMED: 10893366 Status: progressing Assessment/Plan: pleural effusion no wheezing check lytes no change supportive rx Darlene Hu MD Jun 05, 2020 21:38
[2020-06-06] VITALS: BP 128/51
[2020-06-06 04:00] VITALS: BP 148/60
[2020-06-06] MEDS: ceFAZolin 500mg in D5W 55ml IV SCH ×2 (05:55→18:10)
[2020-06-06] MEDS: NovoLOG Insulin Flexpen SUBQ SCH ×4 (05:55→20:21)
--- NOTE | 2020-06-06 07:35 | NUR ---
NURSE HAND-OFF REPORT: Important Events on Shift: N/A Patient Status: STABLE Diet: NO CAFFEINE, NO CHOCOLATE Pending Orders: N/A Pending Results/Labs: AM LABS Pending MD notification: N/A Latest Vital Signs: Temperature 97.4 , Pulse 68 , B/P 148 /60 , Respiratory Rate 20 , O2 SAT 99 , Venturi Mask, O2 Flow Rate 10.0 . Vital Sign Comment: STABLE EKG Rhythm: Sinus Rhythm Rhythm change?: N MD Notified?: - MD Response: Latest Bhagat Fall Score: 45 Fall Risk: High Risk Safety Measures: Call light Within Reach, Bed Alarm Zone 1, Side Rails Side Rails x3, Bed position Low and Locked. Fall Precautions: Yellow Socks Yellow Gown Patient Fall Education Report given to GORDON ROGERS.
[2020-06-06 08:00] VITALS: BP 139/57
--- NOTE | 2020-06-06 08:01 | NUR ---
NURSE NOTES: pt is in the bed asleep. respiration is even and unlabored with O2 @ 10l/min via venturi mask. HOB elevated. no acute distress noted at this time. call light within reach.
--- NOTE | 2020-06-06 08:58 | General Progress Note ---
Subjective ROS Limited/Unobtainable: No Allergies: Coded Allergies: ACETAMINOPHEN (Verified Allergy, Unknown, 05/29/20) HYDROCODONE (Verified Allergy, Unknown, 05/29/20) Objective Last 24 Hour Vital Signs Date Time Temp Pulse Resp B/P (MAP) Pulse Ox O2 Delivery O2 Flow Rate FiO2 06/06/20 08:00 97.6 66 21 139/57 (84) 98 06/06/20 04:00 68 06/06/20 04:00 97.4 69 20 148/60 (89) 99 06/06/20 00:00 97.3 69 20 128/51 (76) 97 06/06/20 00:00 68 06/05/20 21:00 Venturi Mask 10.0 06/05/20 20:00 68 06/05/20 20:00 97.2 66 22 139/57 (84) 96 06/05/20 17:09 135/62 06/05/20 16:00 98.1 65 19 135/62 (86) 100 06/05/20 16:00 66 06/05/20 12:45 129/81 06/05/20 12:00 65 06/05/20 12:00 96.8 68 19 129/81 (97) 98 06/05/20 09:00 Venturi Mask 10.0 Laboratory Tests 06/05/20 11:55: POC Whole Blood Glucose 92 06/05/20 15:57: POC Whole Blood Glucose 98 06/05/20 20:20: POC Whole Blood Glucose 93 06/06/20 05:48: POC Whole Blood Glucose 79 Height (Feet): 5 Height (Inches): 6.00 Weight (Pounds): 338 General Appearance: no apparent distress EENT: normal ENT inspection Neck: supple Cardiovascular: normal rate Respiratory/Chest: decreased breath sounds Abdomen: normal bowel sounds, non tender, soft Extremities: non-tender Assessment/Plan Status: progressing Assessment/Plan: iron def anemia abd pain RI morbid obesity anasarca/ascites diverticulosis cholelithiasis DNR CT and US reviewed stool ob respiratory care poor prognosis comfort care Paul Díaz MD Jun 06, 2020 08:58
--- NOTE | 2020-06-06 09:11 | NUR ---
CASE MANAGEMENT:REVIEW 06/06/20 SI: BILATERAL PLEURAL EFFUSIONS INGRIS. ASCITES. ABDOMINAL WALL CELLULITIS 97.6 66 21 139/57 98% ON VENTURI MASK 10L/45% FIO2 IS: IV ANCEF Q12 IV LASIX Q12 ZAROXOLYN PO QD CLONIDINE PATCH QWEEK HYDRALAZINE PO TID HEPARIN SQ Q12HRS : TELEMETRY STATUS DCP: MARY MCKOY PLAN: HOSPICE CONSULT?
[2020-06-06] MEDS: Heparin 5000 units/ml inj SUBQ SCH ×2 (09:55→20:43)
--- NOTE | 2020-06-06 09:59 | Nephrology Progress Note ---
Assessment/Plan Problem List: (1) INGRIS (acute kidney injury) (2) Hyperkalemia (3) Morbid obesity with BMI of 50.0-59.9, adult (4) Anemia Assessment Renal failure most likely acute on chronic Presents with hyperkalemia Anemia Hypertension Pleural effusion Ejection fraction 55% No hydronephrosis and kidney ultrasound 4+ proteinuria, likely due to diabetic nephropathy Morbid obesity Plan June 06: Patient does not have any blood work today. Remains on Venturi mask. Poorly responsive to verbal stimuli. Status quo. Remains DNR/DNI and no dialysis status per family. I favor comfort care. Continue per consultants. June 05: No labs drawn. Gradually deteriorating. Not much to add from renal standpoint of view. June 04: Labs reviewed. Serum creatinine paul. Patient not to be dialyzed per family request. Blood pressure controlled. Bradycardic. Medication adjusted. Poor prognosis. Patient remains DNR/DNI. June 03: Patient was transferred to telemetry for high blood pressure. Remains DNR/DNI. Blood pressure now within normal limit. Patient clonidine patch. Since appearing clinically more responsive will check labs tomorrow. June 02: Labs reviewed. Status quo. Patient DNR/DNI and do not dialysis per family request. Not much to add from renal standpoint of view. Suggest no lab draw since not much can be done about it from renal standpoint of view. June 01: Events of last 24 hours noted and is as follow: Patient found to be acidotic with acute renal failure. Was transferred to ICU. Planned to dialyze and protect the airways. Apparently family changed the status to DNR/DNI. Patient was then transferred to medical floor. Currently status unchanged. Not much more to be added from renal standpoint of view. Suggest comfort care. Since we are not going to do any dialysis treatment, monitoring blood chemistries and renal parameters are not needed. May 31: Patient morbidly obese. Labs reviewed. Worsening renal parameters and hyperkalemia. Dior ordered. Kayexalate ordered. Stat ABG ordered. Patient n.p.o. Insertion of dialysis catheter and consent ordered. Patient may need to be transferred to ICU. Discussed with RN and nurse in charge of the floor. May 30: DC IV fluid and diuretics Keep the blood pressure in check Monitor renal parameters Monitor electrolytes Avoid nephrotoxic's 1 dose of Kayexalate Intravenous Venofer for low iron Per orders Subjective ROS Limited/Unobtainable: Yes Objective Objective Last 24 Hour Vital Signs Date Time Temp Pulse Resp B/P (MAP) Pulse Ox O2 Delivery O2 Flow Rate FiO2 06/06/20 08:00 97.6 66 21 139/57 (84) 98 06/06/20 04:00 68 06/06/20 04:00 97.4 69 20 148/60 (89) 99 06/06/20 00:00 97.3 69 20 128/51 (76) 97 06/06/20 00:00 68 06/05/20 21:00 Venturi Mask 10.0 06/05/20 20:00 68 06/05/20 20:00 97.2 66 22 139/57 (84) 96 06/05/20 17:09 135/62 06/05/20 16:00 98.1 65 19 135/62 (86) 100 06/05/20 16:00 66 06/05/20 12:45 129/81 06/05/20 12:00 65 06/05/20 12:00 96.8 68 19 129/81 (97) 98 Current Medications Medications (Trade) Dose Ordered Sig/Alissa Route PRN Reason Start Time Stop Time Status Last Admin Dose Admin Cefazolin Sodium 500 mg/Dextrose 55 ml @ 110 mls/hr Q12H IV 06/01/20 18:00 06/08/20 17:59 06/06/20 05:55 Dextrose (Dextrose 50%) 25 ml Q30M PRN IV Hypoglycemia 05/30/20 04:30 08/28/20 04:29 Dextrose (Dextrose 50%) 50 ml Q30M PRN IV Hypoglycemia 05/30/20 04:30 08/28/20 04:29 Docusate Sodium (Colace) 100 mg TWICE A DAY ORAL 06/03/20 09:00 07/03/20 08:59 06/05/20 17:09 Furosemide (Lasix) 40 mg EVERY 12 HOURS IV 06/03/20 21:00 07/03/20 20:59 06/05/20 20:45 Heparin Sodium (Porcine) (Heparin 5000 units/ml) 5,000 units EVERY 12 HOURS SUBQ 05/30/20 09:00 07/14/20 08:59 06/06/20 09:55 Hydralazine HCl (Apresoline) 50 mg TID ORAL 06/04/20 11:53 09/02/20 11:52 06/05/20 17:09 Insulin Aspart (NovoLOG) BEFORE MEALS AND HS SUBQ 05/30/20 06:30 08/28/20 06:29 06/02/20 20:49 Metolazone (Zaroxolyn) 5 mg DAILY ORAL 06/03/20 19:00 07/03/20 18:59 06/05/20 08:33 Laboratory Tests 06/05/20 11:55: POC Whole Blood Glucose 92 06/05/20 15:57: POC Whole Blood Glucose 98 06/05/20 20:20: POC Whole Blood Glucose 93 06/06/20 05:48: POC Whole Blood Glucose 79 Height (Feet): 5 Height (Inches): 6.00 Weight (Pounds): 338 General Appearance: lethargic Cardiovascular: normal rate Respiratory/Chest: decreased breath sounds Abdomen: distended Darrian Stewart MD Jun 06, 2020 09:59
[2020-06-06] MEDS: HydrALAZINE 50mg tab ORAL SCH ×3 (10:13→18:10)
[2020-06-06] MEDS: Docusate 100mg cap ORAL SCH ×2 (10:14→18:10)
--- NOTE | 2020-06-06 11:07 | Infectious Diseases Prog Note ---
Assessment/Plan 59yo F with: Afebrile Normal WBC Pulmonary nodules BL pleural effusions, R>L Cough, SOB Likely CHF, volume OL 05/29 CT A/P: 1. Right sided lung nodules, differential diagnosis including metastatic disease/neoplasm versus inflammatory process. Follow-up recommended with CT chest for further characterization. 2. Bilateral pleural effusions, more significant on the right. 3. Diffuse anasarca. Mild ascites. 4. Diverticulosis with no signs of diverticulitis. No bowel obstruction. 05/30 CT chest: 1. Moderate right and small left pleural effusions. 2. Bilateral mild pulmonary edema/infiltrates. 3. Bilateral scattered small nodular lung densities which may be neoplasm/metastasis, chronic, infection/inflammation, or other etiology. Followup as clinically indicated. 05/30 COVID rapid neg Possible panniculitis and lt lower leg cellulitis Crypto Ag and HIV: neg Morbid obesity Plan: cont cefazolin # 7/10 for possible panniculitis and lt leg cellulitis F/u ID w/u for pulm nodules with: Cocci Histo Ab Ab and Ag Fungitell Tspot 05/29 SP Zosyn x1 in ED Monitor CBC/CMP Monitor resp status Monitor temp curve and hemodynamics D/w RN Thank you for this consult. [facility] will continue to follow. Subjective Allergies: Coded Allergies: ACETAMINOPHEN (Verified Allergy, Unknown, 05/29/20) HYDROCODONE (Verified Allergy, Unknown, 05/29/20) Afebrile Objective Last 24 Hour Vital Signs Date Time Temp Pulse Resp B/P (MAP) Pulse Ox O2 Delivery O2 Flow Rate FiO2 06/06/20 10:13 139/57 06/06/20 08:00 67 06/06/20 08:00 97.6 66 21 139/57 (84) 98 06/06/20 04:00 68 06/06/20 04:00 97.4 69 20 148/60 (89) 99 06/06/20 00:00 97.3 69 20 128/51 (76) 97 06/06/20 00:00 68 06/05/20 21:00 Venturi Mask 10.0 06/05/20 20:00 68 06/05/20 20:00 97.2 66 22 139/57 (84) 96 06/05/20 17:09 135/62 06/05/20 16:00 98.1 65 19 135/62 (86) 100 06/05/20 16:00 66 06/05/20 12:45 129/81 06/05/20 12:00 65 06/05/20 12:00 96.8 68 19 129/81 (97) 98 Height (Feet): 5 Height (Inches): 6.00 Weight (Pounds): 338 HEENT: atraumatic Respiratory/Chest: lungs clear Cardiovascular: normal rate Abdomen: soft, non tender Skin: other - lt leg erythema Laboratory Tests Test 06/05/20 11:55 06/05/20 15:57 06/05/20 20:20 06/06/20 05:48 POC Whole Blood Glucose 92 MG/DL (74-106) 98 MG/DL (74-106) 93 MG/DL (74-106) 79 MG/DL (74-106) Current Medications Medications (Trade) Dose Ordered Sig/Alissa Route PRN Reason Start Time Stop Time Status Last Admin Dose Admin Cefazolin Sodium 500 mg/Dextrose 55 ml @ 110 mls/hr Q12H IV 06/01/20 18:00 06/08/20 17:59 06/06/20 05:55 Dextrose (Dextrose 50%) 25 ml Q30M PRN IV Hypoglycemia 05/30/20 04:30 08/28/20 04:29 Dextrose (Dextrose 50%) 50 ml Q30M PRN IV Hypoglycemia 05/30/20 04:30 08/28/20 04:29 Docusate Sodium (Colace) 100 mg TWICE A DAY ORAL 06/03/20 09:00 07/03/20 08:59 06/06/20 10:14 Furosemide (Lasix) 40 mg EVERY 12 HOURS IV 06/03/20 21:00 07/03/20 20:59 06/06/20 09:00 Heparin Sodium (Porcine) (Heparin 5000 units/ml) 5,000 units EVERY 12 HOURS SUBQ 05/30/20 09:00 07/14/20 08:59 06/06/20 09:55 Hydralazine HCl (Apresoline) 50 mg TID ORAL 06/04/20 11:53 09/02/20 11:52 06/06/20 10:13 Insulin Aspart (NovoLOG) BEFORE MEALS AND HS SUBQ 05/30/20 06:30 08/28/20 06:29 06/02/20 20:49 Metolazone (Zaroxolyn) 5 mg DAILY ORAL 06/03/20 19:00 07/03/20 18:59 06/06/20 10:14 Juanito Kovacs MD Jun 06, 2020 11:07
--- NOTE | 2020-06-06 11:24 | Cardiac Electrophysiology PN ---
Assessment/Plan Assessment/Plan 1. Bradycardia with heart rate in the 40s-50s. Off metoprolol and Clonidine patch 2. Hypertension, On Lasix 40 iv bid, Metolazone and Hydralazine 50 tid 3. Chest pain. The pain is atypical. Ruled out IA EF 55% on echocardiogram 4. Volume overload. Renal failure with creatinine of 5.2. Refusing HD (Family refused even placing Vladislav) 5. Generalized pain. Follow up pain management. 6. Morbid obesity. 7. Hyperkalemia. Got Kayexalate 8. Hospice care DW Dr. Stewart Subjective Subjective Confused with 10 liter Venturi Face Mask on. NPO. On iv Lasix and Ancef. Awaiting hospice placement Objective Last 24 Hour Vital Signs Date Time Temp Pulse Resp B/P (MAP) Pulse Ox O2 Delivery O2 Flow Rate FiO2 06/06/20 10:13 139/57 06/06/20 09:00 Venturi Mask 10.0 06/06/20 08:00 67 06/06/20 08:00 97.6 66 21 139/57 (84) 98 06/06/20 04:00 68 06/06/20 04:00 97.4 69 20 148/60 (89) 99 06/06/20 00:00 97.3 69 20 128/51 (76) 97 06/06/20 00:00 68 06/05/20 21:00 Venturi Mask 10.0 06/05/20 20:00 68 06/05/20 20:00 97.2 66 22 139/57 (84) 96 06/05/20 17:09 135/62 06/05/20 16:00 98.1 65 19 135/62 (86) 100 06/05/20 16:00 66 06/05/20 12:45 129/81 06/05/20 12:00 65 06/05/20 12:00 96.8 68 19 129/81 (97) 98 Laboratory Tests Test 06/05/20 11:55 06/05/20 15:57 06/05/20 20:20 06/06/20 05:48 POC Whole Blood Glucose 92 MG/DL (74-106) 98 MG/DL (74-106) 93 MG/DL (74-106) 79 MG/DL (74-106) Objective NECK: No JVD. LUNGS: Clear. CARDIOVASCULAR: Shows regular S1 and S2 with no gallop. ABDOMEN: Morbidly obese. EXTREMITIES: 1+ pitting edema. Shad Colon MD Jun 06, 2020 11:24
--- NOTE | 2020-06-06 11:51 | Pulmonology Progress Note ---
Subjective ROS Limited/Unobtainable: No Constitutional: Reports: no symptoms HEENT: Repors: no symptoms Respiratory: Reports: no symptoms Cardiovascular: Reports: no symptoms Allergies: Coded Allergies: ACETAMINOPHEN (Verified Allergy, Unknown, 05/29/20) HYDROCODONE (Verified Allergy, Unknown, 05/29/20) All Systems: reviewed and negative except above Objective Last 24 Hour Vital Signs Date Time Temp Pulse Resp B/P (MAP) Pulse Ox O2 Delivery O2 Flow Rate FiO2 06/06/20 10:13 139/57 06/06/20 09:00 Venturi Mask 10.0 06/06/20 08:00 67 06/06/20 08:00 97.6 66 21 139/57 (84) 98 06/06/20 04:00 68 06/06/20 04:00 97.4 69 20 148/60 (89) 99 06/06/20 00:00 97.3 69 20 128/51 (76) 97 06/06/20 00:00 68 06/05/20 21:00 Venturi Mask 10.0 06/05/20 20:00 68 06/05/20 20:00 97.2 66 22 139/57 (84) 96 06/05/20 17:09 135/62 06/05/20 16:00 98.1 65 19 135/62 (86) 100 06/05/20 16:00 66 06/05/20 12:45 129/81 06/05/20 12:00 65 06/05/20 12:00 96.8 68 19 129/81 (97) 98 General Appearance: WD/WN HEENT: normocephalic, atraumatic Respiratory: chest wall non-tender, rhonchi - left, rhonchi - right Breasts: no masses Cardiovascular: normal peripheral pulses, normal rate Abdomen: normal bowel sounds, soft, non tender Genitourinary: normal external genitalia Extremities: no cyanosis Skin: no rash Laboratory Tests 06/05/20 11:55: POC Whole Blood Glucose 92 06/05/20 15:57: POC Whole Blood Glucose 98 06/05/20 20:20: POC Whole Blood Glucose 93 06/06/20 05:48: POC Whole Blood Glucose 79 Current Medications Medications (Trade) Dose Ordered Sig/Alissa Route PRN Reason Start Time Stop Time Status Last Admin Dose Admin Cefazolin Sodium 500 mg/Dextrose 55 ml @ 110 mls/hr Q12H IV 06/01/20 18:00 06/08/20 17:59 06/06/20 05:55 Dextrose (Dextrose 50%) 25 ml Q30M PRN IV Hypoglycemia 05/30/20 04:30 08/28/20 04:29 Dextrose (Dextrose 50%) 50 ml Q30M PRN IV Hypoglycemia 05/30/20 04:30 08/28/20 04:29 Docusate Sodium (Colace) 100 mg TWICE A DAY ORAL 06/03/20 09:00 07/03/20 08:59 06/06/20 10:14 Furosemide (Lasix) 40 mg EVERY 12 HOURS IV 06/03/20 21:00 07/03/20 20:59 06/06/20 09:00 Heparin Sodium (Porcine) (Heparin 5000 units/ml) 5,000 units EVERY 12 HOURS SUBQ 05/30/20 09:00 07/14/20 08:59 06/06/20 09:55 Hydralazine HCl (Apresoline) 50 mg TID ORAL 06/04/20 11:53 09/02/20 11:52 06/06/20 10:13 Insulin Aspart (NovoLOG) BEFORE MEALS AND HS SUBQ 05/30/20 06:30 08/28/20 06:29 06/02/20 20:49 Metolazone (Zaroxolyn) 5 mg DAILY ORAL 06/03/20 19:00 07/03/20 18:59 06/06/20 10:14 Assessment/Plan Problems: (1) Acute respiratory failure (2) Pleural effusion (3) INGRIS (acute kidney injury) (4) Morbid obesity with BMI of 50.0-59.9, adult (5) Abdominal wall cellulitis Assessment/Plan all reviewed on face mask looks comfortable pt doesn't want any BIPAP or intubation or HD comfort measures titrate fio2 to sat of 92% symptomatic treatment Eder Corral MD Jun 06, 2020 11:51
--- NOTE | 2020-06-06 11:58 | General Progress Note ---
Subjective Date patient seen: Jun 06, 2020 Time patient seen: 11:15 - am Allergies: Coded Allergies: ACETAMINOPHEN (Verified Allergy, Unknown, 05/29/20) HYDROCODONE (Verified Allergy, Unknown, 05/29/20) Subjective HISTORY OF PRESENT ILLNESS: The patient is a 59-year-old female, who is being seen on the Tele floor of [facility]. Patient resting in bed and showing no signs of pain or distress. One morphine was given in the last 24hrs. Morphine has been stopped. Will start Tramadol to transition to oral medication. REVIEW OF SYSTEMS: Denies rash, fever, chills, sweating, dizziness, drowsiness, blurred vision, sore throat, or change in weight. No shortness of breath, chest pain, palpitations, or cough. No nausea, vomiting, diarrhea, or blood in stool or urine. No dysuria. Objective Last 24 Hour Vital Signs Date Time Temp Pulse Resp B/P (MAP) Pulse Ox O2 Delivery O2 Flow Rate FiO2 06/06/20 10:13 139/57 06/06/20 09:00 Venturi Mask 10.0 06/06/20 08:00 67 06/06/20 08:00 97.6 66 21 139/57 (84) 98 06/06/20 04:00 68 06/06/20 04:00 97.4 69 20 148/60 (89) 99 06/06/20 00:00 97.3 69 20 128/51 (76) 97 06/06/20 00:00 68 06/05/20 21:00 Venturi Mask 10.0 06/05/20 20:00 68 06/05/20 20:00 97.2 66 22 139/57 (84) 96 06/05/20 17:09 135/62 06/05/20 16:00 98.1 65 19 135/62 (86) 100 06/05/20 16:00 66 06/05/20 12:45 129/81 06/05/20 12:00 65 06/05/20 12:00 96.8 68 19 129/81 (97) 98 Laboratory Tests 06/05/20 15:57: POC Whole Blood Glucose 98 06/05/20 20:20: POC Whole Blood Glucose 93 06/06/20 05:48: POC Whole Blood Glucose 79 Height (Feet): 5 Height (Inches): 6.00 Weight (Pounds): 338 Objective PHYSICAL EXAMINATION: NECK: Range of motion is decreased due to the patient's condition. LUNGS: Decreased breath sounds bilaterally. HEART: Regular. ABDOMEN: Obese. EXTREMITIES: No clubbing. NEURO: No changes. Assessment/Plan Assessment/Plan: (1) Abdominal pain (2) Morbid obesity (3) Multiple joint pain and OA Patient to be started on Tramadol 50mg PO 1 tab Q4H PRN severe pain. D/w Dr. Agudelo and he concurred. Elio Colon Jun 06, 2020 11:58
[2020-06-06 12:00] VITALS: BP 128/61
[2020-06-06] MEDS ORDERED: traMADol 50mg tab ORAL PRN (12:00)
--- NOTE | 2020-06-06 12:31 | NUR ---
RD ASSESSMENT & RECOMMENDATIONS SEE CARE ACTIVITY FOR COMPLETE ASSESSMENT DAILY ESTIMATED NEEDS: Needs based on CKD, cardiac, comfort measures, obese/ 82.7kg abw 15-20 kcals/kg 0152-1798 total kcals 0.6g/kg g protein/kg 49g g total protein Fluids per MD NUTRITION DIAGNOSIS: Altered nutrition related lab values R/t INGRIS as evidenced by elev creat (5.1), elev phos (8.0), elev mag (3.0), elev BNP (>36734), pt and family refusing HD. CURRENT DIET:NPO PO DIET RECOMMENDATIONS: IF ORAL DIET PART OF POC -> Renal/ texture per TRASHMAN ADDITIONAL RECOMMENDATIONS: * Monitor POC: no oral diet since 05/31, pt is DNR/DNI, comfort measures order for end of life discussion noted * Monitor for hypoglycemia while NPO -> consider D10 @ low rate while NPO * Updated CMP and phos and mag as able
--- NOTE | 2020-06-06 12:42 | NUR ---
ANIMAL FEEDER NOTE SW received a consult for end of life. There is a copy of POLST-DNR and DNI signed by pt on 05/11/2017. Per nursing note on 05/31/2020, RN confirmed w/ pt's sister, honoring pt's decision on DNR and DNI. This SW is unable to locate the sister's contact information. discussed w/ pt and confirmed DNR and DNI and agreed w/ hospice. Pt was sleeping when this SW attempted to meet w/ her. SW left a vm to pt's brother, Kierna Loyd [phone] for call back. Addendum: 06/06/20 at 1556 by MELITA BRANCH PT continues to sleep, slowly opened eyes but closed again. This SW is unable to speak to pt d/t pt sleeping and has not received a call back from pt's brother.
--- NOTE | 2020-06-06 13:38 | Surgery Progress Note ---
Surgery Progress Note Subjective Additional Comments no acute events labs noted exam stable no n/v Objective Last 24 Hour Vital Signs Date Time Temp Pulse Resp B/P (MAP) Pulse Ox O2 Delivery O2 Flow Rate FiO2 06/06/20 13:02 128/61 06/06/20 12:00 97.3 69 20 128/61 (83) 98 06/06/20 10:13 139/57 06/06/20 09:00 Venturi Mask 10.0 06/06/20 08:00 67 06/06/20 08:00 97.6 66 21 139/57 (84) 98 06/06/20 04:00 68 06/06/20 04:00 97.4 69 20 148/60 (89) 99 06/06/20 00:00 97.3 69 20 128/51 (76) 97 06/06/20 00:00 68 06/05/20 21:00 Venturi Mask 10.0 06/05/20 20:00 68 06/05/20 20:00 97.2 66 22 139/57 (84) 96 06/05/20 17:09 135/62 06/05/20 16:00 98.1 65 19 135/62 (86) 100 06/05/20 16:00 66 Dressing: saturated Cardiovascular: RSR Respiratory: decreased breath sounds Abdomen: soft, non-tender, present bowel sounds Extremities: no tenderness, no cyanosis Laboratory Tests Test 06/05/20 15:57 06/05/20 20:20 06/06/20 05:48 06/06/20 12:09 POC Whole Blood Glucose 98 MG/DL (74-106) 93 MG/DL (74-106) 79 MG/DL (74-106) Pending Plan Problems: (1) Pleural effusion (2) Hyperkalemia (3) INGRIS (acute kidney injury) (4) Morbid obesity with BMI of 50.0-59.9, adult (5) Anemia (6) SOB (shortness of breath) (7) Abdominal pain (8) Abdominal wall cellulitis Assessment & Plan: panniculitis anasarca cont abx dnr/dni comfort care confirmed care plan with patients daughter polst noted no acute surgical intervention acute renal insufficiency no HD, no cath insertion given patients and family wishes respiratory insufficiency acidosis no intubation given care plan thank you ABDOMEN: Liver: Unremarkable. Gallbladder and bile ducts: Unremarkable. No calcified stones. No ductal dilation. Pancreas: Unremarkable. No ductal dilation. Spleen: Unremarkable. No splenomegaly. Adrenals: Unremarkable. No mass. Kidneys and ureters: Mild nonspecific perinephric stranding. No obstructing stones. Stomach and bowel: Diverticulosis of the colon with no signs of diverticulitis. No obstruction. PELVIS: Appendix: No findings to suggest acute appendicitis. Bladder: Unremarkable. No stones. Reproductive: Unremarkable as visualized. ABDOMEN and PELVIS: Intraperitoneal space: Mild ascites predominantly seen along the anterior liver margin. No free air. Bones/joints: Advanced multilevel disc degenerative disease. No acute fracture. No dislocation. Soft tissues: Stranding/fluid infiltration of the subcutaneous fat suggestive of anasarca. Vasculature: Unremarkable. No abdominal aortic aneurysm. Lymph nodes: Unremarkable. No enlarged lymph nodes. IMPRESSION: 1. Right sided lung nodules, differential diagnosis including metastatic disease/neoplasm versus inflammatory process. Follow-up recommended with CT chest for further characterization. 2. Bilateral pleural effusions, more significant on the right. 3. Diffuse anasarca. Mild ascites. 4. Diverticulosis with no signs of diverticulitis. No bowel obstruction. Sean Anderson Jun 06, 2020 13:38
[2020-06-06 16:00] VITALS: BP 120/71
--- NOTE | 2020-06-06 16:30 | NUR ---
INSURANCE CLINICALS AND REVIEW (06/05-06/06) FAXED TO [facility] FAX [phone] TELE [phone] DENIZ Ballard
--- NOTE | 2020-06-06 19:26 | NUR ---
NURSE NOTES: Report received from GORDON Baltazar. Observed pt lying in the bed, sleeping. SR noted. No signs of pain noted. On Venturi 45%, 10L, no sob noted. F/C intact, yellow urine. IV on L AC 22G, TKO. Bed in the lowest position. Side rails up x3. Call light within reach. Will continue to monitor.
--- NOTE | 2020-06-06 19:36 | NUR ---
HAND-OFF: Report given to GORDON BYRD.
[2020-06-06 20:00] VITALS: BP 160/77
--- NOTE | 2020-06-06 20:12 | General Progress Note ---
Subjective ROS Limited/Unobtainable: Yes Allergies: Coded Allergies: ACETAMINOPHEN (Verified Allergy, Unknown, 05/29/20) HYDROCODONE (Verified Allergy, Unknown, 05/29/20) Objective Last 24 Hour Vital Signs Date Time Temp Pulse Resp B/P (MAP) Pulse Ox O2 Delivery O2 Flow Rate FiO2 06/06/20 18:10 128/61 06/06/20 16:00 64 06/06/20 16:00 98.1 96 21 120/71 (87) 97 06/06/20 13:02 128/61 06/06/20 12:00 97.3 69 20 128/61 (83) 98 06/06/20 12:00 64 06/06/20 10:13 139/57 06/06/20 09:00 Venturi Mask 10.0 06/06/20 08:00 67 06/06/20 08:00 97.6 66 21 139/57 (84) 98 06/06/20 04:00 68 06/06/20 04:00 97.4 69 20 148/60 (89) 99 06/06/20 00:00 97.3 69 20 128/51 (76) 97 06/06/20 00:00 68 06/05/20 21:00 Venturi Mask 10.0 Laboratory Tests 06/05/20 20:20: POC Whole Blood Glucose 93 06/06/20 05:48: POC Whole Blood Glucose 79 06/06/20 12:09: POC Whole Blood Glucose [Pending] 06/06/20 20:08: POC Whole Blood Glucose 88 Height (Feet): 5 Height (Inches): 6.00 Weight (Pounds): 338 Assessment/Plan Problem List: (1) Pleural effusion ICD Codes: J90 - Pleural effusion, not elsewhere classified SNOMED: 39660774 (2) Hyperkalemia ICD Codes: E87.5 - Hyperkalemia SNOMED: 95192718 (3) INGRIS (acute kidney injury) ICD Codes: N17.9 - Acute kidney failure, unspecified SNOMED: 7544768, 37858262 (4) Morbid obesity with BMI of 50.0-59.9, adult ICD Codes: E66.01 - Morbid (severe) obesity due to excess calories; Z68.43 - Body mass index [BMI] 50.0-59.9, adult SNOMED: 165655744, 866710548, 26956308396796 (5) Anemia ICD Codes: D64.9 - Anemia, unspecified SNOMED: 063076186 (6) SOB (shortness of breath) ICD Codes: R06.02 - Shortness of breath SNOMED: 799515752 (7) Abdominal pain ICD Codes: R10.9 - Unspecified abdominal pain SNOMED: 38593793 (8) Abdominal wall cellulitis ICD Codes: L03.311 - Cellulitis of abdominal wall SNOMED: 86454266 Assessment/Plan: pleural effusion resp insuff check lytes check h/h afebrile reviewed chart and labs no acute events Darlene Hu MD Jun 06, 2020 20:12
[2020-06-07] VITALS: BP 160/74
--- NOTE | 2020-06-07 00:10 | NUR ---
NURSE NOTES: Pt drowsy but arousable. SR on vehicle monitor technician. On Venturi 45%, 10L, saturating at 95%. Hydration offered, pt was able to swallow w/o symptoms. Will continue to monitor.
[2020-06-07 04:00] VITALS: BP 125/58
--- NOTE | 2020-06-07 04:30 | NUR ---
NURSE NOTES: Pt sleeping in the bed, arousable. Bed bath given. Reposition done. No acute distress noted at this time. Will continue to monitor.
[2020-06-07] MEDS: NovoLOG Insulin Flexpen SUBQ SCH ×4 (05:20→20:43)
[2020-06-07] MEDS: ceFAZolin 500mg in D5W 55ml IV SCH ×2 (05:22→17:26)
--- NOTE | 2020-06-07 07:14 | NUR ---
NURSE HAND-OFF REPORT: Important Events on Shift: pt drowsy but arousable, SR noted, On venutri 45%, 10L Patient Status: poor Diet: npo Pending Orders: [] Pending Results/Labs:[] Pending MD notification:[] Latest Vital Signs: Temperature 97.6 , Pulse 64 , B/P 125 /58 , Respiratory Rate 20 , O2 SAT 97 , Venturi Mask, O2 Flow Rate 10.0 . Vital Sign Comment: [] EKG Rhythm: Sinus Rhythm Rhythm change?: N MD Notified?: - MD Response: Latest Bhagat Fall Score: 45 Fall Risk: High Risk Safety Measures: Call light Within Reach, Bed Alarm Zone 1, Side Rails Side Rails x3, Bed position Low and Locked. Fall Precautions: Yellow Socks Yellow Gown Patient Fall Education Report given to GORDON Carver.
--- NOTE | 2020-06-07 07:22 | NUR ---
NURSE NOTES: Pt recieved from Obi LEYVA. Pt in bed sleeping, no sign of pain or distress. venturi mask in place at 10 liters. no sob noted. bed low and locked call light within reach.
[2020-06-07 08:00] VITALS: BP 120/47
[2020-06-07] MEDS: Docusate 100mg cap ORAL SCH ×3 (08:30→18:00)
[2020-06-07] MEDS: HydrALAZINE 50mg tab ORAL SCH ×4 (08:30→18:00)
[2020-06-07] MEDS: Heparin 5000 units/ml inj SUBQ SCH ×2 (08:32→20:33)
--- NOTE | 2020-06-07 08:49 | Infectious Diseases Prog Note ---
Assessment/Plan 59yo F with: Afebrile Normal WBC Pulmonary nodules BL pleural effusions, R>L Cough, SOB Likely CHF, volume OL 05/29 CT A/P: 1. Right sided lung nodules, differential diagnosis including metastatic disease/neoplasm versus inflammatory process. Follow-up recommended with CT chest for further characterization. 2. Bilateral pleural effusions, more significant on the right. 3. Diffuse anasarca. Mild ascites. 4. Diverticulosis with no signs of diverticulitis. No bowel obstruction. 05/30 CT chest: 1. Moderate right and small left pleural effusions. 2. Bilateral mild pulmonary edema/infiltrates. 3. Bilateral scattered small nodular lung densities which may be neoplasm/metastasis, chronic, infection/inflammation, or other etiology. Followup as clinically indicated. 05/30 COVID rapid neg Possible panniculitis and lt lower leg cellulitis Crypto Ag and HIV: neg Morbid obesity Plan: cont cefazolin # 8/10 for possible panniculitis and lt leg cellulitis F/u ID w/u for pulm nodules with: Cocci Histo Ab Ab and Ag Fungitell Tspot 05/29 SP Zosyn x1 in ED Monitor CBC/CMP Monitor resp status Monitor temp curve and hemodynamics D/w RN Thank you for this consult. [facility] will continue to follow. Subjective Allergies: Coded Allergies: ACETAMINOPHEN (Verified Allergy, Unknown, 05/29/20) HYDROCODONE (Verified Allergy, Unknown, 05/29/20) Afebrile Leukocytosis improved Objective Last 24 Hour Vital Signs Date Time Temp Pulse Resp B/P (MAP) Pulse Ox O2 Delivery O2 Flow Rate FiO2 06/07/20 08:00 97.7 63 20 120/47 (71) 97 06/07/20 04:00 64 06/07/20 04:00 97.6 68 20 125/58 (80) 97 06/07/20 00:00 66 06/07/20 00:00 97.4 69 21 160/74 (102) 97 06/06/20 21:00 Venturi Mask 10.0 06/06/20 20:00 65 06/06/20 20:00 97.2 69 18 160/77 (104) 96 06/06/20 19:18 96 Venturi Mask 10.0 45 06/06/20 18:10 128/61 06/06/20 16:00 64 06/06/20 16:00 98.1 96 21 120/71 (87) 97 06/06/20 13:02 128/61 06/06/20 12:00 97.3 69 20 128/61 (83) 98 06/06/20 12:00 64 06/06/20 10:13 139/57 06/06/20 09:00 Venturi Mask 10.0 Height (Feet): 5 Height (Inches): 6.00 Weight (Pounds): 338 HEENT: NCAT, EOMI Respiratory/Chest: RRR, Equal rise and fall of chest B/L Abdomen: soft, non ND Skin: other - lt leg erythema Laboratory Tests Test 06/06/20 12:09 06/06/20 20:08 06/07/20 05:13 POC Whole Blood Glucose Pending 88 MG/DL (74-106) 84 MG/DL (74-106) Current Medications Medications (Trade) Dose Ordered Sig/Alissa Route PRN Reason Start Time Stop Time Status Last Admin Dose Admin Cefazolin Sodium 500 mg/Dextrose 55 ml @ 110 mls/hr Q12H IV 06/01/20 18:00 06/08/20 17:59 06/07/20 05:22 Dextrose (Dextrose 50%) 25 ml Q30M PRN IV Hypoglycemia 05/30/20 04:30 08/28/20 04:29 Dextrose (Dextrose 50%) 50 ml Q30M PRN IV Hypoglycemia 05/30/20 04:30 08/28/20 04:29 Docusate Sodium (Colace) 100 mg TWICE A DAY ORAL 06/03/20 09:00 07/03/20 08:59 06/06/20 18:10 Furosemide (Lasix) 100 mg EVERY 12 HOURS IV 06/06/20 12:00 07/03/20 20:59 06/07/20 08:30 Heparin Sodium (Porcine) (Heparin 5000 units/ml) 5,000 units EVERY 12 HOURS SUBQ 05/30/20 09:00 07/14/20 08:59 06/07/20 08:32 Hydralazine HCl (Apresoline) 50 mg TID ORAL 06/04/20 11:53 09/02/20 11:52 06/06/20 18:10 Insulin Aspart (NovoLOG) BEFORE MEALS AND HS SUBQ 05/30/20 06:30 08/28/20 06:29 06/02/20 20:49 Metolazone (Zaroxolyn) 5 mg DAILY ORAL 06/03/20 19:00 07/03/20 18:59 06/06/20 10:14 Tramadol HCl (Ultram) 50 mg Q4H PRN ORAL Severe Pain (Pain Scale 7-10) 06/06/20 12:00 06/13/20 11:59 Collin Aguilar MD Jun 07, 2020 08:49
--- NOTE | 2020-06-07 08:56 | General Progress Note ---
Subjective ROS Limited/Unobtainable: Yes Allergies: Coded Allergies: ACETAMINOPHEN (Verified Allergy, Unknown, 05/29/20) HYDROCODONE (Verified Allergy, Unknown, 05/29/20) Objective Last 24 Hour Vital Signs Date Time Temp Pulse Resp B/P (MAP) Pulse Ox O2 Delivery O2 Flow Rate FiO2 06/07/20 08:46 120/47 06/07/20 08:00 97.7 63 20 120/47 (71) 97 06/07/20 04:00 64 06/07/20 04:00 97.6 68 20 125/58 (80) 97 06/07/20 00:00 66 06/07/20 00:00 97.4 69 21 160/74 (102) 97 06/06/20 21:00 Venturi Mask 10.0 06/06/20 20:00 65 06/06/20 20:00 97.2 69 18 160/77 (104) 96 06/06/20 19:18 96 Venturi Mask 10.0 45 06/06/20 18:10 128/61 06/06/20 16:00 64 06/06/20 16:00 98.1 96 21 120/71 (87) 97 06/06/20 13:02 128/61 06/06/20 12:00 97.3 69 20 128/61 (83) 98 06/06/20 12:00 64 06/06/20 10:13 139/57 06/06/20 09:00 Venturi Mask 10.0 Intake and Output 06/06/20 06/07/20 19:00 07:00 Output Total 100 ml Balance -100 ml Output Urine Total 100 ml # Voids 1 # Bowel Movements 1 Laboratory Tests 06/06/20 12:09: POC Whole Blood Glucose [Pending] 06/06/20 20:08: POC Whole Blood Glucose 88 06/07/20 05:13: POC Whole Blood Glucose 84 Height (Feet): 5 Height (Inches): 6.00 Weight (Pounds): 338 Assessment/Plan Problem List: (1) Pleural effusion ICD Codes: J90 - Pleural effusion, not elsewhere classified SNOMED: 83934277 (2) Hyperkalemia ICD Codes: E87.5 - Hyperkalemia SNOMED: 48290475 (3) INGRIS (acute kidney injury) ICD Codes: N17.9 - Acute kidney failure, unspecified SNOMED: 5795035, 38670135 (4) Morbid obesity with BMI of 50.0-59.9, adult ICD Codes: E66.01 - Morbid (severe) obesity due to excess calories; Z68.43 - Body mass index [BMI] 50.0-59.9, adult SNOMED: 303749100, 587242714, 88976991401719 (5) Anemia ICD Codes: D64.9 - Anemia, unspecified SNOMED: 896971418 (6) SOB (shortness of breath) ICD Codes: R06.02 - Shortness of breath SNOMED: 344081076 (7) Abdominal pain ICD Codes: R10.9 - Unspecified abdominal pain SNOMED: 39809000 (8) Abdominal wall cellulitis ICD Codes: L03.311 - Cellulitis of abdominal wall SNOMED: 12705833 Assessment/Plan: anemia leukocytosis afebrile pleural effusion prn supportive rx no sob check labs Darlene Hu MD Jun 07, 2020 08:56
--- NOTE | 2020-06-07 09:00 | NUR ---
NURSE NOTES: PO meds held this morning becasue pt too lethargic to swallow severe choking hazard. MDs aware
[2020-06-07 12:00] VITALS: BP 116/51
[2020-06-07] MEDS ORDERED: NS 275ml ONE (13:15)
--- NOTE | 2020-06-07 14:30 | Surgery Progress Note ---
Surgery Progress Note Subjective Symptoms: other Objective Last 24 Hour Vital Signs Date Time Temp Pulse Resp B/P (MAP) Pulse Ox O2 Delivery O2 Flow Rate FiO2 06/07/20 12:09 116/51 06/07/20 12:00 96.3 63 22 116/51 (72) 98 06/07/20 12:00 63 06/07/20 09:00 Venturi Mask 14.0 06/07/20 08:46 120/47 06/07/20 08:00 64 06/07/20 08:00 97.7 63 20 120/47 (71) 97 06/07/20 04:00 64 06/07/20 04:00 97.6 68 20 125/58 (80) 97 06/07/20 00:00 66 06/07/20 00:00 97.4 69 21 160/74 (102) 97 06/06/20 21:00 Venturi Mask 10.0 06/06/20 20:00 65 06/06/20 20:00 97.2 69 18 160/77 (104) 96 06/06/20 19:18 96 Venturi Mask 10.0 45 06/06/20 18:10 128/61 06/06/20 16:00 64 06/06/20 16:00 98.1 96 21 120/71 (87) 97 I&O Intake and Output 06/06/20 06/07/20 19:00 07:00 Output Total 100 ml Balance -100 ml Output Urine Total 100 ml # Voids 1 # Bowel Movements 1 Cardiovascular: RSR Respiratory: decreased breath sounds Abdomen: distended, tenderness, other Extremities: edema, no tenderness, no cyanosis Laboratory Tests Test 06/06/20 20:08 06/07/20 05:13 POC Whole Blood Glucose 88 MG/DL (74-106) 84 MG/DL (74-106) Plan Problems: (1) Pleural effusion (2) Hyperkalemia (3) INGRIS (acute kidney injury) (4) Morbid obesity with BMI of 50.0-59.9, adult (5) Anemia (6) SOB (shortness of breath) (7) Abdominal pain (8) Abdominal wall cellulitis Assessment & Plan: panniculitis anasarca cont abx dnr/dni comfort care confirmed care plan with patients daughter polst noted no acute surgical intervention acute renal insufficiency no HD, no cath insertion given patients and family wishes respiratory insufficiency acidosis no intubation given care plan thank you ABDOMEN: Liver: Unremarkable. Gallbladder and bile ducts: Unremarkable. No calcified stones. No ductal dilation. Pancreas: Unremarkable. No ductal dilation. Spleen: Unremarkable. No splenomegaly. Adrenals: Unremarkable. No mass. Kidneys and ureters: Mild nonspecific perinephric stranding. No obstructing stones. Stomach and bowel: Diverticulosis of the colon with no signs of diverticulitis. No obstruction. PELVIS: Appendix: No findings to suggest acute appendicitis. Bladder: Unremarkable. No stones. Reproductive: Unremarkable as visualized. ABDOMEN and PELVIS: Intraperitoneal space: Mild ascites predominantly seen along the anterior liver margin. No free air. Bones/joints: Advanced multilevel disc degenerative disease. No acute fracture. No dislocation. Soft tissues: Stranding/fluid infiltration of the subcutaneous fat suggestive of anasarca. Vasculature: Unremarkable. No abdominal aortic aneurysm. Lymph nodes: Unremarkable. No enlarged lymph nodes. IMPRESSION: 1. Right sided lung nodules, differential diagnosis including metastatic disease/neoplasm versus inflammatory process. Follow-up recommended with CT chest for further characterization. 2. Bilateral pleural effusions, more significant on the right. 3. Diffuse anasarca. Mild ascites. 4. Diverticulosis with no signs of diverticulitis. No bowel obstruction. Sean Anderson Jun 07, 2020 14:30
--- NOTE | 2020-06-07 14:51 | Cardiac Electrophysiology PN ---
Assessment/Plan Assessment/Plan 1. Bradycardia with heart rate in the 40s-50s. Off metoprolol and Clonidine patch 2. Hypertension, On Lasix 100 iv bid, Metolazone and Hydralazine 50 tid 3. Chest pain. The pain is atypical. Ruled out [place] EF 55% on echocardiogram 4. Volume overload. Renal failure with creatinine of 5.2. Refusing HD (Family refused even placing Vladislav) 5. Generalized pain. Follow up pain management. 6. Morbid obesity. 7. Hyperkalemia. Got Kayexalate 8. Hospice care DW Dr. Stewart Subjective Subjective Confused on Venturi Face Mask on. NPO. On iv Lasix and Ancef. Awaiting hospice placement Objective Last 24 Hour Vital Signs Date Time Temp Pulse Resp B/P (MAP) Pulse Ox O2 Delivery O2 Flow Rate FiO2 06/07/20 12:09 116/51 06/07/20 12:00 96.3 63 22 116/51 (72) 98 06/07/20 12:00 63 06/07/20 09:00 Venturi Mask 14.0 06/07/20 08:46 120/47 06/07/20 08:00 64 06/07/20 08:00 97.7 63 20 120/47 (71) 97 06/07/20 04:00 64 06/07/20 04:00 97.6 68 20 125/58 (80) 97 06/07/20 00:00 66 06/07/20 00:00 97.4 69 21 160/74 (102) 97 06/06/20 21:00 Venturi Mask 10.0 06/06/20 20:00 65 06/06/20 20:00 97.2 69 18 160/77 (104) 96 06/06/20 19:18 96 Venturi Mask 10.0 45 06/06/20 18:10 128/61 06/06/20 16:00 64 06/06/20 16:00 98.1 96 21 120/71 (87) 97 Intake and Output 06/06/20 06/07/20 19:00 07:00 Output Total 100 ml Balance -100 ml Output Urine Total 100 ml # Voids 1 # Bowel Movements 1 Laboratory Tests Test 06/06/20 20:08 06/07/20 05:13 POC Whole Blood Glucose 88 MG/DL (74-106) 84 MG/DL (74-106) Objective NECK: No JVD. LUNGS: Clear. CARDIOVASCULAR: Shows regular S1 and S2 with no gallop. ABDOMEN: Morbidly obese. EXTREMITIES: 1+ pitting edema. Shad Colon MD Jun 07, 2020 14:51
--- NOTE | 2020-06-07 15:26 | Nephrology Progress Note ---
Assessment/Plan Problem List: (1) INGRIS (acute kidney injury) (2) Hyperkalemia (3) Morbid obesity with BMI of 50.0-59.9, adult (4) Anemia Assessment Renal failure most likely acute on chronic Presents with hyperkalemia Anemia Hypertension Pleural effusion Ejection fraction 55% No hydronephrosis and kidney ultrasound 4+ proteinuria, likely due to diabetic nephropathy Morbid obesity Plan June 07: No major change. Blood pressure drifting down. No blood work is done. Remains on Venturi mask. Remains DNR/DNI and do not dialysis. I continue to favor comfort care. Continue per consultants. June 06: Patient does not have any blood work today. Remains on Venturi mask. Poorly responsive to verbal stimuli. Status quo. Remains DNR/DNI and no dialysis status per family. I favor comfort care. Continue per consultants. June 05: No labs drawn. Gradually deteriorating. Not much to add from renal standpoint of view. June 04: Labs reviewed. Serum creatinine paul. Patient not to be dialyzed per family request. Blood pressure controlled. Bradycardic. Medication adjusted. Poor prognosis. Patient remains DNR/DNI. June 03: Patient was transferred to telemetry for high blood pressure. Remains DNR/DNI. Blood pressure now within normal limit. Patient clonidine patch. Since appearing clinically more responsive will check labs tomorrow. June 02: Labs reviewed. Status quo. Patient DNR/DNI and do not dialysis per family request. Not much to add from renal standpoint of view. Suggest no lab draw since not much can be done about it from renal standpoint of view. June 01: Events of last 24 hours noted and is as follow: Patient found to be acidotic with acute renal failure. Was transferred to ICU. Planned to dialyze and protect the airways. Apparently family changed the status to DNR/DNI. Patient was then transferred to medical floor. Currently status unchanged. Not much more to be added from renal standpoint of view. Suggest comfort care. Since we are not going to do any dialysis treatment, monitoring blood chemistries and renal parameters are not needed. May 31: Patient morbidly obese. Labs reviewed. Worsening renal parameters and hyperkalemia. Dior ordered. Kayexalate ordered. Stat ABG ordered. Patient n.p.o. Insertion of dialysis catheter and consent ordered. Patient may need to be transferred to ICU. Discussed with RN and nurse in charge of the floor. May 30: DC IV fluid and diuretics Keep the blood pressure in check Monitor renal parameters Monitor electrolytes Avoid nephrotoxic's 1 dose of Kayexalate Intravenous Venofer for low iron Per orders Subjective ROS Limited/Unobtainable: Yes Objective Objective Last 24 Hour Vital Signs Date Time Temp Pulse Resp B/P (MAP) Pulse Ox O2 Delivery O2 Flow Rate FiO2 06/07/20 12:09 116/51 06/07/20 12:00 96.3 63 22 116/51 (72) 98 06/07/20 12:00 63 06/07/20 09:00 Venturi Mask 14.0 06/07/20 08:46 120/47 06/07/20 08:00 64 06/07/20 08:00 97.7 63 20 120/47 (71) 97 06/07/20 04:00 64 06/07/20 04:00 97.6 68 20 125/58 (80) 97 06/07/20 00:00 66 06/07/20 00:00 97.4 69 21 160/74 (102) 97 06/06/20 21:00 Venturi Mask 10.0 06/06/20 20:00 65 06/06/20 20:00 97.2 69 18 160/77 (104) 96 06/06/20 19:18 96 Venturi Mask 10.0 45 06/06/20 18:10 128/61 06/06/20 16:00 64 06/06/20 16:00 98.1 96 21 120/71 (87) 97 Intake and Output 06/06/20 06/07/20 19:00 07:00 Output Total 100 ml Balance -100 ml Output Urine Total 100 ml # Voids 1 # Bowel Movements 1 Laboratory Tests 06/06/20 20:08: POC Whole Blood Glucose 88 06/07/20 05:13: POC Whole Blood Glucose 84 Height (Feet): 5 Height (Inches): 6.00 Weight (Pounds): 338 General Appearance: no apparent distress, lethargic EENT: other - Remains on Venturi mask Cardiovascular: normal rate Respiratory/Chest: decreased breath sounds Abdomen: distended Darrian Stewart MD Jun 07, 2020 15:26
[2020-06-07 16:00] VITALS: BP 117/52
--- NOTE | 2020-06-07 16:00 | NUR ---
PT Note Patient has not been able to participate with physical therapy. Patient's with anasarca, on O2 per venturi mask; noted hospice eval order. Will DC physical therapy for now; re-order if patient's condition improves.
--- NOTE | 2020-06-07 17:19 | NUR ---
NURSE NOTES: Please note after noting [address] Hu for fluids with Dextrose since pt is NPO at this time. Per MD, give D50 if BS < 60. No fluids ordered.
--- NOTE | 2020-06-07 18:18 | NUR ---
NURSE HAND-OFF REPORT: Important Events on Shift:[pT TOO LETHARGIC TO swallow medication (even if crushed), Dr Corral. Dr Stewart, and Dr Colon made aware, . pt blood sugar in 80's, no fluids ordered. ] Patient Status: [in bed lethargic] Diet: [NPO] Pending Orders: [] Pending Results/Labs:[] Pending MD notification:[] Latest Vital Signs: Temperature 97.5 , Pulse 65 , B/P 117 /52 , Respiratory Rate 20 , O2 SAT 95 , Venturi Mask, O2 Flow Rate 14.0 . Vital Sign Comment: [] EKG Rhythm: Sinus Rhythm Rhythm change?: N MD Notified?: - MD Response: Latest Bhagat Fall Score: 60 Fall Risk: High Risk Safety Measures: Call light Within Reach, Bed Alarm Zone 1, Side Rails Side Rails x3, Bed position Low and Locked. Fall Precautions: Yellow Socks Yellow Gown Patient Fall Education Report given to [Pending assignment]. Addendum: 06/07/20 at 1929 by Wen Gaviria RN Report given to GORDON Angel
--- NOTE | 2020-06-07 18:34 | Pulmonology Progress Note ---
Subjective ROS Limited/Unobtainable: Yes Constitutional: Reports: no symptoms HEENT: Repors: no symptoms Respiratory: Reports: no symptoms Cardiovascular: Reports: no symptoms Allergies: Coded Allergies: ACETAMINOPHEN (Verified Allergy, Unknown, 05/29/20) HYDROCODONE (Verified Allergy, Unknown, 05/29/20) All Systems: reviewed and negative except above Objective Last 24 Hour Vital Signs Date Time Temp Pulse Resp B/P (MAP) Pulse Ox O2 Delivery O2 Flow Rate FiO2 06/07/20 16:00 97.5 65 20 117/52 (73) 95 06/07/20 16:00 65 06/07/20 12:09 116/51 06/07/20 12:00 96.3 63 22 116/51 (72) 98 06/07/20 12:00 63 06/07/20 09:00 Venturi Mask 14.0 06/07/20 08:46 120/47 06/07/20 08:00 64 06/07/20 08:00 97.7 63 20 120/47 (71) 97 06/07/20 04:00 64 06/07/20 04:00 97.6 68 20 125/58 (80) 97 06/07/20 00:00 66 06/07/20 00:00 97.4 69 21 160/74 (102) 97 06/06/20 21:00 Venturi Mask 10.0 06/06/20 20:00 65 06/06/20 20:00 97.2 69 18 160/77 (104) 96 06/06/20 19:18 96 Venturi Mask 10.0 45 Intake and Output 06/06/20 06/07/20 19:00 07:00 Output Total 100 ml Balance -100 ml Output Urine Total 100 ml # Voids 1 # Bowel Movements 1 General Appearance: WD/WN HEENT: normocephalic, atraumatic Respiratory: chest wall non-tender, rhonchi - left, rhonchi - right Breasts: no masses Cardiovascular: normal peripheral pulses, normal rate Abdomen: normal bowel sounds, soft, non tender Genitourinary: normal external genitalia Extremities: no cyanosis Skin: no rash Laboratory Tests 06/06/20 20:08: POC Whole Blood Glucose 88 06/07/20 05:13: POC Whole Blood Glucose 84 Current Medications Medications (Trade) Dose Ordered Sig/Alissa Route PRN Reason Start Time Stop Time Status Last Admin Dose Admin Cefazolin Sodium 500 mg/Dextrose 55 ml @ 110 mls/hr Q12H IV 06/01/20 18:00 06/10/20 17:59 06/07/20 17:26 Dextrose (Dextrose 50%) 25 ml Q30M PRN IV Hypoglycemia 05/30/20 04:30 08/28/20 04:29 Dextrose (Dextrose 50%) 50 ml Q30M PRN IV Hypoglycemia 05/30/20 04:30 08/28/20 04:29 Docusate Sodium (Colace) 100 mg TWICE A DAY ORAL 06/03/20 09:00 07/03/20 08:59 06/06/20 18:10 Furosemide (Lasix) 100 mg EVERY 12 HOURS IV 06/06/20 12:00 07/03/20 20:59 06/07/20 08:30 Heparin Sodium (Porcine) (Heparin 5000 units/ml) 5,000 units EVERY 12 HOURS SUBQ 05/30/20 09:00 07/14/20 08:59 06/07/20 08:32 Hydralazine HCl (Apresoline) 50 mg TID ORAL 06/04/20 11:53 09/02/20 11:52 06/06/20 18:10 Insulin Aspart (NovoLOG) BEFORE MEALS AND HS SUBQ 05/30/20 06:30 08/28/20 06:29 06/02/20 20:49 Metolazone (Zaroxolyn) 5 mg DAILY ORAL 06/03/20 19:00 07/03/20 18:59 06/06/20 10:14 Tramadol HCl (Ultram) 50 mg Q4H PRN ORAL Severe Pain (Pain Scale 7-10) 06/06/20 12:00 06/13/20 11:59 Assessment/Plan Problems: (1) Acute respiratory failure (2) Pleural effusion (3) INGRIS (acute kidney injury) (4) Morbid obesity with BMI of 50.0-59.9, adult (5) Abdominal wall cellulitis Assessment/Plan looks comfortable all reviewed on face mask looks comfortable pt doesn't want any BIPAP or intubation or HD comfort measures titrate fio2 to sat of 92% symptomatic treatment Eder Corral MD Jun 07, 2020 18:34
--- NOTE | 2020-06-07 19:43 | NUR ---
NURSE NOTES: Received patilydia tin bed, asleep, lethargic, unable to make her needs known, NPO, on venturi mask 10 liters, 40 % F io2, IV site is clean dry and intact. Patient is unable to swallow pills at this time, MD is aware. Call light is within reach, bed is lowered, locked, alarm is on, will continue to monitor for comfort and safety.
[2020-06-07 20:00] VITALS: BP 131/53
[2020-06-08] VITALS: BP 139/55
[2020-06-08 04:00] VITALS: BP 140/66
[2020-06-08] MEDS: ceFAZolin 500mg in D5W 55ml IV SCH ×2 (05:20→17:57)
[2020-06-08] MEDS: NovoLOG Insulin Flexpen SUBQ SCH ×4 (06:15→21:00)
--- NOTE | 2020-06-08 07:21 | NUR ---
NURSE HAND-OFF REPORT: Important Events on Shift: no changes, still lethargic, on venturi mask, unable to swallow. Patient Status: DNR/DNI Diet: NPO Pending Orders: Pending Results/Labs: Pending MD notification: Latest Vital Signs: Temperature 97.7 , Pulse 67 , B/P 140 /66 , Respiratory Rate 20 , O2 SAT 98 , Venturi Mask, O2 Flow Rate 10.0 . Vital Sign Comment: EKG Rhythm: Sinus Rhythm Rhythm change?: N MD Notified?: - MD Response: Latest Bhagat Fall Score: 45 Fall Risk: High Risk Safety Measures: Call light Within Reach, Bed Alarm Zone 1, Side Rails Side Rails x3, Bed position Low and Locked. Fall Precautions: Yellow Socks Yellow Gown Patient Fall Education Report given to Mikhail LEYVA
--- NOTE | 2020-06-08 07:36 | NUR ---
NURSE NOTES: Patient was seen in bed asleep with no signs of distress. the patients bed was in the lowest position, locked with side rails up x3 and bed alarm was placed to zone 1. The patients board was updated.
[2020-06-08 08:00] VITALS: BP 148/50
[2020-06-08] MEDS: Docusate 100mg cap ORAL SCH ×2 (09:00→18:00)
[2020-06-08] MEDS: HydrALAZINE 50mg tab ORAL SCH ×3 (09:00→18:00)
[2020-06-08] MEDS: Heparin 5000 units/ml inj SUBQ SCH ×2 (09:46→21:10)
--- NOTE | 2020-06-08 09:54 | General Progress Note ---
Subjective Constitutional: Reports: weakness Respiratory: Reports: shortness of breath Allergies: Coded Allergies: ACETAMINOPHEN (Verified Allergy, Unknown, 05/29/20) HYDROCODONE (Verified Allergy, Unknown, 05/29/20) All Systems: reviewed and negative except above Subjective o2nc sleepy Objective Last 24 Hour Vital Signs Date Time Temp Pulse Resp B/P (MAP) Pulse Ox O2 Delivery O2 Flow Rate FiO2 06/08/20 08:46 96 Venturi Mask 10.0 45 06/08/20 04:00 67 06/08/20 04:00 97.7 69 20 140/66 (90) 98 06/08/20 00:00 97.7 68 18 139/55 (83) 97 06/08/20 00:00 69 06/07/20 21:12 Venturi Mask 10.0 06/07/20 20:00 97.7 67 16 131/53 (79) 98 06/07/20 20:00 67 06/07/20 19:09 96 Venturi Mask 10.0 45 06/07/20 16:00 97.5 65 20 117/52 (73) 95 06/07/20 16:00 65 06/07/20 12:09 116/51 06/07/20 12:00 96.3 63 22 116/51 (72) 98 06/07/20 12:00 63 Intake and Output 06/07/20 06/08/20 19:00 07:00 Output Total 50 ml Balance -50 ml Output Urine Total 50 ml Height (Feet): 5 Height (Inches): 6.00 Weight (Pounds): 338 General Appearance: lethargic EENT: normal ENT inspection Neck: normal alignment Cardiovascular: normal peripheral pulses, normal rate, regular rhythm Respiratory/Chest: chest wall non-tender, lungs clear, normal breath sounds Abdomen: normal bowel sounds, non tender, soft Extremities: normal inspection Edema: 1+ Arm (L), 1+ Arm (R), 1+ Leg (L), 1+ Leg (R), 1+ Pedal (L), 1+ Pedal (R), 1+ Generalized Edema: trace edema Neurologic: motor weakness Skin: normal pigmentation, warm/dry Assessment/Plan Problem List: (1) SOB (shortness of breath) ICD Codes: R06.02 - Shortness of breath SNOMED: 852675511 (2) Abdominal pain ICD Codes: R10.9 - Unspecified abdominal pain SNOMED: 43144106 (3) Pleural effusion ICD Codes: J90 - Pleural effusion, not elsewhere classified SNOMED: 52096062 (4) Morbid obesity with BMI of 50.0-59.9, adult ICD Codes: E66.01 - Morbid (severe) obesity due to excess calories; Z68.43 - Body mass index [BMI] 50.0-59.9, adult SNOMED: 899797438, 285160774, 88048265308022 (5) INGRIS (acute kidney injury) ICD Codes: N17.9 - Acute kidney failure, unspecified SNOMED: 4629888, 00624408 (6) Anemia ICD Codes: D64.9 - Anemia, unspecified SNOMED: 034401945 Status: unchanged Assessment/Plan: o2 pulm tx pain control gi f/u cbc bmp am Hernan Braga DO Jun 08, 2020 09:54
--- NOTE | 2020-06-08 11:55 | General Progress Note ---
Subjective Date patient seen: Jun 08, 2020 Time patient seen: 11:15 - am Allergies: Coded Allergies: ACETAMINOPHEN (Verified Allergy, Unknown, 05/29/20) HYDROCODONE (Verified Allergy, Unknown, 05/29/20) Subjective HISTORY OF PRESENT ILLNESS: The patient is a 59-year-old female, who is being seen on the Tele floor of [facility]. Patient showing no signs of pain or distress. No new complaints at this time. REVIEW OF SYSTEMS: Denies rash, fever, chills, sweating, dizziness, drowsiness, blurred vision, sore throat, or change in weight. No shortness of breath, chest pain, palpitations, or cough. No nausea, vomiting, diarrhea, or blood in stool or urine. No dysuria. Objective Last 24 Hour Vital Signs Date Time Temp Pulse Resp B/P (MAP) Pulse Ox O2 Delivery O2 Flow Rate FiO2 06/08/20 09:00 Venturi Mask 10.0 06/08/20 09:00 148/50 06/08/20 08:46 96 Venturi Mask 10.0 45 06/08/20 08:00 97.7 66 22 148/50 (82) 98 06/08/20 08:00 65 06/08/20 04:00 67 06/08/20 04:00 97.7 69 20 140/66 (90) 98 06/08/20 00:00 97.7 68 18 139/55 (83) 97 06/08/20 00:00 69 06/07/20 21:12 Venturi Mask 10.0 06/07/20 20:00 97.7 67 16 131/53 (79) 98 06/07/20 20:00 67 06/07/20 19:09 96 Venturi Mask 10.0 45 06/07/20 16:00 97.5 65 20 117/52 (73) 95 06/07/20 16:00 65 06/07/20 12:09 116/51 06/07/20 12:00 96.3 63 22 116/51 (72) 98 06/07/20 12:00 63 Intake and Output 06/07/20 06/08/20 19:00 07:00 Output Total 50 ml Balance -50 ml Output Urine Total 50 ml Laboratory Tests 06/08/20 11:34: POC Whole Blood Glucose 84 Height (Feet): 5 Height (Inches): 6.00 Weight (Pounds): 338 Objective PHYSICAL EXAMINATION: NECK: Range of motion is decreased due to the patient's condition. LUNGS: Decreased breath sounds bilaterally. HEART: Regular. ABDOMEN: Obese. EXTREMITIES: No clubbing. NEURO: No changes. Assessment/Plan Assessment/Plan: (1) Abdominal pain (2) Morbid obesity (3) Multiple joint pain and OA Patient to be continued on Tramadol. D/w Dr. Agudelo and he concurred. Elio Colon Jun 08, 2020 11:55
--- NOTE | 2020-06-08 12:50 | Nephrology Progress Note ---
Assessment/Plan Problem List: (1) INGRIS (acute kidney injury) (2) Hyperkalemia (3) Morbid obesity with BMI of 50.0-59.9, adult (4) Anemia Assessment Renal failure most likely acute on chronic Presents with hyperkalemia Anemia Hypertension Pleural effusion Ejection fraction 55% No hydronephrosis and kidney ultrasound 4+ proteinuria, likely due to diabetic nephropathy Morbid obesity Plan June 08: Status quo. No labs drawn today. Remains on Venturi mask. I agree with transfer to [facility] as the patient DNR/DNI and no dialysis and essentially needs to be on comfort care. June 07: No major change. Blood pressure drifting down. No blood work is done. Remains on Venturi mask. Remains DNR/DNI and do not dialysis. I continue to favor comfort care. Continue per consultants. June 06: Patient does not have any blood work today. Remains on Venturi mask. Poorly responsive to verbal stimuli. Status quo. Remains DNR/DNI and no dialysis status per family. I favor comfort care. Continue per consultants. June 05: No labs drawn. Gradually deteriorating. Not much to add from renal standpoint of view. June 04: Labs reviewed. Serum creatinine paul. Patient not to be dialyzed per family request. Blood pressure controlled. Bradycardic. Medication adjusted. Poor prognosis. Patient remains DNR/DNI. June 03: Patient was transferred to telemetry for high blood pressure. Remains DNR/DNI. Blood pressure now within normal limit. Patient clonidine patch. Since appearing clinically more responsive will check labs tomorrow. June 02: Labs reviewed. Status quo. Patient DNR/DNI and do not dialysis per family request. Not much to add from renal standpoint of view. Suggest no lab draw since not much can be done about it from renal standpoint of view. June 01: Events of last 24 hours noted and is as follow: Patient found to be acidotic with acute renal failure. Was transferred to ICU. Planned to dialyze and protect the airways. Apparently family changed the status to DNR/DNI. Patient was then transferred to medical floor. Currently status unchanged. Not much more to be added from renal standpoint of view. Suggest comfort care. Since we are not going to do any dialysis treatment, monitoring blood chemistries and renal parameters are not needed. May 31: Patient morbidly obese. Labs reviewed. Worsening renal parameters and hyperkalemia. Dior ordered. Kayexalate ordered. Stat ABG ordered. Patient n.p.o. Insertion of dialysis catheter and consent ordered. Patient may need to be transferred to ICU. Discussed with RN and nurse in charge of the floor. May 30: DC IV fluid and diuretics Keep the blood pressure in check Monitor renal parameters Monitor electrolytes Avoid nephrotoxic's 1 dose of Kayexalate Intravenous Venofer for low iron Per orders Subjective ROS Limited/Unobtainable: Yes Objective Objective Last 24 Hour Vital Signs Date Time Temp Pulse Resp B/P (MAP) Pulse Ox O2 Delivery O2 Flow Rate FiO2 06/08/20 09:00 Venturi Mask 10.0 06/08/20 09:00 148/50 06/08/20 08:46 96 Venturi Mask 10.0 45 06/08/20 08:00 97.7 66 22 148/50 (82) 98 06/08/20 08:00 65 06/08/20 04:00 67 06/08/20 04:00 97.7 69 20 140/66 (90) 98 06/08/20 00:00 97.7 68 18 139/55 (83) 97 06/08/20 00:00 69 06/07/20 21:12 Venturi Mask 10.0 06/07/20 20:00 97.7 67 16 131/53 (79) 98 06/07/20 20:00 67 06/07/20 19:09 96 Venturi Mask 10.0 45 06/07/20 16:00 97.5 65 20 117/52 (73) 95 06/07/20 16:00 65 Intake and Output 06/07/20 06/08/20 19:00 07:00 Output Total 50 ml Balance -50 ml Output Urine Total 50 ml Laboratory Tests 06/08/20 11:34: POC Whole Blood Glucose 84 Height (Feet): 5 Height (Inches): 6.00 Weight (Pounds): 338 General Appearance: no apparent distress, lethargic EENT: other - On Venturi mask Cardiovascular: normal rate Respiratory/Chest: decreased breath sounds Abdomen: distended Darrian Stewart MD Jun 08, 2020 12:50
--- NOTE | 2020-06-08 13:13 | NUR ---
NURSE NOTES: Patient PO meds held due to patient being nonverbal and NPO.
--- NOTE | 2020-06-08 13:54 | NUR ---
NURSE NOTES: Patient transferred to Med SURG patient was stable with no signs of acute distress. Patient belongings verified and handed off to desire Mcgill.
--- NOTE | 2020-06-08 14:33 | NUR ---
NURSE NOTES: Patient arrived to unit at 1330 via bed from telemetry. Received report from Mikhail LEYVA, patient is DNR/DNI, per report comfort measures. Patient is awake, non-verbal, makes grunting noises when moved, otherwise in no apparent distress, saturating 97% on venturi mask 40% fi02/10L, HR 65-69BPM. Dior to gravity drainage, draining small amount of concentrated, yellow urine. LAC 20g IV intact. Assessed skin and noted a DTI on the left buttock, covered with triad cream and optifoam dressing, WCP taken and wound care eval order entered per protocol. Attempted to turn patient onto left side to assess right buttock/sacral area but patient started to vomit when turned onto her side, unable to assess right buttock/sacral area d/t patient's inability to tolerate being turned onto her side at this time, small rash noted under right chin with triad cream over rash. Visible skin and heels otherwise assessed intact. Fall and aspiration precautions maintained, patient placed in upright position as tolerated and call light placed within reach. Side rails upx3, bed in low and locked, position.
--- NOTE | 2020-06-08 14:47 | Surgery Progress Note ---
Surgery Progress Note Subjective Symptoms: other Objective Last 24 Hour Vital Signs Date Time Temp Pulse Resp B/P (MAP) Pulse Ox O2 Delivery O2 Flow Rate FiO2 06/08/20 13:30 69 22 97 06/08/20 13:00 148/50 06/08/20 09:00 Venturi Mask 10.0 06/08/20 09:00 148/50 06/08/20 08:46 96 Venturi Mask 10.0 45 06/08/20 08:00 97.7 66 22 148/50 (82) 98 06/08/20 08:00 65 06/08/20 04:00 67 06/08/20 04:00 97.7 69 20 140/66 (90) 98 06/08/20 00:00 97.7 68 18 139/55 (83) 97 06/08/20 00:00 69 06/07/20 21:12 Venturi Mask 10.0 06/07/20 20:00 97.7 67 16 131/53 (79) 98 06/07/20 20:00 67 06/07/20 19:09 96 Venturi Mask 10.0 45 06/07/20 16:00 97.5 65 20 117/52 (73) 95 06/07/20 16:00 65 I&O Intake and Output 06/07/20 06/08/20 19:00 07:00 Output Total 50 ml Balance -50 ml Output Urine Total 50 ml Cardiovascular: RSR Respiratory: decreased breath sounds Abdomen: soft, distended, other Extremities: edema, no tenderness, no cyanosis Laboratory Tests Test 06/08/20 11:34 POC Whole Blood Glucose 84 MG/DL (74-106) Plan Problems: (1) Pleural effusion (2) Hyperkalemia (3) INGRIS (acute kidney injury) (4) Morbid obesity with BMI of 50.0-59.9, adult (5) Anemia (6) SOB (shortness of breath) (7) Abdominal pain (8) Abdominal wall cellulitis Assessment & Plan: panniculitis anasarca cont abx dnr/dni comfort care confirmed care plan with patients daughter polst noted no acute surgical intervention acute renal insufficiency no HD, no cath insertion given patients and family wishes respiratory insufficiency acidosis no intubation given care plan thank you ABDOMEN: Liver: Unremarkable. Gallbladder and bile ducts: Unremarkable. No calcified stones. No ductal dilation. Pancreas: Unremarkable. No ductal dilation. Spleen: Unremarkable. No splenomegaly. Adrenals: Unremarkable. No mass. Kidneys and ureters: Mild nonspecific perinephric stranding. No obstructing stones. Stomach and bowel: Diverticulosis of the colon with no signs of diverticulitis. No obstruction. PELVIS: Appendix: No findings to suggest acute appendicitis. Bladder: Unremarkable. No stones. Reproductive: Unremarkable as visualized. ABDOMEN and PELVIS: Intraperitoneal space: Mild ascites predominantly seen along the anterior liver margin. No free air. Bones/joints: Advanced multilevel disc degenerative disease. No acute fracture. No dislocation. Soft tissues: Stranding/fluid infiltration of the subcutaneous fat suggestive of anasarca. Vasculature: Unremarkable. No abdominal aortic aneurysm. Lymph nodes: Unremarkable. No enlarged lymph nodes. IMPRESSION: 1. Right sided lung nodules, differential diagnosis including metastatic disease/neoplasm versus inflammatory process. Follow-up recommended with CT chest for further characterization. 2. Bilateral pleural effusions, more significant on the right. 3. Diffuse anasarca. Mild ascites. 4. Diverticulosis with no signs of diverticulitis. No bowel obstruction. Sean Anderson Jun 08, 2020 14:47
--- NOTE | 2020-06-08 15:11 | NUR ---
NURSE NOTES: Dr. Carter here to see patient. Notified MD of DTI on left buttock. MD aware.
--- NOTE | 2020-06-08 15:47 | NUR ---
NURSE NOTES: Report given to Yasmin LEYVA. Endorsed plan of care.
--- NOTE | 2020-06-08 15:50 | NUR ---
NURSE NOTES: Received Report from Nano RN, rounds made pt remains stable s/p transfer from Tele, will continue with plan of care
[2020-06-08 16:00] VITALS: BP 130/49
--- NOTE | 2020-06-08 16:09 | Cardiac Electrophysiology PN ---
Assessment/Plan Assessment/Plan 1. Bradycardia with heart rate in the 40s-50s. Off metoprolol and Clonidine patch 2. Hypertension, On Lasix 100 iv bid, Metolazone and Hydralazine 50 tid 3. Chest pain. The pain is atypical. Ruled out MN EF 55% on echocardiogram 4. Volume overload. Renal failure with creatinine of 5.2. Refusing HD (Family refused even placing Vladislav) 5. Generalized pain. Follow up pain management. 6. Morbid obesity. 7. Hyperkalemia. Got Kayexalate 8. Hospice care pending DW Dr. Stewart Subjective Subjective Confused on 40% Venturi Face Mask on. NPO. On iv Lasix and Ancef. Transferred to [facility] Objective Last 24 Hour Vital Signs Date Time Temp Pulse Resp B/P (MAP) Pulse Ox O2 Delivery O2 Flow Rate FiO2 06/08/20 13:30 69 22 97 06/08/20 13:00 148/50 06/08/20 09:00 Venturi Mask 10.0 06/08/20 09:00 148/50 06/08/20 08:46 96 Venturi Mask 10.0 45 06/08/20 08:00 97.7 66 22 148/50 (82) 98 06/08/20 08:00 65 06/08/20 04:00 67 06/08/20 04:00 97.7 69 20 140/66 (90) 98 06/08/20 00:00 97.7 68 18 139/55 (83) 97 06/08/20 00:00 69 06/07/20 21:12 Venturi Mask 10.0 06/07/20 20:00 97.7 67 16 131/53 (79) 98 06/07/20 20:00 67 06/07/20 19:09 96 Venturi Mask 10.0 45 Intake and Output 06/07/20 06/08/20 19:00 07:00 Output Total 50 ml Balance -50 ml Output Urine Total 50 ml Laboratory Tests Test 06/08/20 11:34 POC Whole Blood Glucose 84 MG/DL (74-106) Objective NECK: No JVD. LUNGS: Clear. CARDIOVASCULAR: Shows regular S1 and S2 with no gallop. ABDOMEN: Morbidly obese. EXTREMITIES: 1+ pitting edema. Shad Colon MD Jun 08, 2020 16:09
--- NOTE | 2020-06-08 17:00 | Pulmonology Progress Note ---
Subjective ROS Limited/Unobtainable: Yes Constitutional: Reports: no symptoms HEENT: Repors: no symptoms Respiratory: Reports: no symptoms Cardiovascular: Reports: no symptoms Allergies: Coded Allergies: ACETAMINOPHEN (Verified Allergy, Unknown, 05/29/20) HYDROCODONE (Verified Allergy, Unknown, 05/29/20) All Systems: reviewed and negative except above Objective Last 24 Hour Vital Signs Date Time Temp Pulse Resp B/P (MAP) Pulse Ox O2 Delivery O2 Flow Rate FiO2 06/08/20 13:30 69 22 97 06/08/20 13:00 148/50 06/08/20 09:00 Venturi Mask 10.0 06/08/20 09:00 148/50 06/08/20 08:46 96 Venturi Mask 10.0 45 06/08/20 08:00 97.7 66 22 148/50 (82) 98 06/08/20 08:00 65 06/08/20 04:00 67 06/08/20 04:00 97.7 69 20 140/66 (90) 98 06/08/20 00:00 97.7 68 18 139/55 (83) 97 06/08/20 00:00 69 06/07/20 21:12 Venturi Mask 10.0 06/07/20 20:00 97.7 67 16 131/53 (79) 98 06/07/20 20:00 67 06/07/20 19:09 96 Venturi Mask 10.0 45 Intake and Output 06/07/20 06/08/20 19:00 07:00 Output Total 50 ml Balance -50 ml Output Urine Total 50 ml General Appearance: WD/WN HEENT: normocephalic, atraumatic Respiratory: chest wall non-tender, rhonchi - left, rhonchi - right Breasts: no masses Cardiovascular: normal peripheral pulses, normal rate Abdomen: normal bowel sounds, soft, non tender Genitourinary: normal external genitalia Extremities: no cyanosis Skin: no rash Neurologic: chemistry tutor II-XII grossly normal Laboratory Tests 06/08/20 11:34: POC Whole Blood Glucose 84 Current Medications Medications (Trade) Dose Ordered Sig/Alissa Route PRN Reason Start Time Stop Time Status Last Admin Dose Admin Cefazolin Sodium 500 mg/Dextrose 55 ml @ 110 mls/hr Q12H IV 06/01/20 18:00 06/10/20 17:59 06/08/20 05:20 Dextrose (Dextrose 50%) 25 ml Q30M PRN IV Hypoglycemia 05/30/20 04:30 08/28/20 04:29 Dextrose (Dextrose 50%) 50 ml Q30M PRN IV Hypoglycemia 05/30/20 04:30 08/28/20 04:29 Docusate Sodium (Colace) 100 mg TWICE A DAY ORAL 06/03/20 09:00 07/03/20 08:59 06/06/20 18:10 Furosemide (Lasix) 100 mg EVERY 12 HOURS IV 06/06/20 12:00 07/03/20 20:59 06/08/20 09:44 Heparin Sodium (Porcine) (Heparin 5000 units/ml) 5,000 units EVERY 12 HOURS SUBQ 05/30/20 09:00 07/14/20 08:59 06/08/20 09:46 Hydralazine HCl (Apresoline) 50 mg TID ORAL 06/04/20 11:53 09/02/20 11:52 06/06/20 18:10 Insulin Aspart (NovoLOG) BEFORE MEALS AND HS SUBQ 05/30/20 06:30 08/28/20 06:29 06/02/20 20:49 Metolazone (Zaroxolyn) 5 mg DAILY ORAL 06/03/20 19:00 07/03/20 18:59 06/06/20 10:14 Tramadol HCl (Ultram) 50 mg Q4H PRN ORAL Severe Pain (Pain Scale 7-10) 06/06/20 12:00 06/13/20 11:59 Assessment/Plan Problems: (1) Acute respiratory failure (2) Pleural effusion (3) INGRIS (acute kidney injury) (4) Morbid obesity with BMI of 50.0-59.9, adult (5) Abdominal wall cellulitis Assessment/Plan looks comfortable all reviewed on face mask looks comfortable pt doesn't want any BIPAP or intubation or HD comfort measures titrate fio2 to sat of 92% symptomatic treatment Eder Corral MD Jun 08, 2020 17:00
--- NOTE | 2020-06-08 19:25 | NUR ---
NURSE HAND-OFF: Important Events on Shift: Patient Status: stable Diet: NPO Pending Orders: Pending Results/Labs: Pending MD notification: Latest Vital Signs: Temperature 98.0 , Pulse 70 , B/P 130 /49 , Respiratory Rate 16 , O2 SAT 98 , Venturi Mask, O2 Flow Rate 10.0 . Vital Sign Comment: Latest Bhagat Fall Score: 45 Fall Risk: High Risk Safety Measures: Call light Within Reach, Bed Alarm Zone 1, Side Rails Side Rails x3, Bed position Low and Locked. Fall Precautions: Yellow Socks Yellow Gown Patient Fall Education Report given to Steven LEYVA.
--- NOTE | 2020-06-08 19:26 | NUR ---
NURSE NOTES: received pt and report from GORDON Hoffman. pt alert and oriented x1. pt able to verbalize her name but is confused otherwise. pt in no acute distress. no facial grimacing or moaning. Dior catheter in place and draining. pt is wearing venturi mask set at 10L. Plan of care discussed.
[2020-06-08 20:00] VITALS: BP 151/62
--- NOTE | 2020-06-08 21:08 | NUR ---
NURSE NOTES: pt blood sugar at 77. pt has been NPO and hasnt been eating anything and no IV fluids are ordered. Notified Dr. Braga of potential for hypoglycemia. awaiting orders for IV fluid containing dextrose.
--- NOTE | 2020-06-08 22:15 | NUR ---
NURSE NOTES: Dr. Stewart gave order for D10W to run at 50cc/hr. Dr Stewart also gave order to cancel accucheck ACHS and insulin coverage.
--- NOTE | 2020-06-08 22:45 | NUR ---
NURSE NOTES: Pt with discharge coming from vagina at point of insertion of Dior. Area cleaned with washcloth and soap and dried. when pt turned to right side, optifoam dressing over DTI clean dry and intact. while patient was turned to left side, skin in the area of the right buttocks and sacrum is reddened with blanching but is intact. no pressure injuries present. calazime cream applied to sacrum and optifoam for pressure injury prophylaxis. Pt cannot tolerate being on side and laying flat for long periods of time. therefore unable to measure dimensions of DTI. wound consult already made by day shift nurse. will follow up.
[2020-06-08] MEDS: Dextrose 10% 1,000 ML IV SCH (23:02)
[2020-06-09] VITALS (7 sets, daily range): BP systolic 114–156; BP diastolic 46–66
--- NOTE | 2020-06-09 00:35 | NUR ---
NURSE NOTES: pt vital signs stable at this time. pt cannot verbalize pain but no signs of acute distress, no facial grimacing, no moaning. pt bed in lowest position, 3 side rails up, and pt placed in semi snider to prevent aspiration.
--- NOTE | 2020-06-09 04:39 | NUR ---
NURSE NOTES: pt sleeping while vitals being taken. arousable to name and voice and movement. she is still confused as she cannot answer where she is or what her birthday is. she shows no signs of acute distress such as moaning, facial grimacing, and increased vitals. her vital signs are stable satting at 97% throughout the shift while on the venturi mask running 10L of oxygen.
[2020-06-09] MEDS: ceFAZolin 500mg in D5W 55ml IV SCH ×2 (05:15→18:00)
--- NOTE | 2020-06-09 05:15 | NUR ---
NURSE NOTES: called pipeline regarding giving cefazolin dose to pt despite creatinine of 5.1. pharmacist said that the dose has already been adjusted to the renal function of the pt and that it is ok to administer.
--- NOTE | 2020-06-09 05:58 | NUR ---
NURSE NOTES: pt change of condition, breathing rate lower now from 20 to 22 throughout shift to 12. breathing is more labored with occasional moaning. Head of bed lifted to allow for better breathing. Vitals taken, vitals stable. will continue to monitor.
[2020-06-09 07:00] LABS: BASOPHILS % (AUTO) 1.7 % (0.0-2.0); HEMATOCRIT 28.5 % (37.0-47.0); HEMOGLOBIN 8.9 G/DL (12.0-16.0); LYMPHOCYTES % (AUTO) 4.8 % (20.0-45.0); MEAN CORPUSCULAR VOLUME 84 FL (80-99); MONOCYTES % (AUTO) 7.9 % (1.0-10.0); NEUTROPHILS % (AUTO) 83.6 % (45.0-75.0); PLATELET COUNT 149 K/UL (150-450); RED BLOOD COUNT 3.38 M/UL (4.20-5.40); WHITE BLOOD COUNT 13.6 K/UL (4.8-10.8)
[2020-06-09 07:31] LABS: CALCIUM 6.7 MG/DL (8.5-10.1); CREATININE 9.6 MG/DL (0.55-1.30); POTASSIUM 4.8 MMOL/L (3.5-5.1)
--- NOTE | 2020-06-09 07:40 | NUR ---
NURSE NOTES: Handoff received from Steven RN. Patient is awake, confused, AxO x 1. Venturi mask is on, 10L O2, breathing is 20-22. Left Ac iv is running IVF as ordered. Dior is draining to gravity. Bed is low and locked, side rails up x2, call light is within reach.
--- NOTE | 2020-06-09 07:46 | NUR ---
NURSE HAND-OFF: Important Events on Shift:breathing monitoring, vitals monitoring Patient Status: stable with labored breathing at times Diet: NPO Pending Orders: NA Pending Results/Labs:NA Pending MD notification:NA Latest Vital Signs: Temperature 97.5 , Pulse 67 , B/P 118 /55 , Respiratory Rate 12 , O2 SAT 96 , Venturi Mask, O2 Flow Rate 10.0 . Vital Sign Comment: Stable through the shift Latest Bhagat Fall Score: 45 Fall Risk: High Risk Safety Measures: Call light Within Reach, Bed Alarm Zone 1, Side Rails Side Rails x3, Bed position Low and Locked. Fall Precautions: Yellow Socks Yellow Gown Patient Fall Education Report given to GORDON Ramirez.
--- NOTE | 2020-06-09 08:37 | Nephrology Progress Note ---
Assessment/Plan Problem List: (1) INRGIS (acute kidney injury) (2) Hyperkalemia (3) Morbid obesity with BMI of 50.0-59.9, adult (4) Anemia Assessment Renal failure most likely acute on chronic Presents with hyperkalemia Anemia Hypertension Pleural effusion Ejection fraction 55% No hydronephrosis and kidney ultrasound 4+ proteinuria, likely due to diabetic nephropathy Morbid obesity Plan June 09: Patient n.p.o. On 50 cc D10. Blood pressure 110 systolic. Slow to response. Patient DNR/DNI and no dialysis. Patient has acute on chronic renal failure. Continue comfort care. June 08: Status quo. No labs drawn today. Remains on Venturi mask. I agree with transfer to [facility] as the patient DNR/DNI and no dialysis and essentially needs to be on comfort care. June 07: No major change. Blood pressure drifting down. No blood work is done. Remains on Venturi mask. Remains DNR/DNI and do not dialysis. I continue to favor comfort care. Continue per consultants. June 06: Patient does not have any blood work today. Remains on Venturi mask. Poorly responsive to verbal stimuli. Status quo. Remains DNR/DNI and no dialysis status per family. I favor comfort care. Continue per consultants. June 05: No labs drawn. Gradually deteriorating. Not much to add from renal standpoint of view. June 04: Labs reviewed. Serum creatinine paul. Patient not to be dialyzed per family request. Blood pressure controlled. Bradycardic. Medication adjusted. Poor prognosis. Patient remains DNR/DNI. June 03: Patient was transferred to telemetry for high blood pressure. Remains DNR/DNI. Blood pressure now within normal limit. Patient clonidine patch. Since appearing clinically more responsive will check labs tomorrow. June 02: Labs reviewed. Status quo. Patient DNR/DNI and do not dialysis per family request. Not much to add from renal standpoint of view. Suggest no lab draw since not much can be done about it from renal standpoint of view. June 01: Events of last 24 hours noted and is as follow: Patient found to be acidotic with acute renal failure. Was transferred to ICU. Planned to dialyze and protect the airways. Apparently family changed the status to DNR/DNI. Patient was then transferred to medical floor. Currently status unchanged. Not much more to be added from renal standpoint of view. Suggest comfort care. Since we are not going to do any dialysis treatment, monitoring blood chemistries and renal parameters are not needed. May 31: Patient morbidly obese. Labs reviewed. Worsening renal parameters and hyperkalemia. Dior ordered. Kayexalate ordered. Stat ABG ordered. Patient n.p.o. Insertion of dialysis catheter and consent ordered. Patient may need to be transferred to ICU. Discussed with RN and nurse in charge of the floor. May 30: DC IV fluid and diuretics Keep the blood pressure in check Monitor renal parameters Monitor electrolytes Avoid nephrotoxic's 1 dose of Kayexalate Intravenous Venofer for low iron Per orders Subjective ROS Limited/Unobtainable: Yes Objective Objective Last 24 Hour Vital Signs Date Time Temp Pulse Resp B/P (MAP) Pulse Ox O2 Delivery O2 Flow Rate FiO2 06/09/20 05:56 67 12 118/55 (76) 96 06/09/20 04:00 97.5 69 22 136/61 (86) 97 06/09/20 00:00 97.4 71 22 152/63 (92) 97 06/08/20 21:00 Venturi Mask 10.0 06/08/20 20:00 97.6 70 20 151/62 (91) 97 06/08/20 19:06 97 Venturi Mask 10.0 45 06/08/20 16:00 98.0 70 16 130/49 (76) 98 06/08/20 13:30 69 22 97 06/08/20 13:00 148/50 06/08/20 09:00 Venturi Mask 10.0 06/08/20 09:00 148/50 06/08/20 08:46 96 Venturi Mask 10.0 45 Intake and Output 06/08/20 06/09/20 19:00 07:00 # Voids 80 Laboratory Tests 06/08/20 11:34: POC Whole Blood Glucose 84 06/08/20 17:42: POC Whole Blood Glucose 88 06/08/20 20:56: POC Whole Blood Glucose 77 06/09/20 05:10: White Blood Count 13.6H, Red Blood Count 3.38L, Hemoglobin 8.9L, Hematocrit 28.5L, Mean Corpuscular Volume 84, Mean Corpuscular Hemoglobin 26.4L, Mean Corpuscular Hemoglobin Concent 31.2L, Red Cell Distribution Width 20.0H, Platelet Count 149L, Mean Platelet Volume 8.2, Neutrophils (%) (Auto) 83.6H, Lymphocytes (%) (Auto) 4.8L, Monocytes (%) (Auto) 7.9, Eosinophils (%) (Auto) 2.0, Basophils (%) (Auto) 1.7, Sodium Level 141, Potassium Level 4.8, Chloride Level 106, Carbon Dioxide Level 19L, Anion Gap 16H, Blood Urea Nitrogen 97H, Creatinine 9.6H, Estimat Glomerular Filtration Rate 4.2, Glucose Level 86, Calcium Level 6.7L Height (Feet): 5 Height (Inches): 6.00 Weight (Pounds): 338 General Appearance: no apparent distress, lethargic Cardiovascular: normal rate Respiratory/Chest: decreased breath sounds Abdomen: distended Darrian Stewart MD Jun 09, 2020 08:37
--- NOTE | 2020-06-09 08:40 | General Progress Note ---
Subjective Date patient seen: Jun 09, 2020 Time patient seen: 07:15 - am Allergies: Coded Allergies: ACETAMINOPHEN (Verified Allergy, Unknown, 05/29/20) HYDROCODONE (Verified Allergy, Unknown, 05/29/20) Subjective HISTORY OF PRESENT ILLNESS: The patient is a 59-year-old female, who is being seen on the Tele floor of [facility]. Patient laying in bed no signs of pain or distress. No complaints of pain at this time. REVIEW OF SYSTEMS: Denies rash, fever, chills, sweating, dizziness, drowsiness, blurred vision, sore throat, or change in weight. No shortness of breath, chest pain, palpitations, or cough. No nausea, vomiting, diarrhea, or blood in stool or urine. No dysuria. Objective Last 24 Hour Vital Signs Date Time Temp Pulse Resp B/P (MAP) Pulse Ox O2 Delivery O2 Flow Rate FiO2 06/09/20 05:56 67 12 118/55 (76) 96 06/09/20 04:00 97.5 69 22 136/61 (86) 97 06/09/20 00:00 97.4 71 22 152/63 (92) 97 06/08/20 21:00 Venturi Mask 10.0 06/08/20 20:00 97.6 70 20 151/62 (91) 97 06/08/20 19:06 97 Venturi Mask 10.0 45 06/08/20 16:00 98.0 70 16 130/49 (76) 98 06/08/20 13:30 69 22 97 06/08/20 13:00 148/50 06/08/20 09:00 Venturi Mask 10.0 06/08/20 09:00 148/50 06/08/20 08:46 96 Venturi Mask 10.0 45 Intake and Output 06/08/20 06/09/20 19:00 07:00 # Voids 80 Laboratory Tests 06/08/20 11:34: POC Whole Blood Glucose 84 06/08/20 17:42: POC Whole Blood Glucose 88 06/08/20 20:56: POC Whole Blood Glucose 77 06/09/20 05:10: White Blood Count 13.6H, Red Blood Count 3.38L, Hemoglobin 8.9L, Hematocrit 28.5L, Mean Corpuscular Volume 84, Mean Corpuscular Hemoglobin 26.4L, Mean Corpuscular Hemoglobin Concent 31.2L, Red Cell Distribution Width 20.0H, Platelet Count 149L, Mean Platelet Volume 8.2, Neutrophils (%) (Auto) 83.6H, Lym phocytes (%) (Auto) 4.8L, Monocytes (%) (Auto) 7.9, Eosinophils (%) (Auto) 2.0, Basophils (%) (Auto) 1.7, Sodium Level 141, Potassium Level 4.8, Chloride Level 106, Carbon Dioxide Level 19L, Anion Gap 16H, Blood Urea Nitrogen 97H, Creatinine 9.6H, Estimat Glomerular Filtration Rate 4.2, Glucose Level 86, Calcium Level 6.7L Height (Feet): 5 Height (Inches): 6.00 Weight (Pounds): 338 Objective PHYSICAL EXAMINATION: NECK: Range of motion is decreased due to the patient's condition. LUNGS: Decreased breath sounds bilaterally. HEART: Regular. ABDOMEN: Obese. EXTREMITIES: No clubbing. NEURO: No changes. Assessment/Plan Assessment/Plan: (1) Abdominal pain (2) Morbid obesity (3) Multiple joint pain and OA Patient to be continued on Tramadol. D/w Dr. Agudelo and he concurred. Elio Colon Jun 09, 2020 08:40
[2020-06-09] MEDS: Docusate 100mg cap ORAL SCH ×2 (08:46→18:31)
[2020-06-09] MEDS: HydrALAZINE 50mg tab ORAL SCH ×3 (08:47→18:32)
[2020-06-09] MEDS: Heparin 5000 units/ml inj SUBQ SCH ×2 (08:47→21:00)
--- NOTE | 2020-06-09 09:16 | General Progress Note ---
Subjective Constitutional: Reports: weakness Respiratory: Reports: shortness of breath Allergies: Coded Allergies: ACETAMINOPHEN (Verified Allergy, Unknown, 05/29/20) HYDROCODONE (Verified Allergy, Unknown, 05/29/20) All Systems: reviewed and negative except above Subjective o2 mask sleepy Objective Last 24 Hour Vital Signs Date Time Temp Pulse Resp B/P (MAP) Pulse Ox O2 Delivery O2 Flow Rate FiO2 06/09/20 05:56 67 12 118/55 (76) 96 06/09/20 04:00 97.5 69 22 136/61 (86) 97 06/09/20 00:00 97.4 71 22 152/63 (92) 97 06/08/20 21:00 Venturi Mask 10.0 06/08/20 20:00 97.6 70 20 151/62 (91) 97 06/08/20 19:06 97 Venturi Mask 10.0 45 06/08/20 16:00 98.0 70 16 130/49 (76) 98 06/08/20 13:30 69 22 97 06/08/20 13:00 148/50 Intake and Output 06/08/20 06/09/20 19:00 07:00 # Voids 80 Laboratory Tests 06/08/20 11:34: POC Whole Blood Glucose 84 06/08/20 17:42: POC Whole Blood Glucose 88 06/08/20 20:56: POC Whole Blood Glucose 77 06/09/20 05:10: White Blood Count 13.6H, Red Blood Count 3.38L, Hemoglobin 8.9L, Hematocrit 28.5L, Mean Corpuscular Volume 84, Mean Corpuscular Hemoglobin 26.4L, Mean Corpuscular Hemoglobin Concent 31.2L, Red Cell Distribution Width 20.0H, Platelet Count 149L, Mean Platelet Volume 8.2, Neutrophils (%) (Auto) 83.6H, Lymphocytes (%) (Auto) 4.8L, Monocytes (%) (Auto) 7.9, Eosinophils (%) (Auto) 2.0, Basophils (%) (Auto) 1.7, Sodium Level 141, Potassium Level 4.8, Chloride Level 106, Carbon Dioxide Level 19L, Anion Gap 16H, Blood Urea Nitrogen 97H, Creatinine 9.6H, Estimat Glomerular Filtration Rate 4.2, Glucose Level 86, Calcium Level 6.7L Height (Feet): 5 Height (Inches): 6.00 Weight (Pounds): 338 General Appearance: lethargic EENT: normal ENT inspection Neck: non-tender, normal alignment, supple Cardiovascular: normal peripheral pulses, normal rate, regular rhythm Respiratory/Chest: chest wall non-tender, lungs clear, normal breath sounds Abdomen: normal bowel sounds, non tender, soft Extremities: normal inspection Edema: 2+ Arm (L), 2+ Arm (R), 2+ Leg (L), 2+ Leg (R), 2+ Pedal (L), 2+ Pedal (R), 2+ Generalized Edema: mild edema Neurologic: motor weakness Skin: normal pigmentation, warm/dry Assessment/Plan Problem List: (1) SOB (shortness of breath) ICD Codes: R06.02 - Shortness of breath SNOMED: 466746445 (2) Abdominal pain ICD Codes: R10.9 - Unspecified abdominal pain SNOMED: 86454846 (3) Pleural effusion ICD Codes: J90 - Pleural effusion, not elsewhere classified SNOMED: 49787114 (4) Morbid obesity with BMI of 50.0-59.9, adult ICD Codes: E66.01 - Morbid (severe) obesity due to excess calories; Z68.43 - Body mass index [BMI] 50.0-59.9, adult SNOMED: 690773118, 769511917, [id number] (5) INGRIS (acute kidney injury) ICD Codes: N17.9 - Acute kidney failure, unspecified SNOMED: 4158468, 65644894 (6) Anemia ICD Codes: D64.9 - Anemia, unspecified SNOMED: 629721082 Status: unchanged Assessment/Plan: o2 pulm tx pain control gi f/u cbc bmp am Hernan Braga DO Jun 09, 2020 09:16
--- NOTE | 2020-06-09 09:42 | NUR ---
Social Work This Sw followed up with brother, Kieran [phone] who explains he does not feel comfortable making any decisions for patient, stating patient makes all of her own decisions. This SW met with patient to discuss Hospice, while patient declined to discuss Hospice at this time, due to not feeling well. This SW contacted bother, left a voicemail, while encouraging brother to assist patient with decision making, as needed (awaiting call back from brother at this time). SW to discuss Hospice with patient/family, as able.
--- NOTE | 2020-06-09 10:10 | General Progress Note ---
Subjective ROS Limited/Unobtainable: No Allergies: Coded Allergies: ACETAMINOPHEN (Verified Allergy, Unknown, 05/29/20) HYDROCODONE (Verified Allergy, Unknown, 05/29/20) Objective Last 24 Hour Vital Signs Date Time Temp Pulse Resp B/P (MAP) Pulse Ox O2 Delivery O2 Flow Rate FiO2 06/09/20 05:56 67 12 118/55 (76) 96 06/09/20 04:00 97.5 69 22 136/61 (86) 97 06/09/20 00:00 97.4 71 22 152/63 (92) 97 06/08/20 21:00 Venturi Mask 10.0 06/08/20 20:00 97.6 70 20 151/62 (91) 97 06/08/20 19:06 97 Venturi Mask 10.0 45 06/08/20 16:00 98.0 70 16 130/49 (76) 98 06/08/20 13:30 69 22 97 06/08/20 13:00 148/50 Intake and Output 06/08/20 06/09/20 19:00 07:00 # Voids 80 Laboratory Tests 06/08/20 11:34: POC Whole Blood Glucose 84 06/08/20 17:42: POC Whole Blood Glucose 88 06/08/20 20:56: POC Whole Blood Glucose 77 06/09/20 05:10: White Blood Count 13.6H, Red Blood Count 3.38L, Hemoglobin 8.9L, Hematocrit 28.5L, Mean Corpuscular Volume 84, Mean Corpuscular Hemoglobin 26.4L, Mean Corpuscular Hemoglobin Concent 31.2L, Red Cell Distribution Width 20.0H, Platelet Count 149L, Mean Platelet Volume 8.2, Neutrophils (%) (Auto) 83.6H, Lymphocytes (%) (Auto) 4.8L, Monocytes (%) (Auto) 7.9, Eosinophils (%) (Auto) 2.0, Basophils (%) (Auto) 1.7, Sodium Level 141, Potassium Level 4.8, Chloride Level 106, Carbon Dioxide Level 19L, Anion Gap 16H, Blood Urea Nitrogen 97H, Creatinine 9.6H, Estimat Glomerular Filtration Rate 4.2, Glucose Level 86, Calcium Level 6.7L Height (Feet): 5 Height (Inches): 6.00 Weight (Pounds): 338 General Appearance: no apparent distress EENT: normal ENT inspection Neck: supple Cardiovascular: normal rate Respiratory/Chest: decreased breath sounds Abdomen: normal bowel sounds, non tender, soft Extremities: non-tender Assessment/Plan Status: unchanged Assessment/Plan: iron def anemia abd pain RI morbid obesity anasarca/ascites diverticulosis cholelithiasis DNR/DNI CT and US reviewed respiratory care off HD per family request poor prognosis comfort care Paul Díaz MD Jun 09, 2020 10:10
--- NOTE | 2020-06-09 10:33 | Infectious Diseases Prog Note ---
Assessment/Plan 59yo F with: Afebrile Normal WBC Pulmonary nodules BL pleural effusions, R>L Cough, SOB Likely CHF, volume OL 05/29 CT A/P: 1. Right sided lung nodules, differential diagnosis including metastatic disease/neoplasm versus inflammatory process. Follow-up recommended with CT chest for further characterization. 2. Bilateral pleural effusions, more significant on the right. 3. Diffuse anasarca. Mild ascites. 4. Diverticulosis with no signs of diverticulitis. No bowel obstruction. 05/30 CT chest: 1. Moderate right and small left pleural effusions. 2. Bilateral mild pulmonary edema/infiltrates. 3. Bilateral scattered small nodular lung densities which may be neoplasm/metastasis, chronic, infection/inflammation, or other etiology. Followup as clinically indicated. 05/30 COVID rapid neg Possible panniculitis and lt lower leg cellulitis Pulm nodules w/u: HIV neg Crypto Ag neg Tspot neg Morbid obesity Plan: Cont cefazolin #10/10 for possible panniculitis and lt leg cellulitis F/u ID w/u for pulm nodules with: Cocci Histo Ab Ab and Ag Fungitell 05/29 SP Zosyn x1 in ED Monitor CBC/CMP Monitor resp status Monitor temp curve and hemodynamics D/w RN Thank you for this consult. [facility] will continue to follow. Subjective Allergies: Coded Allergies: ACETAMINOPHEN (Verified Allergy, Unknown, 05/29/20) HYDROCODONE (Verified Allergy, Unknown, 05/29/20) AF NAD on 10L Venturi mask but obtunded Cr 13 Cr up to 9 Objective Last 24 Hour Vital Signs Date Time Temp Pulse Resp B/P (MAP) Pulse Ox O2 Delivery O2 Flow Rate FiO2 06/09/20 05:56 67 12 118/55 (76) 96 06/09/20 04:00 97.5 69 22 136/61 (86) 97 06/09/20 00:00 97.4 71 22 152/63 (92) 97 06/08/20 21:00 Venturi Mask 10.0 06/08/20 20:00 97.6 70 20 151/62 (91) 97 06/08/20 19:06 97 Venturi Mask 10.0 45 06/08/20 16:00 98.0 70 16 130/49 (76) 98 06/08/20 13:30 69 22 97 06/08/20 13:00 148/50 Height (Feet): 5 Height (Inches): 6.00 Weight (Pounds): 338 Gen: NAD in bed HEENT: NCAT CV: RRR Pulm: CTAB Abd: Soft, NTND, obese, no significant noted erythema of the pannus, very edematous Ext: 2+ pitting edema of BLE Neuro: Minimally interactive, obtunded Laboratory Tests Test 06/08/20 11:34 06/08/20 17:42 06/08/20 20:56 06/09/20 05:10 POC Whole Blood Glucose 84 MG/DL (74-106) 88 MG/DL (74-106) 77 MG/DL (74-106) White Blood Count 13.6 K/UL (4.8-10.8) H Red Blood Count 3.38 M/UL (4.20-5.40) L Hemoglobin 8.9 G/DL (12.0-16.0) L Hematocrit 28.5 % (37.0-47.0) L Mean Corpuscular Volume 84 FL (80-99) Mean Corpuscular Hemoglobin 26.4 PG (27.0-31.0) L Mean Corpuscular Hemoglobin Concent 31.2 G/DL (32.0-36.0) L Red Cell Distribution Width 20.0 % (11.6-14.8) H Platelet Count 149 K/UL (150-450) L Mean Platelet Volume 8.2 FL (6.5-10.1) Neutrophils (%) (Auto) 83.6 % (45.0-75.0) H Lymphocytes (%) (Auto) 4.8 % (20.0-45.0) L Monocytes (%) (Auto) 7.9 % (1.0-10.0) Eosinophils (%) (Auto) 2.0 % (0.0-3.0) Basophils (%) (Auto) 1.7 % (0.0-2.0) Sodium Level 141 MMOL/L (136-145) Potassium Level 4.8 MMOL/L (3.5-5.1) Chloride Level 106 MMOL/L (98-107) Carbon Dioxide Level 19 MMOL/L (21-32) L Anion Gap 16 mmol/L (5-15) H Blood Urea Nitrogen 97 mg/dL (7-18) H Creatinine 9.6 MG/DL (0.55-1.30) H Estimat Glomerular Filtration Rate 4.2 mL/min (>60) Glucose Level 86 MG/DL (74-106) Calcium Level 6.7 MG/DL (8.5-10.1) L Current Medications Medications (Trade) Dose Ordered Sig/Alissa Route PRN Reason Start Time Stop Time Status Last Admin Dose Admin Cefazolin Sodium 500 mg/Dextrose 55 ml @ 110 mls/hr Q12H IV 06/01/20 18:00 06/10/20 17:59 06/09/20 05:15 Dextrose 1,000 ml @ 30 mls/hr Q24H IV 06/08/20 23:00 07/08/20 22:59 06/08/20 23:02 Docusate Sodium (Colace) 100 mg TWICE A DAY ORAL 06/03/20 09:00 07/03/20 08:59 06/06/20 18:10 Furosemide (Lasix) 100 mg EVERY 12 HOURS IV 06/06/20 12:00 07/03/20 20:59 06/09/20 08:41 Heparin Sodium (Porcine) (Heparin 5000 units/ml) 5,000 units EVERY 12 HOURS SUBQ 05/30/20 09:00 07/14/20 08:59 06/08/20 21:10 Hydralazine HCl (Apresoline) 50 mg TID ORAL 06/04/20 11:53 09/02/20 11:52 06/06/20 18:10 Metolazone (Zaroxolyn) 5 mg DAILY ORAL 06/03/20 19:00 07/03/20 18:59 06/06/20 10:14 Tramadol HCl (Ultram) 50 mg Q4H PRN ORAL Severe Pain (Pain Scale 7-10) 06/06/20 12:00 06/13/20 11:59 Leola Boyer M.D. Jun 09, 2020 10:33
--- NOTE | 2020-06-09 13:16 | Surgery Progress Note ---
Surgery Progress Note Subjective Symptoms: worse Objective Last 24 Hour Vital Signs Date Time Temp Pulse Resp B/P (MAP) Pulse Ox O2 Delivery O2 Flow Rate FiO2 06/09/20 12:46 110/51 06/09/20 12:00 97.2 58 16 114/46 (68) 96 06/09/20 09:00 Venturi Mask 10.0 06/09/20 08:00 97.5 64 17 150/66 (94) 97 06/09/20 05:56 67 12 118/55 (76) 96 06/09/20 04:00 97.5 69 22 136/61 (86) 97 06/09/20 00:00 97.4 71 22 152/63 (92) 97 06/08/20 21:00 Venturi Mask 10.0 06/08/20 20:00 97.6 70 20 151/62 (91) 97 06/08/20 19:06 97 Venturi Mask 10.0 45 06/08/20 16:00 98.0 70 16 130/49 (76) 98 06/08/20 13:30 69 22 97 I&O Intake and Output 06/08/20 06/09/20 19:00 07:00 # Voids 80 Cardiovascular: RSR Respiratory: clear, decreased breath sounds Abdomen: soft, present bowel sounds, other, non-distended Extremities: no tenderness, no cyanosis Laboratory Tests Test 06/08/20 17:42 06/08/20 20:56 06/09/20 05:10 POC Whole Blood Glucose 88 MG/DL (74-106) 77 MG/DL (74-106) White Blood Count 13.6 K/UL (4.8-10.8) H Red Blood Count 3.38 M/UL (4.20-5.40) L Hemoglobin 8.9 G/DL (12.0-16.0) L Hematocrit 28.5 % (37.0-47.0) L Mean Corpuscular Volume 84 FL (80-99) Mean Corpuscular Hemoglobin 26.4 PG (27.0-31.0) L Mean Corpuscular Hemoglobin Concent 31.2 G/DL (32.0-36.0) L Red Cell Distribution Width 20.0 % (11.6-14.8) H Platelet Count 149 K/UL (150-450) L Mean Platelet Volume 8.2 FL (6.5-10.1) Neutrophils (%) (Auto) 83.6 % (45.0-75.0) H Lymphocytes (%) (Auto) 4.8 % (20.0-45.0) L Monocytes (%) (Auto) 7.9 % (1.0-10.0) Eosinophils (%) (Auto) 2.0 % (0.0-3.0) Basophils (%) (Auto) 1.7 % (0.0-2.0) Sodium Level 141 MMOL/L (136-145) Potassium Level 4.8 MMOL/L (3.5-5.1) Chloride Level 106 MMOL/L (98-107) Carbon Dioxide Level 19 MMOL/L (21-32) L Anion Gap 16 mmol/L (5-15) H Blood Urea Nitrogen 97 mg/dL (7-18) H Creatinine 9.6 MG/DL (0.55-1.30) H Estimat Glomerular Filtration Rate 4.2 mL/min (>60) Glucose Level 86 MG/DL (74-106) Calcium Level 6.7 MG/DL (8.5-10.1) L Plan Problems: (1) Pleural effusion (2) Hyperkalemia (3) INGRIS (acute kidney injury) (4) Morbid obesity with BMI of 50.0-59.9, adult (5) Anemia (6) SOB (shortness of breath) (7) Abdominal pain (8) Abdominal wall cellulitis Assessment & Plan: panniculitis anasarca cont abx dnr/dni comfort care confirmed care plan with patients daughter polst noted no acute surgical intervention acute renal insufficiency no HD, no cath insertion given patients and family wishes respiratory insufficiency acidosis no intubation given care plan thank you ABDOMEN: Liver: Unremarkable. Gallbladder and bile ducts: Unremarkable. No calcified stones. No ductal dilation. Pancreas: Unremarkable. No ductal dilation. Spleen: Unremarkable. No splenomegaly. Adrenals: Unremarkable. No mass. Kidneys and ureters: Mild nonspecific perinephric stranding. No obstructing stones. Stomach and bowel: Diverticulosis of the colon with no signs of diverticulitis. No obstruction. PELVIS: Appendix: No findings to suggest acute appendicitis. Bladder: Unremarkable. No stones. Reproductive: Unremarkable as visualized. ABDOMEN and PELVIS: Intraperitoneal space: Mild ascites predominantly seen along the anterior liver margin. No free air. Bones/joints: Advanced multilevel disc degenerative disease. No acute fracture. No dislocation. Soft tissues: Stranding/fluid infiltration of the subcutaneous fat suggestive of anasarca. Vasculature: Unremarkable. No abdominal aortic aneurysm. Lymph nodes: Unremarkable. No enlarged lymph nodes. IMPRESSION: 1. Right sided lung nodules, differential diagnosis including metastatic disease/neoplasm versus inflammatory process. Follow-up recommended with CT chest for further characterization. 2. Bilateral pleural effusions, more significant on the right. 3. Diffuse anasarca. Mild ascites. 4. Diverticulosis with no signs of diverticulitis. No bowel obstruction. Sean Anderson Jun 09, 2020 13:16
--- NOTE | 2020-06-09 13:28 | NUR ---
RD ASSESSMENT & RECOMMENDATIONS SEE CARE ACTIVITY FOR COMPLETE ASSESSMENT DAILY ESTIMATED NEEDS: Needs based on CKD, cardiac, comfort measures, obese/ 82.7kg abw 15-20 kcals/kg [id number] total kcals 0.6g/kg g protein/kg 49g g total protein Fluids per MD NUTRITION DIAGNOSIS: Altered nutrition related lab values R/t INGRIS as evidenced by elev creat (5.1-> 9.6), elev phos (8.0), elev mag (3.0), elev BNP (>49480), pt and family refusing HD. CURRENT DIET:NPO PO DIET RECOMMENDATIONS: IF ORAL DIET PART OF POC -> Renal/ texture per AIRCRAFT ENGINE TECHNICIAN ADDITIONAL RECOMMENDATIONS: * Monitor POC: no oral diet since 05/31, pt is DNR/DNI, comfort measures order for end of life discussion noted * Monitor for hypoglycemia while NPO -> consider D10 @ low rate while NPO * Updated CMP and phos and mag as able
--- NOTE | 2020-06-09 14:18 | NUR ---
CASE MANAGEMENT:REVIEW SI;BILAT PLEURAL EFFUSIONS. PULMONARY EDEMA. AC KIDNEY INJURY. ANEMIA. 97.2 58 22 150/66 96% 10L VENTURI MASK WBC 13.6 H/H 8.9/28.5 ANION GAP 16 BUN 97 CR 9.6 IS;D5 IV Q24 LASIX IV Q12 METOLAZONE PO QD CEFAZOLIN IV Q12 MED SURG STATUS DCP;PATIENT IS FROM [facility]
--- NOTE | 2020-06-09 14:42 | Cardiac Electrophysiology PN ---
Assessment/Plan Assessment/Plan 1. Bradycardia with heart rate in the 40s-50s. Off metoprolol and Clonidine patch 2. Hypertension, On Lasix 100 iv bid, Metolazone and Hydralazine 50 tid 3. Chest pain. The pain is atypical. Ruled out VT EF 55% on echocardiogram 4. Volume overload. Renal failure with creatinine of 9.6 Family Refusing HD 5. Generalized pain. Follow up pain management. 6. Morbid obesity. 7. Hyperkalemia. 8. Hospice care pending DW Dr. Stewart Subjective Subjective Confused on 40% Venturi Face Mask on. On iv Lasix and Ancef on NMB Objective Last 24 Hour Vital Signs Date Time Temp Pulse Resp B/P (MAP) Pulse Ox O2 Delivery O2 Flow Rate FiO2 06/09/20 12:46 110/51 06/09/20 12:00 97.2 58 16 114/46 (68) 96 06/09/20 09:00 Venturi Mask 10.0 06/09/20 08:00 97.5 64 17 150/66 (94) 97 06/09/20 05:56 67 12 118/55 (76) 96 06/09/20 04:00 97.5 69 22 136/61 (86) 97 06/09/20 00:00 97.4 71 22 152/63 (92) 97 06/08/20 21:00 Venturi Mask 10.0 06/08/20 20:00 97.6 70 20 151/62 (91) 97 06/08/20 19:06 97 Venturi Mask 10.0 45 06/08/20 16:00 98.0 70 16 130/49 (76) 98 Intake and Output 06/08/20 06/09/20 19:00 07:00 # Voids 80 Laboratory Tests Test 06/08/20 17:42 06/08/20 20:56 06/09/20 05:10 POC Whole Blood Glucose 88 MG/DL (74-106) 77 MG/DL (74-106) White Blood Count 13.6 K/UL (4.8-10.8) H Red Blood Count 3.38 M/UL (4.20-5.40) L Hemoglobin 8.9 G/DL (12.0-16.0) L Hematocrit 28.5 % (37.0-47.0) L Mean Corpuscular Volume 84 FL (80-99) Mean Corpuscular Hemoglobin 26.4 PG (27.0-31.0) L Mean Corpuscular Hemoglobin Concent 31.2 G/DL (32.0-36.0) L Red Cell Distribution Width 20.0 % (11.6-14.8) H Platelet Count 149 K/UL (150-450) L Mean Platelet Volume 8.2 FL (6.5-10.1) Neutrophils (%) (Auto) 83.6 % (45.0-75.0) H Lymphocytes (%) (Auto) 4.8 % (20.0-45.0) L Monocytes (%) (Auto) 7.9 % (1.0-10.0) Eosinophils (%) (Auto) 2.0 % (0.0-3.0) Basophils (%) (Auto) 1.7 % (0.0-2.0) Sodium Level 141 MMOL/L (136-145) Potassium Level 4.8 MMOL/L (3.5-5.1) Chloride Level 106 MMOL/L (98-107) Carbon Dioxide Level 19 MMOL/L (21-32) L Anion Gap 16 mmol/L (5-15) H Blood Urea Nitrogen 97 mg/dL (7-18) H Creatinine 9.6 MG/DL (0.55-1.30) H Estimat Glomerular Filtration Rate 4.2 mL/min (>60) Glucose Level 86 MG/DL (74-106) Calcium Level 6.7 MG/DL (8.5-10.1) L Objective NECK: No JVD. LUNGS: Clear. CARDIOVASCULAR: Shows regular S1 and S2 with no gallop. ABDOMEN: Morbidly obese. EXTREMITIES: 1+ pitting edema. Shad Colon MD Jun 09, 2020 14:42
--- NOTE | 2020-06-09 16:40 | Pulmonology Progress Note ---
Subjective ROS Limited/Unobtainable: No Constitutional: Reports: no symptoms HEENT: Repors: no symptoms Respiratory: Reports: no symptoms Cardiovascular: Reports: no symptoms Allergies: Coded Allergies: ACETAMINOPHEN (Verified Allergy, Unknown, 05/29/20) HYDROCODONE (Verified Allergy, Unknown, 05/29/20) All Systems: reviewed and negative except above Objective Last 24 Hour Vital Signs Date Time Temp Pulse Resp B/P (MAP) Pulse Ox O2 Delivery O2 Flow Rate FiO2 06/09/20 12:46 110/51 06/09/20 12:00 97.2 58 16 114/46 (68) 96 06/09/20 09:00 Venturi Mask 10.0 06/09/20 08:00 97.5 64 17 150/66 (94) 97 06/09/20 05:56 67 12 118/55 (76) 96 06/09/20 04:00 97.5 69 22 136/61 (86) 97 06/09/20 00:00 97.4 71 22 152/63 (92) 97 06/08/20 21:00 Venturi Mask 10.0 06/08/20 20:00 97.6 70 20 151/62 (91) 97 06/08/20 19:06 97 Venturi Mask 10.0 45 Intake and Output 06/08/20 06/09/20 19:00 07:00 # Voids 80 General Appearance: WD/WN HEENT: normocephalic, atraumatic Respiratory: chest wall non-tender, rhonchi - left, rhonchi - right Breasts: no masses Cardiovascular: normal peripheral pulses, normal rate Abdomen: normal bowel sounds, soft, non tender Genitourinary: normal external genitalia Extremities: no cyanosis Skin: no rash 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 Laboratory Tests 06/08/20 17:42: POC Whole Blood Glucose 88 06/08/20 20:56: POC Whole Blood Glucose 77 06/09/20 05:10: White Blood Count 13.6H, Red Blood Count 3.38L, Hemoglobin 8.9L, Hematocrit 28.5L, Mean Corpuscular Volume 84, Mean Corpuscular Hemoglobin 26.4L, Mean Corpuscular Hemoglobin Concent 31.2L, Red Cell Distribution Width 20.0H, Platelet Count 149L, Mean Platelet Volume 8.2, Neutrophils (%) (Auto) 83.6H, Lymphocytes (%) (Auto) 4.8L, Monocytes (%) (Auto) 7.9, Eosinophils (%) (Auto) 2.0, Basophils (%) (Auto) 1.7, Sodium Level 141, Potassium Level 4.8, Chloride Level 106, Carbon Dioxide Level 19L, Anion Gap 16H, Blood Urea Nitrogen 97H, Creatinine 9.6H, Estimat Glomerular Filtration Rate 4.2, Glucose Level 86, Calcium Level 6.7L Current Medications Medications (Trade) Dose Ordered Sig/Alissa Route PRN Reason Start Time Stop Time Status Last Admin Dose Admin Cefazolin Sodium 500 mg/Dextrose 55 ml @ 110 mls/hr Q12H IV 06/01/20 18:00 06/10/20 17:59 06/09/20 05:15 Dextrose 1,000 ml @ 30 mls/hr Q24H IV 06/08/20 23:00 07/08/20 22:59 06/08/20 23:02 Docusate Sodium (Colace) 100 mg TWICE A DAY ORAL 06/03/20 09:00 07/03/20 08:59 06/06/20 18:10 Furosemide (Lasix) 100 mg EVERY 12 HOURS IV 06/06/20 12:00 07/03/20 20:59 06/09/20 08:41 Heparin Sodium (Porcine) (Heparin 5000 units/ml) 5,000 units EVERY 12 HOURS SUBQ 05/30/20 09:00 07/14/20 08:59 06/08/20 21:10 Hydralazine HCl (Apresoline) 50 mg TID ORAL 06/04/20 11:53 09/02/20 11:52 06/06/20 18:10 Metolazone (Zaroxolyn) 5 mg DAILY ORAL 06/03/20 19:00 07/03/20 18:59 06/06/20 10:14 Tramadol HCl (Ultram) 50 mg Q4H PRN ORAL Severe Pain (Pain Scale 7-10) 06/06/20 12:00 06/13/20 11:59 Assessment/Plan Problems: (1) Acute respiratory failure (2) Pleural effusion (3) INGRIS (acute kidney injury) (4) Morbid obesity with BMI of 50.0-59.9, adult (5) Abdominal wall cellulitis Assessment/Plan looks comfortable all reviewed on face mask looks comfortable pt doesn't want any BIPAP or intubation or HD comfort measures titrate fio2 to sat of 92% symptomatic treatment Eder Corral MD Jun 09, 2020 16:40
--- NOTE | 2020-06-09 19:25 | NUR ---
NURSE NOTES: NURSE HAND-OFF: Important Events on Shift:[none] Patient Status: stable Diet: NPO Pending Orders: CBC BMP Pending Results/Labs: Pending MD notification: Latest Vital Signs: Temperature 97.6 , Pulse 67 , B/P 156 /58 , Respiratory Rate 18 , O2 SAT 98 , Venturi Mask, O2 Flow Rate 10.0 . Vital Sign Comment: Stable Latest Bhagat Fall Score: 45 Fall Risk: High Risk Safety Measures: Call light Within Reach, Bed Alarm Zone 1, Side Rails Side Rails x3, Bed position Low and Locked. Fall Precautions: Yellow Socks Yellow Gown Patient Fall Education Report given to Yuliet LEYVA.
--- NOTE | 2020-06-09 19:26 | NUR ---
NURSE NOTES: Received report from GORDON Ramirez. Rounds done, patient sleeping, respirations even, no distress noted. On Venturi mask 10L o2. IV site intact, infusing IVF. Dior catheter patent. Had low urine output, physician aware per AM RN report. Side rails up x3, call light within reach, bed in low position and locked. Will continue to monitor.
[2020-06-09] MEDS: Dextrose 10% 1,000 ML IV SCH (23:00)
[2020-06-10] VITALS: BP 126/62
[2020-06-10 04:00] VITALS: BP 122/64
[2020-06-10] MEDS: ceFAZolin 500mg in D5W 55ml IV SCH (05:25)
[2020-06-10 05:40] LABS: BASOPHILS % (AUTO) 1.9 % (0.0-2.0); EOSINOPHILS % (AUTO) 2.3 % (0.0-3.0); HEMATOCRIT 30.2 % (37.0-47.0); HEMOGLOBIN 9.4 G/DL (12.0-16.0); LYMPHOCYTES % (AUTO) 5.9 % (20.0-45.0); MEAN CORPUSCULAR VOLUME 85 FL (80-99); MONOCYTES % (AUTO) 5.1 % (1.0-10.0); NEUTROPHILS % (AUTO) 84.8 % (45.0-75.0); PLATELET COUNT 152 K/UL (150-450); RED BLOOD COUNT 3.54 M/UL (4.20-5.40); RED CELL DISTRIBUTION WIDTH 20.4 % (11.6-14.8); WHITE BLOOD COUNT 12.4 K/UL (4.8-10.8)
[2020-06-10 05:55] LABS: CALCIUM 6.4 MG/DL (8.5-10.1); CREATININE 10.2 MG/DL (0.55-1.30); POTASSIUM 4.8 MMOL/L (3.5-5.1)
--- NOTE | 2020-06-10 07:24 | NUR ---
NURSE HAND-OFF: Important Events on Shift: continues to have oliguria, only 100 cc overnight, Noted: L buttock wound is a skin tear with scab, double checked with charge nurse, reapplied optifoam, Patient Status: [] Diet: NPO Pending Orders: [] Pending Results/Labs:[] Pending MD notification:[] Latest Vital Signs: Temperature 97.6 , Pulse 62 , B/P 122 /64 , Respiratory Rate 20 , O2 SAT 99 , Venturi Mask, O2 Flow Rate 10.0 . Vital Sign Comment: [] Latest Bhagat Fall Score: 60 Fall Risk: High Risk Safety Measures: Call light Within Reach, Bed Alarm Zone 1, Side Rails Side Rails x3, Bed position Low and Locked. Fall Precautions: Yellow Socks Yellow Gown Door Sign Patient Fall Education Report given to GORDON Ramirez
--- NOTE | 2020-06-10 07:25 | NUR ---
NURSE NOTES: Handoff received from Yuliet LEYVA. Patient is asleep on venturi mask, 10L O2. Protective optifoam on patient's face. Left forearm IV is patent and running IVF as ordered. Bed is low and locked, side rails up x2, call light is within reach.
[2020-06-10 08:00] VITALS: BP 96/64
--- NOTE | 2020-06-10 08:20 | Infectious Diseases Prog Note ---
Assessment/Plan 59yo F with: Afebrile Normal WBC Pulmonary nodules BL pleural effusions, R>L Cough, SOB Likely CHF, volume OL 05/29 CT A/P: 1. Right sided lung nodules, differential diagnosis including metastatic disease/neoplasm versus inflammatory process. Follow-up recommended with CT chest for further characterization. 2. Bilateral pleural effusions, more significant on the right. 3. Diffuse anasarca. Mild ascites. 4. Diverticulosis with no signs of diverticulitis. No bowel obstruction. 05/30 CT chest: 1. Moderate right and small left pleural effusions. 2. Bilateral mild pulmonary edema/infiltrates. 3. Bilateral scattered small nodular lung densities which may be neoplasm/metastasis, chronic, infection/inflammation, or other etiology. Followup as clinically indicated. 05/30 COVID rapid neg Possible panniculitis and lt lower leg cellulitis Pulm nodules w/u: HIV neg Crypto Ag neg Tspot neg Morbid obesity Plan: Stop cefazolin #10/10 for possible panniculitis and lt leg cellulitis F/u ID w/u for pulm nodules with: Cocci Histo Ab Ab and Ag Fungitell 05/29 SP Zosyn x1 in ED Monitor CBC/CMP Monitor resp status Monitor temp curve and hemodynamics D/w RN Thank you for this consult. [facility] will continue to follow. Subjective Allergies: Coded Allergies: ACETAMINOPHEN (Verified Allergy, Unknown, 05/29/20) HYDROCODONE (Verified Allergy, Unknown, 05/29/20) AF NAD on 10L Venturi mask but obtunded Cr 10, BUN 99 Objective Last 24 Hour Vital Signs Date Time Temp Pulse Resp B/P (MAP) Pulse Ox O2 Delivery O2 Flow Rate FiO2 06/10/20 04:00 97.6 62 20 122/64 (83) 99 06/10/20 00:00 97.6 59 20 126/62 (83) 97 06/09/20 21:00 Venturi Mask 10.0 06/09/20 20:00 97.8 55 18 136/66 (89) 97 06/09/20 18:32 156/58 06/09/20 16:00 97.6 67 18 156/58 (90) 98 06/09/20 12:46 110/51 06/09/20 12:00 97.2 58 16 114/46 (68) 96 06/09/20 09:00 Venturi Mask 10.0 Height (Feet): 5 Height (Inches): 6.00 Weight (Pounds): 338 Gen: NAD in bed HEENT: NCAT CV: RRR Pulm: CTAB Abd: Soft, NTND, obese, no significant noted erythema of the pannus, very edematous Ext: 2+ pitting edema of BLE Neuro: Minimally interactive, obtunded Laboratory Tests Test 06/10/20 05:15 White Blood Count 12.4 K/UL (4.8-10.8) H Red Blood Count 3.54 M/UL (4.20-5.40) L Hemoglobin 9.4 G/DL (12.0-16.0) L Hematocrit 30.2 % (37.0-47.0) L Mean Corpuscular Volume 85 FL (80-99) Mean Corpuscular Hemoglobin 26.5 PG (27.0-31.0) L Mean Corpuscular Hemoglobin Concent 31.0 G/DL (32.0-36.0) L Red Cell Distribution Width 20.4 % (11.6-14.8) H Platelet Count 152 K/UL (150-450) Mean Platelet Volume 8.8 FL (6.5-10.1) Neutrophils (%) (Auto) 84.8 % (45.0-75.0) H Lymphocytes (%) (Auto) 5.9 % (20.0-45.0) L Monocytes (%) (Auto) 5.1 % (1.0-10.0) Eosinophils (%) (Auto) 2.3 % (0.0-3.0) Basophils (%) (Auto) 1.9 % (0.0-2.0) Sodium Level 136 MMOL/L (136-145) Potassium Level 4.8 MMOL/L (3.5-5.1) Chloride Level 103 MMOL/L (98-107) Carbon Dioxide Level 20 MMOL/L (21-32) L Anion Gap 13 mmol/L (5-15) Blood Urea Nitrogen 99 mg/dL (7-18) H Creatinine 10.2 MG/DL (0.55-1.30) H Estimat Glomerular Filtration Rate 3.9 mL/min (>60) Glucose Level 125 MG/DL (74-106) H Calcium Level 6.4 MG/DL (8.5-10.1) L Current Medications Medications (Trade) Dose Ordered Sig/Alissa Route PRN Reason Start Time Stop Time Status Last Admin Dose Admin Cefazolin Sodium 500 mg/Dextrose 55 ml @ 110 mls/hr Q12H IV 06/01/20 18:00 06/10/20 17:59 06/10/20 05:25 Dextrose 1,000 ml @ 30 mls/hr Q24H IV 06/08/20 23:00 07/08/20 22:59 06/09/20 23:00 Docusate Sodium (Colace) 100 mg TWICE A DAY ORAL 06/03/20 09:00 07/03/20 08:59 06/09/20 18:31 Furosemide (Lasix) 100 mg EVERY 12 HOURS IV 06/06/20 12:00 07/03/20 20:59 06/09/20 21:15 Heparin Sodium (Porcine) (Heparin 5000 units/ml) 5,000 units EVERY 12 HOURS SUBQ 05/30/20 09:00 07/14/20 08:59 06/08/20 21:10 Hydralazine HCl (Apresoline) 50 mg TID ORAL 06/04/20 11:53 09/02/20 11:52 06/09/20 18:32 Metolazone (Zaroxolyn) 5 mg DAILY ORAL 06/03/20 19:00 07/03/20 18:59 06/06/20 10:14 Tramadol HCl (Ultram) 50 mg Q4H PRN ORAL Severe Pain (Pain Scale 7-10) 06/06/20 12:00 06/13/20 11:59 06/09/20 22:33 Leola Boyer M.D. Jun 10, 2020 08:20
[2020-06-10] MEDS: Docusate 100mg cap ORAL SCH ×2 (08:24→18:00)
[2020-06-10] MEDS: HydrALAZINE 50mg tab ORAL SCH ×3 (08:24→18:00)
[2020-06-10] MEDS: Heparin 5000 units/ml inj SUBQ SCH ×2 (08:25→21:18)
--- NOTE | 2020-06-10 08:53 | General Progress Note ---
Subjective Date patient seen: Jun 10, 2020 Time patient seen: 08:15 - am Allergies: Coded Allergies: ACETAMINOPHEN (Verified Allergy, Unknown, 05/29/20) HYDROCODONE (Verified Allergy, Unknown, 05/29/20) Subjective HISTORY OF PRESENT ILLNESS: The patient is a 59-year-old female, who is being seen on the med/surg floor of [facility]. Patient resting in bed and used one dose of Tramadol in the last 24hrs. No new complaints at this time. REVIEW OF SYSTEMS: Denies rash, fever, chills, sweating, dizziness, drowsiness, blurred vision, sore throat, or change in weight. No shortness of breath, chest pain, palpitations, or cough. No nausea, vomiting, diarrhea, or blood in stool or urine. No dysuria. Objective Last 24 Hour Vital Signs Date Time Temp Pulse Resp B/P (MAP) Pulse Ox O2 Delivery O2 Flow Rate FiO2 06/10/20 08:24 96/54 06/10/20 04:00 97.6 62 20 122/64 (83) 99 06/10/20 00:00 97.6 59 20 126/62 (83) 97 06/09/20 21:00 Venturi Mask 10.0 06/09/20 20:00 97.8 55 18 136/66 (89) 97 06/09/20 18:32 156/58 06/09/20 16:00 97.6 67 18 156/58 (90) 98 06/09/20 12:46 110/51 06/09/20 12:00 97.2 58 16 114/46 (68) 96 06/09/20 09:00 Venturi Mask 10.0 Intake and Output 06/09/20 06/10/20 19:00 07:00 # Voids 200 100 Laboratory Tests 06/10/20 05:15: White Blood Count 12.4H, Red Blood Count 3.54L, Hemoglobin 9.4L, Hematocrit 30.2L, Mean Corpuscular Volume 85, Mean Corpuscular Hemoglobin 26.5L, Mean Corpuscular Hemoglobin Concent 31.0L, Red Cell Distribution Width 20.4H, Platelet Count 152, Mean Platelet Volume 8.8, Neutrophils (%) (Auto) 84.8H, Lymphocytes (%) (Auto) 5.9L, Monocytes (%) (Auto) 5.1, Eosinophils (%) (Auto) 2.3, Basophils (%) (Auto) 1.9, Sodium Level 136, Potassium Level 4.8, Chloride Level 103, Carbon Dioxide Level 20L, Anion Gap 13, Blood Urea Nitrogen 99H, Creatinine 10.2H, Estimat Glomerular Filtration Rate 3.9, Glucose Level 125H, Calcium Level 6.4L Height (Feet): 5 Height (Inches): 6.00 Weight (Pounds): 338 Objective PHYSICAL EXAMINATION: NECK: Range of motion is decreased due to the patient's condition. LUNGS: Decreased breath sounds bilaterally. HEART: Regular. ABDOMEN: Obese. EXTREMITIES: No clubbing. NEURO: No changes. Assessment/Plan Status: unchanged Assessment/Plan: (1) Abdominal pain (2) Morbid obesity (3) Multiple joint pain and OA Patient to be continued on Tramadol. D/w Dr. Agudelo and he concurred. Elio Colon Jun 10, 2020 08:53
--- NOTE | 2020-06-10 09:34 | General Progress Note ---
Subjective ROS Limited/Unobtainable: No Allergies: Coded Allergies: ACETAMINOPHEN (Verified Allergy, Unknown, 05/29/20) HYDROCODONE (Verified Allergy, Unknown, 05/29/20) Objective Last 24 Hour Vital Signs Date Time Temp Pulse Resp B/P (MAP) Pulse Ox O2 Delivery O2 Flow Rate FiO2 06/10/20 09:00 Venturi Mask 10.0 06/10/20 08:24 96/54 06/10/20 08:00 98.2 64 20 96/64 (75) 99 06/10/20 04:00 97.6 62 20 122/64 (83) 99 06/10/20 00:00 97.6 59 20 126/62 (83) 97 06/09/20 21:00 Venturi Mask 10.0 06/09/20 20:00 97.8 55 18 136/66 (89) 97 06/09/20 18:32 156/58 06/09/20 16:00 97.6 67 18 156/58 (90) 98 06/09/20 12:46 110/51 06/09/20 12:00 97.2 58 16 114/46 (68) 96 Intake and Output 06/09/20 06/10/20 19:00 07:00 # Voids 200 100 Laboratory Tests 06/10/20 05:15: White Blood Count 12.4H, Red Blood Count 3.54L, Hemoglobin 9.4L, Hematocrit 30.2L, Mean Corpuscular Volume 85, Mean Corpuscular Hemoglobin 26.5L, Mean Corpuscular Hemoglobin Concent 31.0L, Red Cell Distribution Width 20.4H, Platelet Count 152, Mean Platelet Volume 8.8, Neutrophils (%) (Auto) 84.8H, Lymphocytes (%) (Auto) 5.9L, Monocytes (%) (Auto) 5.1, Eosinophils (%) (Auto) 2.3, Basophils (%) (Auto) 1.9, Sodium Level 136, Potassium Level 4.8, Chloride Level 103, Carbon Dioxide Level 20L, Anion Gap 13, Blood Urea Nitrogen 99H, Creatinine 10.2H, Estimat Glomerular Filtration Rate 3.9, Glucose Level 125H, Calcium Level 6.4L Height (Feet): 5 Height (Inches): 6.00 Weight (Pounds): 338 General Appearance: no apparent distress EENT: normal ENT inspection Neck: supple Cardiovascular: normal rate Respiratory/Chest: decreased breath sounds Abdomen: normal bowel sounds, non tender, soft Extremities: non-tender Assessment/Plan Status: unchanged Assessment/Plan: iron def anemia abd pain RI morbid obesity anasarca/ascites diverticulosis cholelithiasis DNR/DNI CT and US reviewed respiratory care off HD per family request poor prognosis comfort care Paul Díaz MD Jun 10, 2020 09:34
--- NOTE | 2020-06-10 10:20 | NUR ---
NURSE NOTES: Spoke with Dr. Stewart about patient's low blood pressure this AM, no new orders. Addendum: 06/10/20 at 1251 by James Weiss RN RN I also spoke with Dr. Corral during his rounds about patient's low blood pressure, no new orders.
--- NOTE | 2020-06-10 10:29 | Nephrology Progress Note ---
Assessment/Plan Problem List: (1) INGRIS (acute kidney injury) (2) Hyperkalemia (3) Morbid obesity with BMI of 50.0-59.9, adult (4) Anemia Assessment Renal failure most likely acute on chronic Presents with hyperkalemia Anemia Hypertension Pleural effusion Ejection fraction 55% No hydronephrosis and kidney ultrasound 4+ proteinuria, likely due to diabetic nephropathy Morbid obesity Plan June 10: Patient continues to have a lab drawn. Continues to be DNR/DNI and no dialysis. At this point I cannot offer any further treatment plan or services for this patient. I will sign off. Please reconsult as needed. June 09: Patient n.p.o. On 50 cc D10. Blood pressure 110 systolic. Slow to response. Patient DNR/DNI and no dialysis. Patient has acute on chronic renal failure. Continue comfort care. June 08: Status quo. No labs drawn today. Remains on Venturi mask. I agree with transfer to [facility] as the patient DNR/DNI and no dialysis and essentially needs to be on comfort care. June 07: No major change. Blood pressure drifting down. No blood work is done. Remains on Venturi mask. Remains DNR/DNI and do not dialysis. I continue to favor comfort care. Continue per consultants. June 06: Patient does not have any blood work today. Remains on Venturi mask. Poorly responsive to verbal stimuli. Status quo. Remains DNR/DNI and no dialysis status per family. I favor comfort care. Continue per consultants. June 05: No labs drawn. Gradually deteriorating. Not much to add from renal standpoint of view. June 04: Labs reviewed. Serum creatinine paul. Patient not to be dialyzed per family request. Blood pressure controlled. Bradycardic. Medication adjusted. Poor prognosis. Patient remains DNR/DNI. June 03: Patient was transferred to telemetry for high blood pressure. Remains DNR/DNI. Blood pressure now within normal limit. Patient clonidine patch. Since appearing clinically more responsive will check labs tomorrow. June 02: Labs reviewed. Status quo. Patient DNR/DNI and do not dialysis per family request. Not much to add from renal standpoint of view. Suggest no lab draw since not much can be done about it from renal standpoint of view. June 01: Events of last 24 hours noted and is as follow: Patient found to be acidotic with acute renal failure. Was transferred to ICU. Planned to dialyze and protect the airways. Apparently family changed the status to DNR/DNI. Patient was then transferred to medical floor. Currently status unchanged. Not much more to be added from renal standpoint of view. Suggest comfort care. Since we are not going to do any dialysis treatment, monitoring blood chemistries and renal parameters are not needed. May 31: Patient morbidly obese. Labs reviewed. Worsening renal parameters and hyperkalemia. Dior ordered. Kayexalate ordered. Stat ABG ordered. Patient n.p.o. Insertion of dialysis catheter and consent ordered. Patient may need to be transferred to ICU. Discussed with RN and nurse in charge of the floor. May 30: DC IV fluid and diuretics Keep the blood pressure in check Monitor renal parameters Monitor electrolytes Avoid nephrotoxic's 1 dose of Kayexalate Intravenous Venofer for low iron Per orders Subjective ROS Limited/Unobtainable: Yes Objective Objective Last 24 Hour Vital Signs Date Time Temp Pulse Resp B/P (MAP) Pulse Ox O2 Delivery O2 Flow Rate FiO2 06/10/20 09:00 Venturi Mask 10.0 06/10/20 08:24 96/54 06/10/20 08:00 98.2 64 20 96/64 (75) 99 06/10/20 04:00 97.6 62 20 122/64 (83) 99 06/10/20 00:00 97.6 59 20 126/62 (83) 97 06/09/20 21:00 Venturi Mask 10.0 06/09/20 20:00 97.8 55 18 136/66 (89) 97 06/09/20 18:32 156/58 06/09/20 16:00 97.6 67 18 156/58 (90) 98 06/09/20 12:46 110/51 06/09/20 12:00 97.2 58 16 114/46 (68) 96 Intake and Output 06/09/20 06/10/20 19:00 07:00 # Voids 200 100 Current Medications Medications (Trade) Dose Ordered Sig/Alissa Route PRN Reason Start Time Stop Time Status Last Admin Dose Admin Dextrose 1,000 ml @ 30 mls/hr Q24H IV 06/08/20 23:00 07/08/20 22:59 06/09/20 23:00 Docusate Sodium (Colace) 100 mg TWICE A DAY ORAL 06/03/20 09:00 07/03/20 08:59 06/09/20 18:31 Furosemide (Lasix) 100 mg EVERY 12 HOURS IV 06/06/20 12:00 07/03/20 20:59 06/09/20 21:15 Heparin Sodium (Porcine) (Heparin 5000 units/ml) 5,000 units EVERY 12 HOURS SUBQ 05/30/20 09:00 07/14/20 08:59 06/08/20 21:10 Hydralazine HCl (Apresoline) 50 mg TID ORAL 06/04/20 11:53 09/02/20 11:52 06/09/20 18:32 Metolazone (Zaroxolyn) 5 mg DAILY ORAL 06/03/20 19:00 07/03/20 18:59 06/06/20 10:14 Tramadol HCl (Ultram) 50 mg Q4H PRN ORAL Severe Pain (Pain Scale 7-10) 06/06/20 12:00 06/13/20 11:59 06/09/20 22:33 Laboratory Tests 06/10/20 05:15: White Blood Count 12.4H, Red Blood Count 3.54L, Hemoglobin 9.4L, Hematocrit 30.2L, Mean Corpuscular Volume 85, Mean Corpuscular Hemoglobin 26.5L, Mean Corpuscular Hemoglobin Concent 31.0L, Red Cell Distribution Width 20.4H, Plate let Count 152, Mean Platelet Volume 8.8, Neutrophils (%) (Auto) 84.8H, Lymphocytes (%) (Auto) 5.9L, Monocytes (%) (Auto) 5.1, Eosinophils (%) (Auto) 2.3, Basophils (%) (Auto) 1.9, Sodium Level 136, Potassium Level 4.8, Chloride Level 103, Carbon Dioxide Level 20L, Anion Gap 13, Blood Urea Nitrogen 99H, Creatinine 10.2H, Estimat Glomerular Filtration Rate 3.9, Glucose Level 125H, Calcium Level 6.4L Height (Feet): 5 Height (Inches): 6.00 Weight (Pounds): 338 General Appearance: no apparent distress Respiratory/Chest: decreased breath sounds Abdomen: distended Darrian Stewart MD Jun 10, 2020 10:29
--- NOTE | 2020-06-10 11:33 | NUR ---
COMPOSING ROOM MACHINIST NOTE SW spoke w/ pt's sister, Sophia Andrew [phone] that she spoke w/ Dr. Stewart, discussed prognosis, and she also confirmed that she respects pt's decision on DNR and DNI. Sophia shared w/ this SW that she agrees w/ hospice care and she is currently communicating w/ [facility] to set up the service.
--- NOTE | 2020-06-10 11:36 | NUR ---
BRIANNA DAWKINS (SISTER) [phone]
--- NOTE | 2020-06-10 11:55 | Cardiac Electrophysiology PN ---
Assessment/Plan Assessment/Plan 1. Bradycardia with heart rate in the 40s-50s. Off metoprolol and Clonidine patch 2. Hypertension, On Lasix 100 iv bid, Metolazone and Hydralazine 50 tid 3. Chest pain. The pain is atypical. Ruled out [place] EF 55% on echocardiogram 4. Volume overload. Renal failure with creatinine of 9.6 Family Refusing HD 5. Generalized pain. Follow up pain management. 6. Morbid obesity. 7. Hyperkalemia. 8. Hospice care pending DW Dr. Stewart Subjective Subjective Confused on 40% Venturi Face Mask on.More alert. RN at bedside. On iv Lasix and Ancef on NMB Objective Last 24 Hour Vital Signs Date Time Temp Pulse Resp B/P (MAP) Pulse Ox O2 Delivery O2 Flow Rate FiO2 06/10/20 09:00 Venturi Mask 10.0 06/10/20 08:24 96/54 06/10/20 08:00 98.2 64 20 96/64 (75) 99 06/10/20 04:00 97.6 62 20 122/64 (83) 99 06/10/20 00:00 97.6 59 20 126/62 (83) 97 06/09/20 21:00 Venturi Mask 10.0 06/09/20 20:00 97.8 55 18 136/66 (89) 97 06/09/20 18:32 156/58 06/09/20 16:00 97.6 67 18 156/58 (90) 98 06/09/20 12:46 110/51 06/09/20 12:00 97.2 58 16 114/46 (68) 96 Intake and Output 06/09/20 06/10/20 19:00 07:00 # Voids 200 100 Laboratory Tests Test 06/10/20 05:15 White Blood Count 12.4 K/UL (4.8-10.8) H Red Blood Count 3.54 M/UL (4.20-5.40) L Hemoglobin 9.4 G/DL (12.0-16.0) L Hematocrit 30.2 % (37.0-47.0) L Mean Corpuscular Volume 85 FL (80-99) Mean Corpuscular Hemoglobin 26.5 PG (27.0-31.0) L Mean Corpuscular Hemoglobin Concent 31.0 G/DL (32.0-36.0) L Red Cell Distribution Width 20.4 % (11.6-14.8) H Platelet Count 152 K/UL (150-450) Mean Platelet Volume 8.8 FL (6.5-10.1) Neutrophils (%) (Auto) 84.8 % (45.0-75.0) H Lymphocytes (%) (Auto) 5.9 % (20.0-45.0) L Monocytes (%) (Auto) 5.1 % (1.0-10.0) Eosinophils (%) (Auto) 2.3 % (0.0-3.0) Basophils (%) (Auto) 1.9 % (0.0-2.0) Sodium Level 136 MMOL/L (136-145) Potassium Level 4.8 MMOL/L (3.5-5.1) Chloride Level 103 MMOL/L (98-107) Carbon Dioxide Level 20 MMOL/L (21-32) L Anion Gap 13 mmol/L (5-15) Blood Urea Nitrogen 99 mg/dL (7-18) H Creatinine 10.2 MG/DL (0.55-1.30) H Estimat Glomerular Filtration Rate 3.9 mL/min (>60) Glucose Level 125 MG/DL (74-106) H Calcium Level 6.4 MG/DL (8.5-10.1) L Objective NECK: No JVD. LUNGS: Clear. CARDIOVASCULAR: Shows regular S1 and S2 with no gallop. ABDOMEN: Morbidly obese. EXTREMITIES: 1+ pitting edema. Shad Colon MD Jun 10, 2020 11:55
[2020-06-10 12:00] VITALS: BP 74/45
--- NOTE | 2020-06-10 12:08 | Pulmonology Progress Note ---
Subjective ROS Limited/Unobtainable: Yes Constitutional: Reports: no symptoms HEENT: Repors: no symptoms Respiratory: Reports: no symptoms Cardiovascular: Reports: no symptoms Allergies: Coded Allergies: ACETAMINOPHEN (Verified Allergy, Unknown, 05/29/20) HYDROCODONE (Verified Allergy, Unknown, 05/29/20) All Systems: reviewed and negative except above Objective Last 24 Hour Vital Signs Date Time Temp Pulse Resp B/P (MAP) Pulse Ox O2 Delivery O2 Flow Rate FiO2 06/10/20 09:00 Venturi Mask 10.0 06/10/20 08:24 96/54 06/10/20 08:00 98.2 64 20 96/64 (75) 99 06/10/20 04:00 97.6 62 20 122/64 (83) 99 06/10/20 00:00 97.6 59 20 126/62 (83) 97 06/09/20 21:00 Venturi Mask 10.0 06/09/20 20:00 97.8 55 18 136/66 (89) 97 06/09/20 18:32 156/58 06/09/20 16:00 97.6 67 18 156/58 (90) 98 06/09/20 12:46 110/51 Intake and Output 06/09/20 06/10/20 19:00 07:00 # Voids 200 100 General Appearance: WD/WN HEENT: normocephalic, atraumatic Respiratory: chest wall non-tender, rhonchi - left, rhonchi - right Breasts: no masses Cardiovascular: normal peripheral pulses, normal rate Abdomen: normal bowel sounds, soft, non tender Genitourinary: normal external genitalia Extremities: no cyanosis Skin: no rash Neurologic: diet clerk II-XII grossly normal Laboratory Tests 06/10/20 05:15: White Blood Count 12.4H, Red Blood Count 3.54L, Hemoglobin 9.4L, Hematocrit 30.2L, Mean Corpuscular Volume 85, Mean Corpuscular Hemoglobin 26.5L, Mean Corpuscular Hemoglobin Concent 31.0L, Red Cell Distribution Width 20.4H, Platelet Count 152, Mean Platelet Volume 8.8, Neutrophils (%) (Auto) 84.8H, Lym phocytes (%) (Auto) 5.9L, Monocytes (%) (Auto) 5.1, Eosinophils (%) (Auto) 2.3, Basophils (%) (Auto) 1.9, Sodium Level 136, Potassium Level 4.8, Chloride Level 103, Carbon Dioxide Level 20L, Anion Gap 13, Blood Urea Nitrogen 99H, Creatinine 10.2H, Estimat Glomerular Filtration Rate 3.9, Glucose Level 125H, Calcium Level 6.4L Current Medications Medications (Trade) Dose Ordered Sig/Alissa Route PRN Reason Start Time Stop Time Status Last Admin Dose Admin Dextrose 1,000 ml @ 30 mls/hr Q24H IV 06/08/20 23:00 07/08/20 22:59 06/09/20 23:00 Docusate Sodium (Colace) 100 mg TWICE A DAY ORAL 06/03/20 09:00 07/03/20 08:59 06/09/20 18:31 Furosemide (Lasix) 100 mg EVERY 12 HOURS IV 06/06/20 12:00 07/03/20 20:59 06/09/20 21:15 Heparin Sodium (Porcine) (Heparin 5000 units/ml) 5,000 units EVERY 12 HOURS SUBQ 05/30/20 09:00 07/14/20 08:59 06/08/20 21:10 Hydralazine HCl (Apresoline) 50 mg TID ORAL 06/04/20 11:53 09/02/20 11:52 06/09/20 18:32 Metolazone (Zaroxolyn) 5 mg DAILY ORAL 06/03/20 19:00 07/03/20 18:59 06/06/20 10:14 Tramadol HCl (Ultram) 50 mg Q4H PRN ORAL Severe Pain (Pain Scale 7-10) 06/06/20 12:00 06/13/20 11:59 06/09/20 22:33 Assessment/Plan Problems: (1) Acute respiratory failure (2) Pleural effusion (3) INGRIS (acute kidney injury) (4) Morbid obesity with BMI of 50.0-59.9, adult (5) Abdominal wall cellulitis Assessment/Plan pts' daughter agreed with hospice care. she will sign all the consents. all reviewed on face mask looks comfortable comfort measures symptomatic treatment Eder Corral MD Jun 10, 2020 12:08
--- NOTE | 2020-06-10 13:11 | General Progress Note ---
Subjective Constitutional: Reports: weakness Allergies: Coded Allergies: ACETAMINOPHEN (Verified Allergy, Unknown, 05/29/20) HYDROCODONE (Verified Allergy, Unknown, 05/29/20) All Systems: reviewed and negative except above Subjective o2 mask sleepy Objective Last 24 Hour Vital Signs Date Time Temp Pulse Resp B/P (MAP) Pulse Ox O2 Delivery O2 Flow Rate FiO2 06/10/20 12:45 74/45 06/10/20 12:00 98.4 80 20 74/45 (55) 99 06/10/20 09:00 Venturi Mask 10.0 06/10/20 08:24 96/54 06/10/20 08:00 98.2 64 20 96/64 (75) 99 06/10/20 04:00 97.6 62 20 122/64 (83) 99 06/10/20 00:00 97.6 59 20 126/62 (83) 97 06/09/20 21:00 Venturi Mask 10.0 06/09/20 20:00 97.8 55 18 136/66 (89) 97 06/09/20 18:32 156/58 06/09/20 16:00 97.6 67 18 156/58 (90) 98 Intake and Output 06/09/20 06/10/20 19:00 07:00 # Voids 200 100 Laboratory Tests 06/10/20 05:15: White Blood Count 12.4H, Red Blood Count 3.54L, Hemoglobin 9.4L, Hematocrit 30.2L, Mean Corpuscular Volume 85, Mean Corpuscular Hemoglobin 26.5L, Mean Corpuscular Hemoglobin Concent 31.0L, Red Cell Distribution Width 20.4H, Platelet Count 152, Mean Platelet Volume 8.8, Neutrophils (%) (Auto) 84.8H, Lymphocytes (%) (Auto) 5.9L, Monocytes (%) (Auto) 5.1, Eosinophils (%) (Auto) 2.3, Basophils (%) (Auto) 1.9, Sodium Level 136, Potassium Level 4.8, Chloride Level 103, Carbon Dioxide Level 20L, Anion Gap 13, Blood Urea Nitrogen 99H, Creatinine 10.2H, Estimat Glomerular Filtration Rate 3.9, Glucose Level 125H, Calcium Level 6.4L Height (Feet): 5 Height (Inches): 6.00 Weight (Pounds): 338 General Appearance: lethargic EENT: normal ENT inspection Neck: normal alignment Cardiovascular: normal peripheral pulses, normal rate, regular rhythm Respiratory/Chest: chest wall non-tender, lungs clear, normal breath sounds Abdomen: normal bowel sounds, non tender, soft Extremities: normal inspection Edema: 1+ Arm (L), 1+ Arm (R), 1+ Leg (L), 1+ Leg (R), 1+ Pedal (L), 1+ Pedal (R), 1+ Generalized Edema: trace edema Neurologic: motor weakness Skin: normal pigmentation, warm/dry Assessment/Plan Problem List: (1) SOB (shortness of breath) ICD Codes: R06.02 - Shortness of breath SNOMED: 913494601 (2) Abdominal pain ICD Codes: R10.9 - Unspecified abdominal pain SNOMED: 72087627 (3) Pleural effusion ICD Codes: J90 - Pleural effusion, not elsewhere classified SNOMED: 05186299 (4) Morbid obesity with BMI of 50.0-59.9, adult ICD Codes: E66.01 - Morbid (severe) obesity due to excess calories; Z68.43 - Body mass index [BMI] 50.0-59.9, adult SNOMED: 085291130, 319651417, 70329431978744 (5) INGRIS (acute kidney injury) ICD Codes: N17.9 - Acute kidney failure, unspecified SNOMED: 2224845, 18794926 (6) Anemia ICD Codes: D64.9 - Anemia, unspecified SNOMED: 921266541 Status: unchanged Assessment/Plan: o2 pulm tx pain control gi f/u cbc bmp Hernan Cheng DO Jun 10, 2020 13:11
[2020-06-10] MEDS ORDERED: Morphine Sulfate 2mg/ml Inj(IV/IM USE ONLY) IVP PRN (13:15)
--- NOTE | 2020-06-10 13:18 | NUR ---
CASE MANAGEMENT:REVIEW SI;BILAT PLEURAL EFFUSIONS. PULMONARY EDEMA. AC KIDNEY INJURY. ANEMIA. 98.4 80 20 74/45 99% 10L VENTURI MASK WBC 12.4 H/H 9.4/30.2 BUN 99 CR 10.2 IS;IVF D5 @ 30 ML/HR MED SURG STATUS [facility]
[2020-06-10 16:00] VITALS: BP 111/54
--- NOTE | 2020-06-10 16:09 | Surgery Progress Note ---
Surgery Progress Note Subjective Additional Comments no acute events exam unchanged ill appearing Objective Last 24 Hour Vital Signs Date Time Temp Pulse Resp B/P (MAP) Pulse Ox O2 Delivery O2 Flow Rate FiO2 06/10/20 12:45 74/45 06/10/20 12:00 98.4 80 20 74/45 (55) 99 06/10/20 09:00 Venturi Mask 10.0 06/10/20 08:24 96/54 06/10/20 08:00 98.2 64 20 96/64 (75) 99 06/10/20 04:00 97.6 62 20 122/64 (83) 99 06/10/20 00:00 97.6 59 20 126/62 (83) 97 06/09/20 21:00 Venturi Mask 10.0 06/09/20 20:00 97.8 55 18 136/66 (89) 97 06/09/20 18:32 156/58 I&O Intake and Output 06/09/20 06/10/20 19:00 07:00 # Voids 200 100 Cardiovascular: RSR Respiratory: decreased breath sounds Abdomen: tenderness, present bowel sounds, non-distended Extremities: edema, no tenderness, no cyanosis Laboratory Tests Test 06/10/20 05:15 White Blood Count 12.4 K/UL (4.8-10.8) H Red Blood Count 3.54 M/UL (4.20-5.40) L Hemoglobin 9.4 G/DL (12.0-16.0) L Hematocrit 30.2 % (37.0-47.0) L Mean Corpuscular Volume 85 FL (80-99) Mean Corpuscular Hemoglobin 26.5 PG (27.0-31.0) L Mean Corpuscular Hemoglobin Concent 31.0 G/DL (32.0-36.0) L Red Cell Distribution Width 20.4 % (11.6-14.8) H Platelet Count 152 K/UL (150-450) Mean Platelet Volume 8.8 FL (6.5-10.1) Neutrophils (%) (Auto) 84.8 % (45.0-75.0) H Lymphocytes (%) (Auto) 5.9 % (20.0-45.0) L Monocytes (%) (Auto) 5.1 % (1.0-10.0) Eosinophils (%) (Auto) 2.3 % (0.0-3.0) Basophils (%) (Auto) 1.9 % (0.0-2.0) Sodium Level 136 MMOL/L (136-145) Potassium Level 4.8 MMOL/L (3.5-5.1) Chloride Level 103 MMOL/L (98-107) Carbon Dioxide Level 20 MMOL/L (21-32) L Anion Gap 13 mmol/L (5-15) Blood Urea Nitrogen 99 mg/dL (7-18) H Creatinine 10.2 MG/DL (0.55-1.30) H Estimat Glomerular Filtration Rate 3.9 mL/min (>60) Glucose Level 125 MG/DL (74-106) H Calcium Level 6.4 MG/DL (8.5-10.1) L Plan Problems: (1) Pleural effusion (2) Hyperkalemia (3) INGRIS (acute kidney injury) (4) Morbid obesity with BMI of 50.0-59.9, adult (5) Anemia (6) SOB (shortness of breath) (7) Abdominal pain (8) Abdominal wall cellulitis Assessment & Plan: panniculitis anasarca cont abx dnr/dni comfort care confirmed care plan with patients daughter polst noted no acute surgical intervention acute renal insufficiency no HD, no cath insertion given patients and family wishes respiratory insufficiency acidosis no intubation given care plan thank you ABDOMEN: Liver: Unremarkable. Gallbladder and bile ducts: Unremarkable. No calcified stones. No ductal dilation. Pancreas: Unremarkable. No ductal dilation. Spleen: Unremarkable. No splenomegaly. Adrenals: Unremarkable. No mass. Kidneys and ureters: Mild nonspecific perinephric stranding. No obstructing stones. Stomach and bowel: Diverticulosis of the colon with no signs of diverticulitis. No obstruction. PELVIS: Appendix: No findings to suggest acute appendicitis. Bladder: Unremarkable. No stones. Reproductive: Unremarkable as visualized. ABDOMEN and PELVIS: Intraperitoneal space: Mild ascites predominantly seen along the anterior liver margin. No free air. Bones/joints: Advanced multilevel disc degenerative disease. No acute fracture. No dislocation. Soft tissues: Stranding/fluid infiltration of the subcutaneous fat suggestive of anasarca. Vasculature: Unremarkable. No abdominal aortic aneurysm. Lymph nodes: Unremarkable. No enlarged lymph nodes. IMPRESSION: 1. Right sided lung nodules, differential diagnosis including metastatic disease/neoplasm versus inflammatory process. Follow-up recommended with CT chest for further characterization. 2. Bilateral pleural effusions, more significant on the right. 3. Diffuse anasarca. Mild ascites. 4. Diverticulosis with no signs of diverticulitis. No bowel obstruction. Sean Anderson Jun 10, 2020 16:09
[2020-06-10] MEDS ORDERED: Morphine Sulfate 4mg/ml Inj (IV USE ONLY) IVP PRN (17:45)
--- NOTE | 2020-06-10 19:45 | NUR ---
NURSE HAND-OFF: Important Events on Shift:[New orders for morphine] Patient Status: stable Diet: NPO Pending Orders: Pending Results/Labs: Pending MD notification: Latest Vital Signs: Temperature 98.3 , Pulse 75 , B/P 106 /52 , Respiratory Rate 20 , O2 SAT 97 , Venturi Mask, O2 Flow Rate 10.0 . Vital Sign Comment: Stable, blood pressure runs low 90s/50s Latest Bhagat Fall Score: 60 Fall Risk: High Risk Safety Measures: Call light Within Reach, Bed Alarm Zone 1, Side Rails Side Rails x3, Bed position Low and Locked. Fall Precautions: Yellow Socks Yellow Gown Door Sign Patient Fall Education Report given to Shelley and Noah RNs.
--- NOTE | 2020-06-10 21:56 | NUR ---
NURSE NOTES: Received report from James LEYVA. Patient is sleeping at the moment. Patient is on 10L venturi mask. Dior intact. IV site is intact with IVF running as ordered. Bed low and locked. Call light within reach. Will continue to monitor. Addendum: 06/11/20 at 0647 by Noah Renae RN Correction. Time note entered 1930.
[2020-06-10] MEDS: Dextrose 10% 1,000 ML IV SCH (23:54)
[2020-06-10 23:57] VITALS: BP 146/110
[2020-06-11 04:00] VITALS: BP 116/51
[2020-06-11 06:11] LABS: HEMATOCRIT 30.8 % (37.0-47.0); HEMOGLOBIN 9.5 G/DL (12.0-16.0); MEAN CORPUSCULAR VOLUME 86 FL (80-99); PLATELET COUNT 151 K/UL (150-450); RED BLOOD COUNT 3.58 M/UL (4.20-5.40); RED CELL DISTRIBUTION WIDTH 19.7 % (11.6-14.8); WHITE BLOOD COUNT 14.8 K/UL (4.8-10.8)
[2020-06-11 06:26] LABS: CALCIUM 6.8 MG/DL (8.5-10.1); CREATININE 10.8 MG/DL (0.55-1.30); POTASSIUM 5.1 MMOL/L (3.5-5.1)
--- NOTE | 2020-06-11 07:00 | NUR ---
NURSE HAND-OFF: Important Events on Shift: Pain management, turning and reposition, and oral care. Patient Status: Stable Diet: NPO Pending Orders: N/A Pending Results/Labs:N/A Pending MD notification:N/A Latest Vital Signs: Temperature 97.8 , Pulse 46 , B/P 116 /51 , Respiratory Rate 20 , O2 SAT 98 , Venturi Mask, O2 Flow Rate 10.0 . Vital Sign Comment: VS stable Latest Bhagat Fall Score: 60 Fall Risk: High Risk Safety Measures: Call light Within Reach, Bed Alarm Zone 1, Side Rails Side Rails x3, Bed position Low and Locked. Fall Precautions: Yellow Socks Yellow Gown Door Sign Patient Fall Education Report will be given to Nona LEYVA.
--- NOTE | 2020-06-11 07:45 | NUR ---
NURSE NOTES: Received report from GORDON Rosa. Patient asleep in bed. On Venturi mask 10L o2. Breathing even and unlabored. IV site intact, infusing IVF. Dior catheter patent. Side rails up x3, call light within reach, bed in low position and locked. Will continue to monitor.
[2020-06-11 08:00] VITALS: BP 86/36
--- NOTE | 2020-06-11 08:17 | Infectious Diseases Prog Note ---
Assessment/Plan 59yo F with: Afebrile Normal WBC Pulmonary nodules BL pleural effusions, R>L Cough, SOB Likely CHF, volume OL 05/29 CT A/P: 1. Right sided lung nodules, differential diagnosis including metastatic disease/neoplasm versus inflammatory process. Follow-up recommended with CT chest for further characterization. 2. Bilateral pleural effusions, more significant on the right. 3. Diffuse anasarca. Mild ascites. 4. Diverticulosis with no signs of diverticulitis. No bowel obstruction. 05/30 CT chest: 1. Moderate right and small left pleural effusions. 2. Bilateral mild pulmonary edema/infiltrates. 3. Bilateral scattered small nodular lung densities which may be neoplasm/metastasis, chronic, infection/inflammation, or other etiology. Followup as clinically indicated. 05/30 COVID rapid neg Possible panniculitis and lt lower leg cellulitis, SP abx Pulm nodules w/u: HIV neg Crypto Ag neg Tspot neg Morbid obesity Plan: Monitor off abx Trend WBC, likely 2/2 renal failure F/u ID w/u for pulm nodules with: Cocci Histo Ab Ab and Ag Fungitell 06/10 SP cefazolin #10 for possible panniculitis and LLE cellulitis 05/29 SP Zosyn x1 in ED Monitor CBC/CMP Monitor resp status Monitor temp curve and hemodynamics D/w RN Thank you for this consult. [facility] will continue to follow. Subjective Allergies: Coded Allergies: ACETAMINOPHEN (Verified Allergy, Unknown, 05/29/20) HYDROCODONE (Verified Allergy, Unknown, 05/29/20) AF NAD on 10L Venturi mask but obtunded Cr >10, BUN >100 WBC 14 Objective Last 24 Hour Vital Signs Date Time Temp Pulse Resp B/P (MAP) Pulse Ox O2 Delivery O2 Flow Rate FiO2 06/11/20 04:00 97.8 46 20 116/51 (72) 98 06/10/20 23:57 97.3 52 20 146/110 (122) 98 06/10/20 21:00 Venturi Mask 10.0 06/10/20 18:00 106/52 06/10/20 16:00 98.3 75 20 111/54 (73) 97 06/10/20 12:45 74/45 06/10/20 12:00 98.4 80 20 74/45 (55) 99 06/10/20 09:00 Venturi Mask 10.0 06/10/20 08:24 96/54 Height (Feet): 5 Height (Inches): 6.00 Weight (Pounds): 338 Gen: NAD in bed HEENT: NCAT CV: RRR Pulm: CTAB Abd: Soft, NTND, obese, no significant noted erythema of the pannus, very edematous Ext: 2+ pitting edema of BLE Neuro: Minimally interactive, obtunded Laboratory Tests Test 06/11/20 05:00 White Blood Count 14.8 K/UL (4.8-10.8) H Red Blood Count 3.58 M/UL (4.20-5.40) L Hemoglobin 9.5 G/DL (12.0-16.0) L Hematocrit 30.8 % (37.0-47.0) L Mean Corpuscular Volume 86 FL (80-99) Mean Corpuscular Hemoglobin 26.4 PG (27.0-31.0) L Mean Corpuscular Hemoglobin Concent 30.7 G/DL (32.0-36.0) L Red Cell Distribution Width 19.7 % (11.6-14.8) H Platelet Count 151 K/UL (150-450) Mean Platelet Volume 9.2 FL (6.5-10.1) Neutrophils (%) (Auto) % (45.0-75.0) Lymphocytes (%) (Auto) % (20.0-45.0) Monocytes (%) (Auto) % (1.0-10.0) Eosinophils (%) (Auto) % (0.0-3.0) Basophils (%) (Auto) % (0.0-2.0) Sodium Level 137 MMOL/L (136-145) Potassium Level 5.1 MMOL/L (3.5-5.1) Chloride Level 102 MMOL/L (98-107) Carbon Dioxide Level 21 MMOL/L (21-32) Anion Gap 14 mmol/L (5-15) Blood Urea Nitrogen 106 mg/dL (7-18) H Creatinine 10.8 MG/DL (0.55-1.30) H Estimat Glomerular Filtration Rate 3.6 mL/min (>60) Glucose Level 131 MG/DL (74-106) H Calcium Level 6.8 MG/DL (8.5-10.1) L Current Medications Medications (Trade) Dose Ordered Sig/Alissa Route PRN Reason Start Time Stop Time Status Last Admin Dose Admin Dextrose 1,000 ml @ 30 mls/hr Q24H IV 06/08/20 23:00 07/08/20 22:59 06/10/20 23:54 Docusate Sodium (Colace) 100 mg TWICE A DAY ORAL 06/03/20 09:00 07/03/20 08:59 06/09/20 18:31 Furosemide (Lasix) 100 mg EVERY 12 HOURS IV 06/06/20 12:00 07/03/20 20:59 06/10/20 21:17 Heparin Sodium (Porcine) (Heparin 5000 units/ml) 5,000 units EVERY 12 HOURS SUBQ 05/30/20 09:00 07/14/20 08:59 06/10/20 21:18 Hydralazine HCl (Apresoline) 50 mg TID ORAL 06/04/20 11:53 09/02/20 11:52 06/09/20 18:32 Metolazone (Zaroxolyn) 5 mg DAILY ORAL 06/03/20 19:00 07/03/20 18:59 06/06/20 10:14 Morphine Sulfate (Morphine Sulfate) 2 mg Q4H PRN IVP Severe Pain (Pain Scale 7-10) 06/10/20 13:15 06/17/20 13:14 06/10/20 23:55 Morphine Sulfate (Morphine Sulfate) 4 mg Q4H PRN IVP breakthrough pain 06/10/20 17:45 06/17/20 17:44 Tramadol HCl (Ultram) 50 mg Q4H PRN ORAL Severe Pain (Pain Scale 7-10) 06/06/20 12:00 06/13/20 11:59 06/09/20 22:33 Leola Boyer M.D. Jun 11, 2020 08:17
--- NOTE | 2020-06-11 08:37 | General Progress Note ---
Subjective Date patient seen: Jun 11, 2020 Time patient seen: 07:00 - am Allergies: Coded Allergies: ACETAMINOPHEN (Verified Allergy, Unknown, 05/29/20) HYDROCODONE (Verified Allergy, Unknown, 05/29/20) Subjective HISTORY OF PRESENT ILLNESS: The patient is a 59-year-old female, who is being seen on the med/surg floor of [facility]. Patient showing no signs of pain or distress. Patient was started on Morphine 2-4mg IV Q4H PRN was given one dose of Morphine 2mg yesterday. Patients daughter has agreed to hospice care as outpt. REVIEW OF SYSTEMS: Denies rash, fever, chills, sweating, dizziness, drowsiness, blurred vision, sore throat, or change in weight. No shortness of breath, chest pain, palpitations, or cough. No nausea, vomiting, diarrhea, or blood in stool or urine. No dysuria. Objective Last 24 Hour Vital Signs Date Time Temp Pulse Resp B/P (MAP) Pulse Ox O2 Delivery O2 Flow Rate FiO2 06/11/20 04:00 97.8 46 20 116/51 (72) 98 06/10/20 23:57 97.3 52 20 146/110 (122) 98 06/10/20 21:00 Venturi Mask 10.0 06/10/20 18:00 106/52 06/10/20 16:00 98.3 75 20 111/54 (73) 97 06/10/20 12:45 74/45 06/10/20 12:00 98.4 80 20 74/45 (55) 99 06/10/20 09:00 Venturi Mask 10.0 Intake and Output 06/10/20 06/11/20 19:00 07:00 Intake Total 300 ml Output Total 0 ml Balance 300 ml Intake IV Total 300 ml Output Urine Total 0 ml # Voids 60 Laboratory Tests 06/11/20 05:00: White Blood Count 14.8H, Red Blood Count 3.58L, Hemoglobin 9.5L, Hematocrit 30.8L, Mean Corpuscular Volume 86, Mean Corpuscular Hemoglobin 26.4L, Mean Corpuscular Hemoglobin Concent 30.7L, Red Cell Distribution Width 19.7H, Platelet Count 151, Mean Platelet Volume 9.2, Neutrophils (%) (Auto) , Lymphocytes (%) (Auto) , Monocytes (%) (Auto) , Eosinophils (%) (Auto) , Basophils (%) (Auto) , Sodium Level 137, Potassium Level 5.1, Chloride Level 102, Carbon Dioxide Level 21, Anion Gap 14, Blood Urea Nitrogen 106H, Creatinine 10.8H, Estimat Glomerular Filtration Rate 3.6, Glucose Level 131H, Calcium Level 6.8L Height (Feet): 5 Height (Inches): 6.00 Weight (Pounds): 338 Objective PHYSICAL EXAMINATION: NECK: Range of motion is decreased due to the patient's condition. LUNGS: Decreased breath sounds bilaterally. HEART: Regular. ABDOMEN: Obese. EXTREMITIES: No clubbing. NEURO: No changes. Assessment/Plan Assessment/Plan: (1) Abdominal pain (2) Morbid obesity (3) Multiple joint pain and OA Patient to be continued on Tramadol. We will discontinue the Morphine D/w Dr. Agudelo and he concurred. Elio Colon Jun 11, 2020 08:37
[2020-06-11] MEDS: HydrALAZINE 50mg tab ORAL SCH (09:00)
[2020-06-11] MEDS: Docusate 100mg cap ORAL SCH ×2 (09:00→17:38)
--- NOTE | 2020-06-11 09:18 | General Progress Note ---
Subjective ROS Limited/Unobtainable: No Allergies: Coded Allergies: ACETAMINOPHEN (Verified Allergy, Unknown, 05/29/20) HYDROCODONE (Verified Allergy, Unknown, 05/29/20) Objective Last 24 Hour Vital Signs Date Time Temp Pulse Resp B/P (MAP) Pulse Ox O2 Delivery O2 Flow Rate FiO2 06/11/20 04:00 97.8 46 20 116/51 (72) 98 06/10/20 23:57 97.3 52 20 146/110 (122) 98 06/10/20 21:00 Venturi Mask 10.0 06/10/20 18:00 106/52 06/10/20 16:00 98.3 75 20 111/54 (73) 97 06/10/20 12:45 74/45 06/10/20 12:00 98.4 80 20 74/45 (55) 99 Intake and Output 06/10/20 06/11/20 18:59 06:59 Intake Total 300 ml Output Total 0 ml Balance 300 ml Intake IV Total 300 ml Output Urine Total 0 ml # Voids 60 Laboratory Tests 06/11/20 05:00: White Blood Count 14.8H, Red Blood Count 3.58L, Hemoglobin 9.5L, Hematocrit 30.8L, Mean Corpuscular Volume 86, Mean Corpuscular Hemoglobin 26.4L, Mean Corpuscular Hemoglobin Concent 30.7L, Red Cell Distribution Width 19.7H, Platelet Count 151, Mean Platelet Volume 9.2, Neutrophils (%) (Auto) , Lymphocytes (%) (Auto) , Monocytes (%) (Auto) , Eosinophils (%) (Auto) , Basophils (%) (Auto) , Sodium Level 137, Potassium Level 5.1, Chloride Level 102, Carbon Dioxide Level 21, Anion Gap 14, Blood Urea Nitrogen 106H, Creatinine 10.8H, Estimat Glomerular Filtration Rate 3.6, Glucose Level 131H, Calcium Level 6.8L Height (Feet): 5 Height (Inches): 6.00 Weight (Pounds): 338 General Appearance: lethargic EENT: normal ENT inspection Neck: supple Cardiovascular: normal rate Respiratory/Chest: decreased breath sounds Abdomen: normal bowel sounds, non tender, soft Extremities: non-tender Assessment/Plan Assessment/Plan: iron def anemia abd pain RI morbid obesity anasarca/ascites diverticulosis cholelithiasis DNR/DNI CT and US reviewed respiratory care off HD per family request poor prognosis comfort care Paul Díaz MD Jun 11, 2020 09:18
--- NOTE | 2020-06-11 09:32 | General Progress Note ---
Subjective Constitutional: Reports: weakness Respiratory: Reports: shortness of breath Allergies: Coded Allergies: ACETAMINOPHEN (Verified Allergy, Unknown, 05/29/20) HYDROCODONE (Verified Allergy, Unknown, 05/29/20) All Systems: reviewed and negative except above Subjective o2 mask sleepy Objective Last 24 Hour Vital Signs Date Time Temp Pulse Resp B/P (MAP) Pulse Ox O2 Delivery O2 Flow Rate FiO2 06/11/20 08:00 97.5 43 20 86/36 (53) 98 06/11/20 04:00 97.8 46 20 116/51 (72) 98 06/10/20 23:57 97.3 52 20 146/110 (122) 98 06/10/20 21:00 Venturi Mask 10.0 06/10/20 18:00 106/52 06/10/20 16:00 98.3 75 20 111/54 (73) 97 06/10/20 12:45 74/45 06/10/20 12:00 98.4 80 20 74/45 (55) 99 Intake and Output 06/10/20 06/11/20 19:00 07:00 Intake Total 300 ml Output Total 0 ml Balance 300 ml Intake IV Total 300 ml Output Urine Total 0 ml # Voids 60 Laboratory Tests 06/11/20 05:00: White Blood Count 14.8H, Red Blood Count 3.58L, Hemoglobin 9.5L, Hematocrit 30.8L, Mean Corpuscular Volume 86, Mean Corpuscular Hemoglobin 26.4L, Mean Corpuscular Hemoglobin Concent 30.7L, Red Cell Distribution Width 19.7H, Platelet Count 151, Mean Platelet Volume 9.2, Neutrophils (%) (Auto) , Lymphocytes (%) (Auto) , Monocytes (%) (Auto) , Eosinophils (%) (Auto) , Basophils (%) (Auto) , Sodium Level 137, Potassium Level 5.1, Chloride Level 102, Carbon Dioxide Level 21, Anion Gap 14, Blood Urea Nitrogen 106H, Creatinine 10.8H, Estimat Glomerular Filtration Rate 3.6, Glucose Level 131H, Calcium Level 6.8L Height (Feet): 5 Height (Inches): 6.00 Weight (Pounds): 338 General Appearance: lethargic EENT: normal ENT inspection Neck: normal alignment Cardiovascular: normal peripheral pulses, normal rate, regular rhythm Respiratory/Chest: chest wall non-tender, lungs clear, normal breath sounds Abdomen: normal bowel sounds, non tender, soft Extremities: normal inspection Edema: 1+ Arm (L), 1+ Arm (R), 1+ Leg (L), 1+ Leg (R), 1+ Pedal (L), 1+ Pedal (R), 1+ Generalized Edema: mild edema Neurologic: motor weakness Skin: normal pigmentation, warm/dry Assessment/Plan Problem List: (1) SOB (shortness of breath) ICD Codes: R06.02 - Shortness of breath SNOMED: 215871164 (2) Abdominal pain ICD Codes: R10.9 - Unspecified abdominal pain SNOMED: 37124569 (3) Pleural effusion ICD Codes: J90 - Pleural effusion, not elsewhere classified SNOMED: 23419966 (4) Morbid obesity with BMI of 50.0-59.9, adult ICD Codes: E66.01 - Morbid (severe) obesity due to excess calories; Z68.43 - Body mass index [BMI] 50.0-59.9, adult SNOMED: 207184686, 783934167, 44808328465978 (5) INGRIS (acute kidney injury) ICD Codes: N17.9 - Acute kidney failure, unspecified SNOMED: 0697148, 83447130 (6) Anemia ICD Codes: D64.9 - Anemia, unspecified SNOMED: 836334611 Status: unchanged Assessment/Plan: o2 pulm tx pain control gi f/u cbc bmp am Hernan Braga DO Jun 11, 2020 09:32
[2020-06-11] MEDS: Heparin 5000 units/ml inj SUBQ SCH (09:33)
--- NOTE | 2020-06-11 09:57 | NUR ---
NURSE NOTES: BP was 836, P: 43. Dr. Corral aware. Hold Lasix 100mg IV for now per MD
[2020-06-11 12:00] VITALS: BP 98/57
--- NOTE | 2020-06-11 13:10 | Pulmonology Progress Note ---
Subjective ROS Limited/Unobtainable: No Constitutional: Reports: no symptoms HEENT: Repors: no symptoms Respiratory: Reports: no symptoms Cardiovascular: Reports: no symptoms Allergies: Coded Allergies: ACETAMINOPHEN (Verified Allergy, Unknown, 05/29/20) HYDROCODONE (Verified Allergy, Unknown, 05/29/20) All Systems: reviewed and negative except above Objective Last 24 Hour Vital Signs Date Time Temp Pulse Resp B/P (MAP) Pulse Ox O2 Delivery O2 Flow Rate FiO2 06/11/20 12:00 97.9 43 20 98/57 (71) 95 06/11/20 09:00 Venturi Mask 10.0 06/11/20 09:00 86/36 06/11/20 08:00 97.5 43 20 86/36 (53) 98 06/11/20 04:00 97.8 46 20 116/51 (72) 98 06/10/20 23:57 97.3 52 20 146/110 (122) 98 06/10/20 21:00 Venturi Mask 10.0 06/10/20 18:00 106/52 06/10/20 16:00 98.3 75 20 111/54 (73) 97 Intake and Output 06/10/20 06/11/20 19:00 07:00 Intake Total 300 ml Output Total 0 ml Balance 300 ml Intake IV Total 300 ml Output Urine Total 0 ml # Voids 60 General Appearance: WD/WN HEENT: normocephalic, atraumatic Respiratory: chest wall non-tender, rhonchi - left, rhonchi - right Breasts: no masses Cardiovascular: normal peripheral pulses, normal rate Abdomen: normal bowel sounds, soft, non tender Genitourinary: normal external genitalia Extremities: no cyanosis Skin: no rash Neurologic: casino supervisor II-XII grossly normal Laboratory Tests 06/11/20 05:00: White Blood Count 14.8H, Red Blood Count 3.58L, Hemoglobin 9.5L, Hematocrit 3 0.8L, Mean Corpuscular Volume 86, Mean Corpuscular Hemoglobin 26.4L, Mean Corpuscular Hemoglobin Concent 30.7L, Red Cell Distribution Width 19.7H, Platelet Count 151, Mean Platelet Volume 9.2, Neutrophils (%) (Auto) , Lymphocytes (%) (Auto) , Monocytes (%) (Auto) , Eosinophils (%) (Auto) , Basophils (%) (Auto) , Sodium Level 137, Potassium Level 5.1, Chloride Level 102, Carbon Dioxide Level 21, Anion Gap 14, Blood Urea Nitrogen 106H, Creatinine 10.8H, Estimat Glomerular Filtration Rate 3.6, Glucose Level 131H, Calcium Level 6.8L Current Medications Medications (Trade) Dose Ordered Sig/Alissa Route PRN Reason Start Time Stop Time Status Last Admin Dose Admin Dextrose 1,000 ml @ 30 mls/hr Q24H IV 06/08/20 23:00 07/08/20 22:59 06/10/20 23:54 Docusate Sodium (Colace) 100 mg TWICE A DAY ORAL 06/03/20 09:00 07/03/20 08:59 06/09/20 18:31 Furosemide (Lasix) 100 mg EVERY 12 HOURS IV 06/06/20 12:00 07/03/20 20:59 06/10/20 21:17 Heparin Sodium (Porcine) (Heparin 5000 units/ml) 5,000 units EVERY 12 HOURS SUBQ 05/30/20 09:00 07/14/20 08:59 06/11/20 09:33 Hydralazine HCl (Apresoline) 50 mg TID ORAL 06/04/20 11:53 09/02/20 11:52 06/09/20 18:32 Metolazone (Zaroxolyn) 5 mg DAILY ORAL 06/03/20 19:00 07/03/20 18:59 06/06/20 10:14 Tramadol HCl (Ultram) 50 mg Q4H PRN ORAL Severe Pain (Pain Scale 7-10) 06/06/20 12:00 07/09/20 11:59 06/09/20 22:33 Assessment/Plan Problems: (1) Acute respiratory failure (2) Pleural effusion (3) INGRIS (acute kidney injury) (4) Morbid obesity with BMI of 50.0-59.9, adult (5) Abdominal wall cellulitis Assessment/Plan pts' sister agreed with hospice care. she will sign all the consents. all reviewed on face mask looks comfortable comfort measures symptomatic treatment Eder Corral MD Jun 11, 2020 13:10
--- NOTE | 2020-06-11 14:38 | NUR ---
CASE MANAGEMENT:REVIEW SI;BILAT PLEURAL EFFUSIONS. PULMONARY EDEMA. AC KIDNEY INJURY. ANEMIA. 97.9 43 2 0 86/36 98% 10L VENTURI MASK WBC 14.8 H/H 9.5/30.8 BUN 106 CR 10.8 CA 6.8 IS;IVF D5 @ 30 ML/HR HEPARIN SQ Q12 MED SURG STATUS DCP;FROM MARYNick MCKOY PATIENT HAS REFUSED Bi-AP PATIENT HAS REFUSED HEMODIALYSIS
--- NOTE | 2020-06-11 14:49 | Cardiac Electrophysiology PN ---
Assessment/Plan Assessment/Plan 1. Bradycardia with heart rate in the 40s-50s. 2. Hypertension, On Metolazone 3. Chest pain. The pain is atypical. Ruled out ME EF 55% on echocardiogram 4. Volume overload. Renal failure with creatinine of 10.8 Family Refusing HD 5. Generalized pain. Follow up pain management. 6. Morbid obesity. 7. Hyperkalemia. 8. Hospice care pending DW RN Subjective Subjective Confused on 40% Venturi Face Mask on On iv Lasix and Ancef on NMB Objective Last 24 Hour Vital Signs Date Time Temp Pulse Resp B/P (MAP) Pulse Ox O2 Delivery O2 Flow Rate FiO2 06/11/20 12:00 97.9 43 20 98/57 (71) 95 06/11/20 09:00 Venturi Mask 10.0 06/11/20 09:00 86/36 06/11/20 08:00 97.5 43 20 86/36 (53) 98 06/11/20 04:00 97.8 46 20 116/51 (72) 98 06/10/20 23:57 97.3 52 20 146/110 (122) 98 06/10/20 21:00 Venturi Mask 10.0 06/10/20 18:00 106/52 06/10/20 16:00 98.3 75 20 111/54 (73) 97 Intake and Output 06/10/20 06/11/20 19:00 07:00 Intake Total 300 ml Output Total 0 ml Balance 300 ml Intake IV Total 300 ml Output Urine Total 0 ml # Voids 60 Laboratory Tests Test 06/11/20 05:00 White Blood Count 14.8 K/UL (4.8-10.8) H Red Blood Count 3.58 M/UL (4.20-5.40) L Hemoglobin 9.5 G/DL (12.0-16.0) L Hematocrit 30.8 % (37.0-47.0) L Mean Corpuscular Volume 86 FL (80-99) Mean Corpuscular Hemoglobin 26.4 PG (27.0-31.0) L Mean Corpuscular Hemoglobin Concent 30.7 G/DL (32.0-36.0) L Red Cell Distribution Width 19.7 % (11.6-14.8) H Platelet Count 151 K/UL (150-450) Mean Platelet Volume 9.2 FL (6.5-10.1) Neutrophils (%) (Auto) % (45.0-75.0) Lymphocytes (%) (Auto) % (20.0-45.0) Monocytes (%) (Auto) % (1.0-10.0) Eosinophils (%) (Auto) % (0.0-3.0) Basophils (%) (Auto) % (0.0-2.0) Sodium Level 137 MMOL/L (136-145) Potassium Level 5.1 MMOL/L (3.5-5.1) Chloride Level 102 MMOL/L (98-107) Carbon Dioxide Level 21 MMOL/L (21-32) Anion Gap 14 mmol/L (5-15) Blood Urea Nitrogen 106 mg/dL (7-18) H Creatinine 10.8 MG/DL (0.55-1.30) H Estimat Glomerular Filtration Rate 3.6 mL/min (>60) Glucose Level 131 MG/DL (74-106) H Calcium Level 6.8 MG/DL (8.5-10.1) L Objective HEAD/NECK: No JVD. LUNGS: Clear. CARDIOVASCULAR: Regular S1 and S2 with no gallop. ABDOMEN: Morbidly obese. EXTREMITIES: 1+ pitting edema. Shad Colon MD Jun 11, 2020 14:49
--- NOTE | 2020-06-11 15:46 | NUR ---
INSURANCE CLINICALS AND REVIEW FAXED TO [facility] FAX [phone] TELE [phone] DENIZ Ballard
[2020-06-11 16:00] VITALS: BP 109/48
--- NOTE | 2020-06-11 19:00 | Surgery Progress Note ---
Surgery Progress Note Subjective Additional Comments ill appearing no acute events Objective Last 24 Hour Vital Signs Date Time Temp Pulse Resp B/P (MAP) Pulse Ox O2 Delivery O2 Flow Rate FiO2 06/11/20 16:00 97.6 45 20 109/48 (68) 95 06/11/20 12:00 97.9 43 20 98/57 (71) 95 06/11/20 09:00 Venturi Mask 10.0 06/11/20 09:00 86/36 06/11/20 08:00 97.5 43 20 86/36 (53) 98 06/11/20 04:00 97.8 46 20 116/51 (72) 98 06/10/20 23:57 97.3 52 20 146/110 (122) 98 06/10/20 21:00 Venturi Mask 10.0 I&O Intake and Output 06/10/20 06/11/20 18:59 06:59 Intake Total 300 ml Output Total 0 ml Balance 300 ml Intake IV Total 300 ml Output Urine Total 0 ml # Voids 60 Cardiovascular: RSR Respiratory: decreased breath sounds Abdomen: distended, non-tender, decreased bowel sounds Extremities: edema, no tenderness, no cyanosis Laboratory Tests Test 06/11/20 05:00 White Blood Count 14.8 K/UL (4.8-10.8) H Red Blood Count 3.58 M/UL (4.20-5.40) L Hemoglobin 9.5 G/DL (12.0-16.0) L Hematocrit 30.8 % (37.0-47.0) L Mean Corpuscular Volume 86 FL (80-99) Mean Corpuscular Hemoglobin 26.4 PG (27.0-31.0) L Mean Corpuscular Hemoglobin Concent 30.7 G/DL (32.0-36.0) L Red Cell Distribution Width 19.7 % (11.6-14.8) H Platelet Count 151 K/UL (150-450) Mean Platelet Volume 9.2 FL (6.5-10.1) Neutrophils (%) (Auto) % (45.0-75.0) Lymphocytes (%) (Auto) % (20.0-45.0) Monocytes (%) (Auto) % (1.0-10.0) Eosinophils (%) (Auto) % (0.0-3.0) Basophils (%) (Auto) % (0.0-2.0) Sodium Level 137 MMOL/L (136-145) Potassium Level 5.1 MMOL/L (3.5-5.1) Chloride Level 102 MMOL/L (98-107) Carbon Dioxide Level 21 MMOL/L (21-32) Anion Gap 14 mmol/L (5-15) Blood Urea Nitrogen 106 mg/dL (7-18) H Creatinine 10.8 MG/DL (0.55-1.30) H Estimat Glomerular Filtration Rate 3.6 mL/min (>60) Glucose Level 131 MG/DL (74-106) H Calcium Level 6.8 MG/DL (8.5-10.1) L Plan Problems: (1) Pleural effusion (2) Hyperkalemia (3) INGRIS (acute kidney injury) (4) Morbid obesity with BMI of 50.0-59.9, adult (5) Anemia (6) SOB (shortness of breath) (7) Abdominal pain (8) Abdominal wall cellulitis Assessment & Plan: panniculitis anasarca cont abx dnr/dni comfort care confirmed care plan with patients daughter polst noted no acute surgical intervention acute renal insufficiency no HD, no cath insertion given patients and family wishes respiratory insufficiency acidosis no intubation given care plan thank you ABDOMEN: Liver: Unremarkable. Gallbladder and bile ducts: Unremarkable. No calcified stones. No ductal dilation. Pancreas: Unremarkable. No ductal dilation. Spleen: Unremarkable. No splenomegaly. Adrenals: Unremarkable. No mass. Kidneys and ureters: Mild nonspecific perinephric stranding. No obstructing stones. Stomach and bowel: Diverticulosis of the colon with no signs of diverticulitis. No obstruction. PELVIS: Appendix: No findings to suggest acute appendicitis. Bladder: Unremarkable. No stones. Reproductive: Unremarkable as visualized. ABDOMEN and PELVIS: Intraperitoneal space: Mild ascites predominantly seen along the anterior liver margin. No free air. Bones/joints: Advanced multilevel disc degenerative disease. No acute fracture. No dislocation. Soft tissues: Stranding/fluid infiltration of the subcutaneous fat suggestive of anasarca. Vasculature: Unremarkable. No abdominal aortic aneurysm. Lymph nodes: Unremarkable. No enlarged lymph nodes. IMPRESSION: 1. Right sided lung nodules, differential diagnosis including metastatic disease/neoplasm versus inflammatory process. Follow-up recommended with CT chest for further characterization. 2. Bilateral pleural effusions, more significant on the right. 3. Diffuse anasarca. Mild ascites. 4. Diverticulosis with no signs of diverticulitis. No bowel obstruction. Sean Anderson Jun 11, 2020 19:00
--- NOTE | 2020-06-11 19:20 | NUR ---
NURSE NOTES: Report given to Bernabe from [facility]. All belongings were accounted for. Pt clean and dry. Pt was transferred via gurney by 4 ambulance personnel.
--- NOTE | 2020-06-12 11:45 | Discharge Summary ---
Discharge Summary Discharge Summary _ DATE OF ADMISSION: 05/29/2020 DATE OF DISCHARGE: 06/11/2020 DISCHARGED BY: Dr Braga REASON FOR ADMISSION: 59 years old female with past medical history of hypertension, diabetes mellitus type 2, presented from the custodial facility due to abdominal pain. Patient reported gradually worsening abdominal pain over a long time. She reported swelling and discomfort in the abdomen . She also reported swelling in her legs. Upon evaluation blood pressure was 164/78 , pulse oximetry was 85% on room air ; patient required supplemental oxygen. Chemistry revealed potassium 5.4. BUN 41, creatinine 3.6. Calcium 7.5. Stable LFT and lipase. Urinalysis revealed +4 protein , no evidence of urinary tract infection. No leukocytosis, hemoglobin 9.4 , hematocrit 31.6 , platelet count 262. CT scan of the abdomen and pelvis revealed right-sided lung nodules , bilateral pleural effusion , more significant on the right. Diffuse anasarca. Mild ascites. Diverticulosis without evidence of diverticulitis. No bowel obstruction. Physical examination revealed an infected abdominal wall tender to palpation . Patient started on IV antibiotic. Patient received analgesic , IV hydration and subsequently admitted for further management. CONSULTANTS: dye can operator Dr. Thakkar pulmonary Dr. Corral ID specialist Dr. Boyer GI specialist translator interpreter Dr. Stewart surgery Dr. Anderson pain specialist Dr. Agudelo HOSPITAL COURSE: Patient admitted to monitored floor. CT of the chest revealed moderate right and small left pleural effusion. Bilateral mild pulmonary edema/infiltrate. Bilateral scattered small nodular lung densities. Echocardiogram demonstrated preserved ejection fraction 55%, no evidence of wall motion abnormalities. On 05/31 patietn noted to be in respiratory distress. ABG revealed acute respiratory acidosis with pH 7.08, PCO2 75.7. Patient denied BiPAP . Supplemental oxygen titrated to keep pulse oximetry above 92%; patient was on nasal cannula , then Venturi mask. Pulmonary toilet provided. Renal ultrasound revealed no hydronephrosis. Renal parameters and electrolytes were closely monitored, electrolytes corrected as needed , and nephrotoxic's were avoided . Hyperkalemia was treated. Hemodialysis catheter insertion was ordered . Patient was transferred to ICU . Family changed code status on 06/01/2020 to DNR/DNI. Family declined hemodialysis. Patient transferred to medical surgical floor. Patient remained on Venturi mask. Pain management was addressed as per pain specialist recommendation. Patient received antibiotic for possible panniculitis and left lower extremity cellulitis and completed treatment. Patient remained afebrile. Rapid COVID-19 was negative. Abdominal ultrasound revealed cholelithiasis, no evidence of acute cholecystitis . Follow-up chest x-ray showed cardiomegaly and degenerative changes of spine ; small bilateral pleural effusion with vascular congestion, consistent with fluid overload. Creatinine trended up to 10.8 , BUN 106. Family continued to deny dialysis, patient with DNR/DNI status All consultants agreed to comfort measures. Patient subsequently was transferred to custodial facility for continuation of care. FINAL DIAGNOSES: Acute kidney injury on chronic renal failure Acute respiratory failure Hyperkalemia Anemia Pleural effusion Morbid obesity with BMI from 50-59.9 Abdominal wall cellulitis, possible panniculitis Left lower extremity cellulitis Abdominal pain Hypertension Volume overload Bradycardia Iron deficiency anemia Diverticulosis Cholelithiasis Anasarca/ascites Morbid obesity DNR/DNI status DISCHARGE MEDICATIONS: List of medication was sent to accepting facility DISCHARGE INSTRUCTIONS: Patient was discharged to the custodial facility. Follow up with medical doctor at the facility. I have been assigned to dictate discharge summary for this account. I was not involved in the patient's management. Maya Calderon NP Jun 12, 2020 11:45
--- NOTE | 2020-06-12 12:07 | NUR ---
INSURANCE DC SUMMARY/INSTRUCTIONS FAXED TO [facility] FAX [phone] TELE [phone] DENIZ Ballard
== END 2020-06-11 19:40 | DRG 469 ==
LOC: EDBD 19:14 → EMR 19:28 → 4E 20:58 → UNDOADMOB 20:58 → 4E 20:59 → UNDOADMOB 20:59 → EDBEDREQ 23:20 → 4E 05-30 12:42 → 2E 05-30 12:42 → ICU 05-31 11:26 → 2E 05-31 11:26 → 4E 05-31 15:50 → ICU 05-31 15:50 → 4E 06-02 06:07 → INTOOBSV 06-02 11:54 → OBSVTOIN 06-02 11:54 → 4E 06-02 17:43 → 2E 06-02 17:43 → 3E 06-08 13:52 → 2E 06-08 13:52 → UNDODISIN 06-11 19:40
DX: N17.9 Acute kidney failure, unspecified (principal); I12.9 Hypertensive chronic kidney disease with stage 1 through stage 4 chronic kidney disease, or unspecified chronic kidney disease; L03.311 Cellulitis of abdominal wall; J96.00 Acute respiratory failure, unspecified whether with hypoxia or hypercapnia; L03.116 Cellulitis of left lower limb; E66.01 Morbid (severe) obesity due to excess calories; K57.30 Diverticulosis of large intestine without perforation or abscess without bleeding; R91.1 Solitary pulmonary nodule; Z68.43 Body mass index [BMI] 50.0-59.9, adult; N18.9 Chronic kidney disease, unspecified; E87.5 Hyperkalemia; D63.1 Anemia in chronic kidney disease; D50.9 Iron deficiency anemia, unspecified; R18.8 Other ascites; M79.3 Panniculitis, unspecified; L98.7 Excessive and redundant skin and subcutaneous tissue; E11.22 Type 2 diabetes mellitus with diabetic chronic kidney disease; Z66 Do not resuscitate; Z51.5 Encounter for palliative care; I50.9 Heart failure, unspecified; Z79.4 Long term (current) use of insulin; Z88.6 Allergy status to analgesic agent; E87.70 Fluid overload, unspecified; R00.1 Bradycardia, unspecified; K80.20 Calculus of gallbladder without cholecystitis without obstruction; J45.909 Unspecified asthma, uncomplicated; K21.9 Gastro-esophageal reflux disease without esophagitis; M15.9 Polyosteoarthritis, unspecified; R07.89 Other chest pain; R91.8 Other nonspecific abnormal finding of lung field
CPT/HCPCS: 36415; 71045; 71250; 74176; 76705; 76770; 80048; 80053; 80061; 81003; 82150; 82378; 82550; 82607; 82728; 82746; 82803; 82962; 82977; 83036; 83540; 83550; 83690; 83735; 83880; 84100; 84439; 84443; 84484; 84550; 85007; 85025; 85610; 85730; 86140; 86171; 86635; 86703; 87081; 87385; 87449; 93005; 93306; 94664; 96365; 96375; 99284; J1815; J2405; J2765; U0002